=== PATIENT | male | born 1940 | race Caucasian/White ===

== ENCOUNTER → 2019-02-26 08:05 | Outpatient (BNVA) | payer MEDICARE, SELFPAY | PROVIDERS: Family Provider Family Medicine; PCP Family Medicine; Visit Provider Internal Medicine Cardiovascular Disease | DX: I48.91 Unspecified atrial fibrillation (principal) | CPT/HCPCS: 85610 ==

== ENCOUNTER → 2019-03-08 08:24 | Outpatient (BNVA) | payer MEDICARE, SELFPAY | PROVIDERS: Family Provider Family Medicine; PCP Family Medicine; Visit Provider Internal Medicine Cardiovascular Disease | DX: I48.91 Unspecified atrial fibrillation (principal) | CPT/HCPCS: 85610 ==

== ENCOUNTER → 2019-03-23 08:32 | Outpatient (BNVA) | payer MEDICARE, SELFPAY | PROVIDERS: Family Provider Family Medicine; PCP Family Medicine; Visit Provider Internal Medicine Cardiovascular Disease | DX: I48.91 Unspecified atrial fibrillation (principal) | CPT/HCPCS: 85610 ==

== ENCOUNTER → 2019-04-17 15:28 | Outpatient (BNVA) | payer MEDICARE, SELFPAY | PROVIDERS: Family Provider Family Medicine; PCP Family Medicine; Visit Provider Internal Medicine Cardiovascular Disease | DX: I48.91 Unspecified atrial fibrillation (principal); Z79.01 Long term (current) use of anticoagulants | CPT/HCPCS: 85610 ==

== ENCOUNTER 2019-04-19 04:35 | Emergency (ER) | payer MEDICARE, SELFPAY ==
[2019-04-19 05:25] VITALS: BP 135/74; PULSE 103; RESP 18; TEMP 36.7; O2SAT 94; BMI 34.2
--- NOTE | 2019-04-19 06:01 | CTR_ITS ---
PROCEDURE INFORMATION: Exam: CT Abdomen And Pelvis Without Contrast Exam date and time: 04/19/2019 7:19 AM Age: 78 years old Clinical indication: Abdominal pain; Acute; Additional info: Abdominal pain TECHNIQUE: Imaging protocol: Computed tomography of the abdomen and pelvis without contrast. Total DLP: 1081.18 mGy-cm Radiation optimization: All CT scans at this facility use at least one of these dose optimization techniques: automated exposure control; mA and/or kV adjustment per patient size (includes targeted exams where dose is matched to clinical indication); or iterative reconstruction. COMPARISON: CT Chest/Abdomen/Pelvis wo IV 01/04/2017 12:38 PM FINDINGS: Lungs: RIGHT posterior pulmonary partial passive atelectasis. Pleural space: Large RIGHT pleural effusion. Minimal LEFT pleural effusion. Heart: Small pericardial effusion. Liver: Normal. No mass. Gallbladder and bile ducts: Normal. No calcified stones. No ductal dilation. Pancreas: Severe pancreatic atrophy. Spleen: The spleen demonstrates a few small granulomatous calcifications. Adrenals: Normal. No mass. Kidneys and ureters: Posterior left mid renal exophytic 3.3 cm lesion measuring 26.8 Hounsfield units, previously 3.5 cm and 11.7 Hounsfield units. Additional left renal lower pole 2.4 cm exophytic probable cyst, stable. Additional 9.7 mm left renal hypodensity. Impression Stomach and bowel: A small periampullary duodenal diverticulum is present. Sigmoid, descending and distal transverse colonic diverticula are present without evidence of diverticulitis. Appendix: The vermiform appendix is normal. Intraperitoneal space: Nonspecific mild pelvic peritoneal fluid (13.7-17.5 Hounsfield units). Decreased, mild perihepatic peritoneal fluid. Vasculature: Moderate aortic atherosclerotic calcification without aneurysm. The iliac arteries show moderate bilateral atherosclerotic calcifications without evidence of aneurysm. Lymph nodes: No enlarged lymph nodes. Bladder: Unremarkable as visualized. Reproductive: The prostate gland demonstrates nonspecific parenchymal calcifications. Bones/joints: Posterior exostosis lateral left iliac wing, stable. Lumbar spine vertebral body marginal osteophytes are noted at multiple levels. Multilevel mild lumbar spine spondylosis. Soft tissues: Unremarkable. CT/CT abdomen pelvis wo con [id number] IMPRESSION: 1. Probable left renal hemorrhagic cyst. Correlation with sonography or follow-up is recommended. 2. Additional left renal probable cysts. 3. Diverticulosis. 4. Decreased ascites. 5. Chronic calcific prostatitis. 6. Small pericardial effusion. 7. Large right pleural effusion, stable/decreased. 8. Minimal left pleural effusion, stable. Radiation Dose CTDIVOL = (mGy): DLP = 1081.18 (mGy-cm)
[2019-04-19 06:33] VITALS: BP 144/94; PULSE 104; O2SAT 94
[2019-04-19 06:34] LABS: Basophils % 0.6 %; Eosinophils % 0.6 %; Hematocrit 31.7 % (42.0-52.0); Hemoglobin 8.8 g/dL (11.7-16.6); Lymphocytes # 1.1 10^3/uL (0.8-4.8); Lymphocytes % 16.4 %; Mean Corpuscular HGB Conc 27.8 g/dL (30.0-36.0); Mean Corpuscular Hemoglobin 24.6 pg (28.0-34.0); Mean Corpuscular Volume 88.8 fL (80-94); Mean Platelet Volume 10.2 fL (7.4-10.4); Monocytes % 14.2 %; Neutrophils # 4.6 10^3/uL (1.8-7.7); Neutrophils % 67.8 %; Nucleated Red Blood Cells % 0.4 %; Platelet Count 188 10^3/cmm (130-400); Red Blood Count 3.57 10^6/uL (4.1-5.3); White Blood Count 6.8 10^3/uL (4.0-10.0)
[2019-04-19 06:34] LABS: Protein Urine Trace (Negative); Specific Gravity, Urine 1.015 (1.005-1.030); Urine Appearance Clear (CLEAR); Urine Color Yellow (Yellow); pH Urine 5 (5-7)
[2019-04-19 06:35] LABS: Add Urine Culture? No; Add Urine Microscopic? YES; Bacteria Urine TRACE; Bilirubin Urine Neg (NEGATIVE); Blood Urine Neg (Negative); Glucose Urine UA Norm (Normal); Ketones Urine Negative (Negative); Leukocyte Esterase Urine Negative (Negative); Nitrate Urine Negative (Negative); Squamous Epithelial Cell Urine RARE (0-5); Urobilinogen Urine 1 mg/dL (Negative); WBC Urine RARE /hpf (0-5)
--- NOTE | 2019-04-19 06:39 | W.ED.ABDPA2 ---
HPI - Abdominal Pain General: Chief Complaint: Abdominal Pain Stated Complaint: SHORTNESS OF BREATH Time Seen by Provider: 04/19/19 05:51 History of Present Illness: HPI narrative: 78-year-old male presents with chronic abdominal pain states he feels bloated and full he feels he has a fluid buildup in his abdomen he states he has had this before but he has not had surgery. He denies any shortness of breath no orthopnea or PND denies fever sweats or chills has had a loose stool but no chronic diarrhea denies hematochezia melena hematemesis or coffee-ground emesis Associated Symptoms: Denies bloating, chills, coffee ground emesis, constipation, diarrhea, dysuria, fever(s), hematochezia, hematemesis, melena, nausea and vomiting Review of Systems Const: Denies: fever, chills, body aches, change in appetite, fatigue or malaise ENMT: Denies: throat pain, ear pain, nasal discharge or nasal congestion Card: Denies: chest pain, edema, shortness of breath on exertion or shortness of breath when lying down Resp: Denies: shortness of breath, productive cough or non-productive cough GI: Denies: abdominal pain, nausea, vomiting, vomiting blood, coffee grounds in vomit, diarrhea, constipation, bloating, blood in stool or black tarry stool : Denies: flank pain, painful urination, urinary frequency or urinary urgency Skin/Breast: Denies: rash or itching PFSH ED PFSH: Social History Smoking and tobacco status: never smoked Alcohol intake: never Physical Exam Const: COMMON NORMALS: no apparent distress GENERAL APPEARANCE: cooperative and comfortable ORIENTATION/CONSCIOUSNESS: Yes awake, Yes oriented to person, Yes oriented to place and Yes oriented to time HENMT: COMMON NORMALS: normocephalic, head/scalp atraumatic, hearing grossly normal bilaterally, external ears normal, EAC's normal, TM's normal bilaterally, nasal mucous membranes and turbinates normal, moist oral mucous membranes and oropharynx normal HEAD & SCALP: normocephalic and atraumatic NOSE: nasal mucous membranes and turbinates normal EXTERNAL EAR: Yes external ears normal EXTERNAL AUDITORY CANAL: EAC's normal TYMPANIC MEMBRANE: TM's normal bilaterally Eye: COMMON NORMALS: PERRL, EOMs intact bilaterally, conjunctivae normal and no scleral icterus CONJUNCTIVA: Yes conjunctivae normal PUPIL: Yes PERRL Neck/C-Spine: COMMON NORMALS: full ROM, no lymphadenopathy, supple and no JVD Lymph: LYMPHATIC: no lymphadenopathy noted and no lymphedema noted Resp: AUSCULTATION: rales (Mild bilaterally at the bases), no wheezes and diminished lung sounds (Right base) Cardio: COMMON NORMALS: no JVD, regular rate, regular rhythm and no murmurs RATE: regular rate RHYTHM: regular rhythm GI: COMMON NORMALS: soft to palpation and no hepatosplenomegaly AUSCULTATION: Yes normoactive bowel sounds PALPATION: Yes soft, No tender, No guarding and Yes no hepatosplenomegaly Extremity: COMMON NORMALS: normal to inspection, normal capillary refill, no clubbing, cyanosis or edema, no calf tenderness and no pedal edema Neuro: SENSORIUM/ORIENTATION: Yes oriented to person, Yes oriented to place and Yes oriented to time Skin: COMMON NORMALS: no rashes or lesions noted GENERAL SKIN EXAM: no rashes or lesions noted Course ED course: Discussed findings the patient most of these things are chronic. He is oxygenating well we will get a good discharge him home we will set him up to see Dr. Bryant tomorrow. If he has any worsening problems or change in symptoms return to emergency room immediately Vital Signs: Vital signs: Vital Signs Temperature 98.1 F 04/19/19 05:25 Pulse Rate 97 04/19/19 10:05 Respiratory Rate 16 04/19/19 10:05 Blood Pressure 129/82 04/19/19 10:05 Pulse Oximetry 96 04/19/19 10:05 MDM - Abdominal Pain Lab Data: Labs: Lab Results 04/19/19 04/19/19 04/19/19 Range/Units 05:33 06:26 06:26 WBC 6.8 (4.0-10.0) 10^3/ uL RBC 3.57 L (4.1-5.3) 10^6/u L Hgb 8.8 L (11.7-16.6) g/dL Hct 31.7 L (42.0-52.0) % MCV 88.8 (80-94) fL MCH 24.6 L (28.0-34.0) pg MCHC 27.8 L (30.0-36.0) g/dL RDW 17.0 H (12.1-15.1) % Plt Count 188 (130-400) 10^3/c mm MPV 10.2 (7.4-10.4) fL Neut % (Auto) 67.8 % Lymph % (Auto) 16.4 % [place] % (Auto) 14.2 % Eos % (Auto) 0.6 % Baso % (Auto) 0.6 % Neut # (Auto) 4.6 (1.8-7.7) 10^3/u L Lymph # (Auto) 1.1 (0.8-4.8) 10^3/u L [place] # (Auto) 1.0 H (0.2-0.9) 10^3/u L Eos # (Auto) 0.0 (0.0-0.8) 10^3/u L Baso # (Auto) 0.0 (0.0-0.1) 10^3/u L Nucleated RBC % (a uto) 0.4 % Nucleated RBCs # 0.0 /100WBC PT (10.5-13.3) SECO NDS INR (0.8-1.2) Sodium 141 (136-145) mmol/L Potassium 4.9 (3.5-5.1) mmol/L Chloride 101 (98-107) mmol/L Carbon Dioxide 25 (22-29) mmol/L Anion Gap 19.9 H (5-19) BUN 41 H (8-23) mg/dL Creatinine 2.5 H (0.7-1.2) mg/dL Glucose 100 (65-115) mg/dL Calcium 9.5 (8.5-10.5) mg/dL Total Bilirubin 1.8 H (0.15-1.2) mg/dL AST 40 (0-40) U/L ALT 15 (0-41) U/L Alkaline Phosphata se 99 (40-130) IU/L Total Protein 7.5 (6.6-8.7) g/dL Albumin 3.4 L (3.5-5.2) g/dL Globulin 4.1 (1.3-4.6) g/dL Lipase 23 (13-60) U/L Urine Color Yellow (Yellow) Urine Appearance Clear (CLEAR) Urine pH 5 (5-7) Ur Specific Gravit y 1.015 (1.005-1.030) Urine Protein Trace (Negative) Urine Glucose (UA) Norm (Normal) Urine Ketones Negative (Negative) Urine Blood Neg (Negative) Urine Nitrate Negative (Negative) Urine Bilirubin Neg (NEGATIVE) Urine Urobilinogen 1 H (Negative) mg/dL Ur Leukocyte Ale ase Negative (Negative) Urine RBC None (0-2) /hpf Urine WBC Rare (0-5) /hpf Ur Squamous Epith Cells Rare (0-5) Urine Bacteria Trace (NONE) 04/19/19 Range/Units 06:26 WBC (4.0-10.0) 10^3/ uL RBC (4.1-5.3) 10^6/u L Hgb (11.7-16.6) g/dL Hct (42.0-52.0) % MCV (80-94) fL MCH (28.0-34.0) pg MCHC (30.0-36.0) g/dL RDW (12.1-15.1) % Plt Count (130-400) 10^3/c mm MPV (7.4-10.4) fL Neut % (Auto) % Lymph % (Auto) % [place] % (Auto) % Eos % (Auto) % Baso % (Auto) % Neut # (Auto) (1.8-7.7) 10^3/u L Lymph # (Auto) (0.8-4.8) 10^3/u L [place] # (Auto) (0.2-0.9) 10^3/u L Eos # (Auto) (0.0-0.8) 10^3/u L Baso # (Auto) (0.0-0.1) 10^3/u L Nucleated RBC % (a uto) % Nucleated RBCs # /100WBC PT 18.50 H (10.5-13.3) SECO NDS INR 1.53 H (0.8-1.2) Sodium (136-145) mmol/L Potassium (3.5-5.1) mmol/L Chloride (98-107) mmol/L Carbon Dioxide (22-29) mmol/L Anion Gap (5-19) BUN (8-23) mg/dL Creatinine (0.7-1.2) mg/dL Glucose (65-115) mg/dL Calcium (8.5-10.5) mg/dL Total Bilirubin (0.15-1.2) mg/dL AST (0-40) U/L ALT (0-41) U/L Alkaline Phosphata se (40-130) IU/L Total Protein (6.6-8.7) g/dL Albumin (3.5-5.2) g/dL Globulin (1.3-4.6) g/dL Lipase (13-60) U/L Urine Color (Yellow) Urine Appearance (CLEAR) Urine pH (5-7) Ur Specific Gravit y (1.005-1.030) Urine Protein (Negative) Urine Glucose (UA) (Normal) Urine Ketones (Negative) Urine Blood (Negative) Urine Nitrate (Negative) Urine Bilirubin (NEGATIVE) Urine Urobilinogen (Negative) mg/dL Ur Leukocyte Ale ase (Negative) Urine RBC (0-2) /hpf Urine WBC (0-5) /hpf Ur Squamous Epith Cells (0-5) Urine Bacteria (NONE) Discharge Plan Discharge Patient Disposition: Home, Self-Care Clinical Impression: Renal failure (ARF), acute on chronic, Pleural effusion on right Condition: Stable Prescriptions: Discontinued furosemide 80 mg tablet 80 mg PO QAM Qty: 30 RF: 5 spironolactone 25 mg tablet 12.5 mg PO DAILY RF: 0 No Action warfarin 2.5 mg tablet See Rx Instructions .ROUTE .COMPLEX RF: 0 warfarin 5 mg tablet See Rx Instructions .ROUTE .COMPLEX RF: 0 multivitamin [Multiple Vitamins] Tablet 1 tab PO DAILY RF: 0 carvedilol 3.125 mg tablet 3.125 mg PO BID RF: 0 ibuprofen 200 mg Tablet 200 mg PO BEDTIME PRN (Reason: Pain) RF: 0 potassium chloride 10 mEq tablet,ER particles/crystals 10 meq PO DAILY RF: 0 Discharge Orders: Discharge Order (Routine); Ordered 04/19/19 Ordered By: Mckinley Aden Other Ambulatory Orders: DME: Oxygen (Order) Location: None Selected Ordered By: Mckinley Aden Referrals: Adriel Bryant MD [Physician] - (Right pleural effusion, acute on chronic renal failure) Discharge Diet: Usual diet Discharge Activity: Limit activity as instructed Activity Restrictions/Additional Instructions: This management will call with referral to Dr. Bryant Discharge Date/Time: 04/19/19 10:06 Coding Level of Care Code ED Obstetrics Specialist for Tamara Wheeler
[2019-04-19 06:51] LABS: Alanine Aminotransferase 15 U/L (0-41); Albumin Level 3.4 g/dL (3.5-5.2); Alkaline Phosphatase 99 IU/L (40-130); Anion Gap 19.9 (5-19); Aspartate Amino Transferase 40 U/L (0-40); Blood Urea Nitrogen 41 mg/dL (8-23); Calcium 9.5 mg/dL (8.5-10.5); Carbon Dioxide 25 mmol/L (22-29); Chloride 101 mmol/L (98-107); Globulin 4.1 g/dL (1.3-4.6); Glucose 100 mg/dL (65-115); Lipase 23 U/L (13-60); Potassium 4.9 mmol/L (3.5-5.1); Sodium 141 mmol/L (136-145); Total Bilirubin 1.8 mg/dL (0.15-1.2); Total Protein 7.5 g/dL (6.6-8.7)
--- NOTE | 2019-04-19 07:32 | XR_ITS ---
WS: [id number] Portable AP upright chest, 04/19/2019 Clinical Data: dyspnea/cough Comparison: PA and lateral chest, 11/09/2017. CT abdomen and pelvis, 04/19/2019 Findings: No nodules or masses are seen. There is a right basilar effusion. The left lung is clear. T he heart is enlarged. The pulmonary vascularity is not increased. No pneumonia or pneumothorax is see n. The aortic arch and descending aorta show tortuosity. There is a orthopedic anchor in the left hu meral head. XR/XR chest 1V portable [id number] Impression: 1. Cardiomegaly and right pleural effusion. 2. Atherosclerosis.
[2019-04-19] MEDS: sodium chloride 0.9% 1,000 ML 999 ML IV (07:42)
--- NOTE | 2019-04-19 07:44 | PC.NURSE ---
changed fluids to 125 ml/hr per MD order from dr lemus
--- NOTE | 2019-04-19 08:52 | PC.PHAR ---
pt states he cant remember all of his medications, i put in what has been filled recently
[2019-04-19 09:29] VITALS: O2SAT 88; O2SAT 95; O2SAT 96
[2019-04-19 09:46] LABS: INR 1.53 (0.8-1.2)
[2019-04-19 10:05] VITALS: BP 129/82; PULSE 97; RESP 16; O2SAT 96
--- NOTE | 2019-04-20 09:47 | DCPLANNER ---
integrated campaign manager had message to schedule a follow up appointment for patient with Dr. Bryant at [facility]. integrated campaign manager called [facility], spoke with Alicia, a follow up appointment is scheduled for , May 10, [address] at 1:[address] Bryant. Clinic will call patient with appointment melissa.
--- NOTE | 2019-05-18 09:15 | DCPLANNER ---
Patient did attend appointment scheduled for 05.10.19 with [facility].
== END 2019-04-19 10:06 | disposition home or self-care (01) ==
PROVIDERS: Emergency Medicine; Emergency Provider Family Medicine; Family Provider Family Medicine; PCP Family Medicine
DX: J90 Pleural effusion, not elsewhere classified (principal); N17.9 Acute kidney failure, unspecified; N18.9 Chronic kidney disease, unspecified; K57.30 Diverticulosis of large intestine without perforation or abscess without bleeding; R18.8 Other ascites; N41.1 Chronic prostatitis; I31.3 Pericardial effusion (noninflammatory); I51.7 Cardiomegaly; I70.0 Atherosclerosis of aorta
CPT/HCPCS: 36415; 71045; 74176; 80053; 81001; 83690; 85025; 85610; 96360; 96361; 96365; 99283; 99284; A9270; J7030

== ENCOUNTER → 2019-04-20 06:40 | Day surgery (SDC) | payer MEDICARE, SELFPAY ==
[2019-04-20 07:00] VITALS: BP 127/89; PULSE 104; RESP 16; TEMP 36.6; O2SAT 98; BMI 23.6
[2019-04-20 07:41] LABS: INR 1.53 (0.8-1.2)
[2019-04-20 07:42] LABS: Partial Thromboplastin Time 38.1 SECONDS (23.9-36.7)
--- NOTE | 2019-04-20 09:01 | XR_ITS ---
WS: [id number] CHEST XRAY TECHNIQUE: Portable chest. CLINICAL INFORMATION: POST THORACENTESIS COMPARISON: April 19, 2019 FINDINGS: Heart: Cardiomegaly. Prominent left ventricle. Lungs: Chronic emphysematous changes. No acute pulmonary infiltrates. No pneumothorax. No significant pleural fluid. Bones: Hypertrophic changes thoracic spine. Left rotator cuff anchor. XR/XR chest 1V portable [id number] IMPRESSION: No pneumothorax postthoracentesis
[2019-04-20 09:06] VITALS: BP 130/91; PULSE 104; RESP 16; O2SAT 100
--- NOTE | 2019-04-20 09:28 | PM.HP ---
Providers/Chief Complaint Primary Care Provider: Dax Jordan DO Chief Complaint: THORACENTESIS History of Present Illness Lele Talavera is a 78 year old male with a history of congestive heart failure and atrial fibrillation who presented to the emergency department yesterday with worsening shortness of breath. The patient was noted to desaturate very easily and was given oxygen. A chest x-ray at that time revealed right-sided pleural effusion has discussed his care with the ED physician. The plan was for him to come see me today and get a thoracentesis if necessary. I had seen and evaluated the patient today. It appears that the patient is completely unaware of his medical conditions. He is unable to tell me what medications he takes. He lost his 3 years ago and states that he misses her. His niece takes care of his medications. The patient has intermittent cough with white sputum production, no significant wheezing. He is a lifelong non-smoker. The patient does not complain of any significant resting shortness of breath however he does have exertional shortness of breath and states that that is because of his age. I have reviewed the patient's past medical record. The patient has been following up with Dr. Snow for his cardiology problems however it appears that the patient has not been taking his diuretic regimen as suggested to him in the past. He had undergone 3 thoracenteses in the past as well and a significant amount of fluid was removed. 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 There is also moderate size right-sided pleural effusion without any sign of complexity. He ejection fraction was significantly diminished. Review of Systems Narrative: General: No fevers chills night sweats Skin: No rash HEENT: No nasal congestion, rhinitis, sinusitis, sneezing, hoarseness of voice. Neck: There is no neck swelling, mass or swollen glands. Respiratory: Please see my HPI. Cardiovascular: No chest pain, resting shortness of breath, orthopnea, proximal nocturnal dyspnea, palpitation, occasional lower extremity edema. Gastrointestinal: No active abdominal pain, nausea, vomiting, melena Musculoskeletal: No joint pain or swelling, muscle weakness, morning stiffness, complains of some numbness and tingling in his lip and right foot Neurological: Patient is awake alert and oriented x3, no paralysis, no gross motor deficit Psychiatric: No anxiety Medications/Allergies Allergies Allergy/AdvReac Type Severity Reaction Status Date / Time Penicillins Allergy Unknown Unverified 02/26/19 08:03 PFSH Acute PFSH: Medical History Atrial fibrillation CHF (congestive heart failure) CKD (chronic kidney disease) HTN (hypertension) Hx pulmonary embolism Liver cirrhosis Mediastinal lymphadenopathy Mitral regurgitation Pulmonary HTN Surgical History S/P hernia repair x2 S/P rotator cuff repair Left S/P thoracentesis (~07/07/17) right sided 2000ml removed Family History Other Stroke Social History Smoking and tobacco status: never smoked Alcohol intake: never Vitals/I&O/Wt Last Vital Signs Temp 97.8 F 04/20/19 07:00 Pulse 104 H 04/20/19 09:06 Resp 16 04/20/19 09:06 BP 130/91 04/20/19 09:06 Pulse Ox 100 04/20/19 09:06 Weight last 48 hrs Weight 160 lb Physical Exam Narrative: EXAM NARRATIVE: General: Patient is awake alert and oriented, in no distress. HEENT: Pupil bilateral symmetric, light and accommodation reflex present, extraocular muscle movement intact, no deformity of the nose. Oral mucosa is moist, no pharyngeal erythema or cobblestoning. Neck: Positive JVD, no cervical or supraclavicular lymphadenopathy. Respiratory: Inspection: No visible deformity of the chest wall, no scar, no mass lesion, no visible heaving of the apical impulse Palpation: Trachea is mildly deviated to the right, bilateral symmetric expansion, reduced vocal fremitus in the right lower lung posteriorly Percussion: Dull percussion note over the right posterior hemithorax Auscultation: Bilateral clear to auscultation both anterior and posteriorly, no crackles wheezing or rhonchi, absent breath sound over the right posterior hemithorax Cardiovascular: Regular rate and rhythm, S1-S2 present, very soft heart sound, no murmur, no right ventricular heave, mild peripheral edema. Abdomen: Soft, nontender, mildly distended, positive bowel sound. No palpable organomegaly. Musculoskeletal: No obvious joint deformity Skin: No rash, no evidence of erythema nodosum or multiforme. Neuro: Mental status is normal however the patient has no idea about his care, no gross cranial nerve deficit, normal motor and coordination. Data Other data: The chest x-ray in the ER yesterday revealed subarachnoid noted pleural effusion on the right side, increased interstitial opacity as well as prominent minor fissure on the right side. As described above, the bedside ultrasound revealed moderate sized right-sided pleural effusion. A&P Assessment and plan (1) Pleural effusion on right: Based on the patient's history of heart failure, presence of IVC dilation with retrograde flow into the hepatic vein and right-sided pleural effusion, this is consistent with pleural effusion secondary to heart failure. I do not have any suspicion for an empyema. I am going to perform a thoracentesis chest to relieve the patient of his shortness of breath as much as possible as he is not taking his water pill the way he should. The patient follows up with Dr. Rubalcava and does not need to follow-up with me on a regular basis. I am going to send the pleural fluid for all studies. 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
--- NOTE | 2019-04-20 09:39 | PM.ACPR ---
Procedure/Consent Time out: Time Out Performed: Yes Consent: Consent for Procedure: Consent obtained from patient Procedure Narrative: Name of the procedure: Right thoracentesis under ultrasound guidance. Indication: Shortness of breath with right-sided pleural effusion in the setting of congestive heart failure Anesthetics: Local anesthesia with 1% lidocaine. IV pain medication: None. Description of the procedure: The procedure was explained to the patient in detail including the risks and a consent was obtained. The right hemithorax was scanned with ultrasound to find a safe fluid pocket. Free-flowing fluid was noted in the right hemithorax, there was no fibrinous stranding, septations or loculations. There is no hematocrit sign. Following identification of the fluid pocket the site was marked. The site was cleaned using sterile technique. Lidocaine 1% was injected into the skin and the subcutaneous tissue. Subsequently, the periosteum in the pleural space was also anesthetized using lidocaine. The pleural space was entered in the posterior axillary line in right sixth intercostal space. A straw-colored fluid was aspirated. 850 cc of fluid was aspirated. The fluid was sent for cell count and differential, Gram stain and culture, a baseline culture, fungal stain and culture, pH, albumin, protein, LDH and cytology. Postprocedure chest x-ray showed complete resolution of the right-sided effusion. Acute Procedures Epistaxis Control: Time out performed: Yes
[2019-04-20 09:46] LABS: Mononuclear, Pleural Fluid # 0.112 10^3/uL
[2019-04-20 10:23] LABS: LDH Pleural Fluid 89 U/L; Pleural Fluid Albumin 0.9 g/dL; Total Protein Pleural Fluid 1.6 g/dL
[2019-04-20 14:56] LABS: Appearance, Pleural Fluid CLEAR (CLEAR); Color, Pleural Fluid Pale Yellow (Pale Yellow); Mononuclear %, Pleural Fluid 70 %; Polynuclear Cells, Pleural % 30 %
[2019-04-20 15:40] LABS: Right Pleural Fluid Right Lung
== END ==
PROVIDERS: Family Provider Family Medicine; PCP Family Medicine; Visit Provider Internal Medicine Critical Care Medicine
DX: J90 Pleural effusion, not elsewhere classified (principal)
CPT/HCPCS: 12345; 32555; 36415; 71045; 80500; 82042; 82945; 83615; 83986; 84157; 85610; 85730; 87015; 87070; 87075; 87116; 87205; 87206; 87801; 88112; 88305; 89050; J2704

== ENCOUNTER → 2019-04-26 08:13 | Outpatient (BNVA) | payer MEDICARE, SELFPAY | PROVIDERS: Family Provider Family Medicine; PCP Family Medicine; Visit Provider Internal Medicine Cardiovascular Disease | DX: I48.91 Unspecified atrial fibrillation (principal) | CPT/HCPCS: 85610 ==

== ENCOUNTER → 2019-05-03 08:27 | Outpatient (BNVA) | payer MEDICARE, SELFPAY | PROVIDERS: Family Provider Family Medicine; PCP Family Medicine; Visit Provider Internal Medicine Cardiovascular Disease | DX: I48.91 Unspecified atrial fibrillation (principal); I50.9 Heart failure, unspecified | CPT/HCPCS: 80048; 83880; 85610 ==

== ENCOUNTER 2019-05-05 14:10 | Inpatient (IN) | payer MEDICARE, SELFPAY ==
[2019-05-05] VITALS (10 sets, daily range): BP systolic 103–129; BP diastolic 64–77; PULSE 98–109; RESP 18–32; TEMP 36.7–37.4; O2SAT 97–100; BMI 22.6
--- NOTE | 2019-05-05 15:37 | ED_ITS ---
Entered by Jyothi Montana, acting as scribe for Mckinley Aden DO May 05, 2019 14:10 HPI - General Adult General: Chief complaint: General Medical Stated complaint: bloody stool Time Seen by Provider: 05/05/19 15:39 History of Present Illness: HPI narrative: 78yo male presents with bloody stools. He started having black stools and diarrhea lastnight. He denies any bright red blood or clots. Patient denies any hematemesis. No chest pain he is on Coumadin. Associated symptoms: Reports cough and dyspnea; Deny chest pain, malaise, nausea, rash or vomiting Review of Systems Const: Denies: fever, chills, body aches, change in appetite, fatigue or m alaise ENMT: Denies: throat pain, ear pain, nasal discharge or nasal congestion Card: Denies: chest pain, edema, shortness of breath on exertion or shortness of breath when lying down Resp: Reports: shortness of breath; Denies: productive cough or non-productive cough GI: Reports: diarrhea, change in stool character and black tarry stool; Denies: abdominal pain, nausea, vomiting, vomiting blood, coffee grounds in vomit, constipation, bloating or blood in stool : Denies: flank pain, painful urination, urinary frequency or urinary urgency Skin/Breast: Denies: rash or itching PFSH ED PFSH: Medical History Acute blood loss anemia Atrial fibrillation CHF (congestive heart failure) CKD (chronic kidney disease) HTN (hypertension) Hx pulmonary embolism Liver cirrhosis Mediastinal lymphadenopathy Mitral regurgitation Pulmonary HTN Upper GI bleed Surgical History H/O esophagogastroduodenoscopy S/P hernia repair x2 S/P rotator cuff repair Left S/P thoracentesis (~07/07/17) right sided 2000ml removed Family History Other Stroke Social History Smoking and tobacco status: never smoked Alcohol intake: never Physical Exam Const: COMMON NORMALS: no apparent distress GENERAL APPEARANCE: cooperative and comfortable ORIENTATION/CONSCIOUSNESS: Yes awake, Yes oriented to person, Yes oriented to place and Yes oriented to time HENMT: COMMON NORMALS: normocephalic, head/scalp atraumatic, hearing grossly normal bilaterally, external ears normal, EAC's normal, TM's normal bilaterally, nasal mucous membranes and turbinates normal, moist oral mucous membranes and oropharynx normal HEAD & SCALP: normocephalic and atraumatic NOSE: nasal mucous membranes and turbinates normal EXTERNAL EAR: Yes external ears normal EXTERNAL AUDITORY CANAL: EAC's normal TYMPANIC MEMBRANE: TM's normal bilaterally Eye: COMMON NORMALS: PERRL, EOMs intact bilaterally, conjunctivae normal and no scleral icterus CONJUNCTIVA: Yes conjunctivae normal PUPIL: Yes PERRL Neck/C-Spine: COMMON NORMALS: full ROM, no lymphadenopathy, supple and no JVD Lymph: LYMPHATIC: no lymphadenopathy noted and no lymphedema noted Resp: COMMON NORMALS: normal respiratory effort, no retractions, no use of accessory muscles and clear to auscultation bilaterally AUSCULTATION: clear to auscultation bilaterally Cardio: COMMON NORMALS: no JVD, regular rate, regular rhythm and no murmurs RATE: regular rate RHYTHM: regular rhythm GI: COMMON NORMALS: soft to palpation and no hepatosplenomegaly AUSCULTATION: Yes normoactive bowel sounds PALPATION: Yes soft, No tender, No guarding and Yes no hepatosplenomegaly Extremity: COMMON NORMALS: normal to inspection, normal capillary refill, no clubbing, cyanosis or edema, no calf tenderness and no pedal edema Neuro: SENSORIUM/ORIENTATION: Yes oriented to person, Yes oriented to place and Yes oriented to time Skin: COMMON NORMALS: no rashes or lesions noted GENERAL SKIN EXAM: no muriel hes or lesions noted Course ED course: Patient acutely anemic with upper GI bleed. He is on Coumadin we will give a 5 [address] dose [address] Dr. Acosta and will admit. Vital Signs: Vital signs: Vital Signs Temperature 98.0 F 05/07/19 20:00 Pulse Rate 92 05/07/19 20:00 Respiratory Rate 18 05/07/19 20:00 Blood Pressure 102/63 05/07/19 20:00 Pulse Oximetry 98 05/07/19 20:00 [facility] - General Adult Lab Data: Labs: Lab Results 05/05/19 05/05/19 05/05/19 Range/Units 15:22 16:23 16:23 WBC 8.7 (4.0-10.0) 10^3/ uL RBC 2.71 L (4.1-5.3) 10^6/u L Hgb 6.5 L* (11.7-16.6) g/dL Hct 24.0 L (42.0-52.0) % MCV 88.6 (80-94) fL MCH 24.0 L (28.0-34.0) pg MCHC 27.1 L (30.0-36.0) g/dL RDW 18.6 H (12.1-15.1) % Plt Count 242 (130-400) 10^3/c mm MPV 9.8 (7.4-10.4) fL Neut % (Auto) 68.8 % Lymph % (Auto) 17.2 % Donley % (Auto) 12.3 % Eos % (Auto) 0.3 % Baso % (Auto) 0.8 % Neut # (Auto) 6.0 (1.8-7.7) 10^3/u L Lymph # (Auto) 1.5 (0.8-4.8) 10^3/u L Donley # (Auto) 1.1 H (0.2-0.9) 10^3/u L Eos # (Auto) 0.0 (0.0-0.8) 10^3/u L Baso # (Auto) 0.1 (0.0-0.1) 10^3/u L Nucleated RBC % (a uto) 0.2 % Nucleated RBCs # 0.0 /100WBC PT (10.5-13.3) SECO NDS INR (0.8-1.2) Sodium 137 (136-145) mmol/L Potassium 5.0 (3.5-5.1) mmol/L Chloride 103 (98-107) mmol/L Carbon Dioxide 22 (22-29) mmol/L Anion Gap 17.0 (5-19) BUN 55 H (8-23) mg/dL Creatinine 1.9 H (0.7-1.2) mg/dL Glucose 109 (65-115) mg/dL Calculated Osmolal ity 283 L (285-295) mOsm/k g Calcium 9.2 (8.5-10.5) mg/dL Total Bilirubin 1.5 H (0.15-1.2) mg/dL AST 29 (0-40) U/L ALT 13 (0-41) U/L Alkaline Phosphata se 81 (40-130) IU/L Total Protein 6.5 L (6.6-8.7) g/dL Albumin 3.4 L (3.5-5.2) g/dL Globulin 3.1 (1.3-4.6) g/dL Lipase 22 (13-60) U/L Urine Color Yellow (Yellow) Urine Appearance Clear (CLEAR) Urine pH 7 (5-7) Ur Specific Gravit y 1.003 L (1.005-1.030) Urine Protein Neg (Negative) Urine Glucose (UA) Norm (Normal) Urine Ketones Negative (Negative) Urine Blood Neg (Negative) Urine Nitrate Negative (Negative) Urine Bilirubin Neg (NEGATIVE) Urine Urobilinogen 4 H (Negative) mg/dL Ur Leukocyte Ale ase Negative (Negative) Blood Type Rho(D) Type Antibody Screen Crossmatch 05/05/19 05/05/19 Range/Units 16:23 16:23 WBC (4.0-10.0) 10^3/ uL RBC (4.1-5.3) 10^6/u L Hgb (11.7-16.6) g/dL Hct (42.0-52.0) % MCV (80-94) fL MCH (28.0-34.0) pg MCHC (30.0-36.0) g/dL RDW (12.1-15.1) % Plt Count (130-400) 10^3/c mm MPV (7.4-10.4) fL Neut % (Auto) % Lymph % (Auto) % Donley % (Auto) % Eos % (Auto) % Baso % (Auto) % Neut # (Auto) (1.8-7.7) 10^3/u L Lymph # (Auto) (0.8-4.8) 10^3/u L Donley # (Auto) (0.2-0.9) 10^3/u L Eos # (Auto) (0.0-0.8) 10^3/u L Baso # (Auto) (0.0-0.1) 10^3/u L Nucleated RBC % (a uto) % Nucleated RBCs # /100WBC PT 23.10 H (10.5-13.3) SECO NDS INR 1.97 H (0.8-1.2) Sodium (136-145) mmol/L Potassium (3.5-5.1) mmol/L Chloride (98-107) mmol/L Carbon Dioxide (22-29) mmol/L Anion Gap (5-19) BUN (8-23) mg/dL Creatinine (0.7-1.2) mg/dL Glucose (65-115) mg/dL Calculated Osmolal ity (285-295) mOsm/k g Calcium (8.5-10.5) mg/dL Total Bilirubin (0.15-1.2) mg/dL AST (0-40) U/L ALT (0-41) U/L Alkaline Phosphata se (40-130) IU/L Total Protein (6.6-8.7) g/dL Albumin (3.5-5.2) g/dL Globulin (1.3-4.6) g/dL Lipase (13-60) U/L Urine Color (Yellow) Urine Appearance (CLEAR) Urine pH (5-7) Ur Specific Gravit y (1.005-1.030) Urine Protein (Negative) Urine Glucose (UA) (Normal) Urine Ketones (Negative) Urine Blood (Negative) Urine Nitrate (Negative) Urine Bilirubin (NEGATIVE) Urine Urobilinogen (Negative) mg/dL Ur Leukocyte Ale ase (Negative) Blood Type O Positive Rho(D) Type Positive Antibody Screen Negative Crossmatch See Detail Discharge Plan Discharge Patient Disposition: Admitted As Inpatient Admit Provider: Vinh Jin Clinical Impression: Acute blood loss anemia, Atrial fibrillation, CKD (chronic kidney disease), HTN (hypertension), Warfarin-induced coagulopathy Condition: Stable Interventions: ED Discharge Assessment Last Done: 05/05/19 18:23 Discharge Date/Time: 05/05/19 19:07 Coding Level of Care Code ED Laundry Assistant for Chg Fwd The documentation recorded by the Nan tolbert Bailey Leadawn, accurately reflects the service I personally performed and the decisions made by Markie alcazar Curtis L, DO May 05, 2019 14:10
--- NOTE | 2019-05-05 16:04 | XRR_ITS ---
PROCEDURE INFORMATION: Exam: XR Chest, 1 View Exam date and time: 05/05/2019 4:07 PM Age: 78 years old Clinical indication: Cough; Additional info: Dyspnea/cough TECHNIQUE: Imaging protocol: XR of the chest Views: 1 view. COMPARISON: CR XR chest 1V portable [id number] 04/20/2019 9:29 AM FINDINGS: Lungs: There is mild pulmonary vascular congestion. No focal consolidation. Pleural space: Mild interval elevation of the right hemidiaphragm. Unchanged focal eventration of the medial left hemidiaphragm. No pneumothorax. Heart/Mediastinum: Unchanged cardiomegaly. Bones/joints: Mild multilevel degenerative changes of the spine and bilateral shoulders. Surgical anchor overlies the left humeral head. XR/XR chest 1V portable [id number] IMPRESSION: 1. Mild pulmonary vascular congestion and cardiomegaly. Correlate to exclude early CHF. 2. Mild increase of right hemidiaphragm elevation, which may reflect atelectasis versus effusion.
--- NOTE | 2019-05-05 16:12 | PC.PHAR ---
PTS FAMILY STATES HE DOESNT TAKE HIS MEDICATION EVERYDAY-HE PICKS THREW AND TAKES WHAT HE WANTS
[2019-05-05 16:40] LABS: Basophils # 0.1 10^3/uL (0.0-0.1); Basophils % 0.8 %; Eosinophils % 0.3 %; Lymphocytes # 1.5 10^3/uL (0.8-4.8); Lymphocytes % 17.2 %; Mean Corpuscular HGB Conc 27.1 g/dL (30.0-36.0); Mean Corpuscular Volume 88.6 fL (80-94); Mean Platelet Volume 9.8 fL (7.4-10.4); Monocytes # 1.1 10^3/uL (0.2-0.9); Monocytes % 12.3 %; Neutrophils % 68.8 %; Nucleated Red Blood Cells % 0.2 %; Platelet Count 242 10^3/cmm (130-400); Red Blood Count 2.71 10^6/uL (4.1-5.3); Red Cell Distribution Width 18.6 % (12.1-15.1); White Blood Count 8.7 10^3/uL (4.0-10.0)
[2019-05-05 16:50] LABS: INR 1.97 (0.8-1.2)
[2019-05-05 16:50] LABS: Add Urine Microscopic? NO
[2019-05-05 16:54] LABS: Bilirubin Urine Neg (NEGATIVE); Blood Urine Neg (Negative); Glucose Urine UA Norm (Normal); Ketones Urine Negative (Negative); Leukocyte Esterase Urine Negative (Negative); Nitrate Urine Negative (Negative); Protein Urine Neg (Negative); Specific Gravity, Urine 1.003 (1.005-1.030); Urine Appearance Clear (CLEAR); Urine Color Yellow (Yellow); Urobilinogen Urine 4 mg/dL (Negative); pH Urine 7 (5-7)
[2019-05-05 16:55] LABS: Blood Urea Nitrogen 55 mg/dL (8-23); Carbon Dioxide 22 mmol/L (22-29); Chloride 103 mmol/L (98-107); Sodium 137 mmol/L (136-145)
[2019-05-05 16:56] LABS: Alanine Aminotransferase 13 U/L (0-41); Albumin Level 3.4 g/dL (3.5-5.2); Alkaline Phosphatase 81 IU/L (40-130); Aspartate Amino Transferase 29 U/L (0-40); Calcium 9.2 mg/dL (8.5-10.5); Globulin 3.1 g/dL (1.3-4.6); Glucose 109 mg/dL (65-115); Lipase 22 U/L (13-60); Osmolality Calculated 283 mOsm/kg (285-295); Total Bilirubin 1.5 mg/dL (0.15-1.2); Total Protein 6.5 g/dL (6.6-8.7)
[2019-05-05 17:01] LABS: Hemoglobin 6.5 g/dL (11.7-16.6)
--- NOTE | 2019-05-05 18:02 | PC.PHAR ---
PTS FAMILY STATES HE DOESNT TAKE HIS MEDICATION EVERYDAY-HE PICKS THREW AND TAKES WHAT HE WANTS
--- NOTE | 2019-05-05 18:08 | P.HP_ITS ---
Providers/Chief Complaint Primary Care Provider: Dax Jordan DO Chief Complaint: bloody stool History of Present Illness Lele Talavera is a 78 year old male presents to emerge department with generalized weakness as well as melanotic stools over the last 2 days. Patient is on warfarin for atrial fibrillation and was told by cardiac clinic to hold warfarin for 2 days assuming for high INR. Patient obviously has some mild underlying dementia and he stopped all his medications for 2 days. He niece who frequently takes care of patient reports that patient does not comply with his medications and frequently picks and chooses which ones to take or not. In the emergency department patient was found to have hemoglobin 6.5 and 2 units of PRBC was ordered. His INR was 1.97 and 5 mg vitamin K was ordered. He had similar episode approximately 2 years ago and at that time underwent upper endoscopy showing evidence of gastritis but otherwise no evidence of active bleeding. Apparently he was also diagnosed with pulmonary emboli and was offered to have IVC filter placement but he refused. Denies taking NSAIDs or steroids. He has history of GERD with previous history of gastric ulcer Review of Systems Const: Denies: fever or chills Eyes: Denies: change in vision ENMT: Denies: throat pain or change in hearing Card: Denies: chest pain, edema or lightheadedness Resp: Denies: shortness of breath or productive cough GI: Reports: abdominal pain (Epigastric area for the last several days and reports to be achy and at times severe with no alleviating or aggravating factors.), nausea and black tarry stool; Denies: vomiting, difficulty swallowing, diarrhea, constipation or blood in stool Musc: Denies: joint pain or joint swelling Skin/Breast: Denies: rash or redness Neuro: Denies: headache or weakness in extremities Psych: Reports: depression; Denies: suicidal ideation Endo: Denies: excessive sweating Anthony/Lymph: Denies: easy bleeding or tender lymph nodes All/Imm: Denies: throat swelling Medications/Allergies Home Medications Medication Instructions Recorded Confirmed Last Taken Type Gas-X See Rx Instructions .ROUTE .COMPLEX 05/05/19 05/05/19 Unknown History furosemide [Lasix] 80 mg PO DAILY 05/05/19 05/05/19 Unknown History lisinopril 2.5 mg PO DAILY 05/05/19 05/05/19 Unknown History spironolactone 25 mg PO DAILY 05/05/19 05/05/19 Unknown History warfarin See Rx Instructions .ROUTE .COMPLEX 05/05/19 05/05/19 Unknown History Allergies Allergy/AdvReac Type Severity Reaction Status Date / Time Penicillins Allergy Unknown Verified 05/05/19 14:28 PFSH Acute PFSH: Social History Smoking and tobacco status: never smoked Alcohol intake: never Vitals/I&O/Wt Last Vital Signs Temp 98.0 F 05/05/19 17:45 Pulse 100 05/05/19 17:45 Resp 18 05/05/19 17:45 BP 129/77 05/05/19 17:45 Pulse Ox 97 05/05/19 16:38 05/05/19 05/05/19 05/05/19 06:59 14:59 22:59 Intake Total 0 / 0 Balance 0 / 0 Weight last 48 hrs Weight 70.76 kg Physical Exam Const: COMMON NORMALS: no apparent distress, oriented x3 and alert HENMT: COMMON NORMALS: normocephalic and head/scalp atraumatic HEAD & SCALP: normocephalic and atraumatic Eye: COMMON NORMALS: EOMs intact bilaterally, conjunctivae normal and no scleral icterus CONJUNCTIVA: Yes conjunctivae normal Neck/C-Spine: COMMON NORMALS: no lymphadenopathy and no meningeal signs Lymph: LYMPHATIC: no lymphadenopathy noted Chest: COMMONS NORMALS: palpation of chest normal Resp: COMMON NORMALS: no use of accessory muscles and clear to auscultation bilaterally AUSCULTATION: clear to auscultation bilaterally Cardio: COMMON NORMALS: no murmurs RHYTHM: abnormal rhythm irregularly irregular OTHER: Trace lower extremity edema GI: COMMON NORMALS: soft to palpation and non-tender PALPATION: Yes soft RECTAL EXAM: Yes deferred : COMMON NORMALS: Yes no CVA tenderness BLADDER/KIDNEY EXAM: Yes no CVA tenderness Back/Pelvis: COMMON NORMALS: no CVA tenderness and thoracic and lumbar spine normal to inspection Extremity: COMMON NORMALS: normal to inspection and normal capillary refill Neuro: COMMON NORMALS: oriented x3 and no focal motor deficits SENSORIUM/ORIENTATION: Yes alert MENINGEAL SIGNS: Yes no meningeal signs Psych: COMMON NORMALS: mental status grossly normal, thought process normal and cooperative THOUGHT PROCESS: normal thought process OTHER: Has at least mild dementia. Skin: COMMON NORMALS: no rashes or lesions noted GENERAL SKIN EXAM: no rashes or lesions noted Data : 05/05/19 16:23 05/05/19 16:23 A&P Assessment and plan (1) Acute blood loss anemia: Status: Acute Code(s): D62 - Acute posthemorrhagic anemia (2) Upper GI bleed: Status: Acute Code(s): K92.2 - Gastrointestinal hemorrhage, unspecified (3) Warfarin-induced coagulopathy: Status: Acute Code(s): D68.32 - Hemorrhagic disorder due to extrinsic circulating anticoagulants; T45.515A - Adverse effect of anticoagulants, initial encounter (4) CHF (congestive heart failure): Status: Acute Qualifiers: Heart failure type: combined systolic and diastolic Heart failure chronicity: acute on chronic Qualified Code(s): I50.43 - Acute on chronic combined systolic (congestive) and diastolic (congestive) heart failure Code(s): I50.9 - Heart failure, unspecified (5) Atrial fibrillation: Status: Acute Qualifiers: Atrial fibrillation type: other persistent Qualified Code(s): I48.19 - Other persistent atrial fibrillation Code(s): I48.91 - Unspecified atrial fibrillation Additional A&P Information PLAN: Continue with blood transfusion and close monitoring. Check CBC and CMP in a.m. Start high-dose PPI If hemoglobin remains stable we will plan for upper endoscopy and colonoscopy on Tuesday unless patient shows evidence of acute bleeding requiring procedure to be done urgently. Risks and benefits of anticoagulation were discussed with patient and niece at bedside. He understands potential for stroke without being anticoagulated and agrees to proceed. Hold diuretic and fluids for now and closely monitor vitals. We should consider starting patient on Eliquis once stabilized at the low dose. Attestations Medical Necessity Statement*: Patient with GI bleed requires close inpatient monitoring, treatment and evaluation. I expect patient will require more than 2 midnights. Coding Level of Care Code Acute Highway Construction Inspector for Tamara Fwankush Diagnoses Acute blood loss anemia D62 Upper GI bleed K92.2 Warfarin-induced coagulopathy D68.32; T45.515A CHF (congestive heart failure) I50.43 Heart failure type: combined systolic and diastolic Heart failure chronicity: acute on chronic Atrial fibrillation I48.19 Atrial fibrillation type: other persistent
[2019-05-05] MEDS: acetaminophen 325 mg Tablet 650 MG PO (18:21)
[2019-05-05] MEDS: diphenhydrAMINE 50 mg/mL SDV 1mL 25 MG IVP (18:21)
[2019-05-05] MEDS: phytonadione (ADULT) 10 mg/mL Ampule 1 mL 5 MG PO (18:22)
[2019-05-06] VITALS (13 sets, daily range): BP systolic 125–146; BP diastolic 70–91; PULSE 96–111; RESP 17–22; TEMP 36.6–37.1; O2SAT 94–99
[2019-05-06] MEDS: pantoprazole 40 mg SDV 80 MG IVP (00:48)
[2019-05-06] MEDS: sodium chloride 0.9% 100 ML 50 ML (01:48)
[2019-05-06 06:47] LABS: Basophils # 0.1 10^3/uL (0.0-0.1); Basophils % 0.6 %; Eosinophils # 0.1 10^3/uL (0.0-0.8); Eosinophils % 0.6 %; Hematocrit 28.3 % (42.0-52.0); Hemoglobin 8.2 g/dL (11.7-16.6); Lymphocytes # 1.2 10^3/uL (0.8-4.8); Lymphocytes % 12.8 %; Mean Corpuscular Hemoglobin 25.9 pg (28.0-34.0); Mean Corpuscular Volume 89.3 fL (80-94); Mean Platelet Volume 9.4 fL (7.4-10.4); Monocytes # 1.1 10^3/uL (0.2-0.9); Monocytes % 12.2 %; Neutrophils # 6.5 10^3/uL (1.8-7.7); Neutrophils % 72.9 %; Nucleated Red Blood Cells % 0.3 %; Platelet Count 203 10^3/cmm (130-400); Red Blood Count 3.17 10^6/uL (4.1-5.3)
[2019-05-06 06:54] LABS: INR 1.54 (0.8-1.2)
[2019-05-06 06:55] LABS: Partial Thromboplastin Time 34.1 SECONDS (23.9-36.7)
[2019-05-06 06:58] LABS: Alanine Aminotransferase 15 U/L (0-41); Albumin Level 3.2 g/dL (3.5-5.2); Alkaline Phosphatase 82 IU/L (40-130); Aspartate Amino Transferase 28 U/L (0-40); Blood Urea Nitrogen 47 mg/dL (8-23); Calcium 9.3 mg/dL (8.5-10.5); Carbon Dioxide 21 mmol/L (22-29); Chloride 107 mmol/L (98-107); Creatinine Clr Calc Pharmacy 34.3797; Globulin 3.1 g/dL (1.3-4.6); Glucose 91 mg/dL (65-115); Magnesium 2.7 mg/dL (1.7-2.3); Osmolality Calculated 286 mOsm/kg (285-295); Sodium 139 mmol/L (136-145); Total Bilirubin 2.2 mg/dL (0.15-1.2); Total Protein 6.3 g/dL (6.6-8.7)
--- NOTE | 2019-05-06 11:06 | PC.CHAP ---
Pastoral Care Encounter/Spiritual Assessment Type of Contact [] Declined bobbin cleaner visit [] Patient/Family/Request visit [] Outpatient visit [] Follow-up visit [] Physician referral [] Code/Alert [] Routine visit [] Staff referral [] Actively dying [] Patient sleeping [] Family support [] [] Out of room [] Palliative care [] [] Receiving care in room [] Pre-surgical visit [] Trauma [] Long length of stay [] ICU visit [] Other: Relational/Emotional Strength [x] Patient feels connected with others/family/visitors/staff [] Distress [] Loneliness/isolation [] Abandonment Spirituality of Patient [x] Person of Vidya [x] Attends Gnosticist of their Vidya [x] Believes in Prayer [] Reads Bible or Latter Day materials [] There are Spiritual issues to be addressed Diamond Sorter Interventions [x] Prayer [x] Active listening [x] Non-anxious presence [x] Spiritual/emotional support [] Crisis/trauma care [] Spiritual counseling [] Bereavement support [] Provided bereavement packet [] Provided Bible/devotional materials [] Provided toy/stuffed animal, coloring book to patient or family member [] Provided Communion [] Anointing/[place] [] Salvation [] Completed spiritual assessment [] Other: Impact on Illness or Injury [] Angry [] Fearful [] Anxious [] Often cries [] Exhaustion [] Unable to work [] Unable to attend faith [] Unable to walk/stand [] Unable to read [] Unable to drive [] Unable to eat/drink [] Unable to sleep [] Unable to be with family [] Patient intubated [] Other: Summary Chaplains prayed with Patient. Time spent with patient 8 minutes.
[2019-05-06] MEDS: pantoprazole 40 mg SDV IVP (11:43)
--- NOTE | 2019-05-06 11:54 | P.PN_ITS ---
Subjective Subjective: Interval history: Patient denies any shortness of breath or chest pain this morning. He denies any abdominal pain. He had no more melanotic stools. His hemoglobin is 8.2. Creatinine slightly down to 1.8. Vitals/I&O/Wt Last Vital Signs Temp 98.5 F 05/06/19 11:39 Pulse 97 05/06/19 11:39 Resp 17 05/06/19 11:39 BP 139/74 05/06/19 11:39 Pulse Ox 97 05/06/19 11:39 05/05/19 05/06/19 05/06/19 22:59 06:59 14:59 Intake Total 350 / 350 350 / 700 Output Total 350 / 350 200 / 200 Balance 350 / 350 0 / 350 -200 / -200 Weight last 48 hrs Weight 70.76 kg Physical Exam Const: COMMON NORMALS: no apparent distress and oriented x3 Resp: COMMON NORMALS: normal respiratory effort and clear to auscultation bilaterally AUSCULTATION: clear to auscultation bilaterally Cardio: COMMON NORMALS: regular rate, regular rhythm and S2 normal heart sound RATE: regular rate RHYTHM: regular rhythm HEART SOUNDS: S2 normal OTHER: No lower extremity edema GI: COMMON NORMALS: normal to inspection, nondistended, normoactive bowel sounds, soft to palpation and non-tender PALPATION: Yes soft Neuro: COMMON NORMALS: oriented x3 and no focal motor deficits Data : 05/06/19 06:30 05/06/19 06:30 A&P Assessment and plan (1) Acute blood loss anemia: Status: Acute Code(s): D62 - Acute posthemorrhagic anemia (2) Upper GI bleed: Status: Acute Code(s): K92.2 - Gastrointestinal hemorrhage, unspecified (3) Warfarin-induced coagulopathy: Status: Acute Code(s): D68.32 - Hemorrhagic disorder due to extrinsic circulating anticoagulants; T45.515A - Adverse effect of anticoagulants, initial encounter (4) CHF (congestive heart failure): Status: Acute Qualifiers: Heart failure type: combined systolic and diastolic Heart failure chronicity: acute on chronic Qualified Code(s): I50.43 - Acute on chronic combined systolic (congestive) and diastolic (congestive) heart failure Code(s): I50.9 - Heart failure, unspecified (5) Atrial fibrillation: Status: Acute Qualifiers: Atrial fibrillation type: other persistent Qualified Code(s): I48.19 - Other persistent atrial fibrillation Code(s): I48.91 - Unspecified atrial fibrillation Additional A&P Information PLAN: Continue high-dose PPI and monitoring. Continue holding anticoagulation and proceed with bowel prep and EGD/colonoscopy in a.m. INR is down to 1.54 of the 5 mg oral vitamin K received yesterday. We will repeat PT/INR in addition to CBC/CMP in a.m. Attestations Medical Necessity Statement*: Patient with GI bleed requires close inpatient monitoring, treatment and evaluation. Coding Level of Care Code Acute Certified Dietary Manager for [facility] Fwd Diagnoses Acute blood loss anemia D62 Upper GI bleed K92.2 Warfarin-induced coagulopathy D68.32; T45.515A CHF (congestive heart failure) I50.43 Heart failure type: combined systolic and diastolic Heart failure chronicity: acute on chronic Atrial fibrillation I48.19 Atrial fibrillation type: other persistent
--- NOTE | 2019-05-06 13:47 | PC.NURSE ---
Bowel Prep Rcvd orders from Dr Kamara for Bowel Prep option 1 mag citrate and dulcolax 40mg. commercial underwriter put orders in per protocol
--- NOTE | 2019-05-06 13:53 | PC.NURSE ---
Dulcolax order Clarified dulcolax order with Dr Zepeda. He wants 20mg dulcolax
[2019-05-06] MEDS: bisacodyl 5 mg Tablet 20 MG PO (13:59)
[2019-05-06] MEDS: magnesium citrate Btl 296 mL PO ×2 (13:59→19:40)
--- NOTE | 2019-05-06 22:24 | PC.NURSE ---
BMs becoming more yellow/clear.
[2019-05-07] VITALS (10 sets, daily range): BP systolic 102–149; BP diastolic 62–86; PULSE 80–109; RESP 16–20; TEMP 36.4–37; O2SAT 92–99
[2019-05-07] MEDS: pantoprazole 40 mg SDV IVP ×2 (00:05→11:47)
--- NOTE | 2019-05-07 05:28 | PC.NURSE ---
Continuous education/reinforcement on use of urinal for accurate I&Os.
[2019-05-07 05:31] LABS: Basophils % 0.5 %; Eosinophils % 0.2 %; Hematocrit 28.5 % (42.0-52.0); Hemoglobin 8.2 g/dL (11.7-16.6); Lymphocytes % 11.8 %; Mean Corpuscular HGB Conc 28.8 g/dL (30.0-36.0); Mean Corpuscular Hemoglobin 25.9 pg (28.0-34.0); Mean Corpuscular Volume 90.2 fL (80-94); Monocytes # 0.9 10^3/uL (0.2-0.9); Monocytes % 10.8 %; Neutrophils # 6.3 10^3/uL (1.8-7.7); Neutrophils % 75.5 %; Nucleated Red Blood Cells # 0.1 /100WBC; Nucleated Red Blood Cells % 1.4 %; Platelet Count 220 10^3/cmm (130-400); Red Blood Count 3.16 10^6/uL (4.1-5.3); Red Cell Distribution Width 18.7 % (12.1-15.1); White Blood Count 8.4 10^3/uL (4.0-10.0)
[2019-05-07 05:49] LABS: INR 1.34 (0.8-1.2)
[2019-05-07 05:59] LABS: Alanine Aminotransferase 14 U/L (0-41); Albumin Level 3.5 g/dL (3.5-5.2); Alkaline Phosphatase 87 IU/L (40-130); Anion Gap 13.8 (5-19); Aspartate Amino Transferase 29 U/L (0-40); Blood Urea Nitrogen 36 mg/dL (8-23); Carbon Dioxide 24 mmol/L (22-29); Chloride 109 mmol/L (98-107); Globulin 3.2 g/dL (1.3-4.6); Glucose 99 mg/dL (65-115); Osmolality Calculated 292 mOsm/kg (285-295); Potassium 4.8 mmol/L (3.5-5.1); Sodium 142 mmol/L (136-145); Total Bilirubin 1.6 mg/dL (0.15-1.2); Total Protein 6.7 g/dL (6.6-8.7)
--- NOTE | 2019-05-07 08:14 | PC.NURSE ---
Called family as requested by patient to let them know he is going to have Colonoscopy and EGD today at 0830. Cleaning Attendant called Flaca Love at [phone] and left message per request of patient. Consent signed by patient and in file for colonoscopy and EGD
--- NOTE | 2019-05-07 08:45 | P.CONIM_ITS ---
Providers/Reason For Consult Consulting Physican/Specialty*: Dr. Jin Reason for Consult*: Melena Attending Physician: Izabella Drew MD Primary Care Provider: Dax Jordan DO History of Present Illness History of Present Illness Lele Talavera is a 78 year old male who presented to the ER with black stools over the last few days. Patient is on Coumadin for atrial fibrillation and his INR is around 2. Patient denies any abdominal pain, nausea, vomiting, denies any history of bleeding ulcers. No family history of colon cancer. No prior colonoscopy. He had an EGD previously which showed gastritis Review of Systems General: Reports: 10 or more systems reviewed and unremarkable except in HPI and below Meds/Allergies Home Medications and Allergies Home Medications Medication Instructions Recorded Confirmed Type carvedilol 3.125 mg PO BID 04/19/19 05/05/19 History multivitamin [Multiple Vitamins] 1 tab PO DAILY 04/19/19 05/05/19 History potassium chloride 10 meq PO DAILY 04/19/19 05/05/19 History Gas-X See Rx Instructions .ROUTE .COMPLEX 05/05/19 05/05/19 History furosemide [Lasix] 80 mg PO DAILY 05/05/19 05/05/19 History lisinopril 2.5 mg PO DAILY 05/05/19 05/05/19 History spironolactone 25 mg PO DAILY 05/05/19 05/05/19 History warfarin See Rx Instructions .ROUTE .COMPLEX 05/05/19 05/05/19 History Allergies Allergy/AdvReac Type Severity Reaction Status Date / Time Penicillins Allergy Unknown Verified 05/05/19 14:28 Current Medications Current Medications Generic Name Dose Route Start Last Admin Trade Name Freq PRN Reason Stop Dose Admin Pantoprazole Sodium 40 mg 05/06/19 12:00 05/07/19 00:05 Protonix IVP 40 mg Q12H JOSEFINA Administration PFSH Acute PFSH: Medical History Acute blood loss anemia Atrial fibrillation CHF (congestive heart failure) CKD (chronic kidney disease) HTN (hypertension) Hx pulmonary embolism Liver cirrhosis Mediastinal lymphadenopathy Mitral regurgitation Pulmonary HTN Upper GI bleed Surgical History H/O esophagogastroduodenoscopy S/P hernia repair x2 S/P rotator cuff repair Left S/P thoracentesis (~07/07/17) right sided 2000ml removed Family History Other Stroke Social History Smoking and tobacco status: never smoked Alcohol intake: never Vitals/I&O/Wt Last Vital Signs Temp 97.7 F 05/07/19 08:43 Pulse 108 H 05/07/19 08:43 Resp 16 05/07/19 08:43 BP 149/83 05/07/19 08:43 Pulse Ox 93 05/07/19 08:43 05/06/19 05/07/19 05/07/19 22:59 06:59 14:59 Intake Total 296 / 296 Output Total 353 / 853 Balance 296 / -557 -353 / -557 Weight last 48 hrs Weight 156 lb Physical Exam Narrative: EXAM NARRATIVE: HEENT: Normocephalic Eye: Sclera /conjunctiva normal Respiratory and chest: Bilateral clear breath sounds on auscultation Cardiovascular: Normal S1 and S2 heart sounds Abdomen: Soft to palpation Neurological: Oriented to place person and time Skin: Intact, no lesions appreciated on gross exam A&P Assessment and plan (1) Acute blood loss anemia: EGD/colonoscopy under MAC Procedure, risks, benefits and alternatives have been discussed with the patient who wishes to proceed with surgery. 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
--- NOTE | 2019-05-07 08:46 | P.ANESASSM_ITS ---
Pre-Anesthetic Assessment Pre-Anesthetic Assessment: Height/Weight: Height 1.77 m Weight 70.76 kg Temp Pulse Resp BP Pulse Ox 97.7 F 108 H 16 149/83 93 05/07/19 08:43 05/07/19 08:43 05/07/19 08:43 05/07/19 08:43 05/07/19 08:43 Preop Diagnosis: GI Bleed Proposed Procedure: Operation Date: 05/07/19 08:30 Proposed Procedures p EGD/COLON(Not Applicable) - Luis Kamara MD s Colonoscopy(Not Applicable) - Luis Kamara MD Familial anesthetic complications: none Was Beta Jonathon taken within 24 hours: Yes Social: Social History: No alcohol and No tobacco Exam: Pre-Anes Outpt Exam: alert, oriented x 3, clear to auscultation bilaterally and regular rate & rhythm Airway: Submandibular: WNL Cervical ROM: WNL MP: 1 Dentition: False History/ROS: No significant history except as noted Pulmonary: Pulmonary: YUSUF Comments: possible pulmonary emboli CV/HEM: CV/HEM: Afib, CHF, HTN, Murmur and PVD : : Chronic renal failuer Hepatic: Hepatic: None reported GI: GI: None reported Comments: Gi bleed Metabolic: Metabolic: Hyperlipidemia and None reported Musc/skel: Musc/skel: OA/DJD and Weakness Neuropsych: Neuropsych: Depression Anesthetic Plan: ASA status: 3 Anesthesia: MAC Risk of > 500 ml blood loss (7ml/kg in children): No Meds/Allergies Current Medications: Current Medications Generic Name Dose Route Start Last Admin Trade Name Freq PRN Reason Stop Dose Admin Pantoprazole Sodiu m 40 mg 05/06/19 12:00 05/07/19 00:05 Protonix IVP 40 mg Q12H JOSEFINA Administration PFSH Anesthesia PFSH: Medical History (Updated 05/05/19 @ 18:19 by Vinh Jin MD) Acute blood loss anemia Atrial fibrillation CHF (congestive heart failure) CKD (chronic kidney disease) HTN (hypertension) Hx pulmonary embolism Liver cirrhosis Mediastinal lymphadenopathy Mitral regurgitation Pulmonary HTN Upper GI bleed Surgical History (Updated 05/07/19 @ 08:47 by Luis Kamara MD) H/O esophagogastroduodenoscopy S/P hernia repair x2 S/P rotator cuff repair Left S/P thoracentesis (~07/07/17) right sided 2000ml removed Family History Other Stroke Social History Smoking and tobacco status: never smoked Alcohol intake: never Data Anesthesia CBC & Chem 7: 05/07/19 05:00 05/07/19 05:00 Other Labs: Laboratory Results - last 48 hr 05/05/19 05/05/19 05/05/19 15:22 16:23 16:23 WBC 8.7 RBC 2.71 L Hgb 6.5 L* Hct 24.0 L MCV 88.6 MCH 24.0 L MCHC 27.1 L RDW 18.6 H Plt Count 242 MPV 9.8 Neut % (Auto) 68.8 Lymph % (Auto) 17.2 [place] % (Auto) 12.3 Eos % (Auto) 0.3 Baso % (Auto) 0.8 Neut # (Auto) 6.0 Lymph # (Auto) 1.5 [place] # (Auto) 1.1 H Eos # (Auto) 0.0 Baso # (Auto) 0.1 Nucleated RBC % (auto) 0.2 Nucleated RBCs # 0.0 PT INR APTT Sodium 137 Potassium 5.0 Chloride 103 Carbon Dioxide 22 Anion Gap 17.0 BUN 55 H Creatinine 1.9 H Glucose 109 Calculated Osmolality 283 L Calcium 9.2 Magnesium Total Bilirubin 1.5 H AST 29 ALT 13 Alkaline Phosphatase 81 Total Protein 6.5 L Albumin 3.4 L Globulin 3.1 Lipase 22 Urine Color Yellow Urine Appearance Clear Urine pH 7 Ur Specific [place] 1.003 L Urine Protein Neg Urine Glucose (UA) Norm Urine Ketones Negative Urine Blood Neg Urine Nitrate Negative Urine Bilirubin Neg Urine Urobilinogen 4 H Ur Leukocyte Esterase Negative Blood Type Rho(D) Type Antibody Screen Crossmatch 05/05/19 05/05/19 05/06/19 16:23 16:23 06:30 WBC 9.0 RBC 3.17 L Hgb 8.2 L Hct 28.3 L MCV 89.3 MCH 25.9 L MCHC 29.0 L D RDW 18.0 H Plt Count 203 MPV 9.4 Neut % (Auto) 72.9 Lymph % (Auto) 12.8 [place] % (Auto) 12.2 Eos % (Auto) 0.6 Baso % (Auto) 0.6 Neut # (Auto) 6.5 Lymph # (Auto) 1.2 [place] # (Auto) 1.1 H Eos # (Auto) 0.1 Baso # (Auto) 0.1 Nucleated RBC % (auto) 0.3 Nucleated RBCs # 0.0 PT 23.10 H INR 1.97 H APTT Sodium Potassium Chloride Carbon Dioxide Anion Gap BUN Creatinine Glucose Calculated Osmolality Calcium Magnesium Total Bilirubin AST ALT Alkaline Phosphatase Total Protein Albumin Globulin Lipase Urine Color Urine Appearance Urine pH Ur Specific [place] Urine Protein Urine Glucose (UA) Urine Ketones Urine Blood Urine Nitrate Urine Bilirubin Urine Urobilinogen Ur Leukocyte Esterase Blood Type O Positive Rho(D) Type Positive Antibody Screen Negative Crossmatch See Detail 05/06/19 05/06/19 05/07/19 06:30 06:30 05:00 WBC RBC Hgb Hct MCV MCH MCHC RDW Plt Count MPV Neut % (Auto) Lymph % (Auto) [place] % (Auto) Eos % (Auto) Baso % (Auto) Neut # (Auto) Lymph # (Auto) [place] # (Auto) Eos # (Auto) Baso # (Auto) Nucleated RBC % (auto) Nucleated RBCs # PT 19.10 H 17.10 H INR 1.54 H 1.34 H APTT 34.1 Sodium 139 Potassium 5.0 Chloride 107 Carbon Dioxide 21 L Anion Gap 16.0 BUN 47 H Creatinine 1.8 H Glucose 91 Calculated Osmolality 286 Calcium 9.3 Magnesium 2.7 H Total Bilirubin 2.2 H AST 28 ALT 15 Alkaline Phosphatase 82 Total Protein 6.3 L Albumin 3.2 L Globulin 3.1 Lipase Urine Color Urine Appearance Urine pH Ur Specific [place] Urine Protein Urine Glucose (UA) Urine Ketones Urine Blood Urine Nitrate Urine Bilirubin Urine Urobilinogen Ur Leukocyte Esterase Blood Type Rho(D) Type Antibody Screen Crossmatch 05/07/19 05/07/19 05:00 05:00 WBC 8.4 RBC 3.16 L Hgb 8.2 L Hct 28.5 L MCV 90.2 MCH 25.9 L MCHC 28.8 L RDW 18.7 H Plt Count 220 MPV 10.0 Neut % (Auto) 75.5 Lymph % (Auto) 11.8 [place] % (Auto) 10.8 Eos % (Auto) 0.2 Baso % (Auto) 0.5 Neut # (Auto) 6.3 Lymph # (Auto) 1.0 [place] # (Auto) 0.9 Eos # (Auto) 0.0 Baso # (Auto) 0.0 Nucleated RBC % (auto) 1.4 Nucleated RBCs # 0.1 PT INR APTT Sodium 142 Potassium 4.8 Chloride 109 H Carbon Dioxide 24 Anion Gap 13.8 BUN 36 H Creatinine 1.9 H Glucose 99 Calculated Osmolality 292 Calcium 9.0 Magnesium Total Bilirubin 1.6 H AST 29 ALT 14 Alkaline Phosphatase 87 Total Protein 6.7 Albumin 3.5 Globulin 3.2 Lipase Urine Color Urine Appearance Urine pH Ur Specific [place] Urine Protein Urine Glucose (UA) Urine Ketones Urine Blood Urine Nitrate Urine Bilirubin Urine Urobilinogen Ur Leukocyte Esterase Blood Type Rho(D) Type Antibody Screen Crossmatch Cardiac Studies: No Data to Display
[2019-05-07] MEDS: sodium chloride 0.9% 1,000 ML 30 ML (08:51)
--- NOTE | 2019-05-07 09:40 | SUR.OPER ---
PROCEDURE DELAYED DUE TO INFILTRATED IV IN THE LEFT AC.WOUND CULTURE OBTAINED. NEW IV STARTED IN RIGHT FOREARM
--- NOTE | 2019-05-07 10:12 | ANE.PACU2 ---
 Inpatient post-anesthesia follow up: Airway intact: Yes Vital signs: Temperature 97.7 F Pulse Rate [Monito r] 109 Pulse Rate 108 Respiratory Rate 16 Blood Pressure [Le ft Arm] 103/65 Blood Pressure 149/83 Pulse Oximetry 93 Oxygen Delivery Me thod Room Air Oxygen Flow Rate Fraction of Inspir ed Oxygen Hydration adequate: Yes Nausea and vomiting: No Pain level: 1 Mental status: Baseline
--- NOTE | 2019-05-07 10:31 | SUR.PHASEI ---
GI Lab: Pt alert and oriented following EGD/Colonoscopy. New IV to right forearm saline locked and patent. Report called to Niurka Trevino RN on Med-surg floor.
--- NOTE | 2019-05-07 17:32 | P.PN_ITS ---
Subjective Subjective: Interval history: Chart reviewed, patient had endoscopy and colonoscopy done earlier this morning by Dr. Kamara, findings discussed. Patient seen and examined, resting comfortably in bed, has tolerated regular diet since return from procedure without difficulty. Medications: Reviewed: Yes Medication Review Details: Active Medications Generic Name Dose Route Start Last Admin Trade Name Freq PRN Reason Stop Dose Admin Ondansetron HCl 4 mg 05/05/19 19:01 Zofran IVP Q8H PRN vomiting, or N/V if npo Pantoprazole Sodiu m 40 mg 05/06/19 12:00 05/07/19 11:47 Protonix IVP 40 mg Q12H JOSEFINA Administration Penicillins Allergy (Verified 05/05/19 14:28) Unknown Vitals/I&O/Wt Last Vital Signs Temp 98.2 F 05/07/19 15:17 Pulse 106 H 05/07/19 15:17 Resp 19 H 05/07/19 15:17 BP 125/75 05/07/19 15:17 Pulse Ox 97 05/07/19 15:17 05/07/19 05/07/19 05/07/19 06:59 14:59 22:59 Intake Total 800 / 800 120 / 920 Output Total 353 / 853 Balance -353 / -557 800 / 800 120 / 920 Physical Exam Const: COMMON NORMALS: no apparent distress and oriented x3 GENERAL APPEARANCE: cooperative and comfortable ORIENTATION/CONSCIOUSNESS: Yes awake HENMT: COMMON NORMALS: normocephalic, head/scalp atraumatic, hearing grossly normal bilaterally and moist oral mucous membranes HEAD & SCALP: normocephalic and atraumatic Eye: COMMON NORMALS: PERRL, EOMs intact bilaterally and conjunctivae normal CONJUNCTIVA: Yes conjunctivae normal PUPIL: Yes PERRL Neck/C-Spine: COMMON NORMALS: full ROM GENERAL: Yes normal visual inspec tion and Yes trachea midline Resp: COMMON NORMALS: normal respiratory effort, no retractions, no use of accessory muscles and clear to auscultation bilaterally EFFORT & INSPECTION: Yes able to speak in complete sentences, Yes symmetric chest movement and No tachypneic AUSCULTATION: clear to auscultation bilaterally Cardio: COMMON NORMALS: regular rate, regular rhythm, S1 normal heart sound, S2 normal heart sound and no murmurs RATE: regular rate RHYTHM: regular rhythm HEART SOUNDS: S1 normal and S2 normal GI: COMMON NORMALS: normal to inspection, nondistended, normoactive bowel sounds, soft to palpation and non-tender PALPATION: Yes soft Extremity: COMMON NORMALS: normal to inspection, full ROM and no clubbing, cyanosis or edema; negative for no pedal edema Neuro: COMMON NORMALS: oriented x3, moves all extremities, no focal motor deficits, no sensory deficits noted and gait normal Psych: COMMON NORMALS: mental status grossly normal, thought process normal, cooperative, affect normal and speech normal SPEECH: Yes normal speech THOUGHT PROCESS: normal thought process Skin: COMMON NORMALS: no rashes or lesions noted, no jaundice, no petechiae and no mottling GENERAL SKIN EXAM: no rashes or lesions noted Data : 05/07/19 05:00 05/07/19 05:00 A&P Assessment and plan (1) Upper GI bleed: -s/p EGD and colonoscopy, found to have gastric erosions and duodenal ulcer and severe diverticulosis with polyp respectively. Findings discussed with Dr. Kamara, no active bleeding source during procedure -Anticoagulation on hold, given extent of anemia we will continue to hold Coumadin or alternative anticoagulation at this time -continue to closely monitor hemoglobin -continue PPI, add carafate Status: Acute Code(s): K92.2 - Gastrointestinal hemorrhage, unspecified (2) Warfarin-induced coagulopathy: -has been on coumadin for atrial fibrillation, on hold -INR down to 1.34 -continue to hold AC given anemia; may consider resuming coumadin if Hg remains stable Status: Acute Code(s): D68.32 - Hemorrhagic disorder due to extrinsic circulating anticoagulants; T45.515A - Adverse effect of anticoagulants, initial encounter (3) Atrial fibrillation: -telemetry monitoring -resume Coreg -continue to monitor VS Status: Acute Qualifiers: Atrial fibrillation type: other persistent Qualified Code(s): I48.19 - Other persistent atrial fibrillation Code(s): I48.91 - Unspecified atrial fibrillation (4) HTN (hypertension): -hemodynamically stable -resume coreg, lisinopril and lasix Status: Acute Qualifiers: Hypertension type: essential hypertension Qualified Code(s): I10 - Essential (primary) hypertension Code(s): I10 - Essential (primary) hypertension (5) CKD (chronic kidney disease): -has CKD, unknown stage -baseline Cr appears to be 1.5-2 Status: Acute Qualifiers: Chronic kidney disease stage: unspecified stage Qualified Code(s): N18.9 - Chronic kidney disease, unspecified Code(s): N18.9 - Chronic kidney disease, unspecified (6) CHF (congestive heart failure): -Echo (2018): EF=41%, mild diffuse hypokinesis, moderate-severe MR, mild AR, moderate-severe TR, trace-mild WA, moderate to severe pulmonary HTN (57) -resume lasix, aldactone -noted evidence of mild pulmonary vascular congestion on CXR Status: Acute Qualifiers: Heart failure chronicity: acute on chronic Heart failure type: systolic Qualified Code(s): I50.23 - Acute on chronic systolic (congestive) heart failure Code(s): I50.9 - Heart failure, unspecified Additional A&P Information -regular diet as tolerated -GI ppx with PPI -DVT ppx with SCDs -Dispo: home -Code status: FULL code Attestations Medical Necessity Statement*: Patient requires hospitalization for continued management of anemia status post GI work-up Time Spent in Patient Care: Greater than 35 minutes (>than 50% of time spent in counselling and/or direct pt care on unit) . 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
[2019-05-07] MEDS: pantoprazole DR 40 mg Tablet PO (18:53)
[2019-05-07] MEDS: carvedilol 3.125 mg Tablet PO (18:53)
[2019-05-08 04:00] VITALS: BP 115/72; PULSE 93; RESP 20; TEMP 36.6; O2SAT 98
[2019-05-08 05:59] LABS: Basophils % 0.3 %; Eosinophils # 0.1 10^3/uL (0.0-0.8); Eosinophils % 1.8 %; Hematocrit 29.8 % (42.0-52.0); Hemoglobin 7.9 g/dL (11.7-16.6); Lymphocytes # 1.1 10^3/uL (0.8-4.8); Lymphocytes % 14.8 %; Mean Corpuscular HGB Conc 26.5 g/dL (30.0-36.0); Mean Platelet Volume 9.5 fL (7.4-10.4); Monocytes # 0.7 10^3/uL (0.2-0.9); Monocytes % 9.8 %; Neutrophils # 5.2 10^3/uL (1.8-7.7); Neutrophils % 72.7 %; Nucleated Red Blood Cells # 0.1 /100WBC; Nucleated Red Blood Cells % 1.8 %; Platelet Count 200 10^3/cmm (130-400); Red Blood Count 3.04 10^6/uL (4.1-5.3); Red Cell Distribution Width 19.9 % (12.1-15.1); White Blood Count 7.1 10^3/uL (4.0-10.0)
[2019-05-08 06:00] LABS: Alanine Aminotransferase 13 U/L (0-41); Albumin Level 3.1 g/dL (3.5-5.2); Alkaline Phosphatase 75 IU/L (40-130); Anion Gap 14.4 (5-19); Aspartate Amino Transferase 28 U/L (0-40); Blood Urea Nitrogen 34 mg/dL (8-23); Calcium 8.6 mg/dL (8.5-10.5); Carbon Dioxide 19 mmol/L (22-29); Chloride 105 mmol/L (98-107); Creatinine Clr Calc Pharmacy 34.3797; Globulin 2.9 g/dL (1.3-4.6); Glucose 118 mg/dL (65-115); Osmolality Calculated 276 mOsm/kg (285-295); Potassium 4.4 mmol/L (3.5-5.1); Sodium 134 mmol/L (136-145); Total Bilirubin 1.3 mg/dL (0.15-1.2)
[2019-05-08 07:56] VITALS: BP 126/74; PULSE 87; RESP 18; TEMP 36.6; O2SAT 96
[2019-05-08] MEDS: FUROsemide 40 mg Tablet PO (08:45)
[2019-05-08] MEDS: carvedilol 3.125 mg Tablet PO (08:45)
[2019-05-08] MEDS: pantoprazole DR 40 mg Tablet PO (08:45)
[2019-05-08] MEDS: sucralfate 1 gm Tablet PO (08:45)
[2019-05-08] MEDS: lisinopril 2.5 mg Tablet PO (08:45)
[2019-05-08] MEDS: spironolactone 25 mg Tablet PO (08:45)
--- NOTE | 2019-05-08 09:29 | DCPLANNER ---
Pg 2 of IM updated and explained to pt. No questions, copy provided.
--- NOTE | 2019-05-08 09:35 | P.DS_ITS ---
Discharge Providers Date of Admission: 05/05/19 17:59 Date of Discharge: May 08, 2019 Attending Provider at Admission: Vinh Jin MD Attending Provider at Discharge: Izabella Drew MD Primary Care Provider: Dax Jordan DO Diagnoses at Discharge Discharge Diagnosis (1) Upper GI bleed: Status: Acute Problem details: -s/p EGD and colonoscopy, found to have gastric erosions and duodenal ulcer and severe diverticulosis with polyp respectively. Findings discussed with Dr. Kamara, no active bleeding source during procedure -Anticoagulation on hold, given extent of anemia we will continue to hold Coumadin or alternative anticoagulation at this time -continue to closely monitor hemoglobin -continue PPI, added carafate (2) Warfarin-induced coagulopathy: Status: Chronic Problem details: -has been on coumadin for atrial fibrillation, on hold -INR down to 1.34 -continue to hold AC given anemia; may consider resuming coumadin if Hg remains stable (3) Atrial fibrillation: Status: Chronic Problem details: -telemetry monitoring -resumed Coreg -continue to monitor VS (4) HTN (hypertension): Status: Chronic Problem details: -hemodynamically stable -resumed coreg, lisinopril and lasix (5) CKD (chronic kidney disease): Status: Chronic Problem details: -has CKD, unknown stage -baseline Cr appears to be 1.5-2 (6) CHF (congestive heart failure): Status: Chronic Problem details: -Echo (2018): EF=41%, mild diffuse hypokinesis, moderate-severe MR, mild AR, moderate-severe TR, trace-mild KS, moderate to severe pulmonary HTN (57) -resumed lasix, aldactone -noted evidence of mild pulmonary vascular congestion on CXR Qualifiers: Heart failure chronicity: acute on chronic Heart failure type: systolic Qualified Code(s): I50.23 - Acute on chronic systolic (congestive) heart failure Reason for Visit Reason for Visit: Reason For Visit: bloody stool Hospital Course Hospital Course: Patient was admitted to the medical surgical floor and transfused with 2 units of PRBC secondary to acutely worsening hemoglobin, with a drop to 6.5 on admission. He had been on Coumadin for anticoagulation secondary to chronic atrial fibrillation which has been on hold since admission. His hemoglobin did improve following transfusion and surgery was consulted for GI work-up. Once his INR had improved he had an endoscopy and colonoscopy done as noted above. He was found to have multiple gastric erosions, duodenal ulcer and severe diverticulosis but no active bleeding noted during procedure. His hemoglobin has remained stable following transfusion though there was noted slight drop today which is not completely unexpected following procedure yesterday. His anticoagulation will remain on hold on discharge and he is good to hold off on resuming Coumadin until appropriate follow-up with Dr. Jovel who is his primary care provider. May need to consider alternative anticoagulation such as Eliquis if continued concern for potential bleeding. Patient has had addition of pantoprazole and Carafate per recommendations made by Dr. Kamara. He has otherwise been hemodynamically stable, rate controlled, tolerating oral intake following procedure and ambulating without difficulty. I have requested close follow-up with his primary care provider to allow for follow-up CBC to be drawn. Patient is advised to seek medical attention immediately should he note blood in his urine or stool. Discharge Summary: -Patient to follow-up with Dr. Jovel in 1 to 3 days, will need follow-up CBC to continue to monitor stability of hemoglobin and discuss further anticoagulation Physical Exam Const: COMMON NORMALS: no apparent distress and oriented x3 GENERAL APPEARANCE: cooperative and comfortable ORIENTATION/CONSCIOUSNESS: Yes awake HENMT: COMMON NORMALS: normocephalic, head/scalp atraumatic, hearing grossly normal bilaterally and moist oral mucous membranes HEAD & SCALP: normocephalic and atraumatic Eye: COMMON NORMALS: PERRL, EOMs intact bilaterally and conjunctivae normal CONJUNCTIVA: Yes conjunctivae normal PUPIL: Yes PERRL Neck/C-Spine: COMMON NORMALS: full ROM GENERAL: Yes normal visual inspection and Yes trachea midline Resp: COMMON NORMALS: normal respiratory effort, no retractions, no use of accessory muscles and clear to auscultation bilaterally EFFORT & INSPECTION: Yes able to speak in complete sentences, Yes symmetric chest movement and No tachypneic AUSCULTATION: clear to auscultation bilaterally Cardio: COMMON NORMALS: regular rate, regular rhythm, S1 normal heart sound, S2 normal heart sound and no murmurs RATE: regular rate RHYTHM: regular rhythm HEART SOUNDS: S1 normal and S2 normal GI: COMMON NORMALS: normal to inspection, nondistended, normoactive bowel sounds, soft to palpation and non-tender PALPATION: Yes soft Extremity: COMMON NORMALS: normal to inspection, full ROM and no clubbing, cyanosis or edema; negative for no pedal edema Neuro: COMMON NORMALS: oriented x3, moves all extremities, no focal motor deficits, no sensory deficits noted and gait normal Psych: COMMON NORMALS: mental status grossly normal, thought process normal, cooperative, affect normal and speech normal SPEECH: Yes normal speech THOUGHT PROCESS: normal thought process Skin: COMMON NORMALS: no rashes or lesions noted, no jaundice, no petechiae and no mottling GENERAL SKIN EXAM: no rashes or lesions noted Discharge Data Data Completed and Pending: Completed Studies During Hospitalization Category Date Time Status XR chest 1V jacqueline ble [id number] Stat Exams 05/05/19 16:04 Completed Pending at discharge Category Date Time Status Wound Culture Rou sergei Lab 05/07/19 10:11 Uncollected Pathology: Surgic al [PTH] Routine Pth 05/07/19 10:13 Received Labs from last 24 hours 05/08/19 05/08/19 04:48 04:48 WBC 7.1 RBC 3.04 L Hgb 7.9 L Hct 29.8 L MCV 98.0 H D MCH 26.0 L MCHC 26.5 L D RDW 19.9 H Plt Count 200 MPV 9.5 Neut % (Auto) 72.7 Lymph % (Auto) 14.8 Peach % (Auto) 9.8 Eos % (Auto) 1.8 Baso % (Auto) 0.3 Neut # (Auto) 5.2 Lymph # (Auto) 1.1 Peach # (Auto) 0.7 Eos # (Auto) 0.1 Baso # (Auto) 0.0 Nucleated RBC % (a uto) 1.8 Nucleated RBCs # 0.1 Sodium 134 L Potassium 4.4 Chloride 105 Carbon Dioxide 19 L Anion Gap 14.4 BUN 34 H Creatinine 1.8 H Glucose 118 H Calculated Osmolal ity 276 L Calcium 8.6 Total Bilirubin 1.3 H AST 28 ALT 13 Alkaline Phosphata se 75 Total Protein 6.0 L Albumin 3.1 L Globulin 2.9 Vitals: Last Vital Signs Temp 97.8 F 05/08/19 07:56 Pulse 87 05/08/19 07:56 Resp 18 05/08/19 07:56 BP 126/74 05/08/19 07:56 Pulse Ox 96 05/08/19 07:56 Discharge Plan Discharge Patient Disposition: Home, Self-Care Condition: Stable Prescriptions: New sucralfate 1 gram Tablet 1 g PO BIDAC 30 Days Qty: 60 RF: 0 pantoprazole 40 mg Tablet,Delayed Release (Dr/Ec) 40 mg PO BID 30 Days Qty: 60 RF: 0 Continued spironolactone 25 mg Tablet 25 mg PO DAILY RF: 0 Lasix 80 mg Tablet 80 mg PO DAILY RF: 0 lisinopril 2.5 mg Tablet 2.5 mg PO DAILY RF: 0 Gas-X See Rx Instructions .ROUTE .COMPLEX RF: 0 multivitamin [Multiple Vitamins] Tablet 1 tab PO DAILY RF: 0 carvedilol 3.125 mg tablet 3.125 mg PO BID RF: 0 potassium chloride 10 mEq tablet,ER particles/crystals 10 meq PO DAILY RF: 0 Held warfarin 5 mg Tablet See Rx Instructions .ROUTE .COMPLEX RF: 0 Hold Instructions: Please hold Warfarin until follow up with Dr. Jordan Discharge Orders: Discharge Order (Routine); Ordered 05/08/19 Ordered By: Izabella Drew Referrals: Tano Jovel DO [Physician] - 05/10/19 2:30 pm (Post hospital discharge follow-up. Patient was found to have acutely worsening anemia status post GI work-up with noted duodenal ulcers, multiple gastric erosions and severe diverticulosis. He has been off Coumadin and will require follow-up CBC prior to resumption of this. ) Discharge Diet: Cardiac Discharge Activity: Resume usual activity Patient Instructions: Anemia, Sucralfate (By mouth), Pantoprazole (By mouth), Mitral Regurgitation (DC), Iron Deficiency Anemia (DC), Vitamin K in Foods (DC), GI Discharge Instructions Activity Restrictions/Additional Instructions: -Please do not continue Coumadin until follow-up with Dr. Jovel -Please seek medical attention immediately if noted blood in urine or stool Discharge Date/Time: 05/08/19 11:12 Discharge Attestations Time Spent in Discharge Care*: greater than 30 min Specific Discharge Activities: Specific discharge activities: educating patient, discussing with pcp/other providers, discussing with employment evaluator/case manager/social workers/dc planners, documenting/other paperwork and evaluating patient/reviewing data Status at Discharge: Cognitive status at discharge: cognitively intact , Behavioral status at discharge: cooperative , Functional status at discharge: independent ambulation Overall status at discharge: patient is back to baseline Quality Metrics Clinical Quality Measures During this hospital stay, did patient experience: None Coding Level of Care Code Acute Axle Inspector for Chg Fwd Exam Comprehensive Diagnoses Upper GI bleed K92.2 Warfarin-induced coagulopathy D68.32; T45.515A Atrial fibrillation I48.91 HTN (hypertension) I10 CKD (chronic kidney disease) N18.9 CHF (congestive heart failure) I50.23 Heart failure chronicity: acute on chronic Heart failure type: systolic
[2019-05-08 09:44] VITALS: BP 126/74; PULSE 87; RESP 18; TEMP 36.6; O2SAT 96
--- NOTE | 2019-05-08 10:44 | PC.NURSE ---
Prn discharge note Patient discharge instructions given per physician orders. New meds with side effects taught, patient verbalized understanding. IV removed with catheter intake. Pressure dressing applied. Patient tolerated well.
[2019-05-08 11:12] VITALS: BP 126/74; PULSE 87; RESP 18; TEMP 36.6; O2SAT 96
--- NOTE | 2019-05-10 19:19 | PM.MISC ---
Miscellaneous Note Purpose of Documentation: Wound culture results Note: Patient had wound culture done, sample sent as swab from GI lab. Delay in running sample as order was placed under my name without my knowledge until nurse from GI lab contacted me about having swabbed the patient's IV access site (left AC) because of noted abnormality. Wound culture has grown MRSA, sensitivity noted. Will order Zyvox x 10 days as superficial skin infection.
--- NOTE | 2019-05-11 14:34 | PC.SOCIAL ---
Notified patient of micro report after reviewing with Dr Parekh late evening yesterday. Physician sent script for Zyvox to [facility]. Discussed bacteria found on culture from left AC space and recommended treatment. Patient indicates he did have some drainage and pain from left arm when returned home but is clearing up. He did complain of right arm pain similar but no drainage. He did indicate site similar to left is red. This nurse advised picking up medication and if insurance will not cover to call me back to discuss with provider alternate treatment. He verbalized understanding. This nurse advised should he continue to have concerns after a few days on abx to schedule an appointment with Dr Jordan. Patient verbalized agreement.
== END 2019-05-08 11:12 | disposition home or self-care (01) | DRG 811 ==
LOC: ER 18:16 → MEDSURG 18:21
PROVIDERS: Surgery; Admitting Provider Internal Medicine; Emergency Provider Family Medicine; Family Provider Family Medicine; PCP Family Medicine; Visit Provider Family Medicine
PROC: 0DJ08ZZ Inspection of Upper Intestinal Tract, Via Natural or Artificial Opening Endoscopic (ICD-10-PCS; CPT 43235; principal; 2019-05-07 08:30)
PROC: 0DJD8ZZ Inspection of Lower Intestinal Tract, Via Natural or Artificial Opening Endoscopic (ICD-10-PCS; CPT 45378; 2019-05-07 08:30)
DX: D62 Acute posthemorrhagic anemia (principal); I50.23 Acute on chronic systolic (congestive) heart failure; I48.20 Chronic atrial fibrillation, unspecified; I13.0 Hypertensive heart and chronic kidney disease with heart failure and stage 1 through stage 4 chronic kidney disease, or unspecified chronic kidney disease; D68.32 Hemorrhagic disorder due to extrinsic circulating anticoagulants; K25.9 Gastric ulcer, unspecified as acute or chronic, without hemorrhage or perforation; K26.9 Duodenal ulcer, unspecified as acute or chronic, without hemorrhage or perforation; K57.90 Diverticulosis of intestine, part unspecified, without perforation or abscess without bleeding; T45.515A Adverse effect of anticoagulants, initial encounter; Y92.230 Patient room in hospital as the place of occurrence of the external cause; Z79.01 Long term (current) use of anticoagulants; K21.9 Gastro-esophageal reflux disease without esophagitis; Z86.711 Personal history of pulmonary embolism; F03.90 Unspecified dementia, unspecified severity, without behavioral disturbance, psychotic disturbance, mood disturbance, and anxiety; K44.9 Diaphragmatic hernia without obstruction or gangrene; L08.89 Other specified local infections of the skin and subcutaneous tissue; B95.62 Methicillin resistant Staphylococcus aureus infection as the cause of diseases classified elsewhere
CPT/HCPCS: 12345; 36415; 36430; 43239; 45385; 71045; 80048; 80053; 81003; 83690; 83735; 83880; 85025; 85610; 85730; 86850; 86900; 86920; 87070; 87077; 87186; 88305; 96375; 99282; C9113; J1200; J3430; J7030; P9016

== ENCOUNTER → 2019-05-10 08:36 | Outpatient (BNVA) | payer MEDICARE, SELFPAY | PROVIDERS: Family Provider Family Medicine; PCP Family Medicine; Visit Provider Internal Medicine Cardiovascular Disease | DX: I48.91 Unspecified atrial fibrillation (principal) | CPT/HCPCS: 85610 ==

== ENCOUNTER → 2019-05-14 12:35 | Outpatient (BNVA) | payer MEDICARE, SELFPAY | PROVIDERS: Family Provider Family Medicine; PCP Family Medicine; Visit Provider Internal Medicine Cardiovascular Disease | DX: I50.9 Heart failure, unspecified (principal); R58 Hemorrhage, not elsewhere classified | CPT/HCPCS: 80048; 83880; 85025 ==

== ENCOUNTER 2019-07-10 10:34 | Inpatient (IN) | payer MEDICARE, SELFPAY ==
[2019-07-10] VITALS (9 sets, daily range): BP systolic 117–156; BP diastolic 69–99; PULSE 70–107; RESP 16–25; TEMP 36.4–36.6; O2SAT 79–98; BMI 23.6
--- NOTE | 2019-07-10 11:04 | XR_ITS ---
WS: [id number] CHEST XRAY TECHNIQUE: Portable chest. CLINICAL INFORMATION: dyspnea/cough COMPARISON: May 05, 2019 FINDINGS: Heart: Cardiomegaly. Lungs: Small bilateral pleural effusions increased from previous with bibasilar atelectasis. Mild chr onic emphysematous changes. Bones: Hypertrophic changes thoracic spine. XR/XR chest 1V portable [id number] IMPRESSION: Cardiomegaly with small bilateral pleural effusions right greater than left and bibasilar atelectasis.
--- NOTE | 2019-07-10 11:05 | ECG_ITS ---
Measurements Intervals [place] Rate: 93 P: [place]: 0 QRS: 28 QRSD: 94 T: 87 QT: 367 QTc: [address] & T-WAVE ABNORMALITY ABNORMAL RHYTHM ECG Compared to ECG 11/01/2017 18:06:03 No significant changes Electronically Signed On 07-10-2019 20:49:31 CDT by Shelby Tellez M.D. [id number]
[2019-07-10 11:36] LABS: ABG PCO2 26.4 mmHg (35-45); ABG PH Result 7.37 (7.35-7.45); Alveolar-Arterial Oxygen Gradi 142.3 mmHg (5-10); Arterial Blood Gas Hematocrit 26.4 % (42-52); Base Excess ABG -9.2 mmol/L (-2.0-2.0); Blood Gas Allen Test Pos; Blood Gas Operator Identificat amh; Blood Gas Sample Site Radial, left; Blood Gas Sample Type Arterial; Carboxyhemoglobin 1.1 %THgb (0.4-20.1); HCO3 ABG 15.1 mmol/L (22-26); HGB O2 Sat 92.5 % (95-100); Ionized Calcium Level - ABG 1.1 mmol/L (1.1-1.4); Methemoglobin 0.9 % (0.4-1.5); Oxygen Device NC; Oxygen Saturation ABG 94.4; PO2 ABG 75.3 mmHg (80.0-100.0); Potassium Level - ABG 4.6 mmol/L (3.5-5.0); Total Hemoglobin 8.6 g/dL (14-18)
--- NOTE | 2019-07-10 11:37 | XR_ITS ---
WS: [id number] SHOULDER RIGHT TECHNIQUE: 3 views of the right shoulder CLINICAL INFORMATION: pain swelling COMPARISON: None. FINDINGS: Moderate degenerative arthritis AC joint with hypertrophic spurring. Rotator cuff arthropathy. No acu te fractures. Soft tissue edema. XR/XR shoulder RT min 2V* [id number] IMPRESSION: Rotator cuff arthropathy with moderate degenerative arthritis AC joint.
--- NOTE | 2019-07-10 11:41 | ED_ITS ---
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 In addition that he is noticed increased swelling in his lower extremities with shortness of breath with exertion at rest he does fine he has a no orthopnea no chest pain. Denies any chest tightness or pressure is not on oxygen at home but is requiring oxygen here at the ER.. Denies any fever sweats or chills. No abdominal pain no other symptoms of illness. MD elicited complaint: shortness of breath Pertinent past history: congestive heart failure Onset (ago): day(s) ([place] to 10 days) Context: trauma/injury (Fall 7 to 10 days ago) Timing: constant Severity: moderate Exacerbating factors: exertion Relieving factors: oxygen and rest Known history of: congestive heart failure Associated symptoms: Reports extremity pain (Right shoulder); Deny abdominal pain, chest pain, fever(s), nausea, orthopnea or vomiting Treatment prior to arrival: none Review of Systems Const: Denies: fever(s), chills, body aches, change in appetite, fatigue or malaise ENMT: Denies: throat pain, ear or mastoid pain, nasal discharge or nasal congestion Card: Denies: chest pain, edema, dyspnea on exertion or orthopnea Resp: Denies: dyspnea, productive cough or non-productive cough GI: Denies: abdominal pain, nausea, vomiting, hematemesis, coffee ground emesis, diarrhea, constipation, bloating, hematochezia or melena : Denies: flank pain, dysuria, urinary frequency or urinary urgency Musc: Reports: extremity pain (Right shoulder) Skin/Breast: Denies: rash or pruritus [facility] PFSH: Medical History (Updated 07/10/19 @ 14:53 by Em Valentino DO) Acute blood loss anemia Atrial fibrillation CHF (congestive heart failure) -Echo (2018): EF=41%, mild diffuse hypokinesis, moderate-severe MR, mild AR, moderate-severe TR, trace-mild IN, moderate to severe pulmonary HTN (57) CKD (chronic kidney disease) HTN (hypertension) Hx pulmonary embolism Liver cirrhosis Mediastinal lymphadenopathy Mitral regurgitation Pulmonary HTN Upper GI bleed - Surgical History H/O esophagogastroduodenoscopy S/P hernia repair x2 S/P rotator cuff repair Left S/P thoracentesis (~07/07/17) right sided 2000ml removed Family History Other Stroke Social History Smoking and tobacco status: never smoked Alcohol intake: never Lives independently: Yes Household members: none Current occupational status: retired History of recent travel: No Current gender identity: Male Physical Exam Const: COMMON NORMALS: no acute distress GENERAL APPEARANCE: cooperative and comfortable ORIENTATION/CONSCIOUSNESS: Yes awake, Yes oriented to person, Yes oriented to place and Yes oriented to time HENMT: COMMON NORMALS: normocephalic, hearing grossly normal bilaterally, external ears normal, EAC's normal, TM's normal bilaterally, Normal nasal mucous membranes and turbinates present, moist oral mucous membranes and oropharynx normal HEAD & SCALP: normocephalic NOSE: Normal nasal mucous membranes and turbinates present EXTERNAL EAR: Yes external ears normal EXTERNAL AUDITORY CANAL: EAC's normal TYMPANIC MEMBRANE: TM's normal bilaterally Eye: COMMON NORMALS: Equal, round and reactive pupils present, EOMs intact bilaterally, conjunctivae normal and no scleral icterus CONJUNCTIVA: Yes conjunctivae normal PUPIL: Yes Equal, round and reactive pupils present OTHER: Ecchymosis of the right lower eyelid Neck/C-Spine: COMMON NORMALS: full ROM, no lymphadenopathy, supple and no JVD Lymph: LYMPHATIC: no lymphadenopathy noted and no lymphedema noted Resp: COMMON NORMALS: normal respiratory effort, No retractions, No use of accessory muscles and clear to auscultation bilaterally AUSCULTATION: clear to auscultation bilaterally Cardio: COMMON NORMALS: no JVD, regular rate, regular rhythm and No murmurs present (Cardio) RATE: regular rate RHYTHM: regular rhythm GI: COMMON NORMALS: Soft to palpation and No hepatosplenomegaly present AUSCULTATION: Yes normoactive bowel sounds PALPATION: Yes Soft to palpation, No Tenderness to palpation present (GI), No Guarding due to palpation present (GI) and Yes No hepatosplenomegaly present Extremity: NARRATIVE EXTREMITY EXAM: 2+ lower extremities bilaterally to the level of the knees. Is a focal hematoma in the anterior portion of the right shoulder with generalized edema extending down into the hand with 2+ edema of the hand there is ecchymosis around the right eye. Neuro: SENSORIUM/ORIENTATION: Yes oriented to person, Yes oriented to place and Yes oriented to time Skin: COMMON NORMALS: no rashes or lesions noted GENERAL SKIN EXAM: no rashes or lesions noted Course Vital Signs: Vital signs: Vital Signs Temperature 97.7 F 07/11/19 11:21 Pulse Rate 92 07/11/19 11:21 Respiratory Rate 19 H 07/11/19 11:21 Blood Pressure 112/76 07/11/19 11:21 Pulse Oximetry 98 07/11/19 11:21 MDM - SOB/Dyspnea MDM Narrative: Medical decision making narrative: Discussed Dr. Valentino will admit for acute kidney injury and congestive heart failure. On an outpatient basis patient will need further evaluation referral to Ortho for the right shoulder injury suspect he may have some traumatic rotator cuff injury Lab Data: Labs: Lab Results 07/10/19 07/10/19 07/10/19 Range/Units 11:25 11:57 11:57 WBC 8.8 (4.0-10.0) 10^3/ uL RBC 3.12 L (4.1-5.3) 10^6/u L Hgb 8.3 L (11.7-16.6) g/dL Hct 29.8 L (42.0-52.0) % MCV 95.5 H (80-94) fL MCH 26.6 L (28.0-34.0) pg MCHC 27.9 L (30.0-36.0) g/dL RDW 22.0 H (12.1-15.1) % Plt Count 281 (130-400) 10^3/c mm MPV 9.6 (7.4-10.4) fL Neut % (Auto) 76.8 % Lymph % (Auto) 11.6 % Arthur % (Auto) 10.5 % Eos % (Auto) 0.1 % Baso % (Auto) 0.2 % Neut # (Auto) 6.8 (1.8-7.7) 10^3/u L Lymph # (Auto) 1.0 (0.8-4.8) 10^3/u L Arthur # (Auto) 0.9 (0.2-0.9) 10^3/u L Eos # (Auto) 0.0 (0.0-0.8) 10^3/u L Baso # (Auto) 0.0 (0.0-0.1) 10^3/u L Nucleated RBC % (a uto) 3.1 % Nucleated RBCs # 0.3 /100WBC Specimen Type Arterial Sample Site Radial, left ABG pH 7.37 (7.35-7.45) ABG pCO2 26.4 L (35-45) mmHg ABG pO2 75.3 L (80.0-100.0) mmH g ABG HCO3 15.1 L (22-26) mmol/L ABG O2 Saturation 94.4 ABG Base Excess -9.2 L (-2.0-2.0) mmol/ L Chano Test Pos A-a O2 Gradient 142.3 H (5-10) mmHg Hematocrit 26.4 L (42-52) % Hgb O2 Saturation 92.5 L (95-100) % Carboxyhemoglobin 1.1 (0.4-20.1) %THgb Methemoglobin 0.9 (0.4-1.5) % Total Hemoglobin 8.6 L (14-18) g/dL Sodium 138.0 139 (131-143) mmol/L Potassium 4.6 4.8 (3.5-5.0) mmol/L Glucose 115.0 109 (70-115) mg/dL Ionized Calcium 1.1 (1.1-1.4) mmol/L O2 Delivery Device Nc O2 Liters/Min 4.0 % FiO2 36.0 % Residential Assistant ID [email or web address] Chloride 101 (98-107) mmol/L Carbon Dioxide 18 L (22-29) mmol/L Anion Gap 24.8 H (5-19) BUN 69 H (8-23) mg/dL Creatinine 3.1 H (0.7-1.2) mg/dL Calculated Osmolal ity 288 (285-295) mOsm/k g Calcium 8.3 L (8.5-10.5) mg/dL Total Bilirubin 0.8 (0.15-1.2) mg/dL AST 22 (0-40) U/L ALT 10 (0-41) U/L Alkaline Phosphata se 123 (40-130) IU/L Troponin T Baselin e (0-15) ng/mL NT-Pro-B Natriuret Pep 86011 H (0-450) pg/mL Total Protein 7.2 (6.6-8.7) g/dL Albumin 3.1 L (3.5-5.2) g/dL Globulin 4.1 (1.3-4.6) g/dL Urine Color (Yellow) Urine Appearance (CLEAR) Urine pH (5-7) Ur Specific Gravit y (1.005-1.030) Urine Protein (Negative) Urine Glucose (UA) (Normal) Urine Ketones (Negative) Urine Blood (Negative) Urine Nitrate (Negative) Urine Bilirubin (NEGATIVE) Urine Urobilinogen (Negative) mg/dL Ur Leukocyte Ale ase (Negative) Urine RBC (0-2) /hpf Urine WBC (0-5) /hpf Ur Squamous Epith Cells (0-5) Urine Bacteria (NONE) Hyaline Casts 07/10/19 07/10/19 Range/Units 11:57 12:30 WBC (4.0-10.0) 10^3/ uL RBC (4.1-5.3) 10^6/u L Hgb (11.7-16.6) g/dL Hct (42.0-52.0) % MCV (80-94) fL MCH (28.0-34.0) pg MCHC (30.0-36.0) g/dL RDW (12.1-15.1) % Plt Count (130-400) 10^3/c mm MPV (7.4-10.4) fL Neut % (Auto) % Lymph % (Auto) % Arthur % (Auto) % Eos % (Auto) % Baso % (Auto) % Neut # (Auto) (1.8-7.7) 10^3/u L Lymph # (Auto) (0.8-4.8) 10^3/u L Arthur # (Auto) (0.2-0.9) 10^3/u L Eos # (Auto) (0.0-0.8) 10^3/u L Baso # (Auto) (0.0-0.1) 10^3/u L Nucleated RBC % (a uto) % Nucleated RBCs # /100WBC Specimen Type Sample Site ABG pH (7.35-7.45) ABG pCO2 (35-45) mmHg ABG pO2 (80.0-100.0) mmH g ABG HCO3 (22-26) mmol/L ABG O2 Saturation ABG Base Excess (-2.0-2.0) mmol/ L Chano Test A-a O2 Gradient (5-10) mmHg Hematocrit (42-52) % Hgb O2 Saturation (95-100) % Carboxyhemoglobin (0.4-20.1) %THgb Methemoglobin (0.4-1.5) % Total Hemoglobin (14-18) g/dL Sodium (131-143) mmol/L Potassium (3.5-5.0) mmol/L Glucose (70-115) mg/dL Ionized Calcium (1.1-1.4) mmol/L O2 Delivery Device O2 Liters/Min % FiO2 % Residential Assistant ID Chloride (98-107) mmol/L Carbon Dioxide (22-29) mmol/L Anion Gap (5-19) BUN (8-23) mg/dL Creatinine (0.7-1.2) mg/dL Calculated Osmolal ity (285-295) mOsm/k g Calcium (8.5-10.5) mg/dL Total Bilirubin (0.15-1.2) mg/dL AST (0-40) U/L ALT (0-41) U/L Alkaline Phosphata se (40-130) IU/L Troponin T Baselin e 61 H (0-15) ng/mL NT-Pro-B Natriuret Pep (0-450) pg/mL Total Protein (6.6-8.7) g/dL Albumin (3.5-5.2) g/dL Globulin (1.3-4.6) g/dL Urine Color Yellow (Yellow) Urine Appearance Clear (CLEAR) Urine pH 5 (5-7) Ur Specific Gravit y 1.020 (1.005-1.030) Urine Protein Trace (Negative) Urine Glucose (UA) Norm (Normal) Urine Ketones Negative (Negative) Urine Blood Neg (Negative) Urine Nitrate Negative (Negative) Urine Bilirubin Neg (NEGATIVE) Urine Urobilinogen Norm (Negative) mg/dL Ur Leukocyte Ale ase Negative (Negative) Urine RBC None (0-2) /hpf Urine WBC 0-4 H (0-5) /hpf Ur Squamous Epith Cells 0-4 H (0-5) Urine Bacteria 1+ H (NONE) Hyaline Casts 0-4 H Discharge Plan Discharge Patient Disposition: Admitted As Inpatient Admit Provider: Em Valentino Referrals: Dax Jordan DO [Primary Care Provider] - Discharge Date/Time: 07/10/19 14:35 Coding Level of Care Code ED [employer] Hanger for Chg Fwd Exam Comprehensive
[2019-07-10 12:08] LABS: Basophils % 0.2 %; Eosinophils % 0.1 %; Hematocrit 29.8 % (42.0-52.0); Hemoglobin 8.3 g/dL (11.7-16.6); Lymphocytes % 11.6 %; Mean Corpuscular HGB Conc 27.9 g/dL (30.0-36.0); Mean Corpuscular Hemoglobin 26.6 pg (28.0-34.0); Mean Corpuscular Volume 95.5 fL (80-94); Mean Platelet Volume 9.6 fL (7.4-10.4); Monocytes # 0.9 10^3/uL (0.2-0.9); Monocytes % 10.5 %; Neutrophils # 6.8 10^3/uL (1.8-7.7); Neutrophils % 76.8 %; Nucleated Red Blood Cells # 0.3 /100WBC; Nucleated Red Blood Cells % 3.1 %; Platelet Count 281 10^3/cmm (130-400); Red Blood Count 3.12 10^6/uL (4.1-5.3); White Blood Count 8.8 10^3/uL (4.0-10.0)
[2019-07-10 12:25] LABS: Troponin(5th) Baseline 61 ng/mL (0-15)
[2019-07-10 12:32] LABS: Alanine Aminotransferase 10 U/L (0-41); Albumin Level 3.1 g/dL (3.5-5.2); Alkaline Phosphatase 123 IU/L (40-130); Anion Gap 24.8 (5-19); Aspartate Amino Transferase 22 U/L (0-40); Blood Urea Nitrogen 69 mg/dL (8-23); Calcium 8.3 mg/dL (8.5-10.5); Carbon Dioxide 18 mmol/L (22-29); Chloride 101 mmol/L (98-107); Globulin 4.1 g/dL (1.3-4.6); Glucose 109 mg/dL (65-115); NT Pro B Type Natriuretic Pept 19623 pg/mL (0-450); Osmolality Calculated 288 mOsm/kg (285-295); Potassium 4.8 mmol/L (3.5-5.1); Sodium 139 mmol/L (136-145); Total Bilirubin 0.8 mg/dL (0.15-1.2); Total Protein 7.2 g/dL (6.6-8.7)
--- NOTE | 2019-07-10 13:05 | ECG_ITS ---
Measurements Intervals [place] Rate: 92 P: [place]: 0 QRS: 18 QRSD: 98 T: 88 QT: 352 QTc: 435 ATRIAL FIBRILLATION WITH ABERRANT CONDUCTION OR VENTRICULAR PREMATURE COMPLEXES NONSPECIFIC ST & T-WAVE ABNORMALITY ABNORMAL RHYTHM ECG Compared to ECG 11/01/2017 18:06:03 Ventricular premature complex(es) now present Aberrant conduction of supraventricular beat(s) now present T-wave abnormality still present Electronically Signed On 07-10-2019 20:55:33 CDT by Shelby Tellez M.D. [email or web address]
[2019-07-10 13:12] LABS: Add Urine Microscopic? YES; Bilirubin Urine Neg (NEGATIVE); Blood Urine Neg (Negative); Glucose Urine UA Norm (Normal); Ketones Urine Negative (Negative); Leukocyte Esterase Urine Negative (Negative); Nitrate Urine Negative (Negative); Protein Urine Trace (Negative); Urine Appearance Clear (CLEAR); Urine Color Yellow (Yellow); Urobilinogen Urine Norm (Negative); pH Urine 5 (5-7)
[2019-07-10 13:21] LABS: Add Urine Culture? No; Bacteria Urine 1+; Hyaline Casts Urine 0-4; Squamous Epithelial Cell Urine 0-4 (0-5); WBC Urine 0-4 /hpf (0-5)
[2019-07-10] MEDS: sodium chloride 0.9% 500 ML 999 ML IV (13:44)
[2019-07-10] MEDS: FUROsemide 10 mg/mL SDV 10mL 60 MG IVP (13:45)
--- NOTE | 2019-07-10 14:43 | PM.HP ---
Providers/Chief Complaint Admitting Physician: Em Valentino DO Primary Care Provider: Dax Jordan DO Chief Complaint: FALL LAST WEEK, FLUID LEAKING FROM HANDS History of Present Illness Lele Talavera is a 78 year old male with a past medical history of atrial fibrillation, diastolic and systolic congestive heart failure, pulmonary hypertension and a history of PE that presented to the emergency department today for increasing fluid retention. He reported that he did not take his Lasix on Tuesday and has not taken it today but believes that he took it on Tuesday. He reports that he has stopped taking some of his cardiac medications, unable to give the names of the medications he is currently taking. He states that he has had some increasing shortness of breath along with the swelling in his legs and arms. He states that he is followed closely by Dr. Live and also with his primary care provider. Patient denies any recent fever, no cough or sputum production, no sick contacts. No exposure to COVID-19. Patient reports that he did have a fall last week at [employer] landing on his right side. Has had increasing pain in the right shoulder with increasing swelling in the right upper extremity. Reports that he is still able to move the arm but has decreased range of motion. Patient was seen and evaluated in the emergency department noted to have concern for acute CHF exacerbation and admitted for further evaluation and treatment. Review of Systems Const: Denies: fever(s) or chills Eyes: Denies: change in vision ENMT: Denies: nasal congestion Card: Reports: edema; Denies: chest pain or palpitations Resp: Reports: dyspnea; Denies: productive cough or hemoptysis GI: Denies: abdominal pain, nausea, vomiting, diarrhea, constipation, hematochezia or melena : Denies: dysuria or hematuria Musc: Reports: extremity pain (R shoulder and UE); Denies: muscle cramps Skin/Breast: Denies: rash or new lesions Neuro: Denies: headache(s) or dizziness Psych: Denies: anxiety or depression Endo: Denies: polyuria or hot flashes Anthony/Lymph: Denies: easy bruising or easy bleeding Medications/Allergies Home Medications Medication Instructions Recorded Confirmed Last Taken Type multivitamin [Multiple Vitamins] 1 tab PO DAILY 04/19/19 07/10/19 07/10/19 History Gas-X See Rx Instructions .ROUTE .COMPLEX 05/05/19 07/10/19 Unknown History furosemide 80 mg tablet 80 mg PO DAILY #30 tab 06/11/19 07/10/19 07/09/19 Rx lisinopril 2.5 mg tablet 2.5 mg PO DAILY #30 tab 06/11/19 07/10/19 07/10/19 Rx sucralfate 1 gram tablet 1 gm PO DAILY #30 tab 06/11/19 07/10/19 07/10/19 Rx carvedilol 3.125 mg PO BID 07/10/19 07/10/19 07/10/19 History potassium chloride 10 meq PO DAILY 07/10/19 07/10/19 07/10/19 History spironolactone 12.5 mg PO DAILY 07/10/19 07/10/19 07/10/19 History warfarin 5 mg PO DAILY 07/10/19 07/10/19 07/10/19 History Allergies Allergy/AdvReac Type Severity Reaction Status Date / Time Penicillins Allergy Unknown Verified 06/11/19 09:03 PFSH Acute PFSH: Medical History Acute blood loss anemia Atrial fibrillation CHF (congestive heart failure) -Echo (2018): EF=41%, mild diffuse hypokinesis, moderate-severe MR, mild AR, moderate-severe TR, trace-mild SC, moderate to severe pulmonary HTN (57) CKD (chronic kidney disease) HTN (hypertension) Hx pulmonary embolism Liver cirrhosis Mediastinal lymphadenopathy Mitral regurgitation Pulmonary HTN Upper GI bleed - Surgical History H/O esophagogastroduodenoscopy S/P hernia repair x2 S/P rotator cuff repair Left S/P thoracentesis (~07/07/17) right sided 2000ml removed Family History Other Stroke Social History Smoking and tobacco status: never smoked Alcohol intake: never Lives independently: Yes Household members: none Current occupational status: retired History of recent travel: No Current gender identity: Male Vitals/I&O/Wt Last Vital Signs Temp 97.6 F 07/10/19 10:51 Pulse 95 07/10/19 14:11 Resp 19 H 07/10/19 14:11 BP 143/96 07/10/19 14:11 Pulse Ox 98 07/10/19 14:11 Weight last 48 hrs Weight 72.575 kg Physical Exam Const: COMMON NORMALS: patient oriented x3 and alert GENERAL APPEARANCE: cooperative ORIENTATION/CONSCIOUSNESS: Yes awake, Yes oriented to person and Yes oriented to place HENMT: COMMON NORMALS: normocephalic and atraumatic HEAD & SCALP: normocephalic and other (Contusion on the right eye with scabbed abrasion over the right eye) Eye: COMMON NORMALS: Equal, round and reactive pupils present PUPIL: Yes Equal, round and reactive pupils present Neck/C-Spine: COMMON NORMALS: supple GENERAL: Yes normal visual inspection Resp: COMMON NORMALS: normal respiratory effort and clear to auscultation bilaterally AUSCULTATION: crackles (With diminished breath sounds in the bases bilaterally) Laterality: bilateral Cardio: OTHER: Irregularly irregular with systolic murmur GI: COMMON NORMALS: Soft to palpation and non-tender INSPECTION: No abdominal distension AUSCULTATION: Yes normoactive bowel sounds PALPATION: Yes Soft to palpation Extremity: COMMON NORMALS: no calf tenderness NARRATIVE EXTREMITY EXAM: 3+ pitting edema in the lower extremities bilaterally Right upper extremity edema into the hand Neuro: COMMON NORMALS: patient oriented x3, CN's II-XII intact bilaterally, moves all extremities and no focal motor deficits SENSORIUM/ORIENTATION: Yes alert, Yes oriented to person and Yes oriented to place SPEECH: speech normal Psych: COMMON NORMALS: mental status grossly normal and cooperative Skin: COMMON NORMALS: no rashes or lesions noted GENERAL SKIN EXAM: no rashes or lesions noted Data : 07/10/19 11:57 07/10/19 11:57 CXR: I personally reviewed and interpreted this imaging study as follows: Radiologist's impression: IMPRESSION: Cardiomegaly with small bilateral pleural effusions right greater than left and bibasilar atelectasis. Xray Ortho: I personally reviewed and interpreted this imaging study as follows: Radiologist's impression: XR RT shoulder IMPRESSION: Rotator cuff arthropathy with moderate degenerative arthritis AC joint. A&P Assessment and plan (1) CHF (congestive heart failure): Patient with acute on chronic CHF exacerbation, strict intake and output as well as daily weights IV Lasix 40 every 12 hours, will monitor diuresis and adjust dosing accordingly Patient has been noncompliant with cardiac medications resulting in CHF exacerbation Fluid restriction and sodium restriction We will repeat echocardiogram, last echocardiogram from 2018 also with recent imaging showing question of small pericardial effusion, will further evaluate with echocardiogram Consider cardiology consultation if indicated, patient is followed closely by by Dr. Live Previously on Coreg, Aldactone but does not appear to be taking in either of these medications. Status: Acute Qualifiers: Heart failure type: systolic Heart failure chronicity: acute on chronic Qualified Code(s): I50.23 - Acute on chronic systolic (congestive) heart failure (2) CKD (chronic kidney disease): In this admission Appears to be fluid overloaded We will continue to monitor renal function closely Hold off on ROLAN inhibitor at this time Status: Acute (3) Mitral regurgitation: Moderate to severe mitral regurgitation along with moderate to severe tricuspid regurgitation Status: Acute Qualifiers: Cardiac valve disease etiology: nonrheumatic Qualified Code(s): I34.0 - Nonrheumatic mitral (valve) insufficiency (4) Hx pulmonary embolism: No longer on anticoagulation due to history of a GI bleed. Previously declined IVC filter Appears to have fluid overload related to CHF and hypoxia related to CHF, if continued concern consider further imaging Status: Chronic (5) HTN (hypertension): Continue to diurese as noted above Status: Acute (6) Atrial fibrillation: No longer on anticoagulation due to history of GI bleed x2 requiring transfusion with most recent GI bleed in April of this year with presence of a gastric erosion and duodenal ulcer on EGD Status: Acute (7) Shortness of breath: Secondary to CHF exacerbation, plan as above Status: Acute Additional A&P Information Moderate to severe pulmonary hypertension Recent gastric erosion and duodenal ulcer, no longer on anticoagulation Chronic anemia: Patient denies any further melanotic stools, continue to hold off on any anticoagulation Hematoma to the right shoulder: Status post fall last week, ultrasound reviewed shows rotator cuff arthropathy with 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 Will further evaluate with venous duplex of the upper extremity Generalized deconditioning: Physical therapy and Occupational Therapy ordered for evaluation and treatment Question of underlying dementia: Patient has medication noncompliance which could be complicated by this concern DVT prophylaxis: SCDs, no pharmacologic prophylaxis due to anemia and recent GI bleed Diet: Cardiac CODE STATUS: Full code Attestations Medical Necessity Statement*: Patient requires hospitalization due to hypoxia secondary to CHF exacerbation, expected stay greater than 2 midnights. Coding Level of Care Code Acute Superintendent Stations for Chg Fwd Diagnoses CHF (congestive heart failure) I50.23 Heart failure type: systolic Heart failure chronicity: acute on chronic CKD (chronic kidney disease) N18.9 Mitral regurgitation I34.0 Cardiac valve disease etiology: nonrheumatic Hx pulmonary embolism Z86.711 HTN (hypertension) I10 Atrial fibrillation I48.91 Shortness of breath R06.02
[2019-07-10 14:48] LABS: Troponin 5 2HR 56.36 ng/mL (0-15)
[2019-07-10 15:06] LABS: Troponin 5 2HR Delta -4.64 ABS# (0-10)
[2019-07-10 16:00] LABS: Thyroid Stimulating Hormone 7.49 uIU/mL (0.27-4.20)
[2019-07-10] MEDS: FUROsemide 10 mg/mL SDV 4mL 40 MG IVP (17:00)
[2019-07-10] MEDS: carvedilol 3.125 mg Tablet PO (17:00)
--- NOTE | 2019-07-10 17:05 | ECG_ITS ---
Measurements Intervals [place] Rate: 97 P: MD: 0 QRS: 21 QRSD: 90 T: 56 QT: 332 QTc: 424 ATRIAL FIBRILLATION ABNORMAL RHYTHM ECG Compared to ECG 11/01/2017 18:06:03 T-wave abnormality no longer present Electronically Signed On 07-10-2019 20:56:12 CDT by Shelby Tellez M.D. [email or web address]
--- NOTE | 2019-07-10 18:03 | NUR.SHIFT ---
SHIFT SUMMARY PATIENT ARRIVED TO THE FLOOR FROM THE ER LATE THIS AFTERNOON. PATIENT HAS CLEAR LUNG SOUNDS IN UPPER LOBES, CRACKLES IN BILATERAL BASES WITH 4+ PITTING EDEMA IN LOWER EXTREMITIES. PATIENT HAS RECEIVED A TOTAL OF 100MG OF IV LASIX. PATIENT HAS ONLY VOIDED 100ML. THIS NURSE BLADDER SCANNED PATIENT UPON ARRIVAL AND IT SHOWED 186ML. PATIENT VOIDED THE 100ML, THIS NURSE RE-SCANNED AND BLADDER SCANNER NOW SHOWS 28ML. PATIENT REQUIRING 4LNC. PATIENT STATED HE FEELS LESS SHORT OF BREATH THAN UPON ARRIVAL. DR. DOMINGUEZ NOTIFIED. PATIENT HAD LARGE BM. CURRENTLY RESTING IN BED WITH NO COMPLAINTS AT THIS TIME.
[2019-07-10 18:54] LABS: Troponin 5 6HR 59.16 ng/mL (0-15)
[2019-07-10 19:02] LABS: Troponin 5 6HR Delta -1.84 ng/L (0-12)
[2019-07-11] VITALS (7 sets, daily range): BP systolic 109–129; BP diastolic 75–84; PULSE 76–113; RESP 18–24; TEMP 36.5–36.8; O2SAT 90–100
[2019-07-11 05:05] LABS: Basophils % 0.2 %; Eosinophils % 0.2 %; Hematocrit 31.1 % (42.0-52.0); Hemoglobin 8.5 g/dL (11.7-16.6); Lymphocytes # 1.3 10^3/uL (0.8-4.8); Mean Corpuscular HGB Conc 27.3 g/dL (30.0-36.0); Mean Corpuscular Hemoglobin 25.8 pg (28.0-34.0); Mean Corpuscular Volume 94.5 fL (80-94); Mean Platelet Volume 9.6 fL (7.4-10.4); Monocytes # 0.8 10^3/uL (0.2-0.9); Monocytes % 9.2 %; Neutrophils # 6.9 10^3/uL (1.8-7.7); Neutrophils % 75.6 %; Nucleated Red Blood Cells # 0.3 /100WBC; Nucleated Red Blood Cells % 3.7 %; Platelet Count 304 10^3/cmm (130-400); Red Blood Count 3.29 10^6/uL (4.1-5.3); Red Cell Distribution Width 21.4 % (12.1-15.1); White Blood Count 9.2 10^3/uL (4.0-10.0)
[2019-07-11] MEDS: FUROsemide 10 mg/mL SDV 4mL 40 MG IVP ×2 (05:28→17:55)
[2019-07-11 05:30] LABS: Anion Gap 20.1 (5-19); Blood Urea Nitrogen 76 mg/dL (8-23); Calcium 9.2 mg/dL (8.5-10.5); Carbon Dioxide 19 mmol/L (22-29); Chloride 102 mmol/L (98-107); Glucose 106 mg/dL (65-115); Osmolality Calculated 282 mOsm/kg (285-295); Potassium 5.1 mmol/L (3.5-5.1); Sodium 136 mmol/L (136-145)
--- NOTE | 2019-07-11 07:00 | USCV_ITS ---
Sadaf Lele Age: 78 Gender: M : 1940 Exam Date: 07/11/2019 06:40 Ordering Phys: Em Valentino DO Technologist: Kasia Simpson Exam Location: [facility] [place]_ Indication: SWELLING HISTORY: Upper extremity swelling. PROCEDURES: Venous duplex imaging was performed in only the right upper extremity. The following venous structures were evaluated: internal jugular vein, subclavian vein, axillary vein, and brachial veins. In addition, the basilic vein, cephalic vein, radial vein, and ulnar vein. Serial compression, augmentation maneuvers, and spectral Doppler flow evaluation were performed. FINDINGS: Normal 2-D, color Doppler and phasicity noted in ther right upper extremity venous system extending from the right internal jugular vein through the main forearm. No thrombosis or occlusion noted. The veins were found to be easily compressible with spontaneous blood flow. CONCLUSIONS No evidence of thrombosis in the above-mentioned veins Dr Shelby Tellez MD FAC (Electronically Signed) Final Date: 11 Jul 2019 18:49 S
--- NOTE | 2019-07-11 07:00 | USCV_ITS ---
June Lele Age: 78 Gender: M : 1940 Exam Date: 07/11/2019 06:26 Ordering Phys: Em Valentino DO Technologist: Kasia Simpson Exam Location: [facility] – [place] Indication: CHF BP: / HR: 98 Rhythm: Sinus Technical Quality: Good MEASUREMENTS (Male / Female) Normal Values 2D ECHO LV Diastolic Diameter PLAX 4.5 cm 4.2 - 5.9 / 3.9 - 5.3 cm LV Systolic Diameter PLAX 3.9 cm LV Chamber Size 2.8 cm IVS Diastolic Thickness 1.3 cm 0.6 - 1.0 / 0.6 - 0.9 cm IVS Systolic Thickness 1.4 cm LVPW Diastolic Thickness 1.6 cm 0.6 - 1.0 / 0.6 - 0.9 cm LVPW Systolic Thickness 1.9 cm RV Chamber Size 3.2 cm LVOT Diameter 2.1 cm LV Ejection Fraction 2D Teich 25.4 % LV Ejection Fraction MOD 2C 33.9 % LV Ejection Fraction 2C AL 32.9 % LA Diameter 5.8 cm LA Width 2.9 cm LA Height 6.0 cm RA Width 4.2 cm RA Height 5.1 cm Aorta at Sinotubular Diameter 3.4 cm M-MODE LV Diastolic Diameter MM 5.0 cm 4.2 - 5.9 / 3.9 - 5.3 cm LV Systolic Diameter MM 4.1 cm LV Ejection Fraction MM Teich 36.9 % IVS Diastolic Thickness MM 0.9 cm 0.6 - 1.0 / 0.6 - 0.9 cm IVS Systolic Thickness MM 0.8 cm LVPW Diastolic Thickness MM 1.1 cm 0.6 - 1.0 / 0.6 - 0.9 cm LVPW Systolic Thickness MM 1.4 cm Aortic Annulus Diameter 3.6 cm LA Ao Ratio MM 1.6 MV E Point Septal Separation 0.8 cm DOPPLER AV Peak Velocity 99.0 cm/s LVOT Peak Velocity 99.0 cm/s AV Area Cont Eq vti 2.4 cm squared AV Area Cont Eq pk 3.3 cm squared MV Area PHT 4.9 cm squared Mitral E to A Ratio 2.7 MV E' Velocity 12.0 cm/s Mitral E to MV E' Ratio 7.4 Mitral E to LV E' Lateral Ratio 7.5 Mitral E to LV E' Septal Ratio 7.4 TR Peak Velocity 392.0 cm/s TR Peak Gradient 61.5 mmHg TR Mean Velocity 176.2 cm/s TR Mean Gradient 14.6 mmHg TR Velocity Time Integral 79.3 cm TV Peak E Velocity 91.0 cm/s Right Atrial Pressure 3.0 mmHg Pulmonary Artery Systolic Pressu 64.5 mmHg PV Peak Velocity 60.0 cm/s RV Acceleration Time 0.1 s RV Ejection Time 0.3 s RV AcT/ET 0.3 FINDINGS Left Ventricle Mildly increased left ventricular cavity size. Normal left ventricular systolic function. Left ventricular ejection fraction is estimated at 50 %. Grade III/IV diastolic dysfunction (restrictive filling pattern), severely elevated filling pressures. Right Ventricle Normal right ventricular size. RVSP could not be calculated due to incomplete tricuspid regurgitation velocity profile. Right Atrium Moderately increased right atrial size. Left Atrium Moderately increased left atrial size. Mitral Valve Moderately thickened mitral valve. No mitral valve stenosis. Moderate mitral valve regurgitation. Aortic Valve Structurally normal aortic valve without significant sclerosis or stenosis. There is no aortic regurgitation. Tricuspid Valve Moderate tricuspid valve regurgitation. Pulmonic Valve Structurally normal pulmonic valve without significant stenosis. There is no pulmonic regurgitation. Pericardium Normal pericardium without effusion. Aorta Normal ascending aorta dimension. CONCLUSIONS 1-Mildly increased left ventricular cavity size. Normal left ventricular systolic function. Left ventricular ejection fraction is estimated at 50 %. Grade III/IV diastolic dysfunction (restrictive filling pattern), severely elevated filling pressures. 2-Moderately increased right atrial size. 3-Moderately increased left atrial size. 4-Moderately thickened mitral valve. No mitral valve stenosis. Moderate mitral valve regurgitation. 5-Moderate tricuspid valve regurgitation. 6-There is no pericardial effusion. 7-Right atrial pressure is around 5 mm of mercury. 8-No significant change since the prior echocardiogram study of 11/02/2017. Ken Lara MD (Electronically Signed) Final Date: 11 Jul 2019 18:07 S
[2019-07-11 07:57] LABS: Free T4 Free Thyroxine 0.92 ng/dL (0.82-1.77); T3 Free 1.2 PG/ML (2.0-4.4)
[2019-07-11] MEDS: pantoprazole DR 40 mg Tablet PO (08:13)
[2019-07-11] MEDS: spironolactone 25 mg Tablet 12.5 MG PO (08:13)
[2019-07-11] MEDS: carvedilol 3.125 mg Tablet PO ×2 (08:14→17:54)
[2019-07-11] MEDS: sucralfate 1 gm Tablet PO (08:14)
--- NOTE | 2019-07-11 09:43 | PC.CHAP ---
Pastoral Care Encounter/Spiritual Assessment Type of Contact [] Declined digital x ray service engineer visit [] Patient/Family/Request visit [] Outpatient visit [] Follow-up visit [] Physician referral [] Code/Alert [x] Routine visit [] Staff referral [] Actively dying [] Patient sleeping [] Family support [] [] Out of room [] Palliative care [] [] Receiving care in room [] Pre-surgical visit [] Trauma [] Long length of stay [] ICU visit [] Other: Relational/Emotional Strength [] Patient feels connected with others/family/visitors/staff [] Distress [] Loneliness/isolation [] Abandonment Spirituality of Patient [] Person of Vidya [] Attends [facility]aritan of their Vidya [] Believes in Prayer [] Reads Bible or Islam materials [] There are Spiritual issues to be addressed Lift Supervisor Interventions [x] Prayer [] Active listening [] Non-anxious presence [] Spiritual/emotional support [] Crisis/trauma care [] Spiritual counseling [] Bereavement support [] Provided bereavement packet [] Provided Bible/devotional materials [] Provided toy/stuffed animal, coloring book to patient or family member [] Provided Communion [] Anointing/[place] [] Salvation [x] Completed spiritual assessment [] Other: Impact on Illness or Injury [] Angry [] Fearful [] Anxious [] Often cries [] Exhaustion [] Unable to work [] Unable to attend mormon [] Unable to walk/stand [] Unable to read [] Unable to drive [] Unable to eat/drink [] Unable to sleep [] Unable to be with family [] Patient intubated [] Other: Summary Patient healing well. Feeling stronger, and swelling going down Time spent with patient 15 min
--- NOTE | 2019-07-11 11:39 | PM.PN ---
Subjective Subjective: Interval history: Patient awake in bed at time of exam this morning. He reported that his breathing is feeling better. He reports that the swelling feels improved in his right upper extremity. Stated that legs feel about the same. He denies any chest pain or cough. Vitals/I&O/Wt Last Vital Signs Temp 97.7 F 07/11/19 11:21 Pulse 92 07/11/19 11:21 Resp 19 H 07/11/19 11:21 BP 112/76 07/11/19 11:21 Pulse Ox 98 07/11/19 11:21 07/10/19 07/11/19 07/11/19 22:59 06:59 14:59 Intake Total 360 / 360 Output Total 200 / 200 201 / 401 100 / 100 Balance -200 / -200 -201 / -401 260 / 260 Weight last 48 hrs Weight 89.811 kg Weight 72.575 kg Physical Exam Const: COMMON NORMALS: patient oriented x3 and alert GENERAL APPEARANCE: cooperative ORIENTATION/CONSCIOUSNESS: Yes awake, Yes oriented to person and Yes oriented to place HENMT: COMMON NORMALS: normocephalic and atraumatic HEAD & SCALP: normocephalic, atraumatic and other (Contusion on the right eye with scabbed abrasion over the right eye) Eye: COMMON NORMALS: Equal, round and reactive pupils present PUPIL: Yes Equal, round and reactive pupils present Neck/C-Spine: COMMON NORMALS: supple GENERAL: Yes normal visual inspection Resp: COMMON NORMALS: normal respiratory effort and clear to auscultation bilaterally AUSCULTATION: clear to auscultation bilaterally and crackles (With diminished breath sounds in the bases bilaterally) Laterality: bilateral Cardio: OTHER: Irregularly irregular with systolic murmur GI: COMMON NORMALS: Soft to palpation and non-tender INSPECTION: No abdominal distension AUSCULTATION: Yes normoactive bowel sounds PALPATION: Yes Soft to palpation Extremity: COMMON NORMALS: no calf tenderness NARRATIVE EXTREMITY EXAM: 3+ pitting edema in the lower extremities bilaterally Right upper extremity edema into the hand Neuro: COMMON NORMALS: patient oriented x3, CN's II-XII intact bilaterally, moves all extremities and no focal motor deficits SENSORIUM/ORIENTATION: Yes alert, Yes oriented to person and Yes oriented to place SPEECH: speech normal Psych: COMMON NORMALS: mental status grossly normal and cooperative Skin: COMMON NORMALS: no rashes or lesions noted GENERAL SKIN EXAM: no rashes or lesions noted Data : 07/11/19 04:45 07/11/19 04:45 A&P Assessment and plan (1) CHF (congestive heart failure): Patient with acute on chronic CHF exacerbation, strict intake and output as well as daily weights Continue with IV Lasix at this time Continue monitoring renal function closely, increase of BUN with slight improvement in creatinine today. Repeat echocardiogram ordered and pending Continue Coreg, Aldactone, hold off on ROLAN inhibitor due to renal function. Consider addition of Imdur if blood pressure tolerates Status: Acute Qualifiers: Heart failure type: systolic Heart failure chronicity: acute on chronic Qualified Code(s): I50.23 - Acute on chronic systolic (congestive) heart failure (2) CKD (chronic kidney disease): Appears fluid overloaded, increasing BUN but slight improvement in creatinine today. We will continue to monitor renal function closely Hold off on ROLAN inhibitor at this time If continues to worsen will discuss with nephrology Status: Acute (3) Mitral regurgitation: Moderate to severe mitral regurgitation along with moderate to severe tricuspid regurgitation Status: Acute Qualifiers: Cardiac valve disease etiology: nonrheumatic Qualified Code(s): I34.0 - Nonrheumatic mitral (valve) insufficiency (4) Hx pulmonary embolism: No longer on anticoagulation due to history of a GI bleed. Previously declined IVC filter Status: Chronic (5) HTN (hypertension): Blood pressure controlled at this time, holding off on lisinopril due to worsening renal function. Continuing on Aldactone but if worsening renal function will continue to hold. Status: Acute (6) Atrial fibrillation: No longer on anticoagulation due to history of GI bleed x2 requiring transfusion with most recent GI bleed in April of this year with presence of a gastric erosion and duodenal ulcer on EGD 3.125 mg twice daily Status: Acute (7) Shortness of breath: Secondary to CHF exacerbation, plan as above Status: Acute Additional A&P Information Moderate to severe pulmonary hypertension Recent gastric erosion and duodenal ulcer, no longer on anticoagulation Chronic anemia: Patient denies any further melanotic stools, continue to hold off on any anticoagulation Hematoma to the right shoulder: Status post fall last week, ultrasound reviewed shows rotator cuff arthropathy with 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 Pending venous duplex of the upper extremity Generalized deconditioning: Physical therapy and Occupational Therapy ordered for evaluation and treatment Question of underlying dementia: Patient has medication noncompliance which could be complicated by this concern Hypothyroidism: Started on levothyroxine 50 mcg daily DVT prophylaxis: SCDs, no pharmacologic prophylaxis due to anemia and recent GI bleed Diet: Cardiac CODE STATUS: Full code Attestations Medical Necessity Statement*: Patient requires further hospitalization due to concern for CHF exacerbation and hypoxia Coding Level of Care Code Acute Ballistic Technician for [facility] Fwd Diagnoses CHF (congestive heart failure) I50.23 Heart failure type: systolic Heart failure chronicity: acute on chronic CKD (chronic kidney disease) N18.9 Mitral regurgitation I34.0 Cardiac valve disease etiology: nonrheumatic Hx pulmonary embolism Z86.711 HTN (hypertension) I10 Atrial fibrillation I48.91 Shortness of breath R06.02
[2019-07-11] MEDS: levothyroxine 50 mcg Tablet PO (13:19)
[2019-07-12] VITALS (7 sets, daily range): BP systolic 104–121; BP diastolic 71–86; PULSE 58–98; RESP 16–20; TEMP 36.4–36.9; O2SAT 93–100
[2019-07-12 05:13] LABS: Basophils % 0.2 %; Eosinophils # 0.1 10^3/uL (0.0-0.8); Eosinophils % 0.7 %; Hemoglobin 7.5 g/dL (11.7-16.6); Lymphocytes # 0.9 10^3/uL (0.8-4.8); Lymphocytes % 10.9 %; Mean Corpuscular HGB Conc 27.8 g/dL (30.0-36.0); Mean Corpuscular Hemoglobin 26.4 pg (28.0-34.0); Mean Corpuscular Volume 95.1 fL (80-94); Mean Platelet Volume 9.6 fL (7.4-10.4); Monocytes # 0.9 10^3/uL (0.2-0.9); Neutrophils # 6.7 10^3/uL (1.8-7.7); Neutrophils % 77.5 %; Nucleated Red Blood Cells # 0.2 /100WBC; Platelet Count 239 10^3/cmm (130-400); Red Blood Count 2.84 10^6/uL (4.1-5.3); Red Cell Distribution Width 21.4 % (12.1-15.1); White Blood Count 8.6 10^3/uL (4.0-10.0)
[2019-07-12] MEDS: FUROsemide 10 mg/mL SDV 4mL 40 MG IVP ×2 (05:16→17:26)
[2019-07-12 05:29] LABS: Anion Gap 19.5 (5-19); Blood Urea Nitrogen 72 mg/dL (8-23); Calcium 8.2 mg/dL (8.5-10.5); Carbon Dioxide 19 mmol/L (22-29); Chloride 102 mmol/L (98-107); Glucose 115 mg/dL (65-115); Osmolality Calculated 282 mOsm/kg (285-295); Potassium 4.5 mmol/L (3.5-5.1); Sodium 136 mmol/L (136-145)
[2019-07-12] MEDS: levothyroxine 50 mcg Tablet PO (09:17)
[2019-07-12] MEDS: sucralfate 1 gm Tablet PO (09:17)
[2019-07-12] MEDS: spironolactone 25 mg Tablet 12.5 MG PO (09:17)
[2019-07-12] MEDS: carvedilol 3.125 mg Tablet PO ×2 (09:17→17:26)
[2019-07-12] MEDS: pantoprazole DR 40 mg Tablet PO (09:17)
--- NOTE | 2019-07-12 09:25 | P.PN_ITS ---
Subjective Subjective: Interval history: Patient awake eating breakfast at time of exam this morning. He reports that his breathing is feeling somewhat better today. He reports continued swelling in his arms and legs bilaterally, somewhat improved today. Increased urine output overnight. Vitals/I&O/Wt Last Vital Signs Temp 97.8 F 07/12/19 07:20 Pulse 81 07/12/19 07:20 Resp 16 07/12/19 07:20 BP 114/71 07/12/19 07:20 Pulse Ox 98 07/12/19 07:20 07/11/19 07/12/19 07/12/19 22:59 06:59 14:59 Intake Total 240 / 840 118 / 958 Output Total 400 / 500 420 / 920 450 / 450 Balance -160 / 340 -302 / 38 -450 / -450 Weight last 48 hrs Weight 90.111 kg Weight 89.811 kg Weight 72.575 kg Physical Exam Const: COMMON NORMALS: patient oriented x3 and alert GENERAL APPEARANCE: cooperative ORIENTATION/CONSCIOUSNESS: Yes awake, Yes oriented to person and Yes oriented to place HENMT: COMMON NORMALS: normocephalic and atraumatic HEAD & SCALP: normocephalic, atraumatic and other (Contusion on the right eye with scabbed abrasion over the right eye) Eye: COMMON NORMALS: Equal, round and reactive pupils present PUPIL: Yes Equal, round and reactive pupils present Neck/C-Spine: COMMON NORMALS: supple GENERAL: Yes normal visual inspection Resp: COMMON NORMALS: normal respiratory effort and clear to auscultation bilaterally AUSCULTATION: clear to auscultation bilaterally and crackles (With diminished breath sounds in the bases bilaterally) Laterality: bilateral Cardio: OTHER: Irregularly irregular with systolic murmur GI: COMMON NORMALS: Soft to palpation and non-tender INSPECTION: No abdominal distension AUSCULTATION: Yes normoactive bowel sounds PALPATION: Yes Soft to palpation Extremity: COMMON NORMALS: no calf tenderness NARRATIVE EXTREMITY EXAM: 3+ pitting edema in the lower extremities bilaterally R UE edema Neuro: COMMON NORMALS: patient oriented x3, CN's II-XII intact bilaterally, moves all extremities and no focal motor deficits SENSORIUM/ORIENTATION: Yes alert, Yes oriented to person and Yes oriented to place SPEECH: speech normal Psych: COMMON NORMALS: mental status grossly normal and cooperative Skin: COMMON NORMALS: no rashes or lesions noted GENERAL SKIN EXAM: no rashes or lesions noted Data : 07/12/19 04:36 07/12/19 04:36 A&P Assessment and plan (1) CHF (congestive heart failure): With grade 3 diastolic dysfunction and severely elevated filling pressures. Continue with IV diuresis, output has continued to improve and renal function improving Continue Coreg, Aldactone, hold off on ROLAN inhibitor due to renal function. Status: Acute Qualifiers: Heart failure type: systolic Heart failure chronicity: acute on chronic Qualified Code(s): I50.23 - Acute on chronic systolic (congestive) heart fa ilure (2) CKD (chronic kidney disease): Renal function continues to improve and urine output also improving. Believe acute kidney injury on chronic kidney disease was secondary to fluid overload on admission Continue with plan and treatment as above Status: Acute (3) Mitral regurgitation: Moderate to severe mitral regurgitation along with moderate to severe tricuspid regurgitation Status: Acute Qualifiers: Cardiac valve disease etiology: nonrheumatic Qualified Code(s): I34.0 - Nonrheumatic mitral (valve) insufficiency (4) Hx pulmonary embolism: No longer on anticoagulation due to history of a GI bleed. Previously declined IVC filter Status: Chronic (5) HTN (hypertension): Blood pressure controlled at this time, holding off on lisinopril due to worsening renal function. Continuing on Aldactone Status: Acute (6) Atrial fibrillation: No longer on anticoagulation due to history of GI bleed x2 requiring tr ansfusion with most recent GI bleed in April of this year with presence of a gastric erosion and duodenal ulcer on EGD 3.125 mg twice daily Status: Acute (7) Shortness of breath: Secondary to CHF exacerbation, plan as above Status: Acute Additional A&P Information Moderate to severe pulmonary hypertension Recent gastric erosion and duodenal ulcer, no longer on anticoagulation Chronic anemia: Type and screen ordered, transfuse blood if hgb not improved and remains less than 8 due to heart disease Hematoma to the right shoulder: Status post fall last week, ultrasound reviewed shows rotator cuff arthropathy with 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 Pending venous duplex of the upper extremity Generalized deconditioning: Physical therapy and Occupational Therapy ordered for evaluation and treatment Question of underlying dementia: Patient has medication noncompliance which could be complicated by this concern Hypothyroidism: Started on levothyroxine 50 mcg daily DVT prophylaxis: SCDs, no pharmacologic prophylaxis due to anemia and recent GI bleed Diet: Cardiac CODE STATUS: Full code Attestations Medical Necessity Statement*: Further hospitalization due to acute CHF exacerbation with preserved ejection fraction as well as anemia Coding Level of Care Code 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
[2019-07-12 14:36] LABS: Hematocrit 29.8 % (42.0-52.0); Hemoglobin 8.2 g/dL (11.7-16.6)
[2019-07-12 20:18] LABS: Basophils % 0.1 %; Eosinophils % 0.5 %; Hematocrit 29.5 % (42.0-52.0); Hemoglobin 7.8 g/dL (11.7-16.6); Lymphocytes # 0.8 10^3/uL (0.8-4.8); Lymphocytes % 10.4 %; Mean Corpuscular HGB Conc 26.4 g/dL (30.0-36.0); Mean Corpuscular Hemoglobin 26.4 pg (28.0-34.0); Mean Corpuscular Volume 99.7 fL (80-94); Mean Platelet Volume 9.6 fL (7.4-10.4); Monocytes # 0.9 10^3/uL (0.2-0.9); Monocytes % 11.6 %; Neutrophils # 5.6 10^3/uL (1.8-7.7); Neutrophils % 76.2 %; Nucleated Red Blood Cells # 0.2 /100WBC; Nucleated Red Blood Cells % 2.9 %; Platelet Count 250 10^3/cmm (130-400); Red Blood Count 2.96 10^6/uL (4.1-5.3); Red Cell Distribution Width 21.8 % (12.1-15.1); White Blood Count 7.3 10^3/uL (4.0-10.0)
[2019-07-12 20:36] LABS: Alanine Aminotransferase 10 U/L (0-41); Albumin Level 2.7 g/dL (3.5-5.2); Alkaline Phosphatase 111 IU/L (40-130); Anion Gap 18.8 (5-19); Aspartate Amino Transferase 23 U/L (0-40); Blood Urea Nitrogen 69 mg/dL (8-23); Carbon Dioxide 20 mmol/L (22-29); Chloride 101 mmol/L (98-107); Globulin 3.9 g/dL (1.3-4.6); Glucose 122 mg/dL (65-115); Magnesium 2.8 mg/dL (1.7-2.3); Osmolality Calculated 281 mOsm/kg (285-295); Potassium 4.8 mmol/L (3.5-5.1); Sodium 135 mmol/L (136-145); Total Bilirubin 0.5 mg/dL (0.15-1.2); Total Protein 6.6 g/dL (6.6-8.7)
[2019-07-13] VITALS: BP 102/71; PULSE 91; RESP 18; TEMP 37; O2SAT 99
[2019-07-13 04:00] VITALS: BP 119/75; PULSE 75; RESP 18; TEMP 36.9; O2SAT 96
[2019-07-13 05:11] LABS: Eosinophils % 0.5 %; Hematocrit 29.5 % (42.0-52.0); Hemoglobin 8.1 g/dL (11.7-16.6); Lymphocytes # 0.9 10^3/uL (0.8-4.8); Mean Corpuscular HGB Conc 27.5 g/dL (30.0-36.0); Mean Corpuscular Hemoglobin 26.1 pg (28.0-34.0); Mean Corpuscular Volume 95.2 fL (80-94); Mean Platelet Volume 9.7 fL (7.4-10.4); Monocytes % 12.1 %; Neutrophils # 6.1 10^3/uL (1.8-7.7); Neutrophils % 75.5 %; Nucleated Red Blood Cells # 0.1 /100WBC; Nucleated Red Blood Cells % 1.5 %; Platelet Count 270 10^3/cmm (130-400); Red Cell Distribution Width 21.3 % (12.1-15.1); White Blood Count 8.1 10^3/uL (4.0-10.0)
[2019-07-13 05:45] LABS: Anion Gap 17.8 (5-19); Blood Urea Nitrogen 69 mg/dL (8-23); Calcium 8.2 mg/dL (8.5-10.5); Carbon Dioxide 24 mmol/L (22-29); Chloride 100 mmol/L (98-107); Glucose 118 mg/dL (65-115); Osmolality Calculated 284 mOsm/kg (285-295); Potassium 4.8 mmol/L (3.5-5.1); Sodium 137 mmol/L (136-145)
[2019-07-13] MEDS: FUROsemide 10 mg/mL SDV 4mL 40 MG IVP (06:08)
[2019-07-13 07:52] VITALS: BP 125/75; PULSE 98; RESP 16; TEMP 36.3; O2SAT 100
[2019-07-13] MEDS: sucralfate 1 gm Tablet PO (08:21)
[2019-07-13] MEDS: levothyroxine 50 mcg Tablet PO (08:21)
[2019-07-13] MEDS: pantoprazole DR 40 mg Tablet PO (08:21)
[2019-07-13] MEDS: carvedilol 3.125 mg Tablet PO (08:21)
[2019-07-13] MEDS: spironolactone 25 mg Tablet 12.5 MG PO (08:22)
--- NOTE | 2019-07-13 10:00 | PC.SOCIAL ---
IMM Page 2 of IMM explained to patient. Initialed, dated, and timed and placed in chart.
[2019-07-13 11:34] VITALS: BP 115/72; PULSE 94; RESP 18; TEMP 36.6; O2SAT 100
--- NOTE | 2019-07-13 13:00 | PM.DCS ---
Discharge Providers Date of Admission: 07/10/19 13:36 Date of Discharge: July 13, 2019 Attending Provider at Admission: Em Valentino DO Attending Provider at Discharge: Em Valentino DO Primary Care Provider: Tano Jovel DO Diagnoses at Discharge Discharge Diagnosis (1) CHF (congestive heart failure): Status: Acute Problem details: Echo 07/11/2019: LVEF 50%, grade 3 diastolic dysfunction with severely elevated filling pressures. Moderate mitral valve regurgitation, moderate tricuspid valve regurgitation, no pericardial effusion Qualifiers: Heart failure chronicity: acute on chronic Heart failure type: systolic Qualified Code(s): I50.23 - Acute on chronic systolic (congestive) heart failure (2) CKD (chronic kidney disease): Status: Acute (3) Mitral regurgitation: Status: Acute Qualifiers: Cardiac valve disease etiology: nonrheumatic Qualified Code(s): I34.0 - Nonrheumatic mitral (valve) insufficiency (4) Hx pulmonary embolism: Status: Chronic (5) HTN (hypertension): Status: Acute (6) Atrial fibrillation: Status: Acute (7) Shortness of breath: Status: Acute Reason for Visit Reason for Visit: Reason For Visit: FALL LAST WEEK, FLUID LEAKING FROM HANDS Hospital Course Hospital Course: Patient was seen and evaluated in the emergency department and admitted for further evaluation and treatment due to concern for fluid overload and acute on chronic kidney injury. Patient was given IV diuresis, Lasix, and continued to improve. Patient was significantly fluid overloaded and was initially requiring 2 to 4 L of oxygen by nasal cannula. He was continually diuresed and his swelling continued to slowly improve his renal function also continued to slowly improve. Oxygen was weaned to room air on date of discharge. Repeat echocardiogram was performed which showed no changes from prior exam. Patient on date of discharge reported that he really wanted to go home, verbalized understanding on the need for compliance with medications including his Lasix. Discussed with patient that he would need to continue to follow with a fluid restriction and sodium restriction. Patient verbalized understanding and agreed with plan and noted that he was eager to return to home. Physical Exam Const: COMMON NORMALS: patient oriented x3 and alert GENERAL APPEARANCE: cooperative ORIENTATION/CONSCIOUSNESS: Yes awake, Yes oriented to person and Yes oriented to place HENMT: COMMON NORMALS: normocephalic and atraumatic HEAD & SCALP: normocephalic, atraumatic and other (Contusion on the right eye with scabbed abrasion over the right eye) Eye: COMMON NORMALS: Equal, round and reactive pupils present PUPIL: Yes Equal, round and reactive pupils present Neck/C-Spine: COMMON NORMALS: supple GENERAL: Yes normal visual inspection Resp: COMMON NORMALS: normal respiratory effort and clear to auscultation bilaterally AUSCULTATION: clear to auscultation bilaterally Cardio: OTHER: Irregularly irregular with systolic murmur GI: COMMON NORMALS: Soft to palpation and non-tender INSPECTION: No abdominal distension AUSCULTATION: Yes normoactive bowel sounds PALPATION: Yes Soft to palpation Extremity: COMMON NORMALS: no calf tenderness NARRATIVE EXTREMITY EXAM: 2+ pitting edema in the lower extremities bilaterally R UE edema Neuro: COMMON NORMALS: patient oriented x3, CN's II-XII intact bilaterally, moves all extremities and no focal motor deficits SENSORIUM/ORIENTATION: Yes alert, Yes oriented to person and Yes oriented to place SPEECH: speech normal Psych: COMMON NORMALS: mental status grossly normal and cooperative Skin: COMMON NORMALS: no rashes or lesions noted GENERAL SKIN EXAM: no rashes or lesions noted Discharge Data Data Completed and Pending: Completed Studies During Hospitalization Category Date Time Status XR chest 1V jacqueline ble [id number] Stat Exams 07/10/19 11:04 Completed XR shoulder RT mi n 2V* [id number] Stat Exams 07/10/19 11:37 Completed CV echo complete* [id number] Routine Ultrasound 07/11/19 07:00 [place] [id number] Routin e Ultrasound 07/11/19 07:00 Completed Labs from last 24 hours 07/13/19 07/13/19 07/12/19 04:53 04:53 20:10 WBC 8.1 RBC 3.10 L Hgb 8.1 L Hct 29.5 L MCV 95.2 H MCH 26.1 L MCHC 27.5 L RDW 21.3 H Plt Count 270 MPV 9.7 Neut % (Auto) 75.5 Lymph % (Auto) 11.0 [place] % (Auto) 12.1 Eos % (Auto) 0.5 Baso % (Auto) 0.0 Neut # (Auto) 6.1 Lymph # (Auto) 0.9 [place] # (Auto) 1.0 H Eos # (Auto) 0.0 Baso # (Auto) 0.0 Nucleated RBC % (a uto) 1.5 Nucleated RBCs # 0.1 Sodium 137 135 L Potassium 4.8 4.8 Chloride 100 101 Carbon Dioxide 24 20 L Anion Gap 17.8 18.8 BUN 69 H 69 H Creatinine 2.3 H 2.5 H Glucose 118 H 122 H Calculated Osmolal ity 284 L 281 L Calcium 8.2 L 8.0 L Magnesium 2.8 H Total Bilirubin 0.5 AST 23 ALT 10 Alkaline Phosphata se 111 Total Protein 6.6 Albumin 2.7 L Globulin 3.9 Blood Type Rho(D) Type Antibody Screen 07/12/19 07/12/19 07/12/19 20:10 14:01 14:01 WBC 7.3 RBC 2.96 L Hgb 7.8 L 8.2 L Hct 29.5 L 29.8 L MCV 99.7 H MCH 26.4 L MCHC 26.4 L D RDW 21.8 H Plt Count 250 MPV 9.6 Neut % (Auto) 76.2 Lymph % (Auto) 10.4 [place] % (Auto) 11.6 Eos % (Auto) 0.5 Baso % (Auto) 0.1 Neut # (Auto) 5.6 Lymph # (Auto) 0.8 [place] # (Auto) 0.9 Eos # (Auto) 0.0 Baso # (Auto) 0.0 Nucleated RBC % (a uto) 2.9 Nucleated RBCs # 0.2 Sodium Potassium Chloride Carbon Dioxide Anion Gap BUN Creatinine Glucose Calculated Osmolal ity Calcium Magnesium Total Bilirubin AST ALT Alkaline Phosphata se Total Protein Albumin Globulin Blood Type O Positive Rho(D) Type Positive Antibody Screen Negative Vitals: Last Vital Signs Temp 97.8 F 07/13/19 11:34 Pulse 94 07/13/19 11:34 Resp 18 07/13/19 11:34 BP 115/72 07/13/19 11:34 Pulse Ox 100 07/13/19 11:34 Discharge Plan Discharge Patient Disposition: Home Health Service Condition: Stable Prescriptions: New levothyroxine 50 mcg Tablet 50 mcg PO DAILY 30 Days Qty: 30 RF: 0 pantoprazole 40 mg Tablet,Delayed Release (Dr/Ec) 40 mg PO DAILY 30 Days Qty: 30 RF: 0 Continued Lasix 80 mg tablet 80 mg PO DAILY Qty: 30 RF: 6 sucralfate 1 gram tablet 1 gm PO DAILY Qty: 30 RF: 6 Gas-X See Rx Instructions .ROUTE .COMPLEX RF: 0 potassium chloride 10 mEq Tablet Extended Release 10 meq PO DAILY RF: 0 spironolactone 25 mg Tablet 12.5 mg PO DAILY RF: 0 multivitamin [Multiple Vitamins] Tablet 1 tab PO DAILY RF: 0 Changed carvedilol 3.125 mg Tablet 6.25 mg PO BID Qty: 0 RF: 0 Discontinued lisinopril 2.5 mg tablet 2.5 mg PO DAILY Qty: 30 RF: 6 warfarin 5 mg Tablet 5 mg PO DAILY RF: 0 Discharge Orders: Discharge Order (Routine); Ordered 07/13/19 Ordered By: Em Valentino Referrals: [facility] [Outside] (Your information has been sent to [facility] and they can accept you and provide home health services for nursing and therapy, however you must first follow up with Dr. Jovel on 07/17 at 1:15 pm before they are able to begin services. Please call [facility] Case Management if you have any questions or concerns at [phone].) Tano Jovel, DO [Primary Care Provider] - 1-3 days (You must keep this appointment with Dr. Jovel before your home health services can begin. If you are not able to make this appointment, please call Pablo Batista at the number provided and reschedule if necessary.) Discharge Diet: Cardiac and Low Salt Discharge Activity: Increase activity as tolerated Activity Restrictions/Additional Instructions: Continue with Lasix 80 mg daily Increase Coreg to 6.25 mg twice daily Discontinue lisinopril and warfarin Started on levothyroxine, medication for hypothyroidism Continue to monitor daily weights, for weight gain more than 3 to 4 pounds call your physician Monitor sodium intake, 2 g sodium restriction per 24 hours Fluid restriction, 1500 mL per 24 hours Continue with cardiac diet Continue with compression stockings to the lower extremities bilaterally Call your physician or present to the ED for any acute illness or concern Discharge Attestations Time Spent in Discharge Care*: greater than 30 min Status at Discharge: Cognitive status at discharge: cognitively intact, Behavioral status at discharge: cooperative, Quality Metrics Clinical Quality Measures During this hospital stay, did patient experience: None Coding Level of Care Code 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
[2019-07-13 13:01] VITALS: O2SAT 98
[2019-07-13 15:56] VITALS: BP 115/72; PULSE 94; RESP 18; TEMP 36.6; O2SAT 98
== END 2019-07-13 15:57 | disposition home health service (06) | DRG 291 ==
LOC: ER 14:17 → MEDSURG 14:18
PROVIDERS: Family Medicine; Student in an Organized Health Care Education/Training Program; Admitting Provider Family Medicine; PCP Internal Medicine; Visit Provider Family Medicine
DX: I13.0 Hypertensive heart and chronic kidney disease with heart failure and stage 1 through stage 4 chronic kidney disease, or unspecified chronic kidney disease (principal); I50.23 Acute on chronic systolic (congestive) heart failure; N17.9 Acute kidney failure, unspecified; I34.0 Nonrheumatic mitral (valve) insufficiency; I48.91 Unspecified atrial fibrillation; Z79.01 Long term (current) use of anticoagulants; Z86.711 Personal history of pulmonary embolism; I27.20 Pulmonary hypertension, unspecified; E03.9 Hypothyroidism, unspecified; Z91.81 History of falling; N18.9 Chronic kidney disease, unspecified; D63.1 Anemia in chronic kidney disease
CPT/HCPCS: 12345; 36415; 36600; 71045; 73030; 80048; 80051; 80053; 81001; 82810; 83735; 83880; 83986; 84439; 84443; 84481; 84484; 85014; 85018; 85025; 86850; 86900; 93005; 93306; 93971; 94664; 96375; 97110; 97116; 97140; 97161; 97166; 97530; 99283; J1940; J7040

== ENCOUNTER 2019-07-15 16:53 | Inpatient (IN) | payer MEDICARE, SELFPAY ==
[2019-07-15] VITALS (9 sets, daily range): BP systolic 96–118; BP diastolic 63–78; PULSE 89–120; RESP 14–38; TEMP 36.8–37.1; O2SAT 92–100; BMI 25.1
--- NOTE | 2019-07-15 16:59 | XR_ITS ---
WS: [id number] PORTABLE CHEST HISTORY: dyspnea COMPARISON: 07/10/2019 Mild pulmonary hyperinflation. Minimal blunting of the costophrenic angles bilaterally consistent wit h small bilateral pleural effusions. Slightly better aeration at the lung bases. Cardiac size: Moderately enlarged cardiac silhouette. Mediastinum/Aorta: Mild atherosclerosis aorta. Prior LEFT shoulder rotator cuff repair. XR/XR chest 1V portable [id number] IMPRESSION: 1. Small bilateral pleural effusions. 2. Moderate cardiomegaly.
--- NOTE | 2019-07-15 17:02 | ED_ITS ---
HPI - SOB/Dyspnea General: Chief Complaint: Extremity Problem,Nontraumatic Stated Complaint: RESP DISTRESS Time Seen by Provider: 07/15/19 16:54 History of Present Illness: HPI Narrative: Patient is a 78-year-old gentleman who was discharged from the hospital 2 days ago. He was admitted for acute on chronic CHF and hypoxemia. He went home and I am not sure whether he has been compliant with his Lasix or not. He said the swelling has not improved any furt her in his legs and he is quite short of breath. EMS reports his sats were in the 80s on their arrival. He is tachypneic and appears uncomfortable. He also reports falling yesterday. He said he slipped getting off the toilet. Denies syncope or loss of consciousness. He denies hitting his head last night. He does have bruising on his face but he says that is from a fall several weeks ago. MD elicited complaint: shortness of breath Pertinent past history: congestive heart failure and PE Onset (ago): day(s) (2) Exacerbating factors: lying flat, exertion, movement, coughing and talking Relieving factors: nothing Associated symptoms: Reports orthopnea Review of Systems General: Reports: 10 or more systems reviewed and unremarkable except in HPI and below Card: Reports: swelling of feet/ankles, dyspnea on exertion and orthopnea Skin/Breast: Reports: skin tenderness, sores and other (Multiple skin tears, ecchymotic areas, weeping) [facility] ED PFSH: Medical History Acute blood loss anemia Atrial fibrillation CHF (congestive heart failure) Echo 07/11/2019: LVEF 50%, grade 3 diastolic dysfunction with severely elevated filling pressures. Moderate mitral valve regurgitation, moderate tricuspid valve regurgitation, no pericardial effusion CKD (chronic kidney disease) HTN (hypertension) Hx pulmonary embolism Liver cirrhosis Mediastinal lymphadenopathy Mitral regurgitation Pulmonary HTN Upper GI bleed - Surgical History H/O esophagogastroduodenoscopy S/P hernia repair x2 S/P rotator cuff repair Left S/P thoracentesis (~07/07/17) right sided 2000ml removed Family History Other Stroke Social History Smoking and tobacco status: former smoker Alcohol intake: never Lives independently: Yes Household members: none Current occupational status: retired History of recent travel: No Current gender identity: Male Physical Exam Const: COMMON NORMALS: patient oriented x3, no limitations and alert GENERAL APPEARANCE: cooperative HENMT: HEAD & SCALP: normal to inspection FACE & SINUS: normal facial exam Eye: GENERAL EYE: appearance normal, both eyes and all related structures Neck/C-Spine: COMMON NORMALS: supple, no meningeal signs and no JVD Chest: COMMONS NORMALS: normal inspection of the chest OTHER: Multiple areas of ecchymosis Resp: EFFORT & INSPECTION: Yes tachypneic AUSCULTATION: rales (Left base) and diminished lung sounds Cardio: COMMON NORMALS: no JVD and No murmurs present (Cardio) RATE: tachycardic RHYTHM: abnormal rhythm irregularly irregular GI: COMMON NORMALS: Normal to inspection, nondistended, normoactive bowel sounds present, Soft to palpation and non-tender INSPECTION: Yes normal to inspection AUSCULTATION: Yes normoactive bowel sounds PALPATION: Yes Soft to palpation Back/Pelvis: COMMON NORMALS: thoracic and lumbar spine normal to inspection Extremity: NARRATIVE EXTREMITY EXAM: 4+ pitting edema on both legs. Both hands are edematous and weeping. Neuro: COMMON NORMALS: patient oriented x3, moves all extremities, no focal motor deficits and no sensory deficits noted SENSORIUM/ORIENTATION: Yes alert MENINGEAL SIGNS: Yes no meningeal signs Psych: COMMON NORMALS: mental status grossly normal, cooperative and normal affect Skin: NARRATIVE SKIN EXAM: Multiple skin tears particular in the left hand. Also the left forearm. Ecchymotic areas all over both arms and legs. Course ED course: Patient arrived with shortness of breath and marked swelling. He is in good spirits however. Sats are in the mid 90s on a few liters of oxygen. His chest x-ray showed some fluid but actually not as bad as his clinical picture would suggest. He is anemic and was on his last admission as well. He has chronic renal insufficiency. His BNP is significantly elevated at 22,000. His troponin was slightly elevated at 152 and his delta troponin was only 8. I spoke with Dr. Radford since his discharge. And she will readmit for further management of his symptoms. I am not sure if he has been compliant or not Vital Signs: Vital signs: Vital Signs Temperature 99.1 F 07/16/19 16:00 Pulse Rate 93 07/16/19 20:08 Respiratory Rate 19 H 07/16/19 17:19 Blood Pressure 93/55 07/16/19 18:17 Pulse Oximetry 95 07/16/19 20:08 MDM - SOB/Dyspnea Lab Data: Labs: Lab Results 07/15/19 07/15/19 07/15/19 Range/Units 17:09 17:09 17:09 WBC 17.9 H (4.0-10.0) 10^3/ uL RBC 2.90 L (4.1-5.3) 10^6/u L Hgb 7.6 L (11.7-16.6) g/dL Hct 27.6 L (42.0-52.0) % MCV 95.2 H (80-94) fL MCH 26.2 L (28.0-34.0) pg MCHC 27.5 L (30.0-36.0) g/dL RDW 21.2 H (12.1-15.1) % Plt Count 263 (130-400) 10^3/c mm MPV 9.7 (7.4-10.4) fL Neut % (Auto) 91.5 % Lymph % (Auto) 2.4 % [place] % (Auto) 5.0 % Eos % (Auto) 0.0 % Baso % (Auto) 0.2 % Neut # (Auto) 16.4 H (1.8-7.7) 10^3/u L Lymph # (Auto) 0.4 L (0.8-4.8) 10^3/u L [place] # (Auto) 0.9 (0.2-0.9) 10^3/u L Eos # (Auto) 0.0 (0.0-0.8) 10^3/u L Baso # (Auto) 0.0 (0.0-0.1) 10^3/u L Nucleated RBC % (a uto) 0.6 % Nucleated RBCs # 0.1 /100WBC D-Dimer (0-0.59) ug/mIFE U Sodium 137 (136-145) mmol/L Potassium 5.1 (3.5-5.1) mmol/L Chloride 100 (98-107) mmol/L Carbon Dioxide 23 (22-29) mmol/L Anion Gap 19.1 H (5-19) BUN 61 H (8-23) mg/dL Creatinine 2.0 H (0.7-1.2) mg/dL Glucose 127 H (65-115) mg/dL Calculated Osmolal ity 284 L (285-295) mOsm/k g Lactate 2.5 H (0.5-2.2) mmol/L Calcium 8.4 L (8.5-10.5) mg/dL Total Bilirubin 1.0 (0.15-1.2) mg/dL AST 22 (0-40) U/L ALT 12 (0-41) U/L Alkaline Phosphata se 129 (40-130) IU/L Troponin T Baselin e (0-15) ng/mL Troponin T 120 Min [place] (0-15) ng/mL Delta Troponin T (0-10) ABS# NT-Pro-B Natriuret Pep 61020 H (0-450) pg/mL Total Protein 6.5 L (6.6-8.7) g/dL Albumin 2.9 L (3.5-5.2) g/dL Globulin 3.6 (1.3-4.6) g/dL Urine Color (Yellow) Urine Appearance (CLEAR) Urine pH (5-7) Ur Specific Gravit y (1.005-1.030) Urine Protein (Negative) Urine Glucose (UA) (Normal) Urine Ketones (Negative) Urine Blood (Negative) Urine Nitrate (Negative) Urine Bilirubin (NEGATIVE) Urine Urobilinogen (Negative) mg/dL Ur Leukocyte Ale ase (Negative) Urine RBC (0-2) /hpf Urine WBC (0-5) /hpf Ur Squamous Epith Cells (0-5) Amorphous Sediment Urine Bacteria (NONE) Urine Mucus Blood Type Rho(D) Type Antibody Screen Crossmatch 07/15/19 07/15/19 07/15/19 Range/Units 17:09 17:09 17:09 WBC (4.0-10.0) 10^3/ uL RBC (4.1-5.3) 10^6/u L Hgb (11.7-16.6) g/dL Hct (42.0-52.0) % MCV (80-94) fL MCH (28.0-34.0) pg MCHC (30.0-36.0) g/dL RDW (12.1-15.1) % Plt Count (130-400) 10^3/c mm MPV (7.4-10.4) fL Neut % (Auto) % Lymph % (Auto) % [place] % (Auto) % Eos % (Auto) % Baso % (Auto) % Neut # (Auto) (1.8-7.7) 10^3/u L Lymph # (Auto) (0.8-4.8) 10^3/u L [place] # (Auto) (0.2-0.9) 10^3/u L Eos # (Auto) (0.0-0.8) 10^3/u L Baso # (Auto) (0.0-0.1) 10^3/u L Nucleated RBC % (a uto) % Nucleated RBCs # /100WBC D-Dimer 5.88 H (0-0.59) ug/mIFE U Sodium (136-145) mmol/L Potassium (3.5-5.1) mmol/L Chloride (98-107) mmol/L Carbon Dioxide (22-29) mmol/L Anion Gap (5-19) BUN (8-23) mg/dL Creatinine (0.7-1.2) mg/dL Glucose (65-115) mg/dL Calculated Osmolal ity (285-295) mOsm/k g Lactate (0.5-2.2) mmol/L Calcium (8.5-10.5) mg/dL Total Bilirubin (0.15-1.2) mg/dL AST (0-40) U/L ALT (0-41) U/L Alkaline Phosphata se (40-130) IU/L Troponin T Baselin e 152 H* (0-15) ng/mL Troponin T 120 Min [place] (0-15) ng/mL Delta Troponin T (0-10) ABS# NT-Pro-B Natriuret Pep (0-450) pg/mL Total Protein (6.6-8.7) g/dL Albumin (3.5-5.2) g/dL Globulin (1.3-4.6) g/dL Urine Color (Yellow) Urine Appearance (CLEAR) Urine pH (5-7) Ur Specific Gravit y (1.005-1.030) Urine Protein (Negative) Urine Glucose (UA) (Normal) Urine Ketones (Negative) Urine Blood (Negative) Urine Nitrate (Negative) Urine Bilirubin (NEGATIVE) Urine Urobilinogen (Negative) mg/dL Ur Leukocyte Ale ase (Negative) Urine RBC (0-2) /hpf Urine WBC (0-5) /hpf Ur Squamous Epith Cells (0-5) Amorphous Sediment Urine Bacteria (NONE) Urine Mucus Blood Type O Positive Rho(D) Type Positive Antibody Screen Negative Crossmatch See Detail 07/15/19 07/15/19 Range/Units 18:00 18:55 WBC (4.0-10.0) 10^3/ uL RBC (4.1-5.3) 10^6/u L Hgb (11.7-16.6) g/dL Hct (42.0-52.0) % MCV (80-94) fL MCH (28.0-34.0) pg MCHC (30.0-36.0) g/dL RDW (12.1-15.1) % Plt Count (130-400) 10^3/c mm MPV (7.4-10.4) fL Neut % (Auto) % Lymph % (Auto) % [place] % (Auto) % Eos % (Auto) % Baso % (Auto) % Neut # (Auto) (1.8-7.7) 10^3/u L Lymph # (Auto) (0.8-4.8) 10^3/u L [place] # (Auto) (0.2-0.9) 10^3/u L Eos # (Auto) (0.0-0.8) 10^3/u L Baso # (Auto) (0.0-0.1) 10^3/u L Nucleated RBC % (a uto) % Nucleated RBCs # /100WBC D-Dimer (0-0.59) ug/mIFE U Sodium (136-145) mmol/L Potassium (3.5-5.1) mmol/L Chloride (98-107) mmol/L Carbon Dioxide (22-29) mmol/L Anion Gap (5-19) BUN (8-23) mg/dL Creatinine (0.7-1.2) mg/dL Glucose (65-115) mg/dL Calculated Osmolal ity (285-295) mOsm/k g Lactate (0.5-2.2) mmol/L Calcium (8.5-10.5) mg/dL Total Bilirubin (0.15-1.2) mg/dL AST (0-40) U/L ALT (0-41) U/L Alkaline Phosphata se (40-130) IU/L Troponin T Baselin e (0-15) ng/mL Troponin T 120 Min [place] 160.3 H (0-15) ng/mL Delta Troponin T 8.3 (0-10) ABS# NT-Pro-B Natriuret Pep (0-450) pg/mL Total Protein (6.6-8.7) g/dL Albumin (3.5-5.2) g/dL Globulin (1.3-4.6) g/dL Urine Color Yellow (Yellow) Urine Appearance Sl hazy (CLEAR) Urine pH 5 (5-7) Ur Specific Gravit y 1.015 (1.005-1.030) Urine Protein Neg (Negative) Urine Glucose (UA) Norm (Normal) Urine Ketones Negative (Negative) Urine Blood Neg (Negative) Urine Nitrate Negative (Negative) Urine Bilirubin Neg (NEGATIVE) Urine Urobilinogen Norm (Negative) mg/dL Ur Leukocyte Ale ase Negative (Negative) Urine RBC Rare (0-2) /hpf Urine WBC Rare (0-5) /hpf Ur Squamous Epith Cells Rare (0-5) Amorphous Sediment 1+ Urine Bacteria Trace (NONE) Urine Mucus Trace Blood Type Rho(D) Type Antibody Screen Crossmatch Discharge Plan Discharge Admit Provider: Rose Radford Discharge Date/Time: 07/15/19 21:09 Coding Level of Care Code ED Head Librarian for Chg Fwd Exam Comprehensive
--- NOTE | 2019-07-15 17:14 | PC.NURSE ---
Skin Tear Patient has a skin tear to the back of his left hand that he stated occurred from dressing removal when he was discharged. There are [address] at this time. To be assessed at a later time
[2019-07-15 17:20] LABS: Basophils % 0.2 %; Hematocrit 27.6 % (42.0-52.0); Hemoglobin 7.6 g/dL (11.7-16.6); Lymphocytes # 0.4 10^3/uL (0.8-4.8); Lymphocytes % 2.4 %; Mean Corpuscular HGB Conc 27.5 g/dL (30.0-36.0); Mean Corpuscular Hemoglobin 26.2 pg (28.0-34.0); Mean Corpuscular Volume 95.2 fL (80-94); Mean Platelet Volume 9.7 fL (7.4-10.4); Monocytes # 0.9 10^3/uL (0.2-0.9); Neutrophils # 16.4 10^3/uL (1.8-7.7); Neutrophils % 91.5 %; Nucleated Red Blood Cells # 0.1 /100WBC; Nucleated Red Blood Cells % 0.6 %; Platelet Count 263 10^3/cmm (130-400); Red Cell Distribution Width 21.2 % (12.1-15.1); White Blood Count 17.9 10^3/uL (4.0-10.0)
[2019-07-15 17:41] LABS: Lactate (Lactic Acid level) 2.5 mmol/L (0.5-2.2)
[2019-07-15 17:52] LABS: Alanine Aminotransferase 12 U/L (0-41); Albumin Level 2.9 g/dL (3.5-5.2); Alkaline Phosphatase 129 IU/L (40-130); Anion Gap 19.1 (5-19); Aspartate Amino Transferase 22 U/L (0-40); Blood Urea Nitrogen 61 mg/dL (8-23); Calcium 8.4 mg/dL (8.5-10.5); Carbon Dioxide 23 mmol/L (22-29); Chloride 100 mmol/L (98-107); Globulin 3.6 g/dL (1.3-4.6); Glucose 127 mg/dL (65-115); NT Pro B Type Natriuretic Pept 22155 pg/mL (0-450); Osmolality Calculated 284 mOsm/kg (285-295); Potassium 5.1 mmol/L (3.5-5.1); Sodium 137 mmol/L (136-145); Total Protein 6.5 g/dL (6.6-8.7)
[2019-07-15 18:06] LABS: Troponin(5th) Baseline 152 ng/mL (0-15)
--- NOTE | 2019-07-15 18:59 | ECG_ITS ---
Measurements Intervals [place] Rate: 94 P: [place]: 0 QRS: 34 QRSD: 88 T: 91 QT: 326 QTc: [address] & T-WAVE ABNORMALITY ABNORMAL RHYTHM ECG Compared to ECG 07/10/2019 17:46:33 T-wave abnormality now present Electronically Signed On 07-16-2019 10:34:43 CDT by Aris Tiwari MD [id number]
--- NOTE | 2019-07-15 19:07 | PC.NURSE ---
Report received from José Luis, watch crystal edge grinder and care transferred to WIL Huerta
[2019-07-15 19:12] LABS: Urine Appearance SL Hazy (CLEAR); Urine Color Yellow (Yellow)
[2019-07-15 19:13] LABS: Add Urine Microscopic? YES; Bilirubin Urine Neg (NEGATIVE); Blood Urine Neg (Negative); Glucose Urine UA Norm (Normal); Ketones Urine Negative (Negative); Leukocyte Esterase Urine Negative (Negative); Nitrate Urine Negative (Negative); Protein Urine Neg (Negative); Specific Gravity, Urine 1.015 (1.005-1.030); Urobilinogen Urine Norm (Negative); pH Urine 5 (5-7)
[2019-07-15 19:14] LABS: Add Urine Culture? No; Amorphous Sediment Urine 1+; Bacteria Urine TRACE; Mucus Urine TRACE; RBC Urine RARE /hpf (0-2); Squamous Epithelial Cell Urine RARE (0-5); WBC Urine RARE /hpf (0-5)
[2019-07-15 19:21] LABS: Troponin 5 2HR Delta 8.3 ABS# (0-10)
[2019-07-15 19:30] LABS: Troponin 5 2HR 160.3 ng/mL (0-15)
[2019-07-15] MEDS: bumetanide 0.25 mg/mL SDV 10 mL 1 MG IV (19:53)
--- NOTE | 2019-07-15 21:19 | P.HP_ITS ---
Providers/Chief Complaint Admitting Physician: Rose Radford MD Primary Care Provider: Tano Jovel DO Chief Complaint: CHF EXACERBATION History of Present Illness Lele Talavera is a 78 year old male with a past medical history of atrial fibrillation, not on a/c due to GIB and duodenal ulcer, diastolic and systolic congestive heart failure, pulmonary hypertension and a history of PE, left pleural effusion and a h/o non compliance with poor understanding of his complex medical issues who was recently admitted here between 07/09-07/12 for acute decompensated diastolic heart failure. Patient was given IV diuresis, Lasix, and continued to improve. Patient was significantly fluid overloaded and was initially requiring 2 to 4 L of oxygen by nasal cannula. He was continually di uresed and his swelling continued to slowly improve his renal function also continued to slowly improve. Oxygen was weaned to room air on date of discharge. He returns today after developing shortness of breath as noted by his [facility] ER. When first seen by Ems he was saturation ~80% on Ra at home. He states he sustained a fall yesterday while trying to get off the toilet. He has had repeated falls over the past one month or so. States the have been mechanical falls. No h/o LOC, dizziness. He states he takes his medications as prescribed, however boucher snot know names or doses. Based on previous notes review, it appears this has been a chronic pattern. he denies any c/o chest pain/dyspnea/chest pain/palpitations Review of Systems General: Reports: 10 or more systems reviewed and unremarkable except in HPI and below Const: Denies: fever(s), chills or body aches Eyes: Denies: change in vision, blurry vision or photophobia ENMT: Denies: throat pain, enlarged tonsils, odynophagia, hoarseness or nasal congestion Card: Denies: chest pain, palpitations, irregular heart rhythm, edema, swelling of feet/ankles, lightheadedness, pre-syncope, dyspnea on exertion or orthopnea Resp: Denies: dyspnea, productive cough, non-productive cough, wheezing, stridor, pain on inspiration, change in phlegm color, hemoptysis or chest congestion GI: Denies: abdominal pain, nausea, vomiting, hematemesis, coffee ground emesis, dysphagia, heartburn, diarrhea, constipation, GI cramping, change in stool character, hematochezia or melena : Denies: flank pain, dysuria, urinary frequency, urinary urgency, urinary hesitancy or hematuria Musc: Denies: neck pain, back pain, extremity pain, joint swelling, joint warmth or deformity Neuro: Denies: headache(s), numbness in extremities, weakness in extremities, sensory changes, difficulty walking, frequent falls, dizziness, vertigo, behavioral changes, Slurred speech present or seizure-like activity Psych: Denies: anxiety, depression, suicidal ideation or homicidal ideation Endo: Denies: polyuria, polydipsia, tired all the time, cold intolerance or hot flashes Anthony/Lymph: Denies: easy bruising or easy bleeding Medications/Allergies Home Medications Medication Instructions Recorded Confirmed Last Taken Type multivitamin [Multiple Vitamins] 1 tab PO DAILY 04/19/19 07/15/19 07/15/19 08:00 History Gas-X See Rx Instructions .ROUTE 05/05/19 07/15/19 Unknown History .COMPLEX PRN furosemide 80 mg tablet 80 mg PO DAILY #30 tab 06/11/19 07/15/19 07/15/19 08:00 Rx sucralfate 1 gram tablet 1 gm PO DAILY #30 tab 06/11/19 07/15/19 07/15/19 08:00 Rx potassium chloride 10 meq PO DAILY 07/10/19 07/15/19 07/15/19 08:00 History spironolactone 12.5 mg PO DAILY 07/10/19 07/15/19 07/15/19 08:00 History carvedilol 6.25 mg PO BID #0 tab 07/13/19 07/15/19 07/15/19 08:00 Rx levothyroxine 50 mcg PO DAILY 30 Days #30 tab 07/13/19 07/15/19 07/15/19 07:00 Rx pantoprazole 40 mg PO DAILY 30 Days #30 tab 07/13/19 07/15/19 07/15/19 08:00 Rx Allergies Allergy/AdvReac Type Severity Reaction Status Date / Time Penicillins Allergy Unknown Verified 06/11/19 09:03 PFSH Acute PFSH: Medical History Acute blood loss anemia Atrial fibrillation CHF (congestive heart failure) Echo 07/11/2019: LVEF 50%, grade 3 diastolic dysfunction with severely elevated filling pressures. Moderate mitral valve regurgitation, moderate tricuspid valve regurgitation, no pericardial effusion CKD (chronic kidney disease) HTN (hypertension) Hx pulmonary embolism Liver cirrhosis Mediastinal lymphadenopathy Mitral regurgitation Pulmonary HTN Upper GI bleed - Surgical History H/O esophagogastroduodenoscopy S/P hernia repair x2 S/P rotator cuff repair Left S/P thoracentesis (~07/07/17) right sided 2000ml removed Family History Other Stroke Social History Smoking and tobacco status: former smoker Alcohol intake: never Lives independently: Yes Household members: none Current occupational status: retired History of recent travel: No Current gender identity: Male Vitals/I&O/Wt Last Vital Signs Temp 98.7 F 07/15/19 16:54 Pulse 94 07/15/19 20:07 Resp 15 07/15/19 20:07 BP 110/67 07/15/19 20:07 Pulse Ox 99 07/15/19 20:07 Weight last 48 hrs Weight 77.111 kg Physical Exam Narrative: EXAM NARRATIVE: GEN: Awake, alert and oriented, no acute distress CVS: S1S2 N RS: CTA B/L Abd: Soft, nt/nd , bs+ FLANGING OPERATOR: no focal neuro deficits EXT: multiple bruises all over body in various stages of healing , patient states from repeated falls. Urinary Catheter Management^: Russo: Cath Placed During This Visit: yes Urinary Catheter Date of Insertion: 07/15/19 Urinary Catheter Time of Insertion: 18:08 Data : 07/15/19 17:09 07/15/19 17:09 A&P Assessment and plan (1) CHF (congestive heart failure): Status: Acute Qualifiers: Heart failure chronicity: acute on chronic Heart failure type: systolic Qualified Code(s): I50.23 - Acute on chronic systolic (congestive) heart failure (2) Recurrent falls: Status: Acute (3) CKD (chronic kidney disease): Status: Acute (4) Hx pulmonary embolism: Status: Chronic (5) HTN (hypertension): Status: Acute (6) Troponin level elevated: Status: Acute (7) Leukocytosis: Status: Acute Additional A&P Information Admit to CSU 1. CHF exacerbation Patient with acute on chronic CHF exacerbation strict intake and output, daily weights IV Lasix 40 every 12 hours, will titrate based on urine output Patient has been noncompliant with cardiac medications resulting in CHF exacerbation Fluid restriction and sodium restriction CXr with left pleural effusion per my read. This has been evaluted by thoracentesis x 3 in the past and attributed to heart failure Last Echo as above. 2. CKD, at baseline 3. A fib, currently rate controlled, continue carvedilol, hold a/c given h/o duodenal ulcer and GI bleeding 4. Hypoxic respiratory failure: Likely as a result of CHF exacerbation, currently on 6lpm NC check D dimer given h/o PE, avoiding CTA chest for CKD 5. Repeated falls with multiple bruises all over body PT/OT assessment for gait stability, assess if will benefit from rehab Shoulder and hip x rays Dvt ppx: Scds full code Attestations Medical Necessity Statement*: >2 midnight admission expected for management of CHF and respiratory optimization Coding Level of Care Code Acute Applications Support Specialist for Chg Fwd Diagnoses CHF (congestive heart failure) I50.23 Heart failure chronicity: acute on chronic Heart failure type: systolic Recurrent falls R29.6 CKD (chronic kidney disease) N18.9 Hx pulmonary embolism Z86.711 HTN (hypertension) I10 Troponin level elevated R79.89 Leukocytosis D72.829
[2019-07-15 22:42] LABS: D Dimer 5.88 ug/mIFEU (0-0.59)
--- NOTE | 2019-07-15 22:59 | ECG_ITS ---
Measurements Intervals [place] Rate: 96 P: [place]: 0 QRS: 29 QRSD: 101 T: 120 QT: 343 QTc: [address] DEPRESSION [0.025+ mV ST DEPRESSION] ABNORMAL QRS-T ANGLE [QRS-T AXIS DIFFERENCE > 60] Compared to ECG 07/10/2019 17:46:33 ST (T wave) deviation now present Electronically Signed On 07-16-2019 10:33:47 CDT by Aris Tiwari MD [email or web address]
[2019-07-15] MEDS: FUROsemide 10 mg/mL SDV 4mL 40 MG IVP (23:57)
[2019-07-16] VITALS (34 sets, daily range): BP systolic 75–132; BP diastolic 43–66; PULSE 74–101; RESP 18–35; TEMP 36.8–38.5; O2SAT 90–100
[2019-07-16 00:21] LABS: Troponin 5 6HR 167.5 ng/mL (0-15); Troponin 5 6HR Delta 15.5 ng/L (0-12)
--- NOTE | 2019-07-16 01:50 | PC.NURSE ---
Patient arrived to the floor from ER via gurney. patient alert and oriented with some slight confusion. patient denies pain unless trying to move arms. vital signs stable, cleaned and redressed 2 skin tear wounds (1) from iv removal last visit, and (2) from fall last night at home.
[2019-07-16 06:51] LABS: Basophils % 0.2 %; Hematocrit 26.4 % (42.0-52.0); Hemoglobin 7.2 g/dL (11.7-16.6); Lymphocytes # 0.6 10^3/uL (0.8-4.8); Lymphocytes % 3.4 %; Mean Corpuscular HGB Conc 27.3 g/dL (30.0-36.0); Mean Corpuscular Hemoglobin 25.9 pg (28.0-34.0); Mean Platelet Volume 9.7 fL (7.4-10.4); Monocytes % 5.4 %; Neutrophils # 16.5 10^3/uL (1.8-7.7); Neutrophils % 90.2 %; Nucleated Red Blood Cells % 0.2 %; Platelet Count 225 10^3/cmm (130-400); Red Blood Count 2.78 10^6/uL (4.1-5.3); White Blood Count 18.3 10^3/uL (4.0-10.0)
--- NOTE | 2019-07-16 07:00 | XR_ITS ---
WS: [id number] LEFT SHOULDER: 1 VIEW(S) TECHNIQUE: Single AP view. HISTORY: evaluate for fracture COMPARISON: None available. Concan placement in the humeral head from prior rotator cuff repair. Humeral head is slightly high ri ding. Surface cortical irregularity over the humeral head. Mild AC joint arthritis. Partial calcification thoracic aorta. XR/XR shoulder LT 1V 19503 IMPRESSION: 1. No LEFT shoulder fracture identified on this single radiograph. 2. Mildly high riding humeral head and prior rotator cuff repair.
--- NOTE | 2019-07-16 07:00 | XR_ITS ---
NOTE: Report was unsigned for reason: Order was edited. Original Signature date and time was: 07/16/19 0739 WS: [id number] Bilateral hips. HISTORY: Evaluate fracture. COMPARISON: 12/13/2018. Mild bilateral osteoarthritic changes at the hip joints. Sclerosis with cortical irregularity and osteophytosis. No acute fractures are identified. Heavy calcification in the femoral arteries. [facility] BI 2[facility] wo/w pel [id number] IMPRESSION: 1. No bilateral hip fracture. Mild osteoarthritis.
[2019-07-16 07:04] LABS: Lactic Sepsis W/Reflex 1.2 mmol/L (0.5-2.2)
[2019-07-16 07:05] LABS: Alanine Aminotransferase 11 U/L (0-41); Albumin Level 2.5 g/dL (3.5-5.2); Alkaline Phosphatase 120 IU/L (40-130); Anion Gap 17.3 (5-19); Aspartate Amino Transferase 20 U/L (0-40); Blood Urea Nitrogen 58 mg/dL (8-23); Calcium 8.4 mg/dL (8.5-10.5); Carbon Dioxide 25 mmol/L (22-29); Chloride 101 mmol/L (98-107); Glucose 105 mg/dL (65-115); Magnesium 2.6 mg/dL (1.7-2.3); Osmolality Calculated 287 mOsm/kg (285-295); Potassium 4.3 mmol/L (3.5-5.1); Sodium 139 mmol/L (136-145); Total Protein 6.5 g/dL (6.6-8.7)
[2019-07-16 07:13] LABS: Procalcitonin 1.65 ng/mL (0-0.5)
[2019-07-16 07:38] LABS: Troponin T (5th) Once 170 ng/mL (0-15)
[2019-07-16] MEDS: sucralfate 1 gm/10 mL Oral Liq UDC PO ×4 (07:50→20:57)
--- NOTE | 2019-07-16 09:02 | PC.CHAP ---
Pastoral Care Encounter/Spiritual Assessment Type of Contact [] Declined conciliation court judge visit [] Patient/Family/Request visit [] Outpatient visit [] Follow-up visit [] Physician referral [] Code/Alert [x] Routine visit [] Staff referral [] Actively dying [] Patient sleeping [] Family support [] [] Out of room [] Palliative care [] [] Receiving care in room [] Pre-surgical visit [] Trauma [] Long length of stay [] ICU visit [] Other: Relational/Emotional Strength [] Patient feels connected with others/family/visitors/staff [] Distress [] Loneliness/isolation [] Abandonment Spirituality of Patient [] Person of Vidya [] Attends Catholic of their Vidya [x Believes in Prayer [] Reads Bible or Methodist materials [] There are Spiritual issues to be addressed Correspondence Clerk Interventions [x] Prayer [] Active listening [] Non-anxious presence [] Spiritual/emotional support [] Crisis/trauma care [] Spiritual counseling [] Bereavement support [] Provided bereavement packet [] Provided Bible/devotional materials [] Provided toy/stuffed animal, coloring book to patient or family member [] Provided Communion [] Anointing/[place] [] Salvation [x] Completed spiritual assessment [] Other: Impact on Illness or Injury [] Angry [] Fearful [] Anxious [] Often cries [] Exhaustion [] Unable to work [] Unable to attend quaker [] Unable to walk/stand [] Unable to read [] Unable to drive [] Unable to eat/drink [] Unable to sleep [] Unable to be with family [] Patient intubated [] Other: Summary Lucita is known to patient- His visit on the 2nd floor, prior week. Patient resting well Time spent with patient 15min
[2019-07-16] MEDS: spironolactone 25 mg Tablet 12.5 MG PO (09:21)
[2019-07-16] MEDS: carvedilol 6.25 mg Tablet PO (09:21)
[2019-07-16] MEDS: levothyroxine 50 mcg Tablet PO (09:21)
[2019-07-16] MEDS: pantoprazole DR 40 mg Tablet PO ×2 (09:22→16:51)
--- NOTE | 2019-07-16 10:09 | USR_ITS ---
PROCEDURE INFORMATION: Exam: US Duplex Lower Extremity Veins, Bilateral Exam date and time: 07/16/2019 10:11 AM Age: 78 years old Clinical indication: Edema, localized; Lower extremity, bilateral TECHNIQUE: Imaging protocol: Real-time duplex ultrasound of the extremities with 2-D francois scale, color Doppler flow and spectral waveform analysis with image documentation. Complete exam focused on the bilateral lower extremity veins. COMPARISON: [place] [id number] 07/16/2019 1:30 PM FINDINGS: Right deep veins: Unremarkable. The common femoral, femoral, proximal profunda femoral and popliteal veins are patent without thrombus. Normal Doppler waveforms. Normal compressibility and/or augmentation response. Right superficial veins: Saphenofemoral junction is patent without thrombus. Left deep veins: Unremarkable. The common femoral, femoral, proximal profunda femoral and popliteal veins are patent without thrombus. Normal Doppler waveforms. Normal compressibility and/or augmentation response. Left superficial veins: Saphenofemoral junction is patent without thrombus. Soft tissues: Bilateral calf edema. Other findings: No DVT. US/[place] [id number] IMPRESSION: 1. Bilateral calf edema. 2. No DVT.
--- NOTE | 2019-07-16 10:09 | USR_ITS ---
PROCEDURE INFORMATION: Exam: US Duplex Right Lower Extremity Veins, Limited Exam date and time: 07/16/2019 1:01 PM Age: 78 years old Clinical indication: Edema, localized; Upper extremity, right TECHNIQUE: Imaging protocol: Real-time Duplex ultrasound of the Right Lower Extremity with 2-D francois scale, color Doppler flow and spectral waveform analysis with image documentation. Limited exam was focused on the right lower extremity veins. COMPARISON: No relevant prior studies available. FINDINGS: Right deep veins: Unremarkable. The common femoral, femoral, proximal profunda femoral and popliteal veins are patent without thrombus. Normal Doppler waveforms. Normal compressibility and/or augmentation response. Right superficial veins: Unremarkable. Saphenofemoral junction is patent without thrombus. Soft tissues: Unremarkable. US/[place] [id number] IMPRESSION: 1. No evidence of deep vein thrombosis. 2. Nonspecific soft tissue edema.
[2019-07-16] MEDS: FUROsemide 10 mg/mL SDV 4mL 40 MG IVP (10:15)
--- NOTE | 2019-07-16 10:24 | PC.NURSE ---
refused pt refused bath
[2019-07-16] MEDS: sodium chloride 0.9% (100 ml) 100 ML 50 ML (12:11)
[2019-07-16] MEDS: acetaminophen 325 mg Tablet 650 MG PO (12:30)
--- NOTE | 2019-07-16 12:38 | PC.NURSE ---
Blood initiated. Patient educated on s/s of transfusion reaction. Nurse at bedside to monitor patient for 15 minutes. At 15 minute VS assessment, patient noted to have fever of 101.1. All other VS stable at this time. Patient denies itching or chills. Dr. Carr notified. Physician ordered for nurse to give 650 mg of tylenol PO, reassess temp in 15 minutes. If temperature is lower, reinitiate blood. If temperature is higher, call provider back. Nurse to continue to monitor.
--- NOTE | 2019-07-16 12:45 | P.PN_ITS ---
Subjective Subjective: Interval history: History and physical reviewed. Lele reports last day or 2 he has been more short of breath, swelling more than usual. He was recently discharged from the hospital 2 days ago. At that time he was significantly edematous and diuresed. Medications: Reviewed: Yes Vitals/I&O/Wt Last Vital Signs Temp 101.3 F H 07/16/19 12:31 Pulse 93 07/16/19 12:31 Resp 24 H 07/16/19 12:22 BP 102/53 07/16/19 12:31 Pulse Ox 99 07/16/19 12:31 07/15/19 07/16/19 07/16/19 22:59 06:59 14:59 Intake Total 500 / 510 245.833 / 245.833 Output Total 1100 / 1100 Balance -600 / -590 245.833 / 245.833 Weight last 48 hrs Weight 88.042 kg Weight 85.321 kg Weight 77.111 kg Physical Exam Narrative: EXAM NARRATIVE: General exam demonstrates a white male, conversant with likely some mild underlying confusion Cardiovascular regular rate and rhythm without murmur Lungs diminished breath sounds bilaterally but clear Abdomen is soft with positive bowel sounds, no obvious organomegaly Extremities no cyanosis or clubbing. 2+ edema is noted. Urinary Catheter Management^: Russo: Cath Placed During This Visit: yes Reason for Continuing Indwelling Catheter: Acute Urinary Retention or Obstruction Urinary Catheter Date of Insertion: 07/15/19 Urinary Catheter Time of Insertion: 18:08 Data : 07/16/19 06:23 07/16/19 06:23 Micro: Microbiology 07/16/19 06:30 Blood Culture - Preliminary Blood SPECIMEN COLLECTED 07/16/19 06:23 Blood Culture - Preliminary Blood SPECIMEN COLLECTED A&P Assessment and plan (1) CHF (congestive heart failure): Acute mixed systolic and diastolic heart failure. Lasix 40 mg IV every 12 hours initiated Status: Acute Qualifiers: Heart failure type: systolic Heart failure chronicity: acute on chronic Qualified Code(s): I50.23 - Acute on chronic systolic (congestive) heart failure (2) Recurrent falls: Needs care home facility placement Status: Acute (3) CKD (chronic kidney disease): Overall appears stable Status: Acute (4) Hx pulmonary embolism: Past history of pulmonary embolism. D-dimer was checked and elevated. Secondary to this I will check a bilateral venous duplex, right upper extremity duplex(he has some swelling of the upper extremity as well) SCDs for DVT prophylaxis, secondary to significant and severe edema Status: Chronic (5) HTN (hypertension): On carvedilol. Blood pressure somewhat soft currently. Status: Acute (6) Troponin level elevated: Type II, secondary to congestive heart failure Status: Acute (7) Leukocytosis: Now with fever. Denies any abdominal symptoms but may need to investigate with CT abdomen and pelvis No obvious UTI On chest x-ray I cannot exclude a pneumonia with his effusions Doubt blood reaction Levaquin, linezolid empirically until bacteremia can be excluded. Status: Acute Additional A&P Information Anemia. Check stool Hemoccult. Check iron TIBC ferritin B12. Check haptoglobin. Past history of duodenal ulcer. Continue Protonix Atrial fibrillation, rate controlled with carvedilol Hypoxemic respiratory failure. Likely secondary to CHF. Wean oxygen as diuresed Deconditioning, weakness. 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
--- NOTE | 2019-07-16 12:48 | PC.NURSE ---
Blood Administration VS reassessed at 1245. Temp 101.1 axillary, BP 88/50. Patient placed in trendelenburg. Nurse notified Dr. Carr. Physician instructed nurse to restart Blood transfusion. Blood transfusion reinitiated. Nurse to continue to monitor.
--- NOTE | 2019-07-16 12:49 | XR_ITS ---
WS: [id number] RIGHT HAND: 2 VIEW(S) TECHNIQUE: PA and lateral. HISTORY: edema, pain COMPARISON: None available. No fracture is identified. Degenerative osteoarthritic changes. There is a very large amount of soft tissue edema surrounding the hand, greatest dorsally. Very dense appearance of the edema suggests this could be hematoma. There is additional edema surrounding the w rist. XR/XR hand RT 2V [id number] IMPRESSION: 1. No acute RIGHT hand fracture is identified. 2. Large amount of edema surrounding the wrist and hand. Possible hematoma keren ng the dorsal surface of the hand.
[2019-07-16] MEDS: levofloxacin-dextrose 5 % 750 MG/150 ML PREMIX 100 MG IV (13:22)
[2019-07-16] MEDS: linezolid premix 600 MG/300 ML PREMIX 300 MG IV (13:23)
[2019-07-16 14:35] LABS: Folate Level 10.1 ng/mL (4.5-32.2)
--- NOTE | 2019-07-16 15:05 | PC.NURSE ---
Dr. Carr notified at 1451: both Levaquin and Zyvox have infused, approximately 240 ml of blood has infused, BP now 84/50, temp 100.5. Patient exhibiting increased SOB, on 3L per nasal cannula sating approximately 90-93%, RR 30s-40s, no new adventitious lung sounds assessed. Physician to bedside at 1455. Physician ordered for blood transfusion to be discontinued. Verbal order received to place patient on BiPap, RT has been notified. Physician to put in transfer orders to take patient to ICU for BP maintenance.
--- NOTE | 2019-07-16 15:30 | PC.NURSE ---
Report given to WIL Odom in ICU. Nurse did not have any further questions. Family notified of transfer.
[2019-07-16 15:32] LABS: Uric Acid 12.9 mg/dL (3.4-7.0)
[2019-07-16 15:36] LABS: Ferritin 78 ng/mL (30-400); Iron 12 ug/dL (59-158); Percent Saturation 6.2 % (20-50); Total Iron Binding Capacity 192 mcg/dl; Unsaturated Iron Binding 180 ug/dL (112-347)
[2019-07-16 15:51] LABS: Vitamin B12 630 pg/mL (232-1245)
[2019-07-16] MEDS: cefepime 2,000 MG in sodium chloride 0.9% (plus) 50 ML 100 MG IV (16:12)
[2019-07-16 17:00] LABS: Hematocrit 24.6 % (42.0-52.0)
--- NOTE | 2019-07-16 17:23 | PC.NURSE ---
Started Levafed on 4mcg/min, MAP 67 at this time. Patient is sitting up in bed conversing with this nurse. On 4L of oxygen per nasal cannula. Respirations are 24, BP is 98/52. Oxygen sat is 97%. Pulse is 101. Patient feels mildly short of breath at this time.
[2019-07-16 22:55] LABS: Hemoglobin 7.6 g/dL (11.7-16.6)
[2019-07-17] VITALS (24 sets, daily range): BP systolic 79–104; BP diastolic 52–63; PULSE 80–103; RESP 18–36; TEMP 36.8–37; O2SAT 92–100
[2019-07-17] MEDS: linezolid premix 600 MG/300 ML PREMIX 300 MG IV ×2 (00:46→12:55)
[2019-07-17 04:34] LABS: Basophils % 0.2 %; Eosinophils % 0.1 %; Hematocrit 26.7 % (42.0-52.0); Hemoglobin 7.5 g/dL (11.7-16.6); Lymphocytes # 1.1 10^3/uL (0.8-4.8); Lymphocytes % 5.6 %; Mean Corpuscular HGB Conc 28.1 g/dL (30.0-36.0); Mean Corpuscular Hemoglobin 26.6 pg (28.0-34.0); Mean Corpuscular Volume 94.7 fL (80-94); Mean Platelet Volume 10.1 fL (7.4-10.4); Monocytes # 1.4 10^3/uL (0.2-0.9); Monocytes % 7.3 %; Neutrophils # 16.7 10^3/uL (1.8-7.7); Neutrophils % 85.7 %; Nucleated Red Blood Cells # 0.1 /100WBC; Nucleated Red Blood Cells % 0.4 %; Platelet Count 204 10^3/cmm (130-400); Red Blood Count 2.82 10^6/uL (4.1-5.3); Red Cell Distribution Width 20.8 % (12.1-15.1); White Blood Count 19.5 10^3/uL (4.0-10.0)
[2019-07-17 05:03] LABS: Alanine Aminotransferase 12 U/L (0-41); Alkaline Phosphatase 103 IU/L (40-130); Anion Gap 18.3 (5-19); Aspartate Amino Transferase 21 U/L (0-40); Blood Urea Nitrogen 69 mg/dL (8-23); Calcium 8.7 mg/dL (8.5-10.5); Carbon Dioxide 21 mmol/L (22-29); Chloride 99 mmol/L (98-107); Globulin 4.3 g/dL (1.3-4.6); Glucose 171 mg/dL (65-115); Osmolality Calculated 281 mOsm/kg (285-295); Potassium 4.3 mmol/L (3.5-5.1); Sodium 134 mmol/L (136-145); Total Bilirubin 0.9 mg/dL (0.15-1.2); Total Protein 6.3 g/dL (6.6-8.7)
[2019-07-17] MEDS: cefepime 2,000 MG in sodium chloride 0.9% (plus) 50 ML 100 MG IV (05:03)
[2019-07-17] MEDS: sucralfate 1 gm/10 mL Oral Liq UDC PO ×4 (06:07→20:44)
[2019-07-17] MEDS: pantoprazole DR 40 mg Tablet PO ×2 (07:13→16:57)
[2019-07-17] MEDS: levothyroxine 50 mcg Tablet PO (07:13)
--- NOTE | 2019-07-17 07:46 | CT_ITS ---
WS: [id number] CT CHEST, ABDOMEN AND PELVIS NONCONTRAST. HISTORY: fever, elevated WBC count TECHNIQUE: Contiguous 5 mm axial imaging performed through the chest, abdomen and pelvis without IV c ontrast, oral contrast has not been provided. Coronal and sagittal reformats chest. Coronal and sagit willis reformats through the abdomen and pelvis. All CT scans at [facility] use at least one of these dose optimization techniques: automated exposure control; mA and/or kV adjustment per patie nt size (includes targeted exams where dose is matched to clinical indication); or iterative reconstr uction. CONTRAST: None DLP: 1764.8 mGy.cm COMPARISON: 04/19/2019 11/01/[address]: Moderate to large RIGHT pleural effusion. Simple layering effusion is been present on multi ple prior studies and stable in size since 11/01/2017. New small layering LEFT pleural effusion. Compr essive atelectasis secondary to the effusions. There is some very mild pulmonary congestion. Moderate enlargement the heart with a small circumferential pericardial effusion which has been present on pr ior studies. Small mediastinal and hilar lymph nodes. Atherosclerosis aorta. Mild anasarca. Small hia willis hernia. Abdomen CT: Significant artifact through the abdomen due to patient's arms being at his side. Hepatic steatosis or venous congestion is likely. No definite mass but small masses would be easily obscured . Splenic granulomata. Gallbladder is slightly contracted otherwise negative. Fatty replacement of th e spleen. Mild hyperplasia of each adrenal gland similar to prior studies. Bilateral mild renal atrop hy. Stable 3.3 cm cyst associated with the LEFT kidney. No renal obstruction. Extensive atheroscleros is of aorta extending into the common iliac arteries. No ascites or adenopathy within the upper abdom en. There is mild mesenteric edema. No free air. Pelvic CT: There is a small amount of free fluid in the pelvis. There is a Russo catheter in the urin lizzy bladder. Mild diffuse constipation. There are several diverticula in the descending and sigmoid c olon. The fluid is adjacent to several of the diverticula. Several small foci of air with minimal muc osal covering. No definite perforation. No abscess collection. Severe degenerative disc disease in the thoracic and lumbar spines. No osteoblastic or osteolytic dis ease. CT/CT chest abd pel wo con IMPRESSION: 1. Small amount of free fluid in the pelvis with no abscess collection. 2. Sigmoid diverticula. Favor mild acute diverticulitis. Several sigmoid diver ticula are slightly inflamed and there is a very thin covering of mucosa surrou nding the diverticula. Patient is at risk for perforation. At this time no free air is identified. Several diverticula, best seen on image 60 of series 3 are suspicious but indeterminate for focal perforations. 3. Chronic moderate to large RIGHT pleural effusion. 4. New small LEFT pleural effusion. 5. Cardiomegaly and small stable circumferential pericardial effusion. 6. Extensive atherosclerosis aorta.
--- NOTE | 2019-07-17 09:30 | P.PN_ITS ---
Subjective Subjective: Interval history: Lele reports he feels swollen. His shortness of breath is a little bit less. No chest discomfort. Denies any abdominal pain. Medications: Reviewed: Yes Vitals/I&O/Wt Last Vital Signs Temp 98.2 F 07/17/19 09:00 Pulse 92 07/17/19 09:00 Resp 35 H 07/17/19 09:00 BP 82/58 07/17/19 09:00 Pulse Ox 98 07/17/19 09:00 07/16/19 07/17/19 07/17/19 22:59 06:59 14:59 Intake Total 915.257 / 8820.503 3467.453 / 2627.543 360 / 360 Output Total 600 / 1200 Balance 915.257 / 1011.090 416.453 / 1427.543 360 / 360 Weight last 48 hrs Weight 88.042 kg Weight 85.321 kg Weight 77.111 kg Physical Exam Narrative: EXAM NARRATIVE: General exam demonstrates a white male in no apparent distress. Telling a story when I entered the room. Cardiovascular regular rate and rhythm without murmur Lungs diminished breath sounds bilaterally but clear Abdomen is soft with positive bowel sounds, no obvious organomegaly Extremities no cyanosis or clubbing. 2+ edema is noted. Urinary Catheter Management^: Russo: Cath Placed During This Visit: yes Reason for Continuing Indwelling Catheter: Accurate Measurement of Urinary Output in Critically Ill Patients Urinary Catheter Date of Insertion: 07/15/19 Urinary Catheter Time of Insertion: 18:08 Data : 07/17/19 04:05 07/17/19 04:05 Micro: Microbiology 07/16/19 06:30 Blood Culture - Preliminary Blood 07/16/19 06:23 Blood Culture - Preliminary Blood A&P Assessment and plan (1) CHF (congestive heart failure): Acute mixed systolic and diastolic heart failure. Lasix 40 mg IV every 12 hours initiated on admission but this is been held, secondary to his hypotension and concern of sepsis. This will be reinstituted, as his blood pressure improves Status: Acute Qualifiers: Heart failure type: systolic Heart failure chronicity: acute on chronic Qualified Code(s): I50.23 - Acute on chronic systolic (congestive) heart failure (2) Recurrent falls: Needs prison facility placement Status: Acute (3) CKD (chronic kidney disease): Overall appears stable Status: Acute (4) Hx pulmonary embolism: Past history of pulmonary embolism. D-dimer was checked and elevated. Secondary to this a bilateral venous duplex, right upper extremity duplex(he has some swelling of the upper extremity as well) both of which were negative SCDs for DVT prophylaxis, secondary to significant and severe edema Status: Chronic (5) HTN (hypertension): Carvedilol discontinued as some hypotension currently. Heart rate remained stable. Status: Acute (6) Troponin level elevated: Type II, secondary to congestive heart failure Status: Acute (7) Leukocytosis: T-max 101.1 in last 24 hours. Temperature elevation started during a blood transfusion. No obvious source of infection on urine or chest x-ray Today we will get a CT noncontrast chest abdomen pelvis secondary to concern of sepsis. This was performed and suggest diverticulitis. Add Flagyl. Discontinue cefepime. His entire body was examined and there is no obvious skin infection or abscess I can visualize I suspect he may have a pneumonia, which is difficult to see secondary to his c hronic effusions COVID testing was ordered Status: Acute Additional A&P Information Anemia. Stool Hemoccult pending. Significantly iron deficient. May benefit from iron transfusion once fluid overload is not as significant an issue. B12 and folate levels normal. Haptoglobin normal. Past history of duodenal ulcer. Continue Protonix Atrial fibrillation, rate controlled currently but carvedilol had to be held secondary to hypotension Hypoxemic respiratory failure. Likely secondary to CHF. Wean oxygen as diuresed Deconditioning, weakness. Needs prison facility placement SCDs for DVT prophylaxis Full code Attestations Medical Necessity Statement*: Needs continued hospitalization for IV anti biotics secondary to hypotension, diverticulitis, congestive heart failure. 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
[2019-07-17] MEDS: metroNIDAZOLE IV 500 MG/100 ML PREMIX 100 MG IV ×3 (10:01→23:05)
--- NOTE | 2019-07-17 11:32 | P.EN_ITS ---
Event Note Event Note: Discussed with niece, who is power of trust and estates attorney and discussed with patient again his CODE STATUS. Secondary to his multiple comorbidities he would want to be allow natural . Niece is in agreement. He still wants aggressive treatment otherwise, and wants to be apprised of any interventions t hat might have meaningful recovery.
--- NOTE | 2019-07-17 17:15 | PC.NURSE ---
shift review Patient resting in bed, Alert and oriented x3 throughout shift. Continues to have severe weakness to the right side. D/t low blood pressure, PT chose to wait to see patient until tomorrow. Patient was started back on levophed at 1030. Patient dressing changes complete to skin tears on right arm and hand, moderate to large amount or serous drainage noted, with a somewhat foul odor noted. Notified Dr. Carr of this. Patient was taken to CT this AM via bed, he tolerated transfer well. Patient has been on room air since 0700, O2 sats have remained >90%.
[2019-07-18] VITALS (19 sets, daily range): BP systolic 88–116; BP diastolic 31–69; PULSE 87–101; RESP 18–39; TEMP 36.4–36.7; O2SAT 89–96
[2019-07-18] MEDS: linezolid premix 600 MG/300 ML PREMIX 300 MG IV ×2 (01:55→13:23)
[2019-07-18 03:49] LABS: Basophils % 0.1 %; Eosinophils % 0.1 %; Hematocrit 26.1 % (42.0-52.0); Hemoglobin 7.4 g/dL (11.7-16.6); Lymphocytes # 1.1 10^3/uL (0.8-4.8); Lymphocytes % 6.5 %; Mean Corpuscular HGB Conc 28.4 g/dL (30.0-36.0); Mean Corpuscular Hemoglobin 26.1 pg (28.0-34.0); Mean Corpuscular Volume 91.9 fL (80-94); Monocytes # 1.4 10^3/uL (0.2-0.9); Monocytes % 8.7 %; Neutrophils # 13.6 10^3/uL (1.8-7.7); Neutrophils % 83.6 %; Nucleated Red Blood Cells # 0.1 /100WBC; Nucleated Red Blood Cells % 0.6 %; Platelet Count 205 10^3/cmm (130-400); Red Blood Count 2.84 10^6/uL (4.1-5.3); Red Cell Distribution Width 20.4 % (12.1-15.1); White Blood Count 16.2 10^3/uL (4.0-10.0)
[2019-07-18 04:19] LABS: Alanine Aminotransferase 11 U/L (0-41); Albumin Level 2.3 g/dL (3.5-5.2); Alkaline Phosphatase 107 IU/L (40-130); Anion Gap 16.7 (5-19); Aspartate Amino Transferase 19 U/L (0-40); Blood Urea Nitrogen 66 mg/dL (8-23); Carbon Dioxide 23 mmol/L (22-29); Chloride 98 mmol/L (98-107); Globulin 4.2 g/dL (1.3-4.6); Glucose 139 mg/dL (65-115); Osmolality Calculated 277 mOsm/kg (285-295); Potassium 4.7 mmol/L (3.5-5.1); Sodium 133 mmol/L (136-145); Total Bilirubin 0.7 mg/dL (0.15-1.2); Total Protein 6.5 g/dL (6.6-8.7)
[2019-07-18] MEDS: metroNIDAZOLE IV 500 MG/100 ML PREMIX 100 MG IV ×4 (05:00→22:26)
[2019-07-18] MEDS: sucralfate 1 gm/10 mL Oral Liq UDC PO ×4 (06:25→20:34)
[2019-07-18] MEDS: pantoprazole DR 40 mg Tablet PO ×2 (07:15→16:50)
[2019-07-18] MEDS: levothyroxine 50 mcg Tablet PO (07:15)
--- NOTE | 2019-07-18 08:08 | PM.PN ---
Subjective Subjective: Interval history: Lele says he feels a little bit better. Some loose stool. No vomiting. Medications: Reviewed: Yes Vitals/I&O/Wt Last Vital Signs Temp 98.4 F 07/17/19 20:00 Pulse 101 H 07/18/19 08:00 Resp 29 H 07/18/19 08:00 BP 102/69 07/18/19 08:00 Pulse Ox 91 07/18/19 08:00 07/17/19 07/18/19 07/18/19 22:59 06:59 14:59 Intake Total 340 / 1100 580 / 1680 Output Total 900 / 900 Balance 340 / 1100 -320 / 780 Physical Exam Narrative: EXAM NARRATIVE: General exam demonstrates a white male in no apparent distress. Telling a story when I entered the room. Cardiovascular regular rate and rhythm without murmur Lungs diminished breath sounds bilaterally but clear Abdomen is soft with positive bowel sounds, minimal tenderness. Extremities no cyanosis or clubbing. 3+ edema noted lower extremities, 2+ right upper extremity Urinary Catheter Management^: Russo: Cath Placed During This Visit: yes Reason for Continuing Indwelling Catheter: Accurate Measurement of Urinary Output in Critically Ill Patients Urinary Catheter Date of Insertion: 07/15/19 Urinary Catheter Time of Insertion: 18:08 Data : 07/18/19 03:30 07/18/19 03:30 Micro: Microbiology 07/16/19 06:30 Blood Culture - Preliminary Blood 07/16/19 06:23 Blood Culture - Preliminary Blood A&P Assessment and plan (1) CHF (congestive heart failure): Acute mixed systolic and diastolic heart failure. Lasix 40 mg IV every 12 hours initiated on admission but this is been held, secondary to his hypotension and concern of sepsis. As sepsis is improved we will reinitiate Lasix today, July 17 and monitor blood pressure closely. Status: Acute Qualifiers: Heart failure type: systolic Heart failure chronicity: acute on chronic Qualified Code(s): I50.23 - Acute on chronic systolic (congestive) heart failure (2) Recurrent falls: Needs residential facility placement Status: Acute (3) CKD (chronic kidney disease): Overall appears stable Status: Acute (4) Hx pulmonary embolism: Past history of pulmonary embolism. D-dimer was checked and elevated. Secondary to this a bilateral venous duplex, right upper extremity duplex(he has some swelling of the upper extremity as well) both of which were negative SCDs for DVT prophylaxis, secondary to significant and severe edema Status: Chronic (5) HTN (hypertension): Carvedilol held secondary to decompensated heart failure and hypotension. Status: Acute (6) Troponin level elevated: Type II, secondary to congestive heart failure Status: Acute (7) Leukocytosis: Developed fever while in the hospital. Concern for sepsis so transferred to the ICU, required norepinephrine. CT abdomen and pelvis suggested diverticulitis Current antibiotics are linezolid, Flagyl, Levaquin. Check MRSA DNA and if negative discontinue linezolid Overall he appears improved He has a right pleural effusion as well which is chronic and attributed to his heart failure. No plans on thoracentesis currently. COVID testing was ordered as he developed a fever and is a candidate for [place] [facility]. This is pending. Status: Acute Additional A&P Information Anemia. Stool Hemoccult pending. Significantly iron deficient. May benefit from iron transfusion once fluid overload is not as significant an issue. B12 and folate levels normal. Haptoglobin normal. Past history of duodenal ulcer. Continue Protonix Atrial fibrillation, rate controlled currently but carvedilol had to be held secondary to hypotension Hypoxemic respiratory failure. Likely secondary to CHF. Wean oxygen as diuresed Deconditioning, weakness. Needs residential facility placement SCDs for DVT prophylaxis Full code Attestations Medical Necessity Statement*: Needs continued hospital stay for IV antibiotics secondary to diverticulitis, hypotension, as well as diuretic therapy secondary to acute diastolic heart failure. 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
[2019-07-18] MEDS: FUROsemide 10 mg/mL SDV 4mL 40 MG IVP (08:25)
--- NOTE | 2019-07-18 10:14 | PC.NURSE ---
patient assessment Dressing changes to the skin tears on the left arm and wrist complete. Patient tolerated well. Cleansed both sites with normal saline, patted dry and dressed with optifoam. Patient tolerated well. Odor was improved compared to yesterday, there was a moderate amount of drainage noted to the hand, somewhat purulent but wiped away easily when cleaned. Patient refused 10am turn, states he is comfortable and wants to rest. Educated on risk of skin breakdown, he verbalized understanding. Resting in bed with eyes closed at this time. BP is 101/62. Patient seems eager to do PT and OT today.
--- NOTE | 2019-07-18 11:00 | PC.SOCIAL ---
IMM Update Pg 2 of IMM given and explained to patient, who verbalized understanding. Copy placed in chart and copy provided to patient.
[2019-07-18 13:17] LABS: KAPPA/LAMBDA LIGHT CHAINS FREE 0.74 (0.26-1.65); LAMBDA LIGHT CHAIN, FREE, SERU 159.3 mg/L (5.7-26.3)
[2019-07-18] MEDS: levofloxacin-dextrose 5 % 750 MG/150 ML PREMIX 100 MG IV (13:23)
[2019-07-18 14:40] LABS: ALBUMIN 2.1 g/dL (3.8-4.8); ALPHA 1 GLOBULIN 0.6 g/dL (0.2-0.3); ALPHA 2 GLOBULIN 0.7 g/dL (0.5-0.9); BETA 1 GLOBULIN 0.5 g/dL (0.4-0.6); BETA 2 GLOBULIN 0.7 g/dL (0.2-0.5); GAMMA GLOBULIN 1.4 g/dL (0.8-1.7)
[2019-07-18 15:11] LABS: Coronavirus Lab Test PTC NOT DETECTED
--- NOTE | 2019-07-18 15:35 | PC.NURSE ---
Transfer report called to JOE Fay. Patient taken to room 101 via bed.
--- NOTE | 2019-07-18 17:19 | PC.NURSE ---
Feeding: Boat Crew Deck Hand was assisting pt with feeding.
--- NOTE | 2019-07-18 20:39 | PC.NURSE ---
Patients blood pressure 99/62. Patient had 60mg of IVP lasix ordered. Called Dr. Zhou to verify if he wanted it given. Orders to hold this dose. Will continue to monitor.
[2019-07-18] MEDS: acetaminophen 325 mg Tablet 650 MG PO (22:25)
[2019-07-19] VITALS (8 sets, daily range): BP systolic 95–115; BP diastolic 53–66; PULSE 81–100; RESP 22–35; TEMP 36.6–37.3; O2SAT 91–96; BMI 30.4
[2019-07-19] MEDS: linezolid premix 600 MG/300 ML PREMIX 300 MG IV ×2 (01:03→12:32)
[2019-07-19] MEDS: metroNIDAZOLE IV 500 MG/100 ML PREMIX 100 MG IV ×4 (04:32→21:48)
[2019-07-19 04:50] LABS: Basophils % 0.1 %; Eosinophils % 0.1 %; Hematocrit 27.7 % (42.0-52.0); Hemoglobin 7.9 g/dL (11.7-16.6); Lymphocytes # 1.1 10^3/uL (0.8-4.8); Lymphocytes % 7.5 %; Mean Corpuscular HGB Conc 28.5 g/dL (30.0-36.0); Mean Corpuscular Hemoglobin 26.6 pg (28.0-34.0); Mean Corpuscular Volume 93.3 fL (80-94); Mean Platelet Volume 9.8 fL (7.4-10.4); Monocytes # 1.2 10^3/uL (0.2-0.9); Monocytes % 8.1 %; Neutrophils # 12.3 10^3/uL (1.8-7.7); Neutrophils % 82.9 %; Nucleated Red Blood Cells # 0.1 /100WBC; Nucleated Red Blood Cells % 0.4 %; Platelet Count 217 10^3/cmm (130-400); Red Blood Count 2.97 10^6/uL (4.1-5.3); Red Cell Distribution Width 20.3 % (12.1-15.1); White Blood Count 14.9 10^3/uL (4.0-10.0)
--- NOTE | 2019-07-19 05:12 | PC.NURSE ---
Patient was laying on his L side being changed due to being incontinent of bowel and oxygen saturation dropped to 82% on room air. Patient was placed on 2L nasal cannula and came up to 93%. Will continue to monitor.
[2019-07-19 05:14] LABS: Anion Gap 17.3 (5-19); Blood Urea Nitrogen 56 mg/dL (8-23); Calcium 8.4 mg/dL (8.5-10.5); Carbon Dioxide 21 mmol/L (22-29); Chloride 97 mmol/L (98-107); Glucose 108 mg/dL (65-115); Osmolality Calculated 271 mOsm/kg (285-295); Potassium 4.3 mmol/L (3.5-5.1); Sodium 131 mmol/L (136-145)
[2019-07-19] MEDS: sucralfate 1 gm/10 mL Oral Liq UDC PO ×4 (06:10→21:48)
[2019-07-19] MEDS: FUROsemide 10 mg/mL SDV 10mL 60 MG IVP ×2 (08:22→19:43)
--- NOTE | 2019-07-19 08:29 | PC.NURSE ---
BP 100/62. 60 mg Lasix IVP administration clarified with Dr. Carr. Physician ordered for nurse to administer Lasix. Nurse to continue to monitor.
[2019-07-19] MEDS: carvedilol 3.125 mg Tablet PO ×2 (09:06→17:10)
[2019-07-19] MEDS: pantoprazole DR 40 mg Tablet PO ×2 (09:08→17:10)
[2019-07-19] MEDS: levothyroxine 50 mcg Tablet PO (09:08)
--- NOTE | 2019-07-19 10:13 | P.CONIM_ITS ---
Providers/Reason For Consult Consulting Physican/Specialty*: Cardiology Reason for Consult*: Decompensated heart failure Bacteremia with sepsis Attending Physician: Cuco Carr MD Primary Care Provider: Tano Jovel DO History of Present Illness History of Present Illness Lele Talavera is a 78 year old male past medical history significant for cardiomyopathy chronic kidney disease stage III-IV atrial fibrillation liver cirrhosis pulmonary htn with mildly reduced LV function 50% was admitted with worsening of shortness of breath PND orthopnea and pleural effusion thought to be due to CHF. Patient was diuresed he was also found to be septic with staph aureus bacteremia MSRA . It is the reason we have been asked to assist in his care and consider for transesophageal echocardiogram. Patient is on antibiotic he appears to be afebrile his blood pressure has improved. He has been diuresed continuously. Review of Systems General: Reports: 10 or more systems reviewed and unremarkable except in HPI and below Const: Denies: fever(s), chills or body aches Eyes: Denies: change in vision, blurry vision or photophobia ENMT: Denies: throat pain, enlarged tonsils, odynophagia, hoarseness or nasal congestion Card: Denies: chest pain, palpitations, irregular heart rhythm, edema, swelling of feet/ankles, lightheadedness, pre-syncope, dyspnea on exertion or orthopnea Resp: Denies: dyspnea, productive cough, non-productive cough, wheezing, stridor, pain on inspiration, change in phlegm color, hemoptysis or chest congestion GI: Denies: abdominal pain, nausea, vomiting, hematemesis, coffee ground emesis, dysphagia, heartburn, diarrhea, constipation, GI cramping, change in stool character, hematochezia or melena : Denies: flank pain, dysuria, urinary frequency, urinary urgency, urinary hesitancy or hematuria Musc: Denies: neck pain, back pain, extremity pain, joint swelling, joint warmth or deformity Skin/Breast: Reports: skin tenderness, sores and other (Multiple skin tears, ecchymotic areas, weeping) Neuro: Denies: headache(s), numbness in extremities, weakness in extremities, sensory changes, difficulty walking, frequent falls, dizziness, vertigo, behavioral changes, Slurred speech present or seizure-like activity Psych: Denies: anxiety, depression, suicidal ideation or homicidal ideation Endo: Denies: polyuria, polydipsia, tired all the time, cold intolerance or hot flashes Anthony/Lymph: Denies: easy bruising or easy bleeding Meds/Allergies Home Medications and Allergies Home Medications Medication Instructions Recorded Confirmed Last Taken Type multivitamin [Multiple Vitamins] 1 tab PO DAILY 04/19/19 07/15/19 07/15/19 08:00 History Gas-X See Rx Instructions .ROUTE 05/05/19 07/15/19 Unknown History .COMPLEX PRN furosemide 80 mg tablet 80 mg PO DAILY #30 tab 06/11/19 07/15/19 07/15/19 08:00 Rx sucralfate 1 gram tablet 1 gm PO DAILY #30 tab 06/11/19 07/15/19 07/15/19 08:00 Rx potassium chloride 10 meq PO DAILY 07/10/19 07/15/19 07/15/19 08:00 History spironolactone 12.5 mg PO DAILY 07/10/19 07/15/19 07/15/19 08:00 History carvedilol 6.25 mg PO BID #0 tab 07/13/19 07/15/19 07/15/19 08:00 Rx levothyroxine 50 mcg PO DAILY 30 Days #30 tab 07/13/19 07/15/19 07/15/19 07:00 Rx pantoprazole 40 mg PO DAILY 30 Days #30 tab 07/13/19 07/15/19 07/15/19 08:00 Rx Allergies Allergy/AdvReac Type Severity Reaction Status Date / Time Penicillins Allergy Unknown Verified 06/11/19 09:03 Current Medications Current Medications Generic Name Dose Route Start Last Admin Trade Name Freq PRN Reason Stop Dose Admin Acetaminophen 650 mg 07/15/19 21:35 07/18/19 22:25 Tylenol PO 650 mg Q6H PRN Administration Mild/Mod Pain Or Temp >/= 101 Carvedilol 3.125 mg 07/19/19 09:00 07/19/19 09:06 Coreg PO 3.125 mg BID JOSEFINA Administration Furosemide 60 mg 07/18/19 20:15 07/19/19 08:22 Lasix IVP 60 mg Q12H JOSEFINA Administration Levofloxacin/Dextrose 750 mg in 150 mls @ 100 mls/hr 07/16/19 13:00 07/18/19 13:23 Levaquin-D5w IV 100 mls/hr Q48H JOSEFINA Administration Protocol Linezolid 600 mg in 300 mls @ 300 mls/hr 07/16/19 13:00 07/19/19 02:30 Zyvox Premix IV Infused Q12H JOSEFINA Infusion Protocol Norepinephrine Bitartrate 4 mg 254 mls @ 0 mls/hr 07/16/19 15:15 07/17/19 11:30 / Dextrose IV 2 mcg/min .Q0M JOSEFINA 7.6 mls/hr Titration Protocol Per Protocol Metronidazole 500 mg in 100 mls @ 100 mls/hr 07/17/19 10:30 07/19/19 05:57 Flagyl Iv IV Infused Q6H JOSEFINA Infusion Protocol Levothyroxine Sodium 50 mcg 07/16/19 09:00 07/19/19 09:08 Synthroid PO 50 mcg DAILY JOSEFINA Administration Pantoprazole Sodium 40 mg 07/16/19 18:00 07/19/19 09:08 Protonix PO 40 mg BID JOSEFINA Administration Sucralfate 1 gm 07/16/19 07:00 07/19/19 06:10 Carafate Oral Liq PO 1 gm AC&BEDTIME JOSEFINA Administration PFSH Acute PFSH: Medical History (Updated 07/19/19 @ 18:13 by Ken Lara MD) Acute blood loss anemia Atrial fibrillation CHF (congestive heart failure) Echo 07/11/2019: LVEF 50%, grade 3 diastolic dysfunction with severely elevated filling pressures. Moderate mitral valve regurgitation, moderate tricuspid valve regurgitation, no pericardial effusion CKD (chronic kidney disease) HTN (hypertension) Hx pulmonary embolism Liver cirrhosis Mediastinal lymphadenopathy Mitral regurgitation Pulmonary HTN Upper GI bleed - Surgical History H/O esophagogastroduodenoscopy S/P hernia repair x2 S/P rotator cuff repair Left S/P thoracentesis (~07/07/17) right sided 2000ml removed Family History Other Stroke Social History Smoking and tobacco status: former smoker Alcohol intake: never Lives independently: Yes Household members: none Current occupational status: retired History of recent travel: No Current gender identity: Male Dietary Habits: Current diet type/program: regular Caffeine: Yes During the past year weight has: remained stable Vitals/I&O/Wt Last Vital Signs Temp 98.7 F 07/19/19 06:52 Pulse 87 07/19/19 06:52 Resp 28 H 07/19/19 06:52 BP 100/62 07/19/19 06:52 Pulse Ox 92 07/19/19 06:52 07/18/19 07/19/19 07/19/19 22:59 06:59 14:59 Intake Total 700 / 1460 700 / 2160 360 / 360 Output Total 300 / 850 500 / 1350 Balance 400 / 610 200 / 810 360 / 360 Weight last 48 hrs Weight 206 lb Weight 209 lb Physical Exam Narrative: EXAM NARRATIVE: GENERAL: Patient is alert, awake and oriented x3. NECK: No jugular vein distension. HEENT: No cyanosis. No icterus. No pallor. HEART: Irregularly irregular S1 and S2. No murmur, rub or gallop. LUNGS: Decrease breath sound on the right side while clear on the left. ABDOMEN: Soft, nontender and nondistended. Positive bowel sounds. No guarding, rebound or tenderness. CENTRAL NERVOUS SYSTEM: Grossly nonfocal. EXTREMITIES: Lower extremities with 1+ edema bilaterally. Urinary Catheter Management^: Russo: Cath Placed During This Visit: yes Reason for Continuing Indwelling Catheter: Acute Urinary Retention or Obstruction Urinary Catheter Date of Insertion: 07/15/19 Urinary Catheter Time of Insertion: 18:08 Data Micro: Micro: Microbiology 07/19/19 05:00 Occult Blood (FIT) - Final Stool 07/19/19 04:43 Blood Culture - Pr eliminary Blood [facility] 07/19/19 04:30 Blood Culture - Pr eliminary Blood SPE[facility]IMEN [facility] 07/18/19 08:25 MRSA Culture - Fin al Nose 07/18/19 12:09 Blood Culture - Pr eliminary Blood SPECIMEN [facility] 07/18/19 12:05 Blood Culture - Pr eliminary Blood SPECIMEN [facility] 07/16/19 06:23 Blood Culture - Pr eliminary Blood Staphylococcus aureus 07/16/19 06:30 Blood Culture - Pr eliminary Blood Staphylococcus aureus A&P Assessment and plan (1) Sepsis: Patient has bacteremia with sepsis which is improving. Would like to rule out bacterial endocarditis since patient has 4 out of 4 positive bottles for MRSA. We will proceed with transesophageal echocardiogram. Status: Acute Qualifiers: Sepsis type: methicillin resistant Staphylococcus aureus Sepsis acute organ dysfunction status: unspecified Qualified Code(s): A41.02 - Sepsis due to Methicillin resistant Staphylococcus aureus (2) CHF (congestive heart failure): Appears to be decompensated state of heart failure continue current regimen and continue to monitor Status: Acute Qualifiers: Heart failure type: systolic Heart failure chronicity: acute on chronic Qualified Code(s): I50.23 - Acute on chronic systolic (congestive) heart failure (3) Atrial fibrillation: Rate controlled continue current regimen Status: Acute Qualifiers: Atrial fibrillation type: longstanding persistent Qualified Code(s): I48.11 - Longstanding persistent atrial fibrillation (4) CKD (chronic kidney disease): Patient has underlying chronic kidney disease with diuresis we will keep a close observation on it. 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
--- NOTE | 2019-07-19 11:10 | P.PN_ITS ---
Subjective Subjective: Interval history: Lele reports he is pretty weak. Still short of breath. Medications: Reviewed: Yes Vitals/I&O/Wt Last Vital Signs Temp 98.7 F 07/19/19 06:52 Pulse 87 07/19/19 06:52 Resp 28 H 07/19/19 06:52 BP 100/62 07/19/19 06:52 Pulse Ox 92 07/19/19 06:52 07/18/19 07/19/19 07/19/19 22:59 06:59 14:59 Intake Total 700 / 1460 700 / 2160 360 / 360 Output Total 300 / 850 500 / 1350 Balance 400 / 610 200 / 810 360 / 360 Weight last 48 hrs Weight 93.44 kg Weight 94.801 kg Physical Exam Narrative: EXAM NARRATIVE: General exam demonstrates a white male in no apparent distress. Cardiovascular regular rate and rhythm without murmur Lungs diminished breath sounds bilaterally but clear Abdomen is soft with positive bowel sounds, minimal tenderness. Extremities no cyanosis or clubbing. 2+ edema noted lower extremities, 2+ right upper extremity Urinary Catheter Management^: Russo: Cath Placed During This Visit: yes Reason for Continuing Indwelling Catheter: Acute Urinary Retention or Obstruction Urinary Catheter Date of Insertion: 07/15/19 Urinary Catheter Time of Insertion: 18:08 Data : 07/19/19 04:30 07/19/19 04:30 Micro: Microbiology 07/19/19 05:00 Occult Blood (FIT) - Final Stool 07/19/19 04:43 Blood Culture - Preliminary Blood SPECIMEN COLLECTED 07/19/19 04:30 Blood Culture - Preliminary Blood SPECIMEN COLLECTED 07/18/19 08:25 MRSA Culture - Final Nose 07/18/19 12:09 Blood Culture - Preliminary Blood SPECIMEN COLLECTED 07/18/19 12:05 Blood Culture - Preliminary Blood SPECIMEN COLLECTED 07/16/19 06:23 Blood Culture - Preliminary Blood Staphylococcus aureus 07/16/19 06:30 Blood Culture - Preliminary Blood Staphylococcus aureus A&P Assessment and plan (1) CHF (congestive heart failure): Acute mixed systolic and diastolic heart failure. Lasix was initially held for sepsis. It is been restarted at 60 mg IV every 12 hours. Monitor for diuresis. Status: Acute Qualifiers: Heart failure type: systolic Heart failure chronicity: acute on chronic Qualified Code(s): I50.23 - Acute on chronic systolic (congestive) heart failure (2) Recurrent falls: Needs care home facility placement Status: Acute (3) CKD (chronic kidney disease): Overall appears stable Status: Acute (4) Hx pulmonary embolism: Past history of pulmonary embolism. D-dimer was checked and elevated. Secondary to this a bilateral venous duplex, right upper extremity duplex(he has some swelling of the upper extremity as well) both of which were negative SCDs for DVT prophylaxis, secondary to significant and severe edema Status: Chronic (5) HTN (hypertension): Carvedilol held secondary to decompensated heart failure and hypotension. Blood pressure has improved so his carvedilol restarted at lower dose 3.125 mg twice daily Status: Acute (6) Troponin level elevated: Type II, secondary to congestive heart failure Status: Acute (7) Leukocytosis: White blood cell count now decreasing. Developed fever while in the hospital. Concern for sepsis so transferred to the ICU, required norepinephrine. He is now off norepinephrine CT abdomen and pelvis suggested diverticulitis Current antibiotics are linezolid, Flagyl, Levaquin. MRSA DNA was positive. Blood cultures now positive for staph aureus, identification and sensitivity pending He appears to be improving significantly but secondary to bacteremia repeat cultures have been drawn. He will require a PICC line, and CAMMY COVID testing was ordered as he developed a fever and is a candidate for shelter placement. Covid 19 is negative Status: Acute Additional A&P Information Anemia. Stool Hemoccult negative. Significantly iron deficient. May benefit from iron transfusion once fluid overload is not as significant an issue. B12 and folate levels normal. Haptoglobin normal. Past history of duodenal ulcer. Continue Protonix Atrial fibrillation, rate controlled currently but carvedilol had to be held secondary to hypotension. This will now be reinitiated today at 3.125 mg twice daily. Hypoxemic respiratory failure. Likely secondary to CHF. Oxygen has been able to be weaned to room air. Deconditioning, weakness. Needs care home facility placement SCDs for DVT prophylaxis Full code Attestations Medical Necessity Statement*: Needs continued hospital stay for IV antibiotics secondary to bacteremia and diuresis secondary to heart failure. 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
--- NOTE | 2019-07-19 11:10 | PC.NURSE ---
Patient requiring persistent encouragement to perform exercises in bilateral arms. Patient repeatedly states, I can't do this. When prompted by nurse, patient is able to use right arm to feed self and perform passive ROM in left arm. Nurse continues to encourage and support patient.
--- NOTE | 2019-07-19 12:49 | PC.NURSE ---
Patient has made multiple requests for wallet. Nurse confirmed patient wallet is with [facility].
--- NOTE | 2019-07-19 22:29 | PC.NURSE ---
PT DOESN'T WANT TO MOVE RIGHT ARM AT ALL AND WILL BARELY LIFT THE LEFT. PT DENIES PAIN AT THIS TIME. WILL CONTINUE TO MONITOR.
[2019-07-20] VITALS: BP 101/59; PULSE 96; RESP 22
--- NOTE | 2019-07-20 | USCV_ITS ---
Lele Talavera Age: 78 Gender: M : 1940 Exam Date: 07/20/2019 12:44 Ordering Phys: Ken Lara MD ([email or web address]) Technologist: Viridiana Guidry [place] [facility] [place]: AFIB BP: / HR: Rhythm: Sinus Technical Quality: MEASUREMENTS (Male / Female) Normal Values Medications Patient given IV sedation by anesthesia service, for details please refer to the anesthesia report. Complications None. Proc. Components CAMMY was performed at multiple levels. FINDINGS Left Ventricle Normal left ventricular size, systolic function and wall thickness, with no regional wall motion abnormalities. Normal left ventricular wall thickness. Left ventricular ejection fraction is estimated at 60 %. Right Ventricle The right ventricle is normal in size and function. Right Atrium The right atrium is normal in size. Left Atrium The left atrium is normal in size. LA Appendage The LA appendage is normal. IA Septum Iduu-yx-[id number] shunt seen at the atrial level. Patent foramen ovale. Mitral Valve Moderately thickened mitral valve. No mitral valve stenosis. Moderate mitral valve regurgitation through eccentric jet. There appeared to be two small serpentine 0.875 cm mass most likely rudementary subvalvular apparatus however cannot rule out vegetation / endocarditis noted moving towards atrial side upon closure of the valve. Aortic Valve Mild aortic valve calcification. No aortic valve stenosis. Trace aortic valve regurgitation. Tricuspid Valve Structurally normal tricuspid valve without significant stenosis or regurgitation. Pulmonary artery systolic pressure is normal. Pulmonic Valve Structurally normal pulmonic valve without significant stenosis. There is no pulmonic regurgitation. Pericardium Normal pericardium without effusion. Aorta Moderate plaque seen in the aorta. CONCLUSIONS 1-Normal left ventricular size, systolic function and wall thickness, with no regional wall motion abnormalities. Normal left ventricular wall thickness. Left ventricular ejection fraction is estimated at 60 %. 2-Moderately thickened mitral valve. No mitral valve stenosis. Moderate mitral valve regurgitation through eccentric jet. There appeared to be two small serpentine 0.875 cm mass most likely rudementary subvalvular apparatus however cannot rule out vegetation / endocarditis noted moving towards atrial side upon closure of the valve. 0-Fcuu-oq-right shunt seen at the atrial level. Patent foramen ovale. 4-Moderate plaque seen in the aorta. 5-There is no pericardial effusion. 6-There are no prior Transesophageal echocardiogram studies to compare. Ken Lara MD (Electronically Signed) Final Date: 20 Jul 2019 18:43 S
[2019-07-20] MEDS: linezolid premix 600 MG/300 ML PREMIX 300 MG IV ×2 (00:59→14:21)
[2019-07-20 04:00] VITALS: BP 96/68; PULSE 102; RESP 31; TEMP 36.8; O2SAT 94
--- NOTE | 2019-07-20 04:06 | PC.NURSE ---
THERE IS A POSSIBILITY OF A CAMMY TOMORROW. WILL PASS ALONG TO DAYSHIFT THAT THE PT ORDERS SAYS CLEAR LIQUID, BUT PT HASN'T HAD ANYTHING TO EAT OR DRINK AFTER MIDNIGHT.
[2019-07-20] MEDS: metroNIDAZOLE IV 500 MG/100 ML PREMIX 100 MG IV ×3 (04:15→20:48)
[2019-07-20 06:09] LABS: Anion Gap 16.8 (5-19); Blood Urea Nitrogen 57 mg/dL (8-23); Calcium 8.8 mg/dL (8.5-10.5); Carbon Dioxide 23 mmol/L (22-29); Chloride 99 mmol/L (98-107); Glucose 104 mg/dL (65-115); Osmolality Calculated 279 mOsm/kg (285-295); Potassium 3.8 mmol/L (3.5-5.1); Sodium 135 mmol/L (136-145)
[2019-07-20] MEDS: sucralfate 1 gm/10 mL Oral Liq UDC PO ×3 (06:11→20:48)
--- NOTE | 2019-07-20 06:32 | PC.NURSE ---
PT JUST CALLED THIS NURSE DOWN TO ROOM. PT IS MORE CONFUSED. PT ASKED FOR TEETH WHILE THEY WERE IN THEIR MOUTH. PT WANTED TO GET UP AND SIT ON THE SIDE OF THE BED. PT WAS INFORMED THAT THEIR TEETH IS IN THEIR MOUTH. PT WAS REPOSITIONED FOR MORE COMFORT. PT HAS NOT BEEN GETTING UP. WILL CONTINUE TO MONITOR.
[2019-07-20 08:00] VITALS: BP 112/63; PULSE 90; RESP 18; O2SAT 92
--- NOTE | 2019-07-20 09:49 | P.PN_ITS ---
Subjective Subjective: Interval history: Lele reports he is doing okay this morning. Perhaps a little less swollen. Still significantly short of breath. No chest pain. Medications: Reviewed: Yes Vitals/I&O/Wt Last Vital Signs Temp 98.3 F 07/20/19 04:00 Pulse 102 H 07/20/19 04:00 Resp 31 H 07/20/19 04:00 BP 96/68 07/20/19 04:00 Pulse Ox 94 07/20/19 04:00 07/19/19 07/20/19 07/20/19 22:59 06:59 14:59 Intake Total 370 / 1370 Output Total 1200 / 2300 Balance 370 / 270 -1200 / -930 Weight last 48 hrs Weight 93.531 kg Weight 93.44 kg Weight 94.801 kg Physical Exam Narrative: EXAM NARRATIVE: General exam demonstrates a white male in no apparent distress. Conversant and pleasant Cardiovascular regular rate and rhythm without murmur Lungs diminished breath sounds bilaterally but clear Abdomen is soft with positive bowel sounds, minimal tenderness. Extremities no cyanosis or clubbing. 2+ edema noted lower extremities, 2+ right upper extremity Urinary Catheter Management^: Russo: Cath Placed During This Visit: yes Reason for Continuing Indwelling Catheter: Acute Urinary Retention or Obstruction Urinary Catheter Date of Insertion: 07/15/19 Urinary Catheter Time of Insertion: 18:08 Data : 07/19/19 04:30 07/20/19 05:33 Micro: Microbiology 07/19/19 04:43 Blood Culture - Preliminary Blood NEGATIVE TO DATE 07/19/19 04:30 Blood Culture - Preliminary Blood NEGATIVE TO DATE 07/16/19 06:30 Blood Culture - Preliminary Blood Staphylococcus aureus 07/16/19 06:23 Blood Culture - Preliminary Blood Staphylococcus schleiferi sub 07/18/19 12:05 Blood Culture - Preliminary Blood NEGATIVE TO DATE 07/18/19 12:09 Blood Culture - Preliminary Blood NEGATIVE TO DATE 07/19/19 05:00 Occult Blood (FIT) - Final Stool A&P Assessment and plan (1) CHF (congestive heart failure): Acute mixed systolic and diastolic heart failure. Lasix was initially held for sepsis. It is been restarted at 60 mg IV every 12 hours. He diuresed about 1300 cc in the last 24 hours Status: Acute Qualifiers: Heart failure type: systolic Heart failure chronicity: acute on chronic Qualified Code(s): I50.23 - Acute on chronic systolic (congestive) heart failure (2) Recurrent falls: Needs residential facility placement Status: Acute (3) CKD (chronic kidney disease): Overall appears stable Status: Acute Qualifiers: Chronic kidney disease stage: stage 3 (moderate) Qualified Code(s): N18.3 - Chronic kidney disease, stage 3 (moderate) (4) Hx pulmonary embolism: Past history of pulmonary embolism. D-dimer was checked and elevated. Secondary to this a bilateral venous duplex, right upper extremity duplex(he has some swelling of the upper extremity as well) both of which were negative SCDs for DVT prophylaxis, secondary to significant and severe edema Status: Chronic (5) HTN (hypertension): Carvedilol held secondary to decompensated heart failure and hypotension. Blood pressure has improved so his carvedilol restarted at lower dose 3.125 mg twice daily Status: Acute (6) Troponin level elevated: Type II, secondary to congestive heart failure Status: Acute (7) Leukocytosis: White blood cell count now decreasing. Developed fever while in the hospital. Concern for sepsis so transferred to the ICU, required norepinephrine. He is now off norepinephrine CT abdomen and pelvis suggested diverticulitis Current antibiotics are linezolid, Flagyl, Levaquin. MRSA DNA was positive. Blood cultures now positive for staph schleiferi, sensitive to vancomycin He appears to be improving significantly but secondary to bacteremia repeat cultures have been drawn. These are still holding negative and PICC line can be placed today. Cardiology was consulted for CAMMY which may occur today. COVID testing was ordered as he developed a fever and is a candidate for fci placement. Covid 19 is negative Status: Acute Additional A&P Information Anemia. Stool Hemoccult negative. Significantly iron deficient. Iron transfusion will be ordered today. B12 and folate levels normal. Haptoglobin normal. Past history of duodenal ulcer. Continue Protonix Atrial fibrillation, rate controlled currently but carvedilol had to be held secondary to hypotension. This will now be reinitiated today at 3.125 mg twice daily. Heart rate is currently under control Hypoxemic respiratory failure. Likely secondary to CHF. Oxygen has been able to be weaned to room air. Deconditioning, weakness. 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
--- NOTE | 2019-07-20 10:00 | PC.SOCIAL ---
IMM Page 2 of IMM updated and given to patient. Initialed, dated, and timed and placed back in chart.
--- NOTE | 2019-07-20 10:12 | PC.CHAP ---
Pastoral Care Encounter/Spiritual Assessment Type of Contact [] Declined platform mill supervisor visit [] Patient/Family/Request visit [] Outpatient visit [x] Follow-up visit [] Physician referral [] Code/Alert [x] Routine visit [] Staff referral [] Actively dying [] Patient sleeping [] Family support [] [] Out of room [] Palliative care [] [] Receiving care in room [] Pre-surgical visit [] Trauma [] Long length of stay [] ICU visit [] Other: Relational/Emotional Strength [] Patient feels connected with others/family/visitors/staff [] Distress [] Loneliness/isolation [] Abandonment Spirituality of Patient [] Person of Vidya [] Attends Lutheran of their Vdi[place] [] Believes in Prayer [] Reads Bible or Alevism materials [] There are Spiritual issues to be addressed Legal Billing Coordinator Interventions [x] Prayer [] Active listening [] Non-anxious presence [] Spiritual/emotional support [] Crisis/trauma care [] Spiritual counseling [] Bereavement support [] Provided bereavement packet [] Provided Bible/devotional materials [] Provided toy/stuffed animal, coloring book to patient or family member [] Provided Communion [] Anointing/[place] [] Salvation [x] Completed spiritual assessment [] Other: Impact on Illness or Injury [] Angry [] Fearful [] Anxious [] Often cries [] Exhaustion [] Unable to work [] Unable to attend orthodox [] Unable to walk/stand [] Unable to read [] Unable to drive [] Unable to eat/drink [] Unable to sleep [] Unable to be with family [] Patient intubated [] Other: Summary patient resting well Time spent with patient
[2019-07-20] MEDS: iron sucrose 200 MG in sodium chloride 0.9% (100 ml) 100 ML 220 MG IV (10:29)
[2019-07-20] MEDS: FUROsemide 10 mg/mL SDV 10mL 60 MG IVP ×2 (10:31→20:58)
[2019-07-20] MEDS: levothyroxine 50 mcg Tablet PO (10:32)
[2019-07-20] MEDS: carvedilol 3.125 mg Tablet PO ×2 (10:32→19:08)
[2019-07-20] MEDS: pantoprazole DR 40 mg Tablet PO ×2 (10:32→19:09)
--- NOTE | 2019-07-20 11:54 | XR_ITS ---
WS: [id number] PORTABLE CHEST HISTORY: PICC LINE COMPARISON: 07/15/2019 Interval placement of a left-sided PICC line with tip in the mid SVC. No complications. Lung volumes are slightly decreased due to small bilateral pleural effusions. No pneumonia. No pneumo thorax. Cardiac size: Moderately enlarged cardiac silhouette. Mediastinum/Aorta: Normal mediastinum. No osseous abnormality seen. XR/XR chest 1V portable [id number] IMPRESSION: 1. Satisfactory placement of a LEFT PICC line. 2. Small but increasing bilateral pleural effusions.
--- NOTE | 2019-07-20 12:23 | P.ANESASSM_ITS ---
Pre-Anesthetic Assessment Pre-Anesthetic Assessment: Height/Weight: Height 1.75 m Weight 93.531 kg Temp Pulse Resp BP Pulse Ox 98.3 F 90 18 112/63 92 07/20/19 04:00 07/20/19 08:00 07/20/19 08:00 07/20/19 08:00 07/20/19 08:00 Preop Diagnosis: GI Bleed Proposed Procedure: Operation Date: 07/20/19 13:00 Proposed Procedures p CAMMY (Transesophageal Echocardiogram)(Not Applicable) - Ken Lara MD Was Beta Jonathon taken within 24 hours: Yes Social: Social History: No alcohol and No tobacco Exam: Pre-Anes Outpt Exam: alert and oriented x 3 Airway: Submandibular: WNL Cervical ROM: WNL MP: 1 Dentition: False History/ROS: No significant history except as noted and No significant complaints Pulmonary: Pulmonary: YUSUF, PND and SOB CV/HEM: CV/HEM: Afib, CAD, CHF and Palp Comments: ef 50%. recently admitted for decomp HF : : Chronic renal Insufficiency Hepatic: Hepatic: None reported GI: GI: None reported Metabolic: Metabolic: None reported Musc/skel: Musc/skel: None reported Neuropsych: Neuropsych: None reported Anesthetic Plan: ASA status: 4 Anesthesia: MAC Meds/Allergies Current Medications: Current Medications Generic Name Dose Route Start Last Admin Trade Name Freq PRN Reason Stop Dose Admin Acetaminophen 650 mg 07/15/19 21:35 07/18/19 22:25 Tylenol PO 650 mg Q6H PRN Administration Mild/Mod Pain Or Temp >/= 101 Carvedilol 3.125 mg 07/19/19 09:00 07/20/19 10:32 Coreg PO 3.125 mg BID JOSEFINA Administration Furosemide 60 mg 07/18/19 20:15 07/20/19 10:31 Lasix IVP 60 mg Q12H JOSEFINA Administration Levofloxacin/Dextr ose 750 mg in 150 mls @ 100 mls/hr 07/16/19 13:00 07/18/19 13:23 Levaquin-D5w IV 100 mls/hr Q48H JOSEFINA Administration Protocol Linezolid 600 mg in 300 mls @ 300 mls/hr 07/16/19 13:00 07/20/19 00:59 Zyvox Premix IV 300 mls/hr Q12H JOSEFINA Administration Protocol Metronidazole 500 mg in 100 mls @ 100 mls/hr 07/17/19 10:30 07/20/19 04:15 Flagyl Iv IV 100 mls/hr Q6H JOSEFINA Administration Protocol Levothyroxine Sodi um 50 mcg 07/16/19 09:00 07/20/19 10:32 Synthroid PO 50 mcg DAILY JOSEFINA Administration Pantoprazole Sodiu m 40 mg 07/16/19 18:00 07/20/19 10:32 Protonix PO 40 mg BID JOSEFINA Administration Sucralfate 1 gm 07/16/19 07:00 07/20/19 06:11 Carafate Oral Li q PO 1 gm AC&BEDTIME JOSEFINA Administration PFSH Anesthesia PFSH: Medical History (Updated 07/19/19 @ 18:13 by Ken Lara MD) Acute blood loss anemia Atrial fibrillation CHF (congestive heart failure) Echo 07/11/2019: LVEF 50%, grade 3 diastolic dysfunction with severely elevated filling pressures. Moderate mitral valve regurgitation, moderate tricuspid valve regurgitation, no pericardial effusion CKD (chronic kidney disease) HTN (hypertension) Hx pulmonary embolism Liver cirrhosis Mediastinal lymphadenopathy Mitral regurgitation Pulmonary HTN Upper GI bleed - Surgical History H/O esophagogastroduodenoscopy S/P hernia repair x2 S/P rotator cuff repair Left S/P thoracentesis (~07/07/17) right sided 2000ml removed Family History Other Stroke Social History Smoking and tobacco status: former smoker Alcohol intake: never Lives independently: Yes Household members: none Current occupational status: retired History of recent travel: No Current gender identity: Male Data Anesthesia CBC & Chem 7: 07/19/19 04:30 07/20/19 05:33 Other Labs: Laboratory Results - last 48 hr 07/16/19 07/16/19 07/16/19 06:23 06:23 06:23 WBC RBC Hgb Hct MCV MCH MCHC RDW Plt Count MPV Neut % (Auto) Lymph % (Auto) [place] % (Auto) Eos % (Auto) Baso % (Auto) Neut # (Auto) Lymph # (Auto) [place] # (Auto) Eos # (Auto) Baso # (Auto) Nucleated RBC % (auto) Nucleated RBCs # Sodium Potassium Chloride Carbon Dioxide Anion Gap BUN Creatinine Glucose Calculated Osmolality Lactic Acid 1.2 Calcium Albumin Kunvz-5-Polvdcazg Vdxdf-9-Mjucqwxel Sfmn-3-Stdisisl Qxka-9-Htserszn Gamma Globulins Procalcitonin 1.65 H Pro Electrophoresis Int Free [place] Light Chains 118.0 H Free Lambda Light Chain 159.3 H Free [place]/Lambda Ratio 0.74 Nasal/Oral COVID-19 PCR 07/16/19 07/17/19 07/19/19 06:23 09:00 04:30 WBC 14.9 H RBC 2.97 L Hgb 7.9 L Hct 27.7 L MCV 93.3 MCH 26.6 L MCHC 28.5 L RDW 20.3 H Plt Count 217 MPV 9.8 Neut % (Auto) 82.9 Lymph % (Auto) 7.5 [place]royo % (Auto) 8.1 Eos % (Auto) 0.1 Baso % (Auto) 0.1 Neut # (Auto) 12.3 H Lymph # (Auto) 1.1 [place] # (Auto) 1.2 H Eos # (Auto) 0.0 Baso # (Auto) 0.0 Nucleated RBC % (auto) 0.4 Nucleated RBCs # 0.1 Sodium Potassium Chloride Carbon Dioxide Anion Gap BUN Creatinine Glucose Calculated Osmolality Lactic Acid Calcium Albumin 2.1 L Lhqki-2-Yrggnwlrp 0.6 H Izozo-5-Lcdbbnxjd 0.7 Dpra-8-Pvrptinl 0.5 Bnaa-9-Tmzbfpog 0.7 H Gamma Globulins 1.4 Procalcitonin Pro Electrophoresis Int See note Free [place] Light Chains Free Lambda Light Chain Free [place]/Lambda Ratio Nasal/Oral COVID-19 PCR Not detected 07/19/19 07/20/19 04:30 05:33 WBC RBC Hgb Hct MCV MCH MCHC RDW Plt Count MPV Neut % (Auto) Lymph % (Auto) [place] % (Auto) Eos % (Auto) Baso % (Auto) Neut # (Auto) Lymph # (Auto) [place] # (Auto) Eos # (Auto) Baso # (Auto) Nucleated RBC % (auto) Nucleated RBCs # Sodium 131 L 135 L Potassium 4.3 3.8 Chloride 97 L 99 Carbon Dioxide 21 L 23 Anion Gap 17.3 16.8 BUN 56 H 57 H Creatinine 1.9 H 2.1 H Glucose 108 104 Calculated Osmolality 271 L 279 L Lactic Acid Calcium 8.4 L 8.8 Albumin Emuvm-8-Ilalbnqwt Ibava-9-Wucnqfvkn Ujmj-2-Oubfgvus Yvza-1-Cfkxniwn Gamma Globulins Procalcitonin Pro Electrophoresis Int Free [place] Light Chains Free Lambda Light Chain Free [place]/Lambda Ratio Nasal/Oral COVID-19 PCR Micro: Microbiology 07/16/19 06:23 Blood Culture - Final Blood Methicillin Resis Staph Aureus 07/16/19 06:30 Blood Culture - Final Blood Methicillin Resis Staph Aureus 07/19/19 04:43 Blood Culture - Preliminary Blood NEGATIVE TO DATE 07/19/19 04:30 Blood Culture - Preliminary Blood NEGATIVE TO DATE 07/18/19 12:05 Blood Culture - Preliminary Blood NEGATIVE TO DATE 07/18/19 12:09 Blood Culture - Preliminary Blood NEGATIVE TO DATE Cardiac Studies: No Data to Display
[2019-07-20] MEDS: levofloxacin-dextrose 5 % 750 MG/150 ML PREMIX 100 MG IV (14:20)
--- NOTE | 2019-07-20 15:57 | PC.NURSE ---
FLAGYL TIME CHANGED DUE TO MEDICINE GIVEN LATE... DUE TO CAMMY PROCEDURE..Q6HR TIMES ADJUSTED.DR EATON AWARE.
[2019-07-20 17:00] VITALS: PULSE 88; O2SAT 99
[2019-07-20 17:31] VITALS: BP 107/65; PULSE 93; RESP 22; TEMP 36.4; O2SAT 100
--- NOTE | 2019-07-20 19:37 | PC.NURSE ---
esophageal echocardiogram performed by dr sung at 1320 today.sedated with diprivan by consultant luxury and auto. vice president [employer] (ex ).pt tolerated procedure well.vss through-out procedure.pt awoke easily after procedure.good swallow reflex noted.cont to monitor closely.
--- NOTE | 2019-07-20 19:42 | PC.NURSE ---
picc line placed by alicia (blast furnace auxiliaries supervisor) at 1230 today.pt tolerated procedure well.
[2019-07-20 20:00] VITALS: BP 113/64; PULSE 91; RESP 32; TEMP 36.6; O2SAT 98
[2019-07-21] VITALS (7 sets, daily range): BP systolic 92–131; BP diastolic 49–75; PULSE 86–102; RESP 12–43; TEMP 36.6–37; O2SAT 98–100
[2019-07-21] MEDS: linezolid premix 600 MG/300 ML PREMIX 300 MG IV ×2 (00:56→13:17)
[2019-07-21] MEDS: metroNIDAZOLE IV 500 MG/100 ML PREMIX 100 MG IV ×4 (01:07→19:57)
[2019-07-21 05:34] LABS: Basophils % 0.1 %; Eosinophils % 0.1 %; Hematocrit 27.8 % (42.0-52.0); Lymphocytes # 0.9 10^3/uL (0.8-4.8); Lymphocytes % 8.4 %; Mean Corpuscular HGB Conc 28.8 g/dL (30.0-36.0); Mean Corpuscular Hemoglobin 26.4 pg (28.0-34.0); Mean Corpuscular Volume 91.7 fL (80-94); Mean Platelet Volume 9.7 fL (7.4-10.4); Monocytes # 0.7 10^3/uL (0.2-0.9); Neutrophils # 8.6 10^3/uL (1.8-7.7); Neutrophils % 83.4 %; Nucleated Red Blood Cells % 0.4 %; Platelet Count 230 10^3/cmm (130-400); Red Blood Count 3.03 10^6/uL (4.1-5.3); Red Cell Distribution Width 19.9 % (12.1-15.1); White Blood Count 10.3 10^3/uL (4.0-10.0)
[2019-07-21 06:12] LABS: Anion Gap 17.2 (5-19); Blood Urea Nitrogen 53 mg/dL (8-23); Calcium 8.9 mg/dL (8.5-10.5); Carbon Dioxide 24 mmol/L (22-29); Chloride 98 mmol/L (98-107); Glucose 103 mg/dL (65-115); Osmolality Calculated 281 mOsm/kg (285-295); Potassium 3.2 mmol/L (3.5-5.1); Sodium 136 mmol/L (136-145)
[2019-07-21] MEDS: sucralfate 1 gm/10 mL Oral Liq UDC PO ×4 (06:23→20:08)
--- NOTE | 2019-07-21 07:13 | PM.PN ---
Subjective Subjective: Interval history: This patient was admitted on the now about a week ago with shortness of breath, recurrent heart failure, lower extremity edema and then small elevation in his troponin. He had been admitted here prior to that and was discharged only 2 days before being admitted this time. He is a very poor historian and does not really have any idea about the characteristics of his illnesses. He has a long list of medical problems that includes a pulmonary embolism, pulmonary hypertension, heart failure, atrial fibrillation and noncompliance. Today when I introduced myself he told me that I saw heart doctor here a couple years ago who wore cowboy boots and told me that we should just leave my heart alone . Obviously he was talking about Dr. Weeks. Since the patient's arrival he has had a large number of radiologic studies which have included hip and pelvis x-rays, shoulder x-rays, venous duplex of the upper and lower extremities, hand x-rays, CT of his chest, abdomen and pelvis. None of these were particularly revealing. 2 days ago his blood cultures came back positive for Staphylococcus aureus. This prompted a transesophageal echo which was done yesterday. There was some rudimentary structures in the subvalvular region of the mitral valve. He also has a patent foramen ovale. He is being treated for what might be presumed bacterial endocarditis however this is not clear by the CAMMY. There a long list of other issues including anemia, diverticular disease, mitral regurgitation, atrial fibrillation, history of GI bleeding, peptic ulcer disease, cirrhosis among others. He does not look toxic and does not feel poorly. He does not offer any particular complaints Medications: Reviewed: Yes Vitals/I&O/Wt Last Vital Signs Temp 98 F 07/21/19 04:00 Pulse 95 07/21/19 04:00 Resp 22 H 07/21/19 04:00 BP 129/67 07/21/19 04:00 Pulse Ox 100 07/21/19 04:00 07/20/19 07/21/19 07/21/19 22:59 06:59 14:59 Intake Total 400 / 400 100 / 500 Output Total 1800 / 1800 Balance 400 / 400 -1700 / -1300 Weight last 48 hrs Weight 194 lb 6.4 oz Weight 200 lb 3.2 oz Weight 206 lb 3.2 oz Physical Exam Narrative: EXAM NARRATIVE: GENERAL: Looks comfortable at rest HEENT: Exam within normal limits. NECK: Supple without jugular vein distention. The carotid upstroke is normal without bruits. BACK: Exam normal. LUNGS: Clear. HEART: Regular rate and rhythm. ABDOMEN: Benign without organomegaly or tenderness. EXTREMITIES: No edema. NEUROLOGIC: Exam normal. SKIN: Unremarkable. Urinary Catheter Management^: Russo: Cath Placed During This Visit: yes Reason for Continuing Indwelling Catheter: Acute Urinary Retention or Obstruction Urinary Catheter Date of Insertion: 07/15/19 Urinary Catheter Time of Insertion: 18:08 Data : 07/21/19 05:03 07/21/19 05:03 Micro: Microbiology 07/21/19 05:07 Blood Culture - Preliminary Blood SPECIMEN COLLECTED 07/21/19 05:03 Blood Culture - Preliminary Blood SPECIMEN COLLECTED 07/18/19 12:09 Blood Culture - Preliminary Blood Gram positive cocci 07/16/19 06:23 Blood Culture - Final Blood Methicillin Resis Staph Aureus 07/16/19 06:30 Blood Culture - Final Blood Methicillin Resis Staph Aureus 07/19/19 04:43 Blood Culture - Preliminary Blood NEGATIVE TO DATE 07/19/19 04:30 Blood Culture - Preliminary Blood NEGATIVE TO DATE A&P Assessment and plan (1) Leukocytosis: Status: Acute (2) Sepsis: Status: Acute Qualifiers: Sepsis type: methicillin resistant Staphylococcus aureus Sepsis acute organ dysfunction status: unspecified Qualified Code(s): A41.02 - Sepsis due to Methicillin resistant Staphylococcus aureus (3) Troponin level elevated: Status: Acute (4) Recurrent falls: Status: Acute (5) CKD (chronic kidney disease): Status: Acute Qualifiers: Chronic kidney disease stage: stage 3 (moderate) Qualified Code(s): N18.3 - Chronic kidney disease, stage 3 (moderate) (6) CHF (congestive heart failure): Status: Acute Qualifiers: Heart failure type: systolic Heart failure chronicity: acute on chronic Qualified Code(s): I50.23 - Acute on chronic systolic (congestive) heart failure (7) Upper GI bleed: Status: Acute (8) Mitral regurgitation: Status: Acute Qualifiers: Cardiac valve disease etiology: nonrheumatic Qualified Code(s): I34.0 - Nonrheumatic mitral (valve) insufficiency (9) Hx pulmonary embolism: Status: Chronic (10) HTN (hypertension): Status: Acute (11) Atrial fibrillation: Status: Acute Qualifiers: Atrial fibrillation type: longstanding persistent Qualified Code(s): I48.11 - Longstanding persistent atrial fibrillation (12) Pleural effusion: Status: Acute (13) Warfarin-induced coagulopathy: Status: Chronic Additional A&P Information We will continue as is. No changes today. Attestations Medical Necessity Statement*: Not applicable Coding Level of Care Code Established Pt Acute [employer] for Chg Fwd Patient Type Established History Comprehensive Exam Comprehensive Medical Decision Making High Complexity Diagnoses Leukocytosis D72.829 Sepsis A41.02 Sepsis type: methicillin resistant Staphylococcus aureus Sepsis acute organ dysfunction status: unspecified Troponin level elevated R79.89 Recurrent falls R29.6 CKD (chronic kidney disease) N18.3 Chronic kidney disease stage: stage 3 (moderate) CHF (congestive heart failure) I50.23 Heart failure type: systolic Heart failure chronicity: acute on chronic Upper GI bleed K92.2 Mitral regurgitation I34.0 Cardiac valve disease etiology: nonrheumatic Hx pulmonary embolism Z86.711 HTN (hypertension) I10 Atrial fibrillation I48.11 Atrial fibrillation type: longstanding persistent Pleural effusion J90 Warfarin-induced coagulopathy D68.32; T45.515A
[2019-07-21] MEDS: FUROsemide 10 mg/mL SDV 10mL 60 MG IVP (07:50)
[2019-07-21] MEDS: levothyroxine 50 mcg Tablet PO (08:48)
[2019-07-21] MEDS: pantoprazole DR 40 mg Tablet PO ×2 (08:48→18:13)
[2019-07-21] MEDS: HYDROcodone-acetaminophen 5-325 mg Tablet 1 TAB PO ×2 (08:48→14:15)
[2019-07-21] MEDS: carvedilol 3.125 mg Tablet PO ×2 (08:48→18:13)
--- NOTE | 2019-07-21 09:21 | CTR_ITS ---
PROCEDURE INFORMATION: Exam: CT Head Without Contrast Exam date and time: 07/21/2019 3:25 PM Age: 78 years old Clinical indication: Weakness, extremity; Right; Patient HX: Rue paresis TECHNIQUE: Imaging protocol: Computed tomography of the head without contrast. Axial, coronal and sagittal reformatted images were created and reviewed. Radiation optimization: All CT scans at this facility use at least one of these dose optimization techniques: automated exposure control; mA and/or kV adjustment per patient size (includes targeted exams where dose is matched to clinical indication); or iterative reconstruction. COMPARISON: No relevant prior studies available. RADIATION DOSE METRICS: Total DLP: 865.52 mGy-cm FINDINGS: Brain: Focal area of left parietal encephalomalacia, consistent with remote ischemia. Patchy areas of hypoattenuation in the periventricular and subcortical white matter, consistent with chronic small vessel ischemic disease. No CT evidence of acute intracranial hemorrhage or acute territorial infarction. No significant mass effect or midline shift. Basal cisterns patent. Ventricles: Prominence of the cortical sulci, cisterns and ventricular system, consistent with cerebral and cerebellar volume loss. Bones/joints: No acute osseous abnormality. Sinuses: Minimal ethmoid and left maxillary sinus mucosal thickening. Mastoid air cells: Grossly unremarkable. Vasculature: Calcific atherosclerotic disease in the cavernous internal carotid arteries, as well as the vertebro-basilar system. Soft tissues: Grossly unremarkable. CT/CT head wo con* [id number]: 1[address] No CT evidence of acute intracranial pathology. 2. Additional findings, as above. Radiation Dose CTDIVOL = (mGy): DLP = 865.52 (mGy-cm)
--- NOTE | 2019-07-21 12:41 | PM.PN ---
Subjective Subjective: Interval history: Lele reports he is having difficulty moving his hand. States his breathing is okay currently. Feels a little less swollen. Medications: Reviewed: Yes Vitals/I&O/Wt Last Vital Signs Temp 98.2 F 07/21/19 07:22 Pulse 102 H 07/21/19 08:53 Resp 12 07/21/19 07:22 BP 131/67 07/21/19 07:22 Pulse Ox 100 07/21/19 08:53 07/20/19 07/21/19 07/21/19 22:59 06:59 14:59 Intake Total 400 / 400 200 / 600 240 / 240 Output Total 1800 / 1800 Balance 400 / 400 -1600 / -1200 240 / 240 Weight last 48 hrs Weight 88.178 kg Weight 90.809 kg Weight 93.531 kg Physical Exam Narrative: EXAM NARRATIVE: General exam demonstrates a white male in no apparent distress. Conversant and pleasant Cardiovascular regular rate and rhythm without murmur Lungs diminished breath sounds bilaterally but clear Abdomen is soft with positive bowel sounds, minimal tenderness. Extremities no cyanosis or clubbing. 2+ edema noted lower extremities, 2+ right upper extremity. Today I cannot really get him to move his right hand. He was doing this yesterday. Right lower extremity moves without difficulty. Neurologic: No facial droop. Will not move his right wrist or hand but does have some movement at the elbow and shoulder. Urinary Catheter Management^: Russo: Cath Placed During This Visit: yes Reason for Continuing Indwelling Catheter: Accurate Measurement of Urinary Output in Critically Ill Patients Urinary Catheter Date of Insertion: 07/15/19 Urinary Catheter Time of Insertion: 18:08 Data : 07/21/19 05:03 07/21/19 05:03 Micro: Microbiology 07/18/19 12:09 Blood Culture - Preliminary Blood Staphylococcus species 07/18/19 12:05 Blood Culture - Preliminary Blood Gram positive cocci 07/21/19 05:07 Blood Culture - Preliminary Blood SPECIMEN COLLECTED 07/21/19 05:03 Blood Culture - Preliminary Blood SPECIMEN COLLECTED 07/16/19 06:23 Blood Culture - Final Blood Methicillin Resis Staph Aureus 07/16/19 06:30 Blood Culture - Final Blood Methicillin Resis Staph Aureus A&P Assessment and plan (1) CHF (congestive heart failure): Acute mixed systolic and diastolic heart failure. Lasix was initially held for sepsis. It is been restarted at 60 mg IV every 12 hours. He diuresed about 1300 cc in the last 24 hours. Today, july 20 I will increase his Lasix to 80 mg every 12 hours Status: Acute Qualifiers: Heart failure type: systolic Heart failure chronicity: acute on chronic Qualified Code(s): I50.23 - Acute on chronic systolic (congestive) heart failure (2) Recurrent falls: Needs longterm facility placement Status: Acute (3) CKD (chronic kidney disease): Overall appears stable Status: Acute Qualifiers: Chronic kidney disease stage: stage 3 (moderate) Qualified Code(s): N18.3 - Chronic kidney disease, stage 3 (moderate) (4) Hx pulmonary embolism: Past history of pulmonary embolism. D-dimer was checked and elevated. Secondary to this a bilateral venous duplex, right upper extremity duplex(he has some swelling of the upper extremity as well) both of which were negative SCDs for DVT prophylaxis, secondary to significant anemia and recent history of GI bleeding Discussed with his power of rod bending machine operator and we agreed at this time that full anticoagulation is too risky. Status: Chronic (5) HTN (hypertension): Carvedilol held secondary to decompensated heart failure and hypotension. Blood pressure has improved so his carvedilol was restarted at lower dose 3.125 mg twice daily Status: Acute (6) Troponin level elevated: Type II, secondary to congestive heart failure Status: Acute (7) Leukocytosis: White blood cell count now decreasing. Developed fever while in the hospital. Concern for sepsis so transferred to the ICU, required norepinephrine. He is now off norepinephrine CT abdomen and pelvis suggested diverticulitis Current antibiotics are linezolid, Flagyl, Levaquin. MRSA DNA was positive. Blood cultures now positive for staph schleiferi, sensitive to vancomycin He appears to be improving significantly but secondary to bacteremia repeat cultures have been drawn. These are still holding negative and PICC line can be placed today. Cardiology was consulted for CAMMY which showed possible endocarditis. Plan is to continue linezolid 6 weeks minimum. PICC line has already been placed. Blood culture on the turned positive yesterday afternoon, surprisingly. Blood cultures from the and negative currently COVID testing was ordered as he developed a fever and is a candidate for mcc placement. Covid 19 is negative Status: Acute Additional A&P Information Right upper extremity, mainly affecting the hand, paresis. Exam is seem to wax and wane. Certainly he has risk factors for stroke. Also has atrial fibrillation which is a risk factor. However has had severe anemia, and recent GI bleeding. I discussed with his power of rod bending machine operator and will place him on 81 mg of aspirin daily if CT head negative for any bleeding. Hypokalemia, supplement potassium Anemia. Stool Hemoccult negative. Significantly iron deficient. Iron transfusion transfusion occurred on July 19. B12 and folate levels normal. Haptoglobin normal. Past history of duodenal ulcer. Continue Protonix Atrial fibrillation, rate controlled currently but carvedilol had to be held secondary to hypotension. This was now be reinitiated today at 3.125 mg twice daily. Heart rate is currently under control Hypoxemic respiratory failure. Likely secondary to CHF. Oxygen has been able to be weaned to room air. Deconditioning, weakness. Needs longterm facility placement SCDs for DVT prophylaxis Allow natural Prognosis guarded Attestations Medical Necessity Statement*: Needs continued hospitalization for further diuresis secondary to acute diastolic heart failure. Coding Level of Care Code Acute Propulsion Systems Engineer for [facility] Fwd Diagnoses CHF (congestive heart failure) I50.23 Heart failure type: systolic Heart failure chronicity: acute on chronic Recurrent falls R29.6 CKD (chronic kidney disease) N18.3 Chronic kidney disease stage: stage 3 (moderate) Hx pulmonary embolism Z86.711 HTN (hypertension) I10 Troponin level elevated R79.89 Leukocytosis D72.829
[2019-07-21] MEDS: aspirin 81 mg EC Tablet PO (18:13)
--- NOTE | 2019-07-21 19:34 | PC.NURSE ---
pt had ct of head sced.when transferring to ct table via slide board..left upper lateral arm developed a skin tear.copious amts of serous drng noted from edematous arm.2x2's applied until returned to room where area cleansed and optifoam,abd pads and kerlex applied.
[2019-07-21] MEDS: FUROsemide 10 mg/mL SDV 10mL 80 MG IVP (19:57)
[2019-07-22] VITALS (10 sets, daily range): BP systolic 95–131; BP diastolic 49–69; PULSE 92–103; RESP 18–32; TEMP 36.6–37; O2SAT 92–100
[2019-07-22] MEDS: linezolid premix 600 MG/300 ML PREMIX 300 MG IV ×2 (00:23→14:09)
[2019-07-22] MEDS: metroNIDAZOLE IV 500 MG/100 ML PREMIX 100 MG IV ×4 (01:33→20:37)
--- NOTE | 2019-07-22 04:45 | PC.NURSE ---
PT HAD A COUPLE OF MOMENTS OF UNCLEARITY DURING THE NIGHT. COMMUNITY OUTREACH SPECIALIST REPORTED TO NURSE THAT PT STATED THAT THEY ARE GETTING ARRESTED FOR STEALING LAWN MOWERS. PT WAS REDIRECTED AND WAS EVENTUALLY CALMED DOWN. PT WAS MOVING LEFT HAND PROGRESSIVELY MORE THROUGHOUT THE NIGHT. WILL CONTINUE TO MONITOR.
[2019-07-22] MEDS: sucralfate 1 gm/10 mL Oral Liq UDC PO ×4 (06:24→20:35)
--- NOTE | 2019-07-22 06:41 | PM.PN ---
Subjective Subjective: Interval history: Mr. Talavera is in a fairly jocular mood this morning. He does not have any complaints aside from the fact that both of his arms are swollen. He has no pain. Medications: Reviewed: Yes Vitals/I&O/Wt Last Vital Signs Temp 98 F 07/22/19 04:00 Pulse 100 07/22/19 05:25 Resp 21 H 07/22/19 04:00 BP 120/69 07/22/19 04:00 Pulse Ox 96 07/22/19 05:25 07/21/19 07/21/19 07/22/19 14:59 22:59 06:59 Intake Total 580 / 580 740 / 1320 100 / 1420 Output Total 1999 / 1999 1950 / 3950 Balance 580 / 580 -1260 / -680 -1850 / -2530 Weight last 48 hrs Weight 187 lb 4.8 oz Weight 187 lb 6.4 oz Weight 194 lb 6.4 oz Weight 200 lb 3.2 oz Physical Exam Narrative: EXAM NARRATIVE: GENERAL: In general he is comfortable and looks and feels well HEENT: Exam within normal limits. NECK: Supple without jugular vein distention. The carotid upstroke is normal without bruits. BACK: Exam normal. LUNGS: Clear. HEART: Regular rate and rhythm. ABDOMEN: Benign without organomegaly or tenderness. EXTREMITIES: 2+ edema both upper extremities right greater than left. NEUROLOGIC: Exam normal. SKIN: Unremarkable. Urinary Catheter Management^: Russo: Cath Placed During This Visit: yes Reason for Continuing Indwelling Catheter: Accurate Measurement of Urinary Output in Critically Ill Patients Urinary Catheter Date of Insertion: 07/15/19 Urinary Catheter Time of Insertion: 18:08 Data : 07/21/19 05:03 07/21/19 05:03 Micro: Microbiology 07/19/19 04:30 Blood Culture - Preliminary Blood Gram positive cocci 07/21/19 05:07 Blood Culture - Preliminary Blood NEGATIVE TO DATE 07/21/19 05:03 Blood Culture - Preliminary Blood NEGATIVE TO DATE 07/18/19 12:09 Blood Culture - Preliminary Blood Staphylococcus species 07/18/19 12:05 Blood Culture - Preliminary Blood Gram positive cocci A&P Assessment and plan (1) Sepsis: Status: Acute Qualifiers: Sepsis type: methicillin resistant Staphylococcus aureus Sepsis acute organ dysfunction status: unspecified Qualified Code(s): A41.02 - Sepsis due to Methicillin resistant Staphylococcus aureus (2) Leukocytosis: Status: Acute (3) Troponin level elevated: Status: Acute (4) Recurrent falls: Status: Acute (5) CKD (chronic kidney disease): Status: Acute Qualifiers: Chronic kidney disease stage: stage 3 (moderate) Qualified Code(s): N18.3 - Chronic kidney disease, stage 3 (moderate) (6) CHF (congestive heart failure): Status: Acute Qualifiers: Heart failure type: systolic Heart failure chronicity: acute on chronic Qualified Code(s): I50.23 - Acute on chronic systolic (congestive) heart failure (7) Upper GI bleed: Status: Acute (8) Mitral regurgitation: Status: Acute Qualifiers: Cardiac valve disease etiology: nonrheumatic Qualified Code(s): I34.0 - Nonrheumatic mitral (valve) insufficiency (9) Hx pulmonary embolism: Status: Chronic (10) HTN (hypertension): Status: Acute (11) Atrial fibrillation: Status: Acute Qualifiers: Atrial fibrillation type: longstanding persistent Qualified Code(s): I48.11 - Longstanding persistent atrial fibrillation (12) Pleural effusion: Status: Acute (13) Warfarin-induced coagulopathy: Status: Chronic Additional A&P Information He seems stable. He has had upper extremity duplex of both arms which were negative for DVT. No changes today. 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 Type Established History Comprehensive Exam Comprehensive Medical Decision Making High Complexity Diagnoses Sepsis A41.02 Sepsis type: methicillin resistant Staphylococcus aureus Sepsis acute organ dysfunction status: unspecified Leukocytosis D72.829 Troponin level elevated R79.89 Recurrent falls R29.6 CKD (chronic kidney disease) N18.3 Chronic kidney disease stage: stage 3 (moderate) CHF (congestive heart failure) I50.23 Heart failure type: systolic Heart failure chronicity: acute on chronic Upper GI bleed K92.2 Mitral regurgitation I34.0 Cardiac valve disease etiology: nonrheumatic Hx pulmonary embolism Z86.711 HTN (hypertension) I10 Atrial fibrillation I48.11 Atrial fibrillation type: longstanding persistent Pleural effusion J90 Warfarin-induced coagulopathy D68.32; T45.515A
[2019-07-22 07:04] LABS: Anion Gap 16.5 (5-19); Blood Urea Nitrogen 49 mg/dL (8-23); Calcium 9.1 mg/dL (8.5-10.5); Carbon Dioxide 27 mmol/L (22-29); Chloride 99 mmol/L (98-107); Glucose 102 mg/dL (65-115); Osmolality Calculated 286 mOsm/kg (285-295); Potassium 3.5 mmol/L (3.5-5.1); Sodium 139 mmol/L (136-145)
[2019-07-22] MEDS: FUROsemide 10 mg/mL SDV 10mL 80 MG IVP (08:06)
[2019-07-22] MEDS: HYDROcodone-acetaminophen 5-325 mg Tablet 1 TAB PO (09:21)
[2019-07-22] MEDS: levothyroxine 50 mcg Tablet PO (09:22)
[2019-07-22] MEDS: aspirin 81 mg EC Tablet PO (09:22)
[2019-07-22] MEDS: pantoprazole DR 40 mg Tablet PO ×2 (09:22→18:14)
[2019-07-22] MEDS: carvedilol 3.125 mg Tablet PO ×3 (09:22→18:30)
--- NOTE | 2019-07-22 09:23 | P.PN_ITS ---
Subjective Subjective: Interval history: Lele has some confusion this morning. Denies any specific complaints. Does believe his swelling is less. Medications: Reviewed: Yes Vitals/I&O/Wt Last Vital Signs Temp 97.9 F 07/22/19 07:09 Pulse 99 07/22/19 07:09 Resp 32 H 07/22/19 07:09 BP 101/65 07/22/19 07:09 Pulse Ox 93 07/22/19 07:09 07/21/19 07/22/19 07/22/19 22:59 06:59 14:59 Intake Total 740 / 1320 200 / 1520 Output Total 1999 1950 / 3950 Balance -1260 / -680 -1750 / -2430 Weight last 48 hrs Weight 84.958 kg Weight 85.003 kg Weight 88.178 kg Weight 90.809 kg Physical Exam Narrative: EXAM NARRATIVE: General exam demonstrates a white male in no appar ent distress. Conversant and pleasant. Confused. Believes the TV is taking a picture. Cardiovascular irregular, irregular rhythm without murmur Lungs diminished breath sounds bilaterally but clear Abdomen is soft with positive bowel sounds, minimal tenderness. Extremities no cyanosis or clubbing. 2+ edema noted lower extremities. 1+ edema bilateral upper extremities. I cannot get him to move his right hand. Some movement at the elbow and shoulder. Neurologic: No facial droop. See above Urinary Catheter Management^: Russo: Cath Placed During This Visit: yes Reason for Continuing Indwelling Catheter: Accurate Measurement of Urinary Output in Critically Ill Patients Urinary Catheter Date of Insertion: 07/15/19 Urinary Catheter Time of Insertion: 18:08 Data : 07/21/19 05:03 07/22/19 06:35 Micro: Microbiology 07/19/19 04:30 Blood Culture - Preliminary Blood Gram positive cocci 07/21/19 05:07 Blood Culture - Preliminary Blood NEGATIVE TO DATE 07/21/19 05:03 Blood Culture - Preliminary Blood NEGATIVE TO DATE 07/18/19 12:09 Blood Culture - Preliminary Blood Staphylococcus species 07/18/19 12:05 Blood Culture - Preliminary Blood Gram positive cocci A&P Assessment and plan (1) CHF (congestive heart failure): 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 Responding well to his Lasix at 80 mg every 12 hours. He has diuresed 2-1/2 L in the last 24 hours Renal function has improved Status: Acute Qualifiers: Heart failure type: systolic Heart failure chronicity: acute on chronic Qualified Code(s): I50.23 - Acute on chronic systolic (congestive) heart failure (2) Recurrent falls: Needs halfway facility placement Status: Acute (3) CKD (chronic kidney disease): Overall appears stable Status: Acute Qualifiers: Chronic kidney disease stage: stage 3 (moderate) Qualified Code(s): N18.3 - Chronic kidney disease, stage 3 (moderate) (4) Hx pulmonary embolism: Past history of pulmonary embolism. D-dimer was checked and elevated. Secondary to this a bilateral venous duplex, right upper extremity duplex(he has some swelling of the upper extremity as well) both of which were negative SCDs for DVT prophylaxis, secondary to significant anemia and recent history of GI bleeding from duodenal ulcer Discussed with his power of mergers and acquisitions attorney and we agreed at this time that full anticoagulation is too risky. Status: Chronic (5) HTN (hypertension): Continue low-dose carvedilol, which is mainly for atrial fibrillation Status: Acute (6) Troponin level elevated: Type II, secondary to congestive heart failure Status: Acute (7) Leukocytosis: White blood cell count now decreasing. Developed fever while in the hospital. Concern for sepsis so transferred to the ICU, required norepinephrine. He is now off norepinephrine CT abdomen and pelvis suggested diverticulitis Current antibiotics are linezolid, Flagyl, Levaquin. MRSA DNA was positive. Blood cultures positive for MRSA Blood culture on the were negative at 48 hours so PICC line was placed on the . These cultures have since turned positive. Repeat cultures on the that were ordered serially now have 1/4 bottles positive. 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 Plan is to continue 6 weeks IV antibiotics minimum. PICC line has already been placed. COVID testing was ordered as he developed a fever and is a candidate for retirement placement. Covid 19 is negative Status: Acute Additional A&P Information Right upper extremity, mainly affecting the hand, paresis. Exam is seem to wax and wane. 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 Also has atrial fibrillation which is a risk factor. However has had severe anemia, and recent GI bleeding. I discussed with his power of mergers and acquisitions attorney and will place him on 81 mg of aspirin daily despite his bleeding risk. CT head was repeated demonstrating no acute findings. With multiple comorbidities, he is not really a candidate for carotid endarterectomy so carotid duplex was not performed. Hypokalemia, improved Anemia. Stool Hemoccult negative. Significantly iron deficient. Iron transfusion transfusion occurred on July 19. B12 and folate levels normal. Haptoglobin normal. Past history of duodenal ulcer. Continue Protonix Atrial fibrillation, rate controlled currently but carvedilol had to be held secondary to hypotension. This was now be reinitiated today at 3.125 mg twice daily. Heart rate is currently under control Hypoxemic respiratory failure. Likely secondary to CHF. Oxygen has been able t o be weaned to room air. Deconditioning, weakness. Needs halfway facility placement SCDs for DVT prophylaxis Allow natural Prognosis guarded Attestations Medical Necessity Statement*: Needs continued hospitalization for IV antibiotics, to prove MRSA bacteremia has cleared prior to discharge as well as continued diuresis secondary to congestive heart failure, diastolic. Coding Level of Care Code Acute Slab Grinder for Tamara Wheeler Diagnoses CHF (congestive heart failure) I50.23 Heart failure type: systolic Heart failure chronicity: acute on chronic Recurrent falls R29.6 CKD (chronic kidney disease) N18.3 Chronic kidney disease stage: stage 3 (moderate) Hx pulmonary embolism Z86.711 HTN (hypertension) I10 Troponin level elevated R79.89 Leukocytosis D72.829
--- NOTE | 2019-07-22 10:02 | DCPLANNER ---
Pg 2 of IM updated and reviewed with pt. No questions, copy provided.
[2019-07-22] MEDS: levofloxacin-dextrose 5 % 750 MG/150 ML PREMIX 100 MG IV (14:10)
--- NOTE | 2019-07-22 18:31 | PC.NURSE ---
dr torrez notified about bp 96/54 and coreg due now (and 80 mg lasix iv due at 20:00).he advised to give coreg.reassess bp prior to lasix dose...and hold lasix if sbp < 100.
--- NOTE | 2019-07-22 21:03 | PC.NURSE ---
went to give patients lasix and patients blood pressure was 95/56. WIll holld due to Dr. Carr order since patients Systloic blood pressure was below 100.
--- NOTE | 2019-07-22 22:23 | PC.NURSE ---
Patient turned to R side. Patients tubie career agent on both legs were removed due to indentions in his legs. Pitting edema to the ends of his feet and toes. SCDS were removed as well to give patient a break. Will continue to [facility].
--- NOTE | 2019-07-22 23:59 | PC.NURSE ---
Rounded on patient and he remains confused. He is asking for pliers to cut wires. Patients bed alarm is on in case he does attempt to get up. Re oriented patient, SCD's applied and will continue to monitor. Patient denies pain or wanting to reposition at his time.
[2019-07-23] VITALS (7 sets, daily range): BP systolic 97–119; BP diastolic 56–76; PULSE 99–114; RESP 19–25; TEMP 36.7–37.3; O2SAT 91–96
[2019-07-23] MEDS: linezolid premix 600 MG/300 ML PREMIX 300 MG IV (00:55)
--- NOTE | 2019-07-23 01:29 | PC.NURSE ---
Rounded on patient and repositioned and turned him. Patient is disoriented at this time. reoriented patient, bed alarm in place, call light is within reach.
[2019-07-23] MEDS: metroNIDAZOLE IV 500 MG/100 ML PREMIX 100 MG IV ×4 (02:14→20:14)
[2019-07-23 05:15] LABS: Basophils % 0.1 %; Eosinophils % 0.1 %; Hematocrit 28.3 % (42.0-52.0); Lymphocytes # 0.8 10^3/uL (0.8-4.8); Lymphocytes % 7.2 %; Mean Corpuscular HGB Conc 28.3 g/dL (30.0-36.0); Mean Corpuscular Hemoglobin 26.8 pg (28.0-34.0); Mean Corpuscular Volume 94.6 fL (80-94); Mean Platelet Volume 9.5 fL (7.4-10.4); Monocytes # 0.5 10^3/uL (0.2-0.9); Monocytes % 4.3 %; Neutrophils # 9.2 10^3/uL (1.8-7.7); Neutrophils % 87.3 %; Nucleated Red Blood Cells # 0.1 /100WBC; Nucleated Red Blood Cells % 0.8 %; Platelet Count 225 10^3/cmm (130-400); Red Blood Count 2.99 10^6/uL (4.1-5.3); Red Cell Distribution Width 20.1 % (12.1-15.1); White Blood Count 10.5 10^3/uL (4.0-10.0)
[2019-07-23 05:32] LABS: Anion Gap 16.7 (5-19); Blood Urea Nitrogen 42 mg/dL (8-23); Calcium 8.3 mg/dL (8.5-10.5); Carbon Dioxide 26 mmol/L (22-29); Chloride 100 mmol/L (98-107); Creatinine Clr Calc Pharmacy 39.5492; Glucose 101 mg/dL (65-115); Osmolality Calculated 286 mOsm/kg (285-295); Potassium 3.7 mmol/L (3.5-5.1); Sodium 139 mmol/L (136-145)
--- NOTE | 2019-07-23 06:09 | PC.NURSE ---
End of shift: Patient has not slept this shift. Patient has been disoriented but follows commands and is pleasant. Patient is alert to self knows his birthday. Will continue to monitor.
[2019-07-23] MEDS: sucralfate 1 gm/10 mL Oral Liq UDC PO ×4 (06:21→20:14)
[2019-07-23] MEDS: FUROsemide 10 mg/mL SDV 10mL 80 MG IVP ×2 (08:24→20:14)
[2019-07-23] MEDS: levothyroxine 50 mcg Tablet PO (09:16)
[2019-07-23] MEDS: pantoprazole DR 40 mg Tablet PO ×2 (09:16→17:11)
[2019-07-23] MEDS: carvedilol 3.125 mg Tablet PO ×2 (09:16→17:11)
[2019-07-23] MEDS: aspirin 81 mg EC Tablet PO (09:16)
--- NOTE | 2019-07-23 10:21 | PC.NURSE ---
upon entering room a large blood clot found on patients left hand; asked patient where is came from, patient reports he coughed it up and could not swallow it. Assessment of oral cavity reveals signs of dried blood on lips. Clot collected and reported to Dr benitez instructions given to place humidity on O2 and continue to monitor
--- NOTE | 2019-07-23 10:33 | PC.NURSE ---
Dr sung at bedside at this time for assessment
--- NOTE | 2019-07-23 10:42 | PC.NURSE ---
Dr benitez at bedside with this nurse. Patient appeared to be caring on a conversation with someone in the room. Dr asked patient whom he was talking with; patient stated to the Dr. well you patient not alert to time or place. patient unable to lift arms bilaterally at this time patient able to follow directions with taking deep breaths.
--- NOTE | 2019-07-23 11:12 | P.PN_ITS ---
Subjective Subjective: Interval history: He is cooperative and denies any complaints. Is concerned about swelling in his arms, but otherwise goes off on tangents about his brother and when walking into the room appears to be perhaps talking to someone who is not there. Vitals/I&O/Wt Last Vital Signs Temp 98.0 F 07/23/19 10:26 Pulse 99 07/23/19 10:26 Resp 23 H 07/23/19 10:26 BP 97/62 07/23/19 10:26 Pulse Ox 94 07/23/19 10:26 07/22/19 07/23/19 07/23/19 22:59 06:59 14:59 Intake Total 680 / 930 450 / 1380 60 / 60 Output Total 550 / 1550 275 / 1825 Balance 130 / -620 175 / -445 60 / 60 Weight last 48 hrs Weight 86.046 kg Weight 89.981 kg Weight 84.958 kg Physical Exam Const: COMMON NORMALS: no acute distress; negative for patient oriented x3 HENMT: COMMON NORMALS: oropharynx normal Neck/C-Spine: COMMON NORMALS: no JVD Resp: COMMON NORMALS: normal respiratory effort AUSCULTATION: diminished lung sounds bilateral in the lower lung morris Cardio: COMMON NORMALS: no JVD, S1 normal heart sound present, S2 normal heart sound present and No murmurs present (Cardio) RHYTHM: abnormal rhythm irregularly irregular HEART SOUNDS: S1 normal heart sound present and S2 normal heart sound present GI: COMMON NORMALS: Normal to inspection, nondistended, normoactive bowel sounds present, Soft to palpation and non-tender PALPATION: Yes Soft to palpation Extremity: COMMON NORMALS: no joint enlargement and no pedal edema OTHER: Swelling of both upper extremities, right greater than left. Weeping on the l eft. Neuro: COMMON NORMALS: negative for patient oriented x3 OTHER: He is generally weak. Appears to have weakness of both upper extremities, which is compounded by the significant swallowing. He is very weak when trying to move his arms/hands. Slightly stronger lower extremities, although apart from wiggling his toes, bending foot and the ankle slightly, that was about the extent of what he was able to do. Skin: GENERAL SKIN EXAM: ecchymosis (multiple on arms, chest) Urinary Catheter Management^: Russo: Cath Placed During This Visit: yes Reason for Continuing Indwelling Catheter: Accurate Measurement of Urinary Outp ut in Critically Ill Patients Urinary Catheter Date of Insertion: 07/15/19 Urinary Catheter Time of Insertion: 18:08 Data : 07/23/19 04:58 07/23/19 04:58 Micro: Microbiology 07/18/19 12:09 Blood Culture - Final Blood Staphylococcus schleiferi sub A&P Assessment and plan (1) Bacteremia: With concern for valvular vegetation. Culture after PICC line placement reportedly turned positive, although so far repeat cultures 07/18, 07/20 -ve. He at this time continues on linezolid, however, OFELIA is 4, and concern is may be at risk of treatment failure. We will switch him over to vancomycin. OFELIA is also borderline, but little bit better at 1. So far he continues to be afebrile. With regards to the source it is difficult to say where the bacteria may have come from, but appears that back in April had a wound culture from a decubital abnormality around IV site which subsequently came back positive for MRSA for which he had a course of oral treatment. Reviewing his imaging, although no significant ascites had been noted, I am also concerned with regards to his pleural effusion. Would like to discuss regarding thoracentesis at least for diagnostic purposes and ideally therapeutic as well as he is requiring some oxygen. Patient himself is not decisional. He is not consistently oriented to place or year. Does not have good insight into his condition. I attempted to reach out to his niece who I understand perhaps is the power of bankruptcy attorney for medical care, but so far have been unsuccessful. We will try again. He will require a 6-week course of treatment with IV antibiotics after the hospitalization, and most likely this will need to be vancomycin. Status: Acute (2) Diverticulitis: Continue Levaquin, Flagyl. 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 With significant especially upper bilateral extremity edema. Lower extremity edema is slightly less. Lasix at 80 mg every 12 hours. With underlying chronic kidney disease. Continues on cardiac diet with 1500 mL fluid restriction. Appreciate cardiology follow-up. Status: Acute Qualifiers: Heart failure type: systolic Heart failure chronicity: acute on chronic Qualified Code(s): I50.23 - Acute on chronic systolic (congestive) heart failure (4) Recurrent falls: Needs usp facility placement Status: Acute (5) CKD (chronic kidney disease): Overall appears stable Status: Acute Qualifiers: Chronic kidney disease stage: stage 3 (moderate) Qualified Code(s): N18.3 - Chronic kidney disease, stage 3 (moderate) (6) Hx pulmonary embolism: Unfortunately not a good candidate for anticoagulation for a number of reasons including anemia, history of GI bleeding, fall risk, currently also noted to have coughed up a blood clot this morning. Oral and nasal mucosa are very dry, and suspect may have had some postnasal drip. Requested humidifier be added to oxygen. Currently is only on aspirin. Monitor for any worsening of epistaxis. Past history of pulmonary embolism. D-dimer was checked and elevated. Secondary to this a bilateral venous duplex, right upper extremity duplex(he has some swelling of the upper extremity as well) both of which were negative SCDs for DVT prophylaxis, secondary to significant anemia and recent history of GI bleeding from duodenal ulcer Status: Chronic (7) HTN (hypertension): Blood pressures variable, somewhat soft. Continues on low-dose carvedilol , which is mainly for atrial fibrillation Status: Acute (8) Troponin level elevated: Type II, secondary to congestive heart failure Status: Acute (9) Leukocytosis: Trending toward normal. COVID testing was ordered as he developed a fever and is a candidate for senior care placement. Covid 19 is negative Status: Acute Additional A&P Information Right upper extremity, mainly affecting the hand, paresis. Exam is difficult as he is generally very weak. History of CVA likely given findings of remote ischemia on CT head, patchy areas of hypoattenuation also present in periventricular and subcortical white matter consistent with chronic small vessel ischemic disease. Continue aspirin, statin. Was not found a safe candidate for anticoagulation. Hypokalemia, improved Anemia. Stool Hemoccult negative. Significantly iron deficient. Iron transfusion transfusion occurred on July 19. B12 and folate levels normal. Haptoglobin normal. Monitor. Past history of duodenal ulcer. Continue Protonix Atrial fibrillation, rate controlled, although appears did not tolerate carvedilol very well. Blood pressure soft, so far on 3.125 restarted dose. Monitor blood pressures. Hypoxemic respiratory failure. Likely secondary to CHF. Pleural effusion. On and off needing lower rate oxygen support. Deconditioning, weakness. Needs usp facility placement Attestations Medical Necessity Statement*: Continue admission for assessment management of MRSA bacteremia, hypoxia, with pleural effusion, diverticulitis, in the setting of CHF, dementia, possible CVA, A. fib, poor candidate for anticoagulation. Coding Level of Care Code Acute Instructional Technologist for Chg Fwd Exam Comprehensive Diagnoses Bacteremia R78.81 Diverticulitis K57.92 CHF (congestive heart failure) I50.23 Heart failure type: systolic Heart failure chronicity: acute on chronic Recurrent falls R29.6 CKD (chronic kidney disease) N18.3 Chronic kidney disease stage: stage 3 (moderate) Hx pulmonary embolism Z86.711 HTN (hypertension) I10 Troponin level elevated R79.89 Leukocytosis D72.829
--- NOTE | 2019-07-23 12:05 | P.PN_ITS ---
Subjective Subjective: Interval history: Denies any chest pain denies shortness of breath Medications: Reviewed: Yes Vitals/I&O/Wt Last Vital Signs Temp 98.0 F 07/23/19 10:26 Pulse 99 07/23/19 10:26 Resp 23 H 07/23/19 10:26 BP 97/62 07/23/19 10:26 Pulse Ox 94 07/23/19 10:26 07/22/19 07/23/19 07/23/19 22:59 06:59 14:59 Intake Total 680 / 930 450 / 1380 160 / 160 Output Total 550 / 1550 275 / 1825 Balance 130 / -620 175 / -445 160 / 160 Weight last 48 hrs Weight 189 lb 11.2 oz Weight 198 lb 6 oz Weight 187 lb 4.8 oz Physical Exam Narrative: EXAM NARRATIVE: GENERAL: Patient is alert, awake and oriented x3. NECK: No jugular vein distension. HEENT: No cyanosis. No icterus. No pallor. HEART: Irregularly irregular S1 and S2. No murmur, rub or gallop. LUNGS: Decrease breath sound on the right side while clear on the left. ABDOMEN: Soft, nontender and nondistended. Positive bowel sounds. No guarding, rebound or tenderness. CENTRAL NERVOUS SYSTEM: Grossly nonfocal. EXTREMITIES: Lower extremities without edema bilaterally. Urinary Catheter Management^: Russo: Cath Placed During This Visit: yes Reason for Continuing Indwelling Catheter: Accurate Measurement of Urinary Output in Critically Ill Patients Urinary Catheter Date of Insertion: 07/15/19 Urinary Catheter Time of Insertion: 18:08 Data : 07/23/19 04:58 07/23/19 04:58 Micro: Microbiology 07/18/19 12:09 Blood Culture - Final Blood Staphylococcus schleiferi sub A&P Assessment and plan (1) Sepsis: Improved. Continue antibiotics Status: Acute Qualifiers: Sepsis type: methicillin resistant Staphylococcus aureus Sepsis acute organ dysfunction status: unspecified Qualified Code(s): A41.02 - Sepsis due to Methicillin resistant Staphylococcus aureus (2) Leukocytosis: Status: Acute (3) Troponin level elevated: Most likely secondary to sepsis. Continue medical management Status: Acute (4) Recurrent falls: Status: Acute (5) CKD (chronic kidney disease): Stable and improving. Status: Acute Qualifiers: Chronic kidney disease stage: stage 3 (moderate) Qualified Code(s): N18.3 - Chronic kidney disease, stage 3 (moderate) (6) CHF (congestive heart failure): Compensated. Continue current regimen Status: Acute Qualifiers: Heart failure type: systolic Heart failure chronicity: acute on chronic Qualified Code(s): I50.23 - Acute on chronic systolic (congestive) heart failure (7) Upper GI bleed: Status: Acute (8) Mitral regurgitation: Status: Acute Qualifiers: Cardiac valve disease etiology: nonrheumatic Qualified Code(s): I34.0 - Nonrheumatic mitral (valve) insufficiency (9) Hx pulmonary embolism: Status: Chronic (10) HTN (hypertension): Status: Acute (11) Atrial fibrillation: Rate controlled continue current regimen Status: Acute Qualifiers: Atrial fibrillation type: longstanding persistent Qualified Code(s): I48.11 - Longstanding persistent atrial fibrillation (12) Pleural effusion: Status: Acute (13) Warfarin-induced coagulopathy: Status: Chronic Additional A&P Information He seems stable. He has had upper extremity duplex of both arms which were negative for DVT. No changes today. Attestations Medical Necessity Statement*: Requires continuation of hospitalization for above defined care. Coding Level of Care Code Established Pt Acute Regional Program Manager for Chg Fwd Patient Type Established History Expanded Problem Focused Exam Expanded Problem Focused Medical Decision Making Moderate Complexity Diagnoses Sepsis A41.02 Sepsis type: methicillin resistant Staphylococcus aureus Sepsis acute organ dysfunction status: unspecified Leukocytosis D72.829 Troponin level elevated R79.89 Recurrent falls R29.6 CKD (chronic kidney disease) N18.3 Chronic kidney disease stage: stage 3 (moderate) CHF (congestive heart failure) I50.23 Heart failure type: systolic Heart failure chronicity: acute on chronic Upper GI bleed K92.2 Mitral regurgitation I34.0 Cardiac valve disease etiology: nonrheumatic Hx pulmonary embolism Z86.711 HTN (hypertension) I10 Atrial fibrillation I48.11 Atrial fibrillation type: longstanding persistent Pleural effusion J90 Warfarin-induced coagulopathy D68.32; T45.515A
[2019-07-23] MEDS: vancomycin 1,000 MG in sodium chloride 0.9% 250 ML 250 MG IV (14:08)
--- NOTE | 2019-07-23 15:12 | PC.NURSE ---
Patient has been confused about date and time all throughout this shift Dr. Rojas has been notified and is aware patient appears to be telling stories and jokes to someone in the room although no one is there patient does follow commands as best he can patient is very week in bilateral arms. spoke with kiah a niece she reported to this nurse that he has been weak in the arms for a while now; also spoke with brother whom reports that he has dementia and has been confused for some time and has trouble remembering. Will continue nursing cares and monitor for any changes
--- NOTE | 2019-07-23 19:04 | PC.NURSE ---
Assumed care of patient at this time. Bedside report received from WIL Heard. Patient resting in bed. Patient has muliple skin tears to left forearm. Russo in place. Patient talking to himself. Discussed plan with patient. Patient replied do what you have to do. Patient is calm and pleasant presently.
[2019-07-23] MEDS: atorvastatin 40 mg Tablet PO (20:14)
--- NOTE | 2019-07-23 20:23 | PC.NURSE ---
Unable to administer oral medications at this. Patient unable to follow directions. Patient talking with someone about a lawnmower. Patient having audio hallucinations at this time. Patient remains calm and pleasant. Will continue to monitor.
--- NOTE | 2019-07-23 22:43 | PC.NURSE ---
Patient continues to talk to self. Unable to reorient to hospital. Dressing saturated to left upper arm. Performed dressing change to weeping skin tear at left upper arm cleaning site with NS and placing Optifoam to site. Patient repositioned to right side lying position [id number]. Pillow placed for support. Patient remains calm, pleasant and agreeable.
[2019-07-24] VITALS (7 sets, daily range): BP systolic 96–113; BP diastolic 51–75; PULSE 90–109; RESP 18–26; TEMP 36.1–37.3; O2SAT 90–96
[2019-07-24] MEDS: metroNIDAZOLE IV 500 MG/100 ML PREMIX 100 MG IV ×4 (03:22→19:53)
[2019-07-24 03:43] LABS: Hemoglobin 7.6 g/dL (11.7-16.6); Lymphocytes # 0.9 10^3/uL (0.8-4.8); Lymphocytes % 9.5 %; Mean Corpuscular HGB Conc 28.1 g/dL (30.0-36.0); Mean Corpuscular Volume 95.7 fL (80-94); Mean Platelet Volume 9.1 fL (7.4-10.4); Monocytes # 0.3 10^3/uL (0.2-0.9); Neutrophils # 8.3 10^3/uL (1.8-7.7); Neutrophils % 86.8 %; Nucleated Red Blood Cells # 0.1 /100WBC; Nucleated Red Blood Cells % 0.9 %; Platelet Count 183 10^3/cmm (130-400); Red Blood Count 2.82 10^6/uL (4.1-5.3); Red Cell Distribution Width 20.2 % (12.1-15.1); White Blood Count 9.6 10^3/uL (4.0-10.0)
[2019-07-24 04:06] LABS: Alanine Aminotransferase 10 U/L (0-41); Albumin Level 2.3 g/dL (3.5-5.2); Alkaline Phosphatase 73 IU/L (40-130); Anion Gap 16.5 (5-19); Aspartate Amino Transferase 18 U/L (0-40); Blood Urea Nitrogen 44 mg/dL (8-23); Calcium 8.5 mg/dL (8.5-10.5); Carbon Dioxide 27 mmol/L (22-29); Chloride 101 mmol/L (98-107); Glucose 83 mg/dL (65-115); Osmolality Calculated 289 mOsm/kg (285-295); Potassium 3.5 mmol/L (3.5-5.1); Sodium 141 mmol/L (136-145); Total Bilirubin 0.9 mg/dL (0.15-1.2); Total Protein 6.3 g/dL (6.6-8.7)
--- NOTE | 2019-07-24 06:02 | PC.NURSE ---
Performed pericare and changed absorbant pads. Observed gross blood in alva catheter. Patient was confused at shift change 07/22 1899 with indication of pulling on lines or alva catheter. Noted red color in alva at ~0330. Also observed clots in alva. Performed irrigation with 30ml of NS.
--- NOTE | 2019-07-24 06:47 | PC.NURSE ---
Sent messages to Dr Zhou and Dr Rojas regarding gross blood in patient's urine. No response received at this time.
--- NOTE | 2019-07-24 07:05 | PC.NURSE ---
Bedside round with 2 RNs. Patient will open eyes to stimuli from nurse, patient responses are inaudible mumbling. Patient urine bright red, alva draining, no clots noted at this time. nurse to continue to monitor.
--- NOTE | 2019-07-24 08:45 | PC.NURSE ---
Nurse noticed patient alva not draining. Manual irrigation performed. a large clot was removed. Alva draining bright red urine at this time. Dr. Rojas notified. Physician to consult urology.
[2019-07-24] MEDS: FUROsemide 10 mg/mL SDV 10mL 80 MG IVP (08:48)
--- NOTE | 2019-07-24 08:55 | PC.NURSE ---
0900 medications not administered at this time. Patient unable to follow directions. Patient's only response to nurse is mumbling inaudible words. Dr. Rojas notified, ok to not administer at this time. Physician to consider changing routes of med administration.
--- NOTE | 2019-07-24 09:01 | P.CONIM_ITS ---
Providers/Reason For Consult Consulting Physican/Specialty*: Urology/Ann Reason for Consult*: New onset gross hematuria Attending Physician: Rusty Rojas Primary Care Provider: Tano Jovel DO History of Present Illness History of Present Illness Lele Talavera is a 78 year old male hospitalized for MRSA bacteremia with no distinct urologic concerns at admission. Developed new onset of gross hematuria today. I was consulted for further evaluation. PRIOR UROLOGIC HISTORY: First evaluated him in August 2016 primarily for phimosis. Ultimately underwent a circumcision and on follow-up had some re-adhesion of the distal shaft skin to the glans but desired no further treatment. He is also been noted to have an elevated PSA of 6.0 in October 2011. Underwent a prostate biopsy which was benign. Last PSA was 7.10 in February 2017. History of benign MUSTAPHA's. He had a scheduled follow-up in August 2017 but did not show. I had no record of prior gross hematuria. CURRENT INFORMATION: I reviewed his CT scan from this hospital stay as well as abdomen pelvis CT scan in March of earlier this year. Bladder and kidneys looked normal in March of this year. The bladder is currently drained with a Russo catheter on the recent CT scan but there is no gross apparent clot or anything else wrong with the bladder that is evident. Lack of distention makes interpretation less than reliable. Hemoglobin: 7.6 Urinalysis: [place] Nursing staff having difficulty maintaining patent catheter. Recommendations were made for switching out his routine catheter to a 20 [place] three-way Russo catheter, manually irrigating until clear, then starting normal saline CBI to maintain clear to light pink. Upon examination his urine with CBI running slowly looks good. Reviewed with the nursing staff who had cleared him of clots and since that time it is not taken much of a flow to maintain yellow-tinged urine. Tolerating catheter well. No complaints. Additional factors may involve his anticoagulation status. That is being addressed currently. Recommendations: 1. Continue CBI and wean as tolerated 2. Because this had not been going on prior to this stay and occurred since catheter placed I expect that that is probably the source. There is no clear evidence of a large mass in his bladder. 3. Can do flexible bedside cystoscopy but would prefer conservative treatment first and then consider follow-up on outpatient basis with urinalysis and if persistent microscopic or gross hematuria then at that time do cystoscopy Review of Systems Const: Denies: fever(s) or chills Eyes: Denies: change in vision or blurry vision Card: Denies: chest pain or palpitations Resp: Denies: productive cough or wheezing GI: Denies: nausea, vomiting or diarrhea : Reports: hematuria; Denies: flank pain or difficulty urinating Musc: Reports: decrease in muscle mass; Denies: joint redness Skin/Breast: Denies: jaundice Neuro: Reports: confusion; Denies: Slurred speech present or seizure-like activity Psych: Reports: memory loss; Denies: paranoia Endo: Denies: flushing Anthony/Lymph: Reports: easy bruising and easy bleeding Meds/Allergies Home Medications and Allergies Home Medications Medication Instructions Recorded Confirmed Last Taken Type multivitamin [Multiple Vitamins] 1 tab PO DAILY 04/19/19 07/15/19 07/15/19 08:00 History Gas-X See Rx Instructions .ROUTE 05/05/19 07/15/19 Unknown History .COMPLEX PRN furosemide 80 mg tablet 80 mg PO DAILY #30 tab 06/11/19 07/15/19 07/15/19 08:00 Rx sucralfate 1 gram tablet 1 gm PO DAILY #30 tab 06/11/19 07/15/19 07/15/19 08:00 Rx potassium chloride 10 meq PO DAILY 07/10/19 07/15/19 07/15/19 08:00 History spironolactone 12.5 mg PO DAILY 07/10/19 07/15/19 07/15/19 08:00 History carvedilol 6.25 mg PO BID #0 tab 07/13/19 07/15/19 07/15/19 08:00 Rx levothyroxine 50 mcg PO DAILY 30 Days #30 tab 07/13/19 07/15/19 07/15/19 07:00 Rx pantoprazole 40 mg PO DAILY 30 Days #30 tab 07/13/19 07/15/19 07/15/19 08:00 Rx Allergies Allergy/AdvReac Type Severity Reaction Status Date / Time Penicillins Allergy Unknown Verified 06/11/19 09:03 Current Medications Current Medications Generic Name Dose Route Start Last Admin Trade Name Freq PRN Reason Stop Dose Admin Acetaminophen 650 mg 07/15/19 21:35 07/18/19 22:25 Tylenol PO 650 mg Q6H PRN Administration Mild/Mod Pain Or Temp >/= 101 Hydrocodone Bitart/Acetaminophen 1 tab 07/19/19 08:49 07/22/19 09:21 [place] 5-325 Mg PO 1 tab Q4H PRN Administration MODERATE PAIN Aspirin 81 mg 07/21/19 16:55 07/23/19 09:16 Aspirin Ec PO 81 mg DAILY JOSEFINA Administration Atorvastatin Calcium 40 mg 07/23/19 21:00 07/23/19 20:23 Lipitor PO Not Given BEDTIME JOSEFINA Carvedilol 3.125 mg 07/19/19 09:00 07/24/19 08:54 Coreg PO Not Given BID JOSEFINA Furosemide 80 mg 07/21/19 20:19 07/24/19 08:48 Lasix IVP 80 mg Q12H JOSEFINA Administration Levofloxacin/Dextrose 750 mg in 150 mls @ 100 mls/hr 07/16/19 13:00 07/22/19 14:10 Levaquin-D5w IV 100 mls/hr Q48H JOSEFINA Administration Protocol Metronidazole 500 mg in 100 mls @ 100 mls/hr 07/20/19 20:00 07/24/19 08:51 Flagyl Iv IV 100 mls/hr Q6H JOSEFINA Administration Protocol Vancomycin HCl 1,000 mg/ 250 mls @ 250 mls/hr 07/23/19 13:00 07/23/19 16:02 Sodium Chloride IV Infused Q24H [facility] Infusion Protocol Levothyroxine Sodium 50 mcg 07/16/19 09:00 07/24/19 08:55 Synthroid PO Not Given DAILY JOSEFINA Pantoprazole Sodium 40 mg 07/16/19 18:00 07/24/19 08:55 Protonix PO Not Given BID [facility] Sucralfate 1 gm 07/16/19 07:00 07/24/19 06:28 Carafate Oral Liq PO Not Given AC&BEDTIME JOSEFINA PFSH Acute PFSH: Medical History Acute blood loss anemia Atrial fibrillation CHF (congestive heart failure) Echo 07/11/2019: LVEF 50%, grade 3 diastolic dysfunction with severely elevated filling pressures. Moderate mitral valve regurgitation, moderate tricuspid valve regurgitation, no pericardial effusion CKD (chronic kidney disease) HTN (hypertension) Hx pulmonary embolism Liver cirrhosis Mediastinal lymphadenopathy Mitral regurgitation Pulmonary HTN Upper GI bleed - Surgical History H/O esophagogastroduodenoscopy S/P hernia repair x2 S/P rotator cuff repair Left S/P thoracentesis (~07/07/17) right sided 2000ml removed Family History Other Stroke Social History Smoking and tobacco status: former smoker Alcohol intake: never Lives independently: Yes Household members: none Current occupational status: retired History of recent travel: No Current gender identity: Male Vitals/I&O/Wt Last Vital Signs Temp 96.9 F L 07/24/19 07:16 Pulse 100 07/24/19 07:16 Resp 26 H 07/24/19 07:16 BP 108/69 07/24/19 07:16 Pulse Ox 93 07/24/19 07:16 07/23/19 07/24/19 07/24/19 22:59 06:59 14:59 Intake Total 510 / 670 100 / 770 Output Total 250 / 1150 850 / 2000 Balance 260 / -480 -750 / -1230 Weight last 48 hrs Weight 191 lb 6.4 oz Weight 189 lb 11.2 oz Weight 198 lb 6 oz Physical Exam Const: COMMON NORMALS: no acute distress, alert and well nourished GENERAL APPEARANCE: well kempt and well developed HENMT: COMMON NORMALS: normocephalic and atraumatic HEAD & SCALP: normocephalic and atraumatic Resp: COMMON NORMALS: normal respiratory effort EFFORT & INSPECTION: No labored and No Actively coughing Neuro: COMMON NORMALS: no focal motor deficits SENSORIUM/ORIENTATION: Yes alert Psych: APPEARANCE: Yes grossly normal and Yes well kempt ATTITUDE: Yes calm and Yes engaged Urinary Catheter Management^: Russo: Cath Placed During This Visit: yes Reason for Continuing Indwelling Catheter: Acute Urinary Retention or Obstruction Urinary Catheter Date of Insertion: 07/15/19 Urinary Catheter Time of Insertion: 18:08 Data Micro: Micro: Microbiology 07/19/19 04:43 Blood Culture - Fi nal Blood NO GROWTH AFTER 5 DAYS 07/19/19 04:30 Blood Culture - Pr eliminary Blood Staphylococcus species 07/18/19 12:05 Blood Culture - Fi nal Blood Staphylococcus schleiferi sub Imaging^: CT Abd/Pel: My impression: See HPI. No gross abnormality of urinary tract on CT scan this visit and review of one from March 2019 as well. A&P Assessment and plan (1) Gross hematuria: Acute onset. Anticoagulated. Occurred while catheter in place. May be related to pulling on the catheter etc. no severe clots in the bladder and CBI has been run at a low rate with maintenance of clear urine. Recommend conservative management Status: Acute Consult Attestations Medical Necessity Statement: See attending Coding Level of Care Code Acute Hospital Pharmacy Director for Tamara Wheeler Diagnoses Gross hematuria R31.0
--- NOTE | 2019-07-24 09:28 | PC.NURSE ---
Patient went into afib c RVR, 130s-140s. other VS stable. Dr. Rojas notified. Physician aware patient did not receive coreg 3.125 mg PO this am. Physician is to order metoprolol IVP. Nurse to continue to monitor.
--- NOTE | 2019-07-24 09:42 | PC.SOCIAL ---
IMM Update Pg 2 of IMM left at beside. Patient resting with eyes closed and nurse in room, as well as transport at the door to pick patient up for MRI.
--- NOTE | 2019-07-24 09:45 | PC.NURSE ---
Transportation to take patient to MRI arrived as nurse was implementing Dr. Ann's orders. Dr. Rojas notified. Crystal instructed nurse to continue implementing orders. MRI will be rescheduled when patient is no longer requiring CBI.
--- NOTE | 2019-07-24 09:56 | PC.RESP ---
PULMONARY REHAB INFORMATION SENT TO PATIENT.
[2019-07-24 10:11] LABS: Partial Thromboplastin Time 42.7 SECONDS (23.9-36.7)
[2019-07-24 10:14] LABS: Fibrinogen 515 mg/dL (184-529)
[2019-07-24] MEDS: metoprolol tartrate 1 mg/1 mL SDV 5 mL 5 MG IV ×3 (10:28→16:57)
--- NOTE | 2019-07-24 10:28 | PM.PN ---
Subjective Subjective: Interval history: He is asleep on walking, but wakes up to voice, answers some questions, falls back asleep. Denies any pain or discomfort. Today he knows that he is in the hospital. States he is in [place]. Does not remember the year. Has no chest pain, denies abdominal or back pain. Vitals/I&O/Wt Last Vital Signs Temp 96.9 F L 07/24/19 07:16 Pulse 100 07/24/19 07:16 Resp 26 H 07/24/19 07:16 BP 108/69 07/24/19 07:16 Pulse Ox 93 07/24/19 07:16 07/23/19 07/24/19 07/24/19 22:59 06:59 14:59 Intake Total 510 / 670 100 / 770 Output Total 250 / 1150 850 / 2000 Balance 260 / -480 -750 / -1230 Weight last 48 hrs Weight 86.818 kg Weight 86.046 kg Physical Exam Const: COMMON NORMALS: no acute distress; negative for patient oriented x3 ORIENTATION/CONSCIOUSNESS: Yes oriented to person and Yes oriented to place HENMT: COMMON NORMALS: oropharynx normal Neck/C-Spine: COMMON NORMALS: no JVD Resp: COMMON NORMALS: normal respiratory effort AUSCULTATION: diminished lung sounds bilateral in the lower lung morris Cardio: COMMON NORMALS: no JVD, S1 normal heart sound present, S2 normal heart sound present and No murmurs present (Cardio) RHYTHM: abnormal rhythm irregularly irregular HEART SOUNDS: S1 normal heart sound present and S2 normal heart sound present GI: COMMON NORMALS: Normal to inspection, nondistended, normoactive bowel sounds present, Soft to palpation and non-tender PALPATION: Yes Soft to palpation Extremity: COMMON NORMALS: no joint enlargement and no pedal edema OTHER: Swelling of both upper extremities, right greater than left. Weeping on the left. Neuro: COMMON NORMALS: negative for patient oriented x3 SENSORIUM/ORIENTATION: Yes oriented to person and Yes oriented to place OTHER: He is generally weak. Appears to have weakness of both upper extremities, which is compounded by the significant swelling, although this is slightly better today. He is very weak when trying to move his arms/hands. Slightly stronger lower extremities, although apart from wiggling his toes, bending foot and the ankle slightly, that was about the extent of what he was able to do. Skin: GENERAL SKIN EXAM: ecchymosis (multiple on arms, chest) Urinary Catheter Management^: Russo: Cath Placed During This Visit: yes Reason for Continuing Indwelling Catheter: Acute Urinary Retention or Obstruction Urinary Catheter Date of Insertion: 07/15/19 Urinary Catheter Time of Insertion: 18:08 Data : 07/24/19 03:10 07/24/19 03:10 Micro: Microbiology 07/19/19 04:43 Blood Culture - Final Blood NO GROWTH AFTER 5 DAYS 07/19/19 04:30 Blood Culture - Preliminary Blood Staphylococcus species 07/18/19 12:05 Blood Culture - Final Blood Staphylococcus schleiferi sub A&P Assessment and plan (1) Hematuria: Overnight developed gross hematuria. This appears to be new. Prior UA was not suggestive of UTI. Will repeat UA. Attempt was made for manual irrigation, however, with nisa blood, multiple clots, appreciate assessment by urology who are initiating CBI. Per discussion with RN no noted trauma to the catheter. Patient has not been seen pulling on it and no noted trauma during turning. CT abdomen pelvis on 07/16 did not reveal any stone or obstruction. Does have a 3.3 cm left renal cyst. Due to need for initiation of CBI MRI had to be postponed. With some also diffuse skin bruising, previously coughing up some bloody sputum, will assess coagulation panel. Platelets level is normal. He does have poor renal function, although BUN is not extremely high to suggest uremic platelet dysfunction. Aspirin has been held. For now hold off on thoracentesis. Status: Acute (2) Bacteremia: 07/20 cultures so far without growth. MRI spine ordered to rule out discitis or paraspinal abscess given empirically recurrent bacteremia, and patient not able to fully give history, although noted to be achy when repositioned by nursing staff. MRI had to be postponed as needed to be started on CBI due to bleeding as above. Thoracentesis to rule out empyema, although suspicion is lower given he is not clinically toxic, also for now deferred due to acute bleeding with new hematuria, yesterday with some blood in the sputum. With some diffuse bruising. For now aspirin is held. I am concerned that he may be at high risk of bleeding, and may be better to wait several days given stable respiratory status otherwise to avoid hemothorax and give time to assess coagulation panel, monitor for any worsening bleeding. With concern for valvular vegetation. Culture after PICC line placement reportedly turned positive, although so far repeat cultures 07/18, 07/20 -ve. Was on linezolid, however, OFELIA is 4, with concern for elevated risk of treatment failure. Switched to vancomycin. OFELIA is also borderline, but little bit better at 1. He will require a 6-week course of treatment with IV antibiotics after the hospitalization, and most likely this will need to be vancomycin. Status: Acute (3) Diverticulitis: Continue Levaquin, Flagyl. Status: Acute (4) CHF (congestive heart failure): Improving. In negative balance. Upper extremity edema decreasing. 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 With significant especially upper bilateral extremity edema. Lower extremity edema is slightly less. Lasix at 80 mg every 12 hours. With underlying chronic kidney disease. Continues on cardiac diet with 1500 mL fluid restriction. Appreciate cardiology follow-up. Status: Acute Qualifiers: Heart failure type: systolic Heart failure chronicity: acute on chronic Qualified Code(s): I50.23 - Acute on chronic systolic (congestive) heart failure (5) Recurrent falls: Needs [place] [facility] [place] Status: Acute (6) CKD (chronic kidney disease): Overall appears stable Status: Acute Qualifiers: Chronic kidney disease stage: stage 3 (moderate) Qualified Code(s): N18.3 - Chronic kidney disease, stage 3 (moderate) (7) Hx pulmonary embolism: Unfortunately not a good candidate for anticoagulation for a number of reasons including anemia, history of GI bleeding, fall risk, currently also noted to have coughed up a blood clot this morning, and now gross hematuria. Oral and nasal mucosa are very dry, and suspect may have had some postnasal drip. Past history of pulmonary embolism. D-dimer was checked and elevated. Secondary to this a bilateral venous duplex, right upper extremity duplex(he has some swelling of the upper extremity as well) both of which were negative SCDs for DVT prophylaxis, secondary to significant anemia and recent history of GI bleeding from duodenal ulcer Status: Chronic (8) HTN (hypertension): Blood pressures variable, somewhat soft. Continues on low-dose carvedilol, which is mainly for atrial fibrillation Status: Acute (9) Troponin level elevated: Type II, secondary to congestive heart failure Status: Acute (10) Leukocytosis: Trending toward normal. COVID testing was ordered as he developed a fever and is a candidate for half-way placement. Covid 19 is negative Status: Acute Additional A&P Information Right upper extremity, mainly affecting the hand, paresis. Exam is difficult as he is generally very weak. History of CVA likely given findings of remote ischemia on CT head, patchy areas of hypoattenuation also present in periventricular and subcortical white matter consistent with chronic small vessel ischemic disease. Continue aspirin, statin. Was not found a safe candidate for anticoagulation. Hypokalemia, improved Anemia. Stool Hemoccult negative. Significantly iron deficient. Iron transfusion transfusion occurred on July 19. B12 and folate levels normal. Haptoglobin normal. Monitor. Currently assessment and management of hematuria as above. Past history of duodenal ulcer. Continue Protonix Atrial fibrillation, rate controlled, although appears did not tolerate carvedilol very well. Blood pressure soft, so far on 3.125 restarted dose. Monitor blood pressures. Aspirin to be held due to hematuria. Nurse is concerned that he is not following commands very well today, and with everything going on did not feel safe giving oral medications. For now we will switch over to metoprolol IV. Hypoxemic respiratory failure. Likely secondary to CHF. Pleural effusion. On and off needing lower rate oxygen support. Deconditioning, weakness. Needs [place] [facility] Attestations Medical Necessity Statement*: Continue admission versus management of hematuria, MRSA bacteremia, assessment of right pleural effusion, assessment for additional foci infection, treatment of CHF, preparations for discharge. 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
--- NOTE | 2019-07-24 10:30 | PC.NURSE ---
16 fr catheter removed. catheter intact. navin care performed. [address] alva placed, sterile technique maintained. Manual irrigation performed. Initially, urine was bright red with clots. After 200 ml of sterile water irrigation, urine was clear, pale pink and no more clots were visualized. Patient was started on CBI at a fast drip. Patient tolerated well.
[2019-07-24 10:34] LABS: Platelet Count 183 10^3/cmm (130-400)
[2019-07-24 11:26] LABS: Add Urine Microscopic? YES; Bilirubin Urine Neg (NEGATIVE); Blood Urine 3+ (Negative); Glucose Urine UA Norm (Normal); Ketones Urine Negative (Negative); Leukocyte Esterase Urine Negative (Negative); Nitrate Urine Negative (Negative); Protein Urine 3+ (Negative); Urine Appearance Cloudy (CLEAR); Urine Color Red (Yellow); Urobilinogen Urine Norm (Negative); pH Urine 6.5 (5-7)
--- NOTE | 2019-07-24 11:27 | PM.PN ---
Subjective Subjective: Interval history: Denies any complaint. Laying in the bed Medications: Reviewed: Yes Vitals/I&O/Wt Last Vital Signs Temp 97.0 F L 07/24/19 10:43 Pulse 90 07/24/19 10:43 Resp 18 07/24/19 10:43 BP 96/51 07/24/19 10:43 Pulse Ox 91 07/24/19 10:43 07/23/19 07/24/19 07/24/19 22:59 06:59 14:59 Intake Total 510 / 670 100 / 770 Output Total 250 / 1150 850 / 2000 Balance 260 / -480 -750 / -1230 Weight last 48 hrs Weight 188 lb 9 oz Weight 191 lb 6.4 oz Weight 189 lb 11.2 oz Physical Exam Narrative: EXAM NARRATIVE: GENERAL: Patient is alert, awake and oriented x3. NECK: No jugular vein distension. HEENT: No cyanosis. No icterus. No pallor. HEART: Irregularly irregular S1 and S2. No murmur, rub or gallop. LUNGS: Decrease breath sound on the right side while clear on the left. ABDOMEN: Soft, nontender and nondistended. Positive bowel sounds. No guarding, rebound or tenderness. CENTRAL NERVOUS SYSTEM: Grossly nonfocal. EXTREMITIES: Lower extremities without edema bilaterally. Urinary Catheter Management^: Russo: Cath Placed During This Visit: yes Reason for Continuing Indwelling Catheter: Acute Urinary Retention or Obstruction Urinary Catheter Date of Insertion: 07/15/19 Urinary Catheter Time of Insertion: 18:08 Data : 07/24/19 03:10 07/24/19 03:10 Micro: Microbiology 07/19/19 04:43 Blood Culture - Final Blood NO GROWTH AFTER 5 DAYS 07/19/19 04:30 Blood Culture - Preliminary Blood Staphylococcus species 07/18/19 12:05 Blood Culture - Final Blood Staphylococcus schleiferi sub A&P Assessment and plan (1) Sepsis: Improved. Continue antibiotics Status: Acute Qualifiers: Sepsis type: methicillin resistant Staphylococcus aureus Sepsis acute organ dysfunction status: unspecified Qualified Code(s): A41.02 - Sepsis due to Methicillin resistant Staphylococcus aureus (2) Leukocytosis: Status: Acute (3) Troponin level elevated: Most likely secondary to sepsis. Continue medical management Status: Acute (4) Recurrent falls: Status: Acute (5) CKD (chronic kidney disease): Stable and improving. Status: Acute Qualifiers: Chronic kidney disease stage: stage 3 (moderate) Qualified Code(s): N18.3 - Chronic kidney disease, stage 3 (moderate) (6) CHF (congestive heart failure): Compensated. Continue current regimen Status: Acute Qualifiers: Heart failure type: systolic Heart failure chronicity: acute on chronic Qualified Code(s): I50.23 - Acute on chronic systolic (congestive) heart failure (7) Upper GI bleed: Status: Acute (8) Mitral regurgitation: Status: Acute Qualifiers: Cardiac valve disease etiology: nonrheumatic Qualified Code(s): I34.0 - Nonrheumatic mitral (valve) insufficiency (9) Hx pulmonary embolism: Status: Chronic (10) HTN (hypertension): Patient is hypotensive. 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 He has had upper extremity duplex of both arms which were negative for DVT. No changes today. 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 [facility] Patient Type Established History Expanded Problem Focused Exam Expanded Problem Focused Medical Decision Making Moderate Complexity Diagnoses Sepsis A41.02 Sepsis type: methicillin resistant Staphylococcus aureus Sepsis acute organ dysfunction status: unspecified Leukocytosis D72.829 Troponin level elevated R79.89 Recurrent falls R29.6 CKD (chronic kidney disease) N18.3 Chronic kidney disease stage: stage 3 (moderate) CHF (congestive heart failure) I50.23 Heart failure type: systolic Heart failure chronicity: acute on chronic Upper GI bleed K92.2 Mitral regurgitation I34.0 Cardiac valve disease etiology: nonrheumatic Hx pulmonary embolism Z86.711 HTN (hypertension) I10 Atrial fibrillation I48.11 Atrial fibrillation type: longstanding persistent Pleural effusion J90 Warfarin-induced coagulopathy D68.32; T45.515A
[2019-07-24 11:30] LABS: Add Urine Culture? Yes; Bacteria Urine 1+; RBC Urine TOO NUMEROUS TO CNT /hpf (0-2); WBC Urine 0-4 /hpf (0-5)
--- NOTE | 2019-07-24 12:00 | PC.NURSE ---
Dr. Ann at bedside. Physician pleased with color of urine. Nurse to continue to monitor and notify physician of any changes.
[2019-07-24] MEDS: phytonadione (ADULT) 10 mg/mL Ampule 1 mL 5 MG PO (12:07)
[2019-07-24] MEDS: levofloxacin-dextrose 5 % 750 MG/150 ML PREMIX 100 MG IV (12:10)
--- NOTE | 2019-07-24 13:21 | PC.NURSE ---
CBI 3000 ml bag of sterile water ran through CBI. 3,975 ml of urine has been emptied from alva bag. Urine pink tinged, no clots noted. Nurse to continue to monitor.
[2019-07-24] MEDS: vancomycin 1,000 MG in sodium chloride 0.9% 250 ML 1510 MG IV (14:47)
[2019-07-24] MEDS: sucralfate 1 gm/10 mL Oral Liq UDC PO ×2 (16:56→19:53)
--- NOTE | 2019-07-24 17:00 | PC.NURSE ---
Patient unable to swallow evening dose of protonix. Patient would fall asleep and not follow nurse prompts to swallow. Patient did take Carafate before this followed by a drink of wate and did not exhibit any difficulty swallowing liquids.
--- NOTE | 2019-07-24 18:39 | PC.NURSE ---
Received bedside report from WIL Heard. Patient started on CBI today. Urine is currently pink tinged. System remains patent. Patient resting with eyes closed. No distress observed.
--- NOTE | 2019-07-24 18:45 | PC.NURSE ---
CBI 2000 ml bag of sterile water infused through CBI. 2,625 ml of urine returned. Urine pink to light red tinged with small clots. CBI titrated up slightly. Nurse to continue to monitor.
--- NOTE | 2019-07-24 19:06 | PC.NURSE ---
CBI Patient continues with CBI this evening. System remains patient with pink tinged fluid return. No kinks in line. Patient more awake and alert. Patient reports feeling better. Asking for breakfast this evening.
[2019-07-24] MEDS: atorvastatin 40 mg Tablet PO (19:53)
--- NOTE | 2019-07-24 23:34 | PC.NURSE ---
CBI 2000ml bag of fluid instilled with 2600 out at this time. System remains patient with pink urine returning. No signs of clots. Patient denies pain to abdomen. Patient awake and alert, oriented self and place but not to time. Reoriented patient. Patient requested drinks of water frequently drinking ~100 to 120ml at a time.
--- NOTE | 2019-07-24 23:37 | PC.NURSE ---
Medications At 1952 administered ordered medications. Patient was able to follow direction and swallow medications. Patient also ate ~1/2 cup of ice cream at this time.
[2019-07-25] VITALS (7 sets, daily range): BP systolic 98–118; BP diastolic 59–71; PULSE 90–102; RESP 22–32; TEMP 36.5–36.9; O2SAT 92–97
[2019-07-25] MEDS: metoprolol tartrate 1 mg/1 mL SDV 5 mL 5 MG IV ×2 (00:40→06:09)
[2019-07-25] MEDS: metroNIDAZOLE IV 500 MG/100 ML PREMIX 100 MG IV ×4 (00:40→20:39)
--- NOTE | 2019-07-25 03:13 | PC.NURSE ---
Dressing changes to multiple skin tears using normal saline and optifoam. Patient tolerated well. Also performed PICC line dressing change using aseptic technique and using adhesive remover to prevent further skin tears. Stat lock and cap replaced. Patient skin is extremely fragile.
[2019-07-25 05:37] LABS: Basophils % 0.1 %; Eosinophils % 0.3 %; Hematocrit 26.3 % (42.0-52.0); Hemoglobin 7.3 g/dL (11.7-16.6); Lymphocytes # 0.8 10^3/uL (0.8-4.8); Lymphocytes % 7.7 %; Mean Corpuscular HGB Conc 27.8 g/dL (30.0-36.0); Mean Corpuscular Hemoglobin 26.5 pg (28.0-34.0); Mean Corpuscular Volume 95.6 fL (80-94); Mean Platelet Volume 9.3 fL (7.4-10.4); Monocytes # 0.3 10^3/uL (0.2-0.9); Monocytes % 2.8 %; Neutrophils # 9.6 10^3/uL (1.8-7.7); Neutrophils % 88.4 %; Nucleated Red Blood Cells # 0.1 /100WBC; Nucleated Red Blood Cells % 0.6 %; Platelet Count 151 10^3/cmm (130-400); Red Blood Count 2.75 10^6/uL (4.1-5.3); Red Cell Distribution Width 19.9 % (12.1-15.1); White Blood Count 10.8 10^3/uL (4.0-10.0)
[2019-07-25 05:46] LABS: INR 1.66 (0.8-1.2)
[2019-07-25 06:01] LABS: Alanine Aminotransferase 10 U/L (0-41); Albumin Level 2.2 g/dL (3.5-5.2); Alkaline Phosphatase 73 IU/L (40-130); Anion Gap 19.3 (5-19); Aspartate Amino Transferase 15 U/L (0-40); Blood Urea Nitrogen 48 mg/dL (8-23); Calcium 8.7 mg/dL (8.5-10.5); Carbon Dioxide 26 mmol/L (22-29); Chloride 100 mmol/L (98-107); Glucose 104 mg/dL (65-115); Osmolality Calculated 292 mOsm/kg (285-295); Potassium 3.3 mmol/L (3.5-5.1); Sodium 142 mmol/L (136-145); Total Bilirubin 0.8 mg/dL (0.15-1.2); Total Protein 6.2 g/dL (6.6-8.7)
[2019-07-25] MEDS: sucralfate 1 gm/10 mL Oral Liq UDC PO ×4 (06:09→20:38)
--- NOTE | 2019-07-25 06:23 | PC.NURSE ---
CBI Patient has CBI continuing. An additional 2000ml have been instilled with 3725 returned. System is patent. Urine remains clear, pink with occasional small clots. Patient denies pain to bladder. Patient continues to be more awake, alert and orientation is improving.
[2019-07-25] MEDS: pantoprazole DR 40 mg Tablet PO ×2 (08:37→17:18)
[2019-07-25] MEDS: FUROsemide 40 mg Tablet PO (08:37)
[2019-07-25] MEDS: levothyroxine 50 mcg Tablet PO (08:37)
--- NOTE | 2019-07-25 09:24 | PC.NURSE ---
DR. VALLE NOTIFIED OF PATIENT'S ABILITY TO TAKE MEDICATIONS BY MOUTH AND THAT PATIENT WAS MORE ALERT. ORDERED TO CHANGE METOPROLOL DOSE TO PO FORM AND DC IV METOPROLOL.
[2019-07-25] MEDS: metoprolol tartrate 25 mg Tablet PO ×2 (10:12→20:38)
[2019-07-25] MEDS: vancomycin 1,000 MG in sodium chloride 0.9% 250 ML 250 MG IV (12:44)
--- NOTE | 2019-07-25 16:00 | PM.PN ---
Subjective Subjective: Interval history: Today he is feeling better. He is actually more lucid. Feels stronger. Is able to move his arms better, although the right side weaker compared to the left. Medications: Reviewed: Yes Vitals/I&O/Wt Last Vital Signs Temp 98.4 F 07/25/19 12:00 Pulse 90 07/25/19 12:00 Resp 22 H 07/25/19 12:00 BP 102/63 07/25/19 12:00 Pulse Ox 95 07/25/19 12:00 07/25/19 07/25/19 07/25/19 06:59 14:59 22:59 Intake Total 1540 / 2600 530 / 530 Output Total 4225 / 8925 1725 / 1725 Balance -2685 / -6325 -1195 / -1195 Weight last 48 hrs Weight 85.003 kg Weight 85.531 kg Weight 86.818 kg Physical Exam Const: COMMON NORMALS: no acute distress; negative for patient oriented x3 ORIENTATION/CONSCIOUSNESS: Yes oriented to person and Yes oriented to place HENMT: COMMON NORMALS: oropharynx normal Neck/C-Spine: COMMON NORMALS: no JVD Resp: COMMON NORMALS: normal respiratory effort AUSCULTATION: diminished lung sounds bilateral in the lower lung morris Cardio: COMMON NORMALS: no JVD, S1 normal heart sound present, S2 normal heart sound present and No murmurs present (Cardio) RHYTHM: abnormal rhythm irregularly irregular HEART SOUNDS: S1 normal heart sound present and S2 normal heart sound present GI: COMMON NORMALS: Normal to inspection, nondistended, normoactive bowel sounds present, Soft to palpation and non-tender PALPATION: Yes Soft to palpation Extremity: COMMON NORMALS: no joint enlargement and no pedal edema OTHER: Swelling improving. Neuro: COMMON NORMALS: negative for patient oriented x3 SENSORIUM/ORIENTATION: Yes oriented to person and Yes oriented to place OTHER: He is generally weak but stronger today. Moving arms. R side definitely weaker than L. Skin: GENERAL SKIN EXAM: ecchymosis (multiple on arms, chest) Urinary Catheter Management^: Russo: Cath Placed During This Visit: yes, but has since been removed by the nurse Reason for Continuing Indwelling Catheter: Acute Urinary Retention or Obstruction Urinary Catheter Date of Insertion: 07/15/19 Urinary Catheter Time of Insertion: 18:08 Date Urinary Catheter Removed: 07/24/19 Time Urinary Catheter Discontinued: 10:00 3-way Urethral CBI: Cath Placed During This Visit: yes Reason for Continuing Indwelling Catheter: Other Urinary Catheter Date of Insertion: 07/24/19 Urinary Catheter Time of Insertion: :30 Data : 07/25/19 05:12 07/25/19 05:12 Micro: Microbiology 07/24/19 10:10 Urine Culture - Preliminary Urine,Clean Catch A&P Assessment and plan (1) Hematuria: Hematuria improving. Taper off CBI as tolerating. Appreciate urology input. Discussed w patient and niece. He has not been able to tolerate anticoagulation or antiplatelets well unfortunately due to a variety of bleeding issues. CT abdomen pelvis on 07/16 did not reveal any stone or obstruction. Does have a 3.3 cm left renal cyst. To follow w urology in office for post acute more detailed evaluation. Due to need for initiation of CBI MRI, thoracentesis had to be postponed. Perhaps may be able to have done tomorrow. INR elevated despite vit K replacement. Aspirin held. Only SCD for DVT prophylaxis. Status: Deleted (2) Bacteremia: 07/20 cultures so far without growth. MRI spine ordered to rule out discitis or paraspinal abscess given empirically recurrent bacteremia, and patient not able to fully give history, although noted to be achy when repositioned by nursing staff. MRI had to be postponed as needed to be started on CBI due to bleeding as above. Thoracentesis to rule out empyema, although suspicion is lower given he is not clinically toxic, also for now deferred due to acute bleeding with new hematuria, yesterday with some blood in the sputum. Abnormal INR. ASA on hold. Possibly thoracentesis tomorrow. With concern for valvular vegetation. Culture after PICC line placement reportedly turned positive, although so far repeat cultures 07/18, 07/20 -ve. Was on linezolid, however, OFELIA is 4, with concern for elevated risk of treatment failure. Switched to vancomycin. OFELIA is also borderline, but little bit better at 1. He will require a 6-week course of treatment with IV antibiotics after the hospitalization, and most likely this will need to be vancomycin. Discussed w his niece. Status: Acute (3) Diverticulitis: Continue Levaquin, Flagyl. Status: Acute (4) CHF (congestive heart failure): Improving. Swelling improving in upper extremities. In negative balance. Upper extremity edema decreasing. 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 With significant especially upper bilateral extremity edema. Lower extremity edema is slightly less. Lasix at 80 mg every 12 hours. With underlying chronic kidney disease. Continues on cardiac diet with 1500 mL fluid restriction. Appreciate cardiology follow-up. Status: Acute Qualifiers: Heart failure chronicity: acute on chronic Heart failure type: systolic Qualified Code(s): I50.23 - Acute on chronic systolic (congestive) heart failure (5) Recurrent falls: Needs residential facility placement Status: Acute (6) CKD (chronic kidney disease): Overall appears stable Status: Acute Qualifiers: Chronic kidney disease stage: stage 3 (moderate) Qualified Code(s): N18.3 - Chronic kidney disease, stage 3 (moderate) (7) Hx pulmonary embolism: Unfortunately not a good candidate for anticoagulation for a number of reasons including anemia, history of GI bleeding, fall risk, currently also noted to have coughed up a blood clot this morning, and now gross hematuria. Oral and nasal mucosa are very dry, and suspect may have had some postnasal drip. Past history of pulmonary embolism. D-dimer was checked and elevated. Secondary to this a bilateral venous duplex, right upper extremity duplex(he has some swelling of the upper extremity as well) both of which were negative SCDs for DVT prophylaxis, secondary to significant anemia and recent history of GI bleeding from duodenal ulcer Status: Chronic (8) HTN (hypertension): Blood pressures variable, somewhat soft. Change to PO metoprolol for rate control w atrial fibrillation Status: Acute (9) Troponin level elevated: Type II, secondary to congestive heart failure Status: Acute (10) Leukocytosis: Trending toward normal. COVID testing was ordered as he developed a fever and is a candidate for jail placement. Covid 19 is negative Status: Acute Additional A&P Information Right upper extremity paresis. Exam is difficult as he is generally very weak. History of CVA likely given findings of remote ischemia on CT head, patchy areas of hypoattenuation also present in periventricular and subcortical white matter consistent with chronic small vessel ischemic disease. Continue aspirin, statin. Was not found a safe candidate for anticoagulation. Hypokalemia, replace Anemia. Stool Hemoccult negative. Significantly iron deficient. Iron transfusion transfusion occurred on July 19. B12 and folate levels normal. Haptoglobin normal. Monitor. Currently assessment and management of hematuria as above. Past history of duodenal ulcer. Continue Protonix Atrial fibrillation, rate controlled, although appears did not tolerate carvedilol very well. Blood pressure soft, so far on 3.125 restarted dose. Monitor blood pressures. Aspirin to be held due to hematuria. Nurse is concerned that he is not following commands very well today, and with everything going on did not feel safe giving oral medications. For now we will switch over to metoprolol IV. With bacteremia, bleeding, not candidate for LATOYA closure. Hypoxemic respiratory failure. Likely secondary to CHF. Pleural effusion. On and off needing lower rate oxygen support. Deconditioning, weakness. Needs residential facility placement Attestations Medical Necessity Statement*: Continue admission for assessment and management of hematuria, MRSA bacteremia, pleural effusion, preparations for discharge. Coding Level of Care Code Acute [facility]er And Polisher for [facility] Fwd Exam Comprehensive Diagnoses Hematuria R31.9 Bacteremia R78.81 Diverticulitis K57.92 CHF (congestive heart failure) I50.23 Heart failure chronicity: acute on chronic Heart failure type: systolic Recurrent falls R29.6 CKD (chronic kidney disease) N18.3 Chronic kidney disease stage: stage 3 (moderate) Hx pulmonary embolism Z86.711 HTN (hypertension) I10 Troponin level elevated R79.89 Leukocytosis D72.829
--- NOTE | 2019-07-25 18:31 | P.PN_ITS ---
Subjective Subjective: Interval history: Denies any complaint however has been fatigued. Blood pressure is stable heart rate is also around 100 Medications: Reviewed: Yes Vitals/I&O/Wt Last Vital Signs Temp 98.4 F 07/25/19 16:00 Pulse 99 07/25/19 16:00 Resp 23 H 07/25/19 16:00 BP 105/66 07/25/19 16:00 Pulse Ox 97 07/25/19 16:00 07/25/19 07/25/19 07/25/19 06:59 14:59 22:59 Intake Total 1540 / 2600 530 / 530 60 / 590 Output Total 4225 / 8925 1725 / 1725 2800 / 4525 Balance -2685 / -6325 -1195 / -1195 -2740 / -3935 Weight last 48 hrs Weight 187 lb 6.4 oz Weight 188 lb 9 oz Weight 191 lb 6.4 oz Physical Exam Narrative: EXAM NARRATIVE: GENERAL: Patient is awake and oriented x3. Low in energy NECK: No jugular vein distension. HEENT: No cyanosis. No icterus. No pallor. HEART: Irregularly irregular S1 and S2. No murmur, rub or gallop. LUNGS: Decrease breath sound on the right side while clear on the left. ABDOMEN: Soft, nontender and nondistended. Positive bowel sounds. No guarding, rebound or tenderness. CENTRAL NERVOUS SYSTEM: Grossly nonfocal. EXTREMITIES: Lower extremities without edema bilaterally. Urinary Catheter Management^: Russo: Cath Placed During This Visit: yes, but has since been removed by the nurse Reason for Continuing Indwelling Catheter: Acute Urinary Retention or Obstruction Urinary Catheter Date of Insertion: 07/15/19 Urinary Catheter Time of Insertion: 18:08 Date Urinary Catheter Removed: 07/24/19 Time Urinary Catheter Discontinued: 10:00 3-way Urethral CBI: Cath Placed During This Visit: yes Reason for Continuing Indwelling Catheter: Other Urinary Catheter Date of Insertion: 07/24/19 Urinary Catheter Time of Insertion: 10:30 Data : 07/25/19 05:12 07/25/19 05:12 Micro: Microbiology 07/19/19 04:30 Blood Culture - Final Blood Methicillin Resis Staph Aureus 07/24/19 10:10 Urine Culture - Preliminary Urine,Clean Catch A&P Assessment and plan (1) Sepsis: Continue current regimen Status: Acute Qualifiers: Sepsis type: methicillin resistant Staphylococcus aureus Sepsis acute organ dysfunction status: unspecified Qualified Code(s): A41.02 - Sepsis due to Methicillin resistant Staphylococcus aureus (2) Leukocytosis: Status: Acute (3) Troponin level elevated: Most likely secondary to sepsis. Continue medical management Status: Acute (4) Recurrent falls: Status: Acute (5) CKD (chronic kidney disease): Stable and improving. Status: Acute Qualifiers: Chronic kidney disease stage: stage 3 (moderate) Qualified Code(s): N18.3 - Chronic kidney disease, stage 3 (moderate) (6) CHF (congestive heart failure): Compensated. Continue current regimen Status: Acute Qualifiers: Heart failure type: systolic Heart failure chronicity: acute on chronic Qualified Code(s): I50.23 - Acute on chronic systolic (congestive) heart failure (7) Upper GI bleed: Status: Acute (8) Mitral regurgitation: Moderate mitral regurg. Status: Acute Qualifiers: Cardiac valve disease etiology: nonrheumatic Qualified Code(s): I34.0 - Nonrheumatic mitral (valve) insufficiency (9) Hx pulmonary embolism: Status: Chronic (10) HTN (hypertension): Better after changing Coreg Status: Acute (11) Atrial fibrillation: Rate controlled. 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 He has had upper extremity duplex of both arms which were negative for DVT. No changes today. Attestations Medical Necessity Statement*: Require continuation of hospitalization for above defined care Coding Level of Care Code Established Pt Acute Graduate Intern for g Fwd Patient Type Established History Expanded Problem Focused Exam Expanded Problem Focused Medical Decision Making Moderate Complexity Diagnoses Sepsis A41.02 Sepsis type: methicillin resistant Staphylococcus aureus Sepsis acute organ dysfunction status: unspecified Leukocytosis D72.829 Troponin level elevated R79.89 Recurrent falls R29.6 CKD (chronic kidney disease) N18.3 Chronic kidney disease stage: stage 3 (moderate) CHF (congestive heart failure) I50.23 Heart failure type: systolic Heart failure chronicity: acute on chronic Upper GI bleed K92.2 Mitral regurgitation I34.0 Cardiac valve disease etiology: nonrheumatic Hx pulmonary embolism Z86.711 HTN (hypertension) I10 Atrial fibrillation I48.11 Atrial fibrillation type: longstanding persistent Pleural effusion J90 Warfarin-induced coagulopathy D68.32; T45.515A
--- NOTE | 2019-07-25 18:47 | PC.NURSE ---
CBI 2300ML OF IRRIGANT INFUSED, 2800ML OF TOTAL URINE RETURNED.
[2019-07-25] MEDS: potassium chloride oral liq 20 mEq/15 mL UDC 40 MEQ PO (18:51)
[2019-07-25] MEDS: atorvastatin 40 mg Tablet PO (20:38)
--- NOTE | 2019-07-25 22:44 | PC.NURSE ---
Patient was accidentally discharged from the system by ICU and IT was called to resolve the Issue. Patient was re admitted by IT.
--- NOTE | 2019-07-25 22:47 | PC.NURSE ---
MRI for 07/26/2019 is gone. Will tell dayshift nurse tomorrow.
--- NOTE | 2019-07-26 00:41 | PC.NURSE ---
Went through patients order history and found orders for CBC and CMP for 07/26/2019 at 0400. These orders were discharged and did not get re ordered in the system by IT. Re ordered patients labs under protocol and patients Doctor.
[2019-07-26] MEDS: metroNIDAZOLE IV 500 MG/100 ML PREMIX 100 MG IV ×4 (01:04→21:01)
[2019-07-26 03:48] LABS: Basophils % 0.2 %; Eosinophils % 0.3 %; Hematocrit 26.5 % (42.0-52.0); Hemoglobin 7.4 g/dL (11.7-16.6); Lymphocytes # 0.9 10^3/uL (0.8-4.8); Lymphocytes % 9.2 %; Mean Corpuscular HGB Conc 27.9 g/dL (30.0-36.0); Mean Corpuscular Hemoglobin 26.8 pg (28.0-34.0); Mean Platelet Volume 9.5 fL (7.4-10.4); Monocytes # 0.3 10^3/uL (0.2-0.9); Monocytes % 2.9 %; Neutrophils # 8.2 10^3/uL (1.8-7.7); Neutrophils % 86.9 %; Nucleated Red Blood Cells % 0.4 %; Platelet Count 148 10^3/cmm (130-400); Red Blood Count 2.76 10^6/uL (4.1-5.3); Red Cell Distribution Width 19.7 % (12.1-15.1); White Blood Count 9.5 10^3/uL (4.0-10.0)
[2019-07-26 04:00] VITALS: BP 110/71; PULSE 105; RESP 29; TEMP 36.7
[2019-07-26 04:04] LABS: Alanine Aminotransferase 11 U/L (0-41); Albumin Level 2.3 g/dL (3.5-5.2); Alkaline Phosphatase 74 IU/L (40-130); Aspartate Amino Transferase 15 U/L (0-40); Blood Urea Nitrogen 54 mg/dL (8-23); Calcium 8.7 mg/dL (8.5-10.5); Carbon Dioxide 26 mmol/L (22-29); Chloride 104 mmol/L (98-107); Globulin 3.8 g/dL (1.3-4.6); Glucose 109 mg/dL (65-115); Osmolality Calculated 291 mOsm/kg (285-295); Sodium 141 mmol/L (136-145); Total Bilirubin 0.8 mg/dL (0.15-1.2); Total Protein 6.1 g/dL (6.6-8.7)
--- NOTE | 2019-07-26 04:51 | PC.NURSE ---
End of Shift: Patient is on CBI and urine has been light pink to orange. No clots noted throughout the shift. Patient has remained alert to self. Patient has voiced wanting to get out of bed but made no attempts. Patient has been repositioned and changed. No complaints of pain. Will let his day nurse know about the discharge and the orders.
--- NOTE | 2019-07-26 05:53 | PC.NURSE ---
CBI: Patient had about 300mls urine output. 3,900mls of CBI fluid in on my shift. Patient had a total of 4,850 of CBI solution out on my shift. He did have to be irrigated once. no clots noted just increased output. output is light pink colored. Will continue to monitor.
[2019-07-26] MEDS: sucralfate 1 gm/10 mL Oral Liq UDC PO ×2 (06:11→10:06)
[2019-07-26] MEDS: FUROsemide 40 mg Tablet PO (07:15)
[2019-07-26 07:17] VITALS: BP 109/77; PULSE 110; RESP 19; TEMP 36.6; O2SAT 95
--- NOTE | 2019-07-26 09:48 | PC.SOCIAL ---
IMM Update Pg 2 of IMM updated. Initialed, dated, and timed, copy provided to patient.
[2019-07-26] MEDS: metoprolol tartrate 25 mg Tablet PO (09:59)
[2019-07-26] MEDS: pantoprazole DR 40 mg Tablet PO (09:59)
[2019-07-26] MEDS: levothyroxine 50 mcg Tablet PO (09:59)
--- NOTE | 2019-07-26 10:20 | PC.CHAP ---
Pastoral Care Encounter/Spiritual Assessment Type of Contact [] Declined whiskey proof reader visit [] Patient/Family/Request visit [] Outpatient visit [] Follow-up visit [] Physician referral [] Code/Alert [x] Routine visit [] Staff referral [] Actively dying [] Patient sleeping [] Family support [] [] Out of room [] Palliative care [] [] Receiving care in room [] Pre-surgical visit [] Trauma [] Long length of stay [] ICU visit [] Other: Relational/Emotional Strength [xx] Patient feels connected with others/family/visitors/staff [] Distress [] Loneliness/isolation [] Abandonment Spirituality of Patient [x] Person of Vidya [x] Attends Yazidi of their Vidya [x] Believes in Prayer [x] Reads Bible or Jehovah'S Witness materials [] There are Spiritual issues to be addressed 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 Interventions [x] Prayer [x] Active listening [x] Non-anxious presence [x] Spiritual/emotional support [] Crisis/trauma care [x] Spiritual counseling [] Bereavement support [] Provided bereavement packet [] Provided Bible/devotional materials [] Provided toy/stuffed animal, coloring book to patient or family member [] Provided Communion [] Anointing/[place] [] Salvation [x] Completed spiritual assessment [] Other: Impact on Illness or Injury [] Angry [] Fearful [] Anxious [] Often cries [] Exhaustion [] Unable to work [] Unable to attend restorationist [] Unable to walk/stand [] Unable to read [] Unable to drive [] Unable to eat/drink [] Unable to sleep [] Unable to be with family [] Patient intubated [x] Other: Summary Patient is a professed follower of [employer]ney Huerta, he is a (3-years), does not have children but has nieces and nephews who look in on him. Time spent with patient 15 minutes
[2019-07-26 11:10] VITALS: BP 111/73; PULSE 101; RESP 22; TEMP 36.4; O2SAT 93
[2019-07-26 12:27] LABS: Vancomycin Trough 18.5 ug/mL (10-15)
[2019-07-26] MEDS: levofloxacin-dextrose 5 % 750 MG/150 ML PREMIX 100 MG IV (12:39)
[2019-07-26] MEDS: vancomycin 1,000 MG in sodium chloride 0.9% 250 ML 250 MG IV (13:50)
--- NOTE | 2019-07-26 13:51 | PC.NURSE ---
PATIENT CONFUSION HAS INCREASED AGAIN TODAY. DR. VALLE INFORMED. PATIENT IS HAVING A CONVERSATION WITH A HALLUCINATION THAT APPEARS TO BE ON THE CEILING. WILL CONTINUE TO MONITOR.
--- NOTE | 2019-07-26 13:52 | P.PN_ITS ---
Subjective Subjective: Interval history: He is awake, alert, pleasant, conversant. He tells me he has been through quite a bit lately with multiple family members passing away. He does not, however, remember what year it is. He does say he is in [place], but does not remember what kind of building we are in. Vitals/I&O/Wt Last Vital Signs Temp 97.6 F 07/26/19 11:10 Pulse 101 H 07/26/19 11:10 Resp 22 H 07/26/19 11:10 BP 111/73 07/26/19 11:10 Pulse Ox 93 07/26/19 11:10 07/25/19 07/26/19 07/26/19 22:59 06:59 14:59 Intake Total 360 / 990 220 / 1210 35 / 35 Output Total 2800 / 4525 5100 / 9625 Balance -2440 / -3535 -4880 / -8415 35 / 35 Weight last 48 hrs Weight 83.597 kg Weight 85.003 kg Physical Exam Const: COMMON NORMALS: no acute distress; negative for patient oriented x3 ORIENTATION/CONSCIOUSNESS: Yes oriented to person and Yes oriented to place HENMT: COMMON NORMALS: oropharynx normal Neck/C-Spine: COMMON NORMALS: no JVD Resp: COMMON NORMALS: normal respiratory effort AUSCULTATION: diminished lung sounds bilateral in the lower lung morris Cardio: COMMON NORMALS: no JVD, S1 normal heart sound present, S2 normal heart sound present and No murmurs present (Cardio) RHYTHM: abnormal rhythm irregularly irregular HEART SOUNDS: S1 normal heart sound present and S2 normal heart sound present GI: COMMON NORMALS: Normal to inspection, nondistended, normoactive bowel sounds present, Soft to palpation and non-tender PALPATION: Yes Soft to palpation Extremity: COMMON NORMALS: no joint enlargement and no pedal edema OTHER: Swelling improving. About the same today. Neuro: COMMON NORMALS: negative for patient oriented x3 SENSORIUM/ORIENTATION: Yes oriented to person and Yes oriented to place OTHER: He is generally weak but stronger today. Moving arms. R side definitely weaker than L. Skin: GENERAL SKIN EXAM: ecchymosis (multiple on arms, chest) Urinary Catheter Management^: Russo: Cath Placed During This Visit: yes, but has since been removed by the nurse Reason for Continuing Indwelling Catheter: Acute Urinary Retention or Obstruction Urinary Catheter Date of Insertion: 07/15/19 Urinary Catheter Time of Insertion: 18:08 Date Urinary Catheter Removed: 07/24/19 Time Urinary Catheter Discontinued: 10:00 3-way Urethral CBI: Cath Placed During This Visit: yes Reason for Continuing Indwelling Catheter: Other Urinary Catheter Date of Insertion: 07/24/19 Urinary Catheter Time of Insertion: 10:30 Data : 07/26/19 03:40 07/26/19 03:40 Micro: Microbiology 07/24/19 10:10 Urine Culture - Final Urine,Clean Catch 07/21/19 05:07 Blood Culture - Final Blood NO GROWTH AFTER 5 DAYS 07/21/19 05:03 Blood Culture - Final Blood NO GROWTH AFTER 5 DAYS 07/19/19 04:30 Blood Culture - Final Blood Methicillin Resis Staph Aureus A&P Assessment and plan (1) Hematuria: Hematuria improving, although urine still reddish. Taper off CBI as tolerating. Appreciate urology input. May be able to pause CBI for MRI spine this evening. Discussed w patient and niece. He has not been able to tolerate anticoagulation or antiplatelets well unfortunately due to a variety of bleeding issues. CT abdomen pelvis on 07/16 did not reveal any stone or obstruction. Does have a 3.3 cm left renal cyst. To follow w urology in office for post acute more detailed evaluation. INR elevated despite vit K replacement. PLT slight downtrend to [id number]. Will request peripheral smear to rule out any schistocytes. Aspirin held. Only SCD for DVT prophylaxis. Status: Deleted (2) Bacteremia: MRI spine tonight, thoracentesis if possible. 07/20 cultures so far without growth. MRI spine ordered to rule out discitis or paraspinal abscess given empirically recurrent bacteremia, and patient not able to fully give history, although noted to be achy when repositioned by nursing staff. Thoracentesis to rule out empyema, although suspicion is lower given he is not clinically toxic, also for now deferred due to acute bleeding with new hematuria, yesterday with some blood in the sputum. Abnormal INR. ASA on hold. Possibly thoracentesis tomorrow. With concern for valvular vegetation. Culture after PICC line placement reportedly turned positive, although so far repeat cultures 07/18, 07/20 -ve. Was on linezolid, however, OFELIA is 4, with concern for elevated risk of treatment failure. Switched to vancomycin. OFELIA is also borderline, but little bit better at 1. He will require a 6-week course of treatment with IV antibiotics after the hospitalization, and most likely this will need to be vancomycin. Discussed w his niece. Status: Acute (3) Diverticulitis: Continue Levaquin, Flagyl. Status: Acute (4) CHF (congestive heart failure): Improving. Swelling improving in upper extremities. Renal function worsening somewhat. Lasix dose reduced to 40mg. Cont for now. Monitor I&O and renal function. In negative balance. Upper extremity edema decreasing. 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 With significant especially upper bilateral extremity edema. Lower extremity edema is slightly less. Underlying chronic kidney disease. Continues on cardiac diet with 1500 mL fluid restriction. Appreciate cardiology follow-up. Status: Acute Qualifiers: Heart failure type: systolic Heart failure chronicity: acute on chronic Qualified Code(s): I50.23 - Acute on chronic systolic (congestive) heart failure (5) Recurrent falls: Needs group home facility placement Status: Acute (6) CKD (chronic kidney disease): Overall appears stable Status: Acute Qualifiers: Chronic kidney disease stage: stage 3 (moderate) Qualified Code(s): N 18.3 - Chronic kidney disease, stage 3 (moderate) (7) Hx pulmonary embolism: Unfortunately not a good candidate for anticoagulation for a number of reasons including anemia, history of GI bleeding, fall risk, currently also noted to have coughed up a blood clot this morning, and now gross hematuria. Oral and nasal mucosa are very dry, and suspect may have had some postnasal drip. Past history of pulmonary embolism. D-dimer was checked and elevated. Secondary to this a bilateral venous duplex, right upper extremity duplex(he has some swelling of the upper extremity as well) both of which were negative SCDs for DVT prophylaxis, secondary to significant anemia and recent history of GI bleeding from duodenal ulcer Status: Chronic (8) HTN (hypertension): Blood pressures variable, somewhat soft. Change to PO metoprolol for rate control w atrial fibrillation Status: Acute (9) Troponin level elevated: Type II, secondary to congestive heart failure Status: Acute (10) Leukocytosis: Trending toward normal. COVID testing was ordered as he developed a fever and is a candidate for half-way placement. Covid 19 is negative Status: Acute Additional A&P Information Right upper extremity paresis. Exam is difficult as he is generally very weak. History of CVA likely given findings of remote ischemia on CT head, patchy areas of hypoattenuation also present in periventricular and subcortical white matter consistent with chronic small vessel ischemic disease. Continue aspirin, statin. Was not found a safe candidate for anticoagulation. Hypokalemia, replaced Anemia. Stool Hemoccult negative. Significantly iron deficient. Iron transfusion transfusion occurred on July 19. B12 and folate levels normal. Haptoglobin normal. Monitor. Currently assessment and management of hematuria as above. Past history of duodenal ulcer. Continue Protonix Atrial fibrillation, rate controlled, although appears did not tolerate carvedilol very well. Blood pressure soft, so far on 3.125 restarted dose. Monitor blood pressures. Aspirin to be held due to hematuria. Nurse is concerned that he is not following commands very well today, and with everything going on did not feel safe giving oral medications. For now we will switch over to metoprolol IV. With bacteremia, bleeding, not candidate for LATOYA closure. Hypoxemic respiratory failure. Likely secondary to CHF. Pleural effusion. On and off needing lower rate oxygen support. Deconditioning, weakness. Needs group home facility placement Attestations Medical Necessity Statement*: Continue admission for assessment measurement of gross hematuria, leading to urinary retention, assessment of MRSA bacteremia. Coding Level of Care Code Acute Petroleum Transport Driver for Tamara Wheeler Diagnoses Hematuria R31.9 Bacteremia R78.81 Diverticulitis K57.92 CHF (congestive heart failure) I50.23 Heart failure type: systolic Heart failure chronicity: acute on chronic Recurrent falls R29.6 CKD (chronic kidney disease) N18.3 Chronic kidney disease stage: stage 3 (moderate) Hx pulmonary embolism Z86.711 HTN (hypertension) I10 Troponin level elevated R79.89 Leukocytosis D72.829
[2019-07-26 15:09] VITALS: PULSE 100; O2SAT 91
[2019-07-26 15:34] LABS: LAB Peripheral Smear Sent for Review
[2019-07-26 16:00] VITALS: BP 95/51; PULSE 102; RESP 25; TEMP 36.7; O2SAT 91
--- NOTE | 2019-07-26 16:46 | PM.PN ---
Subjective Subjective: Interval history: Urine remains pink with very low flow CBI. Manual irrigation has yielded no clots. With cutting back on his CBI there is increase in redness described by the nurse taking care of the patient. He denies any pain. He is scheduled for an MRI today. Has diffuse bruising. Medications: Reviewed: Yes Vitals/I&O/Wt Last Vital Signs Temp 98.0 F 07/26/19 16:00 Pulse 102 H 07/26/19 16:00 Resp 25 H 07/26/19 16:00 BP 95/51 07/26/19 16:00 Pulse Ox 91 07/26/19 16:00 07/26/19 07/26/19 07/26/19 06:59 14:59 22:59 Intake Total 220 / 1210 135 / 135 Output Total 5100 / 9625 Balance -4880 / -8415 135 / 135 Weight last 48 hrs Weight 184 lb 4.8 oz Weight 187 lb 6.4 oz Physical Exam Const: COMMON NORMALS: no acute distress and alert; negative for patient oriented x3 Resp: EFFORT & INSPECTION: No tachypneic, No respiratory distress and No audible wheezes : OTHER: Russo catheter draining pink urine. No clots. CBI running at low rate. Neuro: COMMON NORMALS: negative for patient oriented x3 SENSORIUM/ORIENTATION: Yes alert Skin: TRAUMA: abrasion Urinary Catheter Management^: Russo: Cath Placed During This Visit: yes, but has since been removed by the nurse Reason for Continuing Indwelling Catheter: Acute Urinary Retention or Obstruction Urinary Catheter Date of Insertion: 07/15/19 Urinary Catheter Time of Insertion: 18:08 Date Urinary Catheter Removed: 07/24/19 Time Urinary Catheter Discontinued: 10:00 3-way Urethral CBI: Cath Placed During This Visit: yes Reason for Continuing Indwelling Catheter: Other Urinary Catheter Date of Insertion: 07/24/19 Urinary Catheter Time of Insertion: 10:30 Data : 07/26/19 03:40 07/26/19 03:40 Micro: Microbiology 07/24/19 10:10 Urine Culture - Final Urine,Clean Catch 07/21/19 05:07 Blood Culture - Final Blood NO GROWTH AFTER 5 DAYS 07/21/19 05:03 Blood Culture - Final Blood NO GROWTH AFTER 5 DAYS 07/19/19 04:30 Blood Culture - Final Blood Methicillin Resis Staph Aureus A&P Assessment and plan (1) Gross hematuria: I expect that the gross hematuria is likely from mild catheter trauma worsened by anticoagulation at onset. No evidence of clots in the bladder but still requiring low rate CBI. If no change by tomorrow we will consider a flexible cystoscopy at bedside. Status: Acute (2) Warfarin-induced coagulopathy: Status: Chronic Attestations Medical Necessity Statement*: See attending Coding Level of Care Code Acute Pediatric Dermatologist for Tamara Wheeler Diagnoses Gross hematuria R31.0 Warfarin-induced coagulopathy D68.32; T45.515A
[2019-07-26] MEDS: haloperidol inj 5 mg/mL INJ 1 mL 1 MG IM (18:07)
--- NOTE | 2019-07-26 19:14 | PC.NURSE ---
PATIENT HAS BECOME INCREASINGLY AGITATED THIS SHIFT. DR. VALLE IS AWARE. PATIENT IS NOW REFUSING PO MEDICATIONS. HE DOES NOT WANT STAFF TO TURN OR REPOSITION HIM. HE IS REFUSING HIS MEALS. PATIENT REFUSED HIS MRI THIS EVENING. WILL TRY TO RESCHEDULE HIS THORACENTESIS FOR ANOTHER DAY. PATIENT URINE OUTPUT WAS ONLY 300ML THIS SHIFT. DR. VALLE NOTIFIED.
--- NOTE | 2019-07-26 19:16 | PC.NURSE ---
CBI PATIENT HAD 2100ML OF IRRIGANT INFUSED. 2400ML TOTAL VOLUME REMOVED FROM CATHETER. MANUALLY IRRIGATED BLADDER POST MRI ATTEMPT. FEW SMALL CLOTS NOTED.
--- NOTE | 2019-07-26 19:33 | PM.PN ---
Subjective Subjective: Interval history: Denies any complaint Medications: Reviewed: Yes Vitals/I&O/Wt Last Vital Signs Temp 98.0 F 07/26/19 16:00 Pulse 102 H 07/26/19 16:00 Resp 25 H 07/26/19 16:00 BP 95/51 07/26/19 16:00 Pulse Ox 91 07/26/19 16:00 07/26/19 07/26/19 07/26/19 06:59 14:59 22:59 Intake Total 220 / 1210 135 / 135 Output Total 5100 / 9625 2400 / 2400 Balance -4880 / -8415 135 / 135 -2400 / -2265 Weight last 48 hrs Weight 184 lb 4.8 oz Weight 187 lb 6.4 oz Physical Exam Narrative: EXAM NARRATIVE: GENERAL: Patient is awake and oriented x3. Low in energy NECK: No jugular vein distension. HEENT: No cyanosis. No icterus. No pallor. HEART: Irregularly irregular S1 and S2. No murmur, rub or gallop. LUNGS: Decrease breath sound on the right side while clear on the left. ABDOMEN: Soft, nontender and nondistended. Positive bowel sounds. No guarding, rebound or tenderness. CENTRAL NERVOUS SYSTEM: Grossly nonfocal. EXTREMITIES: Lower extremities without edema bilaterally. Urinary Catheter Management^: Russo: Cath Placed During This Visit: yes, but has since been removed by the nurse Reason for Continuing Indwelling Catheter: Acute Urinary Retention or Obstruction Urinary Catheter Date of Insertion: 07/15/19 Urinary Catheter Time of Insertion: 18:08 Date Urinary Catheter Removed: 07/24/19 Time Urinary Catheter Discontinued: 10:00 3-way Urethral CBI: Cath Placed During This Visit: yes Reason for Continuing Indwelling Catheter: Other Urinary Catheter Date of Insertion: 07/24/19 Urinary Catheter Time of Insertion: 10:30 Data : 07/26/19 03:40 07/26/19 03:40 Micro: Microbiology 07/24/19 10:10 Urine Culture - Final Urine,Clean Catch 07/21/19 05:07 Blood Culture - Final Blood NO GROWTH AFTER 5 DAYS 07/21/19 05:03 Blood Culture - Final Blood NO GROWTH AFTER 5 DAYS 07/19/19 04:30 Blood Culture - Final Blood Methicillin Resis Staph Aureus A&P Assessment and plan (1) Sepsis: Stable. Continue current Status: Acute Qualifiers: Sepsis type: methicillin resistant Staphylococcus aureus Sepsis acute organ dysfunction status: unspecified Qualified Code(s): A41.02 - Sepsis due to Methicillin resistant Staphylococcus aureus (2) Leukocytosis: Status: Acute (3) Troponin level elevated: Most likely secondary to sepsis. Continue medical management Status: Acute (4) Recurrent falls: Status: Acute (5) CKD (chronic kidney disease): Slightly worsened we will reduce Lasix Status: Acute Qualifiers: Chronic kidney disease stage: stage 3 (moderate) Qualified Code(s): N18.3 - Chronic kidney disease, stage 3 (moderate) (6) CHF (congestive heart failure): Compensated. Continue current regimen Status: Acute Qualifiers: Heart failure type: systolic Heart failure chronicity: acute on chronic Qualified Code(s): I50.23 - Acute on chronic systolic (congestive) heart failure (7) Upper GI bleed: Status: Acute (8) Mitral regurgitation: Moderate mitral regurg. Status: Acute Qualifiers: Cardiac valve disease etiology: nonrheumatic Qualified Code(s): I34.0 - Nonrheumatic mitral (valve) insufficiency (9) Hx pulmonary embolism: Status: Chronic (10) HTN (hypertension): Better after changing Coreg Status: Acute (11) Atrial fibrillation: Rate controlled. 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 He has had upper extremity duplex of both arms which were negative for DVT. No changes today. Attestations Medical Necessity Statement*: Require continuation of hospitalization for above defined care Coding Level of Care Code Established Pt Acute Vascular Ultrasound Technologist for g Fwd Patient Type Established History Expanded Problem Focused Exam Expanded Problem Focused Medical Decision Making Moderate Complexity Diagnoses Sepsis A41.02 Sepsis type: methicillin resistant Staphylococcus aureus Sepsis acute organ dysfunction status: unspecified Leukocytosis D72.829 Troponin level elevated R79.89 Recurrent falls R29.6 CKD (chronic kidney disease) N18.3 Chronic kidney disease stage: stage 3 (moderate) CHF (congestive heart failure) I50.23 Heart failure type: systolic Heart failure chronicity: acute on chronic Upper GI bleed K92.2 Mitral regurgitation I34.0 Cardiac valve disease etiology: nonrheumatic Hx pulmonary embolism Z86.711 HTN (hypertension) I10 Atrial fibrillation I48.11 Atrial fibrillation type: longstanding persistent Pleural effusion J90 Warfarin-induced coagulopathy D68.32; T45.515A
--- NOTE | 2019-07-26 19:43 | PC.NURSE ---
Patient assessed at this time. Patient is alert to self. Patient is having conversations with the ceiling. Patient is calmer at this time. Refusing water and repositioning at this time.
[2019-07-26 20:00] VITALS: BP 93/67; PULSE 116; RESP 32; TEMP 36.6; O2SAT 90
--- NOTE | 2019-07-26 21:10 | PC.NURSE ---
was in another room passing medications so was late with chava. Patient was talking to the ceiling. Patient refused his heart pill and other medications Told me to just get on out of there and leave him be. patient was agreeable to his antibiotic. Patient refused a drink or repositioning at this time.
[2019-07-27] VITALS (19 sets, daily range): BP systolic 0–129; BP diastolic 0–85; PULSE 0–128; RESP 0–43; TEMP -17.7–36.6; O2SAT 0–92
--- NOTE | 2019-07-27 00:41 | PC.NURSE ---
Called Dr. Zhou requarding patients elevated heart rate ranging from 115 to 130bpm. Patient refused his night time medications. Patient remains alert to self. patients blood pressure is 111/73. Orders to continue to montior patient since patient is refusing water and does not want to be touched or even repostioned at this time. Patient denies pain and continues to talk to the ceiling.
[2019-07-27] MEDS: metroNIDAZOLE IV 500 MG/100 ML PREMIX 100 MG IV ×2 (02:04→09:17)
[2019-07-27 05:29] LABS: Basophils % 0.1 %; Hematocrit 28.2 % (42.0-52.0); Hemoglobin 7.5 g/dL (11.7-16.6); Lymphocytes # 0.5 10^3/uL (0.8-4.8); Lymphocytes % 5.6 %; Mean Corpuscular HGB Conc 26.6 g/dL (30.0-36.0); Mean Corpuscular Hemoglobin 26.8 pg (28.0-34.0); Mean Corpuscular Volume 100.7 fL (80-94); Mean Platelet Volume 9.6 fL (7.4-10.4); Monocytes # 0.3 10^3/uL (0.2-0.9); Monocytes % 3.4 %; Neutrophils # 8.1 10^3/uL (1.8-7.7); Neutrophils % 90.1 %; Nucleated Red Blood Cells % 0.4 %; Platelet Count 148 10^3/cmm (130-400); Red Cell Distribution Width 19.7 % (12.1-15.1)
--- NOTE | 2019-07-27 05:55 | PC.NURSE ---
End of shift: patient is still having converstations with the ceiling. Still refusing water and wont let us check him. Patient is calm but Just states leave me be or no I dont want to. Patient is alert to self and knows his age. Will continue to monitor.
[2019-07-27 06:01] LABS: Alanine Aminotransferase 15 U/L (0-41); Albumin Level 2.5 g/dL (3.5-5.2); Alkaline Phosphatase 73 IU/L (40-130); Anion Gap 28.3 (5-19); Aspartate Amino Transferase 23 U/L (0-40); Blood Urea Nitrogen 58 mg/dL (8-23); Calcium 8.8 mg/dL (8.5-10.5); Carbon Dioxide 15 mmol/L (22-29); Chloride 104 mmol/L (98-107); Globulin 3.9 g/dL (1.3-4.6); Glucose 71 mg/dL (65-115); Osmolality Calculated 293 mOsm/kg (285-295); Potassium 4.3 mmol/L (3.5-5.1); Sodium 143 mmol/L (136-145); Total Bilirubin 1.1 mg/dL (0.15-1.2); Total Protein 6.4 g/dL (6.6-8.7)
--- NOTE | 2019-07-27 07:56 | PC.NURSE ---
attempted to call Dr. Rojas to report patient changes in condition in the mailroom assistant no answer will contniue to attempt to report changes.
--- NOTE | 2019-07-27 07:57 | PC.NURSE ---
CBI: Patient had a total of 6,250 of CBI solution instilled. Patient had a total of 5,725mls out. Patient had a total of 525mls of urine output.
--- NOTE | 2019-07-27 08:53 | XR_ITS ---
WS: [id number] XR chest 1V portable [id number] REASON FOR EXAM: hypoxia FINDINGS: Increased right pleural effusion is compared to previous exam of July 20, 2019. The heart is enlarged. The degenerate changes throughout the thoracic spine. XR/XR chest 1V portable [id number] IMPRESSION: Increased right pleural effusion Cardiomegaly
--- NOTE | 2019-07-27 08:55 | ECG_ITS ---
Measurements Intervals Central Rate: 110 P: MI: 0 QRS: 26 QRSD: 89 T: 0 QT: 348 QTc: 472 ATRIAL FIBRILLATION WITH RAPID VENTRICULAR RESPONSE WITH ABERRANT CONDUCTION OR VENTRICULAR PREMATURE COMPLEXES LOW QRS VOLTAGE IN EXTREMITY LEADS Compared to ECG 07/15/2019 22:34:28 Aberrant conduction of supraventricular beat(s) now present Ventricular premature complex(es) now present Low QRS voltage now present ST (T wave) deviation no longer present Electronically Signed On 07-27-2019 17:58:39 CDT by Dottie Live M.D. [email or web address]
--- NOTE | 2019-07-27 09:05 | PC.NURSE ---
Dr. Rojas notified of patient decline in condition and low o2 saturation heated high flow and ekg orders given to dwayne RT other orders to follow.
--- NOTE | 2019-07-27 09:30 | PC.NURSE ---
DR sung at bedside for patient rounding; notified ana lilia of changes over night; instructions given to give 500ml bolus and stop furosemide
[2019-07-27] MEDS: sodium chloride 0.9% 500 ML 999 ML IV (09:51)
[2019-07-27] MEDS: metoprolol tartrate 25 mg Tablet PO (09:52)
[2019-07-27] MEDS: pantoprazole DR 40 mg Tablet PO (09:52)
[2019-07-27] MEDS: levothyroxine 50 mcg Tablet PO (09:52)
[2019-07-27 10:11] LABS: Troponin(5th) Baseline 139 ng/L (0-15)
--- NOTE | 2019-07-27 10:27 | PC.NURSE ---
reported to DR sung patient vital signs after bolus no new instruction given at this time will continue to monitor
--- NOTE | 2019-07-27 10:35 | PC.CHAP ---
Pastoral Care Encounter/Spiritual Assessment Type of Contact [] Declined sr. media manager visit [] Patient/Family/Request visit [] Outpatient visit [] Follow-up visit [] Physician referral [] Code/Alert [] Routine visit [] Staff referral [] Actively dying [] Patient sleeping [] Family support [] [] Out of room [] Palliative care [] [] Receiving care in room [] Pre-surgical visit [] Trauma [] Long length of stay [] ICU visit [] Other: Relational/Emotional Strength [] Patient feels connected with others/family/visitors/staff [] Distress [] Loneliness/isolation [] Abandonment Spirituality of Patient [] Person of Vidya [] Attends Confucianism of their Vidya [] Believes in Prayer [] Reads Bible or Oriental Orthodox materials [] There are Spiritual issues to be addressed Metal Reclamation Kettle Tender Interventions [] Prayer [] Active listening [] Non-anxious presence [] Spiritual/emotional support [] Crisis/trauma care [] Spiritual counseling [] Bereavement support [] Provided bereavement packet [] Provided Bible/devotional materials [] Provided toy/stuffed animal, coloring book to patient or family member [] Provided Communion [] Anointing/[place] [] Salvation [] Completed spiritual assessment [] Other: Impact on Illness or Injury [] Angry [] Fearful [] Anxious [] Often cries [] Exhaustion [] Unable to work [] Unable to attend yazdanism [] Unable to walk/stand [] Unable to read [] Unable to drive [] Unable to eat/drink [] Unable to sleep [] Unable to be with family [] Patient intubated [] Other: Summary Patient made to be comfortable. Metal Reclamation Kettle Tender praying for his care and comfort. Time spent with patient
--- NOTE | 2019-07-27 12:00 | PC.NURSE ---
Patient continues to decline in respiratory status RT at bedside several times adjusting High flow settings with no improvements several attempts to notified Dr Rojas with no success;Nursing and respiratory support provided Dr Rojas arrived at bedside at approximately 11 am patient continued to decline in respiratory status Family notified to come to the hospital by this nurse Patient then became agonal and stopped breathing bagging initiated with no success Dr Rojas called Time of 11:39
--- NOTE | 2019-07-27 12:02 | P.DES_ITS ---
Discharge Providers DDS Date of Admission: 07/15/19 19:20 Date Summary Completed: 07/27/19 Attending Provider at Admission: Rose Radford MD Time of : 11:39 Attending Provider at Discharge: Rusty Rojas Primary Care Provider: DO AURELIA Leahy Diagnoses Hospital Diagnoses (1) Sepsis: Qualifiers: Sepsis acute organ dysfunction status: unspecified Sepsis type: methicillin resistant Staphylococcus aureus Qualified Code(s): A41.02 - Sepsis due to Methicillin resistant Staphylococcus aureus (2) Leukocytosis: (3) Troponin level elevated: (4) Recurrent falls: (5) CKD (chronic kidney disease): Qualifiers: Chronic kidney disease stage: stage 3 (moderate) Qualified Code(s): N18.3 - Chronic kidney disease, stage 3 (moderate) (6) CHF (congestive heart failure): Problem details: Echo 07/11/2019: LVEF 50%, grade 3 diastolic dysfunction with severely elevated filling pressures. Moderate mitral valve regurgitation, moderate tricuspid valve regurgitation, no pericardial effusion Qualifiers: Heart failure chronicity: acute on chronic Heart failure type: systolic Qualified Code(s): I50.23 - Acute on chronic systolic (congestive) heart failure (7) Upper GI bleed: Problem details: - (8) Mitral regurgitation: Qualifiers: Cardiac valve disease etiology: nonrheumatic Qualified Code(s): I34.0 - Nonrheumatic mitral (valve) insufficiency (9) Hx pulmonary embolism: (10) HTN (hypertension): (11) Atrial fibrillation: Qualifiers: Atrial fibrillation type: longstanding persistent Qualified Code(s): I48.11 - Longstanding persistent atrial fibrillation (12) Pleural effusion: (13) Warfarin-induced coagulopathy: Reason for Visit Reason for Visit: CHF EXACERBATION Summary Date and Time of : Date of : 07/27/19 Time of : 11:39 Summary: Summary: 78-year-old gentleman with history of atrial fibrillation, not on anticoa gulation due to GI bleeding, duodenal ulcer, with history of diastolic and still congestive heart failure, pulmonary hypertension, history of PE, pleural effusion, lack of adherence and poor understanding of a number of his medical problems with cognitive decline, suspected dementia, was readmitted to the hospital on 07/15, after recent admission noted 07/09-07/10 for treatment of decompensated diastolic congestive heart failure. On admission with shortness of breath, found to be in acute on chronic congestive heart failure exacerbation, desaturating down to 80% on room air, also with noted increasing falls at home. He is chronic kidney disease, and on admission creatinine was found close to baseline at 2. Atrial fibrillation only on rate control. Hypoxic respiratory failure on presentation thought to be secondary to CHF for which she was treated with IV diuretics. He was treated with antibiotic as well initially due to noted fever, and concern for possible sepsis started on cefepime. Pressors were temporarily administered but weaned off. CT chest abdomen pelvis revealed finding concerning for diverticulitis. Antibiotics were changed to Levaquin and Flagyl. Due to prior history of PE, with some noted swelling of right upper extremity and lower extremities, Doppler studies were assessed without finding of DVT. He was maintained on SCD for DVT prophylaxis given history of bleeding. Blood cultures subsequently found growing MRSA. More aggressive care were considered on case by case basis due to overall clinical condition and on discussion of goals of care with family and on consensus CODE STATUS was changed to allow natural . Antibiotic regimen expanded also with linezolid, later changed to vancomycin due to borderline sensitivities. He underwent assessment by cardiology by [facility] with finding concerning for vegetation on mitral valve. Blood cultures remained positive with persistently negative culture seen on 07/20. PICC line was placed in anticipation of completion of 6 weeks of IV antibiotics. He remained clinically deconditioned throughout the stay, requiring near total assistance. Intermittent episodes of A. fib with RVR, with some stabilization, improvement after metoprolol IV and transition to p.o. dosing. Some troponin elevation was noted thought to be secondary to demand ischemia. Despite persistent atrial fibrillation was not found to be a good candidate for anticoagulation due to various bleeding problems, previously GI bleed, and while in the hospital also later developing gross hematuria. During hospitalization noted weakness of right upper extremity, with symptoms waxing and waning, as discussed with family suspected possible CVA given risk factors, and initially placed on aspirin 81 mg, although subsequently and even this had to be discontinued due to severity of hematuria. With persistent anemia, although Hemoccult negative. With treatment, including antibiotics, diuretics, he gradually showed some improvement. Blood cultures cleared up, and mental status was perhaps slightly better, although often waxing and waning, with noted episodes of confusion. With history of cognitive decline, possibly dementia it is difficult to say how much was baseline. He was at times oriented to being in the hospital, other times only knew he was in [place]. Not infrequently seen speaking to himself, sometimes perhaps to other people who were not present in the room. Prescription family he has been known to sometimes speak to himself, although some episodes of confusion worsening may have been more recent. His swelling was gradually improving, however, also renal function unfortunately gradually worsening, with continued diuresis as tolerating. Given persistent bacteremia initially, intermittent episodes of delirium superimposed on chronic cognitive decline, suspected dementia, as well as complaints of achiness and pain on repositioning, additional evaluation was attempted by MRI to exclude discitis, paraspinal abscess, as well as planned thoracentesis to exclude empyema, although these became delayed due to development of severe gross hematuria, initially urine retention, without sign of UTI or renal stone, requiring CBI and assessment by urology. Once this has stabilized and MRI was attempted, he declined the study. He subsequently got pretty upset, not wanting any additional interventions for the day, with noted worsening confusion into the evening. Goals of care were again readdressed, with family again recalling he would not want CPR or prolonged life support, and would likely not want to aggressive interventions. Given his overall condition, as well as multiple conditions which unfortunately may be additionally contributing, including CVA with ongoing risk of recurrence given inability to tolerate anticoagulation, and cannot exclude also other causes that may contribute to his episodes of delirium apart from , possibly even something like septic emboli given vegetations and bacteremia, risk of VTE, underlying CHF, mitral regurgitation, pulmonary hypertension, chronic kidney disease with acute kidney injury, and other medical condition, as well as lack of interest in complex/aggressive medical interventions, more conservative measures were continued with understanding that clinical condition may unfortunately still deteriorate. Thoracentesis planned to be attempted if he would allow, however, this morning he was noted more confused, hypoxic, also with hypotension. Lasix were held and he received a small bolus. He soon became obtunded with worsening respiratory failure despite switching to high flow oxygen. BiPAP was being prepared in route of moving to intensive care unit, however, with progressive respiratory worsening, eventually suffered respiratory subsequently PEA arrest despite short attempt of bag mask ventilation. Respiratory failure most likely secondary to the cause as mentioned above including CHF, mitral regurgitation, pleural effusion, although with episodes of worsening confusion cannot exclude aspiration as well. Family was updated on worsening condition and made their way to the hospital, arriving shortly after he passed. Time of recorded as 11:39 AM. Additional Data: Advance directives?: No Discharge Plan Discharge Patient Disposition: Condition: Prescriptions: No Action Lasix 80 mg tablet 80 mg PO DAILY Qty: 30 RF: 6 sucralfate 1 gram tablet 1 gm PO DAILY Qty: 30 RF: 6 Gas-X See Rx Instructions .ROUTE .COMPLEX PRN (Reason: Abdominal Distention) RF: 0 potassium chloride 10 mEq Tablet Extended Release 10 meq PO DAILY RF: 0 spironolactone 25 mg Tablet 12.5 mg PO DAILY RF: 0 levothyroxine 50 mcg Tablet 50 mcg PO DAILY 30 Days Qty: 30 RF: 0 pantoprazole 40 mg Tablet,Delayed Release (Dr/Ec) 40 mg PO DAILY 30 Days Qty: 30 RF: 0 carvedilol 3.125 mg Tablet 6.25 mg PO BID Qty: 0 RF: 0 multivitamin [Multiple Vitamins] Tablet 1 tab PO DAILY RF: 0 Patient Instructions: Transesophageal Echocardiogram (DC) DS Attestations Time Spent in /Discharge Care*: greater than 30 min Quality - AMI: AMI present?: No Quality - Stroke: CVA present?: Yes Symptom Onset Unknown: No Quality - VTE: VTE present?: No Deep Vein Thrombosis/Pulmonary Embolism Present on Admission: No Coding Level of Care Code Acute [employer] for [facility] Fwd Diagnoses Sepsis A41.02 Sepsis acute organ dysfunction status: unspecified Sepsis type: methicillin resistant Staphylococcus aureus Leukocytosis D72.829 Troponin level elevated R79.89 Recurrent falls R29.6 CKD (chronic kidney disease) N18.3 Chronic kidney disease stage: stage 3 (moderate) CHF (congestive heart failure) I50.23 Heart failure chronicity: acute on chronic Heart failure type: systolic Upper GI bleed K92.2 Mitral regurgitation I34.0 Cardiac valve disease etiology: nonrheumatic Hx pulmonary embolism Z86.711 HTN (hypertension) I10 Atrial fibrillation I48.11 Atrial fibrillation type: longstanding persistent Pleural effusion J90 Warfarin-induced coagulopathy D68.32; T45.515A
[2019-07-27 12:05] LABS: Troponin 5 2HR Delta -0.2 ABS# (0-10)
[2019-07-27 12:06] LABS: Troponin 5 2HR 138.8 ng/L (0-15)
== END 2019-07-27 12:00 | disposition expired | DRG 291 ==
LOC: ER 19:50 → CSU 19:50 → ICU 07-16 16:04 → CSU 07-18 15:34
PROVIDERS: Internal Medicine; Internal Medicine Cardiovascular Disease; Admitting Provider Student in an Organized Health Care Education/Training Program; Emergency Provider Emergency Medicine; PCP Internal Medicine; Visit Provider Internal Medicine
PROC: B24BZZ4 Ultrasonography of Heart with Aorta, Transesophageal (ICD-10-PCS; CPT 93312; principal; 2019-07-20 13:00)
DX: I13.0 Hypertensive heart and chronic kidney disease with heart failure and stage 1 through stage 4 chronic kidney disease, or unspecified chronic kidney disease (principal); A41.02 Sepsis due to Methicillin resistant Staphylococcus aureus; I50.23 Acute on chronic systolic (congestive) heart failure; J96.01 Acute respiratory failure with hypoxia; I48.11 Longstanding persistent atrial fibrillation; K57.92 Diverticulitis of intestine, part unspecified, without perforation or abscess without bleeding; D68.9 Coagulation defect, unspecified; I24.8 Other forms of acute ischemic heart disease; I42.9 Cardiomyopathy, unspecified; Z66 Do not resuscitate; N18.3 Chronic kidney disease, stage 3 (moderate); I34.0 Nonrheumatic mitral (valve) insufficiency; Z79.01 Long term (current) use of anticoagulants; Z91.81 History of falling; Z86.711 Personal history of pulmonary embolism; F03.90 Unspecified dementia, unspecified severity, without behavioral disturbance, psychotic disturbance, mood disturbance, and anxiety; R31.0 Gross hematuria; R33.9 Retention of urine, unspecified; T45.515A Adverse effect of anticoagulants, initial encounter; Y92.230 Patient room in hospital as the place of occurrence of the external cause; D64.9 Anemia, unspecified; N28.1 Cyst of kidney, acquired; Z20.828 Contact with and (suspected) exposure to other viral communicable diseases; I27.20 Pulmonary hypertension, unspecified; Z87.891 Personal history of nicotine dependence
CPT/HCPCS: 12345; 36415; 36430; 36569; 36592; 36600; 51702; 70450; 71045; 71250; 73020; 73030; 73120; 73521; 73522; 74176; 80048; 80051; 80053; 80202; 80500; 81001; 82274; 82607; 82728; 82746; 82810; 83010; 83540; 83550; 83605; 83735; 83880; 83883; 83986; 84145; 84155; 84165; 84439; 84443; 84481; 84484; 84550; 85014; 85018; 85025; 85049; 85378; 85384; 85610; 85730; 86850; 86900; 86920; 87040; 87077; 87086; 87186; 87205; 87635; 87641; 93005; 93010; 93306; 93312; 93320; 93325; 93970; 93971; 94660; 94664; 96372; 96375; 97110; 97116; 97140; 97161; 97162; 97166; 97167; 97530; 97535; 99283; J0692; J1630; J1756; J1940; J1956; J2001; J2020; J2704; J3370; J3430; J3490; J7040; J7050; P9058; S0030